=== PATIENT | male | born 1950 | race Caucasian/White ===

== ENCOUNTER 2025-02-16 16:17 | Inpatient (IN) | payer MEDICARE, OTHER, SELFPAY ==
--- NOTE | ~2025-02-16 | XR_ITS ---
Portable chest x-ray Comparison: None Clinical History: Elevated BNP Findings: Lungs are clear, without focal consolidation or pleural effusion. Cardiomediastinal silho uette is unremarkable. Bones and soft tissues are unremarkable. Impression: Clear lungs. Reviewed, dictated and finalized at location M. Impression: Clear lungs.
--- NOTE | ~2025-02-16 | XR_ITS ---
EXAMINATION: XR chest 1V portable DATE: 02/24/2025 08:35 INDICATION: Worsening leukocytosis TECHNIQUE: frontal view of the chest was obtained. COMPARISON: Chest radiograph dated 02/17/2025 FINDINGS: Unchanged mild linear discoid atelectasis at the lateral lower lung zones. No new airspace opacities, pulmonary edema, pleural effusion or pneumothorax. Cardiomegaly. Old healed posterior right rib frac ture. IMPRESSION: 1. Unchanged mild discoid atelectasis at the bilateral lower lung zones. No other acute cardiopulmona ry disease. Reviewed, dictated and finalized at location A. IMPRESSION: 1. Unchanged mild discoid atelectasis at the bilateral lower lung zones. No oth er acute cardiopulmonary disease.
--- NOTE | ~2025-02-16 | XR_ITS ---
AP and lateral views of the left tibia/fibula Clinical History: Ulcers Findings: No acute fracture or dislocation is seen. Osseous alignment is anatomic. There is advanced degenerative changes in the. There is mild diffuse soft tissue edema. Impression: Mild diffuse soft tissue edema. 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 No evidence for osteitis. Reviewed, dictated and finalized at [facility]. Impression: Mild diffuse soft tissue edema. 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 No evidence for osteitis.
--- NOTE | ~2025-02-16 | CT_ITS ---
EXAMINATION: CT diagnostic chest wo con DATE: 02/27/2025 09:48 INDICATION: worsening leukocytosis TECHNIQUE: Computed tomography (CT) of the chest was performed without intravenous contrast. Addition al 3D reconstructions utilizing coronal maximum intensity projection (MIP) were performed. Automated exposure control and iterative reconstruction technique were employed. The dose-length product was 82 3.50 mGy-cm. COMPARISON: None FINDINGS: Small bilateral pleural effusions with dependent atelectasis in the bilateral lower lobes. Mild disco id atelectasis in the lingula and along the right minor fissure. There are a few scattered small bila teral calcified pulmonary nodules along with calcified right hilar and mediastinal lymph nodes consis tent with old granulomatous disease. Small amount of smooth septal line thickening in the dependent l ungs consistent with minimal pulmonary edema. No pneumonia or pneumothorax. Heart size is normal. Ath erosclerotic coronary artery calcifications. Aortic valve calcification. Thoracic aorta is normal in caliber. No pathologically enlarged thoracic lymphadenopathy. Small calcified gallstones at the depen dent aspect of the otherwise normal gallbladder. 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 Severe thoracic spondylosis with bridging osteophytes at multiple levels consiste nt with diffuse idiopathic skeletal hyperostosis (DISH). IMPRESSION: 1. Minimal pulmonary edema with small bilateral pleural effusions. 2. Cholelithiasis. Reviewed, dictated and finalized at location A.
--- NOTE | ~2025-02-16 | CT_ITS ---
EXAMINATION: CT abdomen pelvis wo con DATE: 02/25/2025 23:56 INDICATION: Acute abdomen pain. TECHNIQUE: Computed tomography (CT) of the abdomen and pelvis was performed without intravenous contr ast. The dose-length product was 1389.82 mGy-cm. Automated exposure control and iterative reconstruct ion technique were employed. COMPARISON: None. FINDINGS: Lung bases unremarkable. Heart size normal. No significant pleural or pericardial effusion. Irregular liver surface, suspicious for cirrhosis. Gallstones. The spleen, pancreas, adrenal glands are unremarkable. Kidneys are atrophic. No renal stones or hydronephrosis. There is atherosclerosis o f the aorta. Enlarged prostate gland. Mild prominence of the bladder wall which is likely attributabl e to underdistention. Nonobstructive bowel gas pattern. Colonic diverticulosis without evidence for d iverticulitis. No abnormal pelvic masses or fluid collections. No free air or free fluid. Small hiata l hernia. Small accessory splenule. Small soft tissue nodules in the left gluteal region, likely inje ction granulomas. IMPRESSION: 1. No acute abdominal abnormality. 2: Cholelithiasis. Reviewed, dictated and finalized at location A.
--- NOTE | ~2025-02-16 | XR_ITS ---
AP and lateral views of the right tibia/fibula Clinical History: Ulcer Findings: No acute fracture or dislocation is seen. Osseous alignment is anatomic. Is moderate degene rative change at the knee. Diffuse soft tissue edema. Impression: Diffuse soft tissue edema. Moderate degenerative change at the knee. No evidence for osteomyelitis. Reviewed, dictated and finalized at [facility]. Impression: Diffuse soft tissue edema. Moderate degenerative change at the knee. No evidence for osteomyelitis.
--- NOTE | ~2025-02-16 | US_ITS ---
BILATERAL LOWER EXTREMITY VENOUS ULTRASOUND Ordering provider: Elsie Marley PA-C History: . ble swelling, infection . Comparison: None. FINDINGS: RIGHT LOWER EXTREMITY VEINS: --COMMON FEMORAL: Patent and free of thrombus. Normal compressibility, phasic flow and augmentation. --PROXIMAL SUPERFICIAL FEMORAL: Patent and free of thrombus. Normal compressibility, phasic flow and augmentation. --DISTAL SUPERFICIAL FEMORAL: Patent and free of thrombus. Normal compressibility, phasic flow and au gmentation. --POPLITEAL: Patent and free of thrombus. Normal compressibility, phasic flow and augmentation. --POSTERIOR TIBIAL: Patent and free of thrombus. Normal compressibility, phasic flow and augmentation . LEFT LOWER EXTREMITY VEINS: --COMMON FEMORAL: Patent and free of thrombus. Normal compressibility, phasic flow and augmentation. --PROXIMAL SUPERFICIAL FEMORAL: Patent and free of thrombus. Normal compressibility, phasic flow and augmentation. --DISTAL SUPERFICIAL FEMORAL: Patent and free of thrombus. Normal compressibility, phasic flow and au gmentation. --POPLITEAL: Patent and free of thrombus. Normal compressibility, phasic flow and augmentation. --POSTERIOR TIBIAL: Patent and free of thrombus. Normal compressibility, phasic flow and augmentation . IMPRESSION: Negative bilateral lower extremity venous US. No deep vein thrombosis. Reviewed, dictated and finalized at location A.
--- NOTE | ~2025-02-16 | US_ITS ---
EXAM: RENAL ULTRASOUND HISTORY: JOSSELIN COMPARISON: None. Reference is made to a CT examination of the abdomen and pelvis dated 02/25/2025 FINDINGS: RIGHT KIDNEY: 10 x 5.3 x 4.7 cm. The parenchyma of the right kidney is increased in echogenicity. No hydronephrosis or renal calculi. Trace perinephric free fluid. LEFT KIDNEY: 11 x 6.2 x 4.9 cm No hydronephrosis or renal calculi. The parenchyma of the left kidney is increased in echogenicity. BLADDER: Decompressed, limiting its evaluation. IMPRESSION: No hydronephrosis or renal calculi. Findings suggesting medical renal disease. Reviewed, dictated and finalized at location A.
--- NOTE | ~2025-02-16 | XR_ITS ---
XR chest 1V portable Ordering provider: Michelle Painting APRN History: 74 years Male with . spesis . Comparison: February 24, 2025 FINDINGS: MEDIASTINUM: The cardiac silhouette is slightly enlarged. LUNGS: No effusions or pneumothorax. Prominent markings with minimal opacification seen in the left p erihilar and left lower lobe area. Atelectasis versus pneumonia versus fibrotic changes are not exclu ded. OTHER: No free air under the diaphragm. IMPRESSION: Possible left basilar atelectasis versus pneumonia versus fibrotic changes. Clinical correlation and follow-up advised. Reviewed, dictated and finalized at location A. IMPRESSION: Possible left basilar atelectasis versus pneumonia versus fibrotic changes. Cli nical correlation and follow-up advised.
[2025-02-16 16:49] VITALS: BP 134/70; PULSE 60; RESP 16; TEMP 36.8; O2SAT 98
--- NOTE | 2025-02-16 16:55 | ED_ITS ---
HPI - Extremity Injury (Lower) General Chief Complaint: Skin/Abscess/Foreign Body <Elsie Marley PA-C - Last Filed: 02/16/25 17:05> Stated Complaint: Right leg infection <Elsie Marley PA-C - Last Filed: 02/16/25 17:05> Time Seen by Provider: 02/16/25 16:55 <Elsie Marley PA-C - Last Filed: 02/16/25 17:05> Focused HPI: Patient is a 74-year-old male who presents the ED via EMS with report of infection to bilateral lower extremities. Patient reports he has been dealing with infection intermittently in BLE over the past 1 year. Has had increased swelling, redness of his lower legs extending into his feet. States the feet have been increasingly red and swollen over the past couple of days. States the legs have been weeping for the past couple of weeks. Denies known fevers. Denies history of CHF. He is not on any diuretics. Denies shortness of breath. Was prescribed Augmentin by the [facility] this past week and has taken this as prescribed without improvement. GENERAL: Chronically ill appearing, elderly, obese with BMI of 30.9, and in no acute distress. HEAD: Normocephalic, atraumatic. CHEST: Clear to auscultation. ?No respiratory distress. HEART: Regular rate and rhythm.? MSK: Diffuse severe pitting edema to BLE with erythema, warmth, extending into feet bilaterally. Diffuse weeping. NEURO: ?Alert and oriented x3. Patient screened in triage and initial orders placed.? ?Additional care and disposition to be based upon?diagnostic testing and treatment. <Elsie Marley PA-C - Last Filed: 02/16/25 17:05> Source: patient <MARCOS Herrera Last Filed: 02/16/25 17:05> Mode of arrival: EMS <MARCOS Herrera Last Filed: 02/16/25 17:05> Limitations: no limitations <MARCOS Herrera Last Filed: 02/16/25 17:05> History of Present Illness HPI Narrative: Agree with the above triage note. Denies fevers, is endorsing nausea but is attributing this to his Augmentin. No vomiting. Denies chest pain or shortness of breath, abdominal pain. Patient is taking Eliquis for AFib and also history of hypertension. Denies history of diabetes. He notes he was hospitalized in [place] 1 year ago for a similar leg presentation. <Beckie Santana PA-C - Last Filed: 02/17/25 03:04> Related Data Allergies/Adverse Reactions: Allergies Allergy/AdvReac Type Severity Reaction Status Date / Time No Known Allergies Allergy Verified 02/16/25 16:19 <MARCOS Herrera Last Filed: 02/16/25 17:05> Review of Systems 2 Review of Systems: All systems reviewed & are unremarkable except as noted in HPI and below <MARCOS Rivas Last Filed: 02/17/25 03:04> Exam 2 Narrative: GENERAL: Well-appearing, well-nourished, and in no acute distress. HEAD: Normocephalic, atraumatic. EYES: EOMI. ENT: Nares clear, no rhinorrhea or epistaxis. Mucous membranes moist. NECK: Supple. CHEST: Clear to auscultation. No respiratory distress. HEART: Regular rate and rhythm. No murmur heard. Normal peripheral pulses. ABDOMEN: Soft, nontender, nondistended, normal active bowel sounds. EXTREMITIES: Extensive pitting edema to bilateral lower extremities with warmth and erythema extending from the dorsum of the feet bilaterally to the proximal tibia. To the left anterior tibia there is a 4 cm x 1 cm unstageable ulceration with tenderness. To the right calf there is a 15 cm x 5 cm unstageable ulceration with tenderness in overlying biofilm. No crepitus or vesicles. Cap refill less than 2. Sensation intact throughout. Patient able to wiggle toes without difficulty. DP pulses auscultated with Doppler. Weeping throughout lower extremities SKIN: Warm, dry, no rash. NEURO: No focal deficits. Alert and oriented x4 <MRACOS Rivas Last Filed: 02/17/25 03:04> Course Vital Signs Vital signs: Vital Signs Temperature 98.2 F 02/16/25 16:49 Pulse Rate 60 02/16/25 16:49 Respiratory Rate 16 02/16/25 16:49 Blood Pressure 134/70 02/16/25 16:49 Pulse Oximetry 98 02/16/25 16:49 Oxygen Delivery Room Air 02/16/25 16:49 Temperature 98.2 F 02/16/25 16:49 Pulse Rate 54 L 02/16/25 22:34 Respiratory Rate 14 02/16/25 22:34 Blood Pressure 126/58 L 02/16/25 22:34 Pulse Oximetry 100 02/16/25 22:34 Oxygen Delivery Room Air 02/16/25 16:49 <Elsie Marley PA-C - Last Filed: 02/16/25 17:05> Vital Signs Temperature 98.2 F 02/16/25 16:49 Pulse Rate 60 02/16/25 16:49 Respiratory Rate 16 02/16/25 16:49 Blood Pressure 134/70 02/16/25 16:49 Pulse Oximetry 98 02/16/25 16:49 Oxygen Delivery Room Air 02/16/25 16:49 Temperature 98.2 F 02/16/25 16:49 Pulse Rate 54 L 02/16/25 22:34 Respiratory Rate 14 02/16/25 22:34 Blood Pressure 126/58 L 02/16/25 22:34 Pulse Oximetry 100 02/16/25 22:34 Oxygen Delivery Room Air 02/16/25 16:49 <Beckie Santana PA-C - Last Filed: 02/17/25 03:04> MDM - Extremity Injury (Lower) MDM Narrative Medical decision making narrative: MSE by MEHNAZ in triage. <MARCOS Herrera Last Filed: 02/16/25 17:05> MSE by MEHNAZ in triage. 74-year-old male with history of AFib on Eliquis and hypertension presents to the emergency department for bilateral lower extremity infection for the past several months, worsening over the past few days. Patient initially was hospitalized with a similar situation 1 year ago in [place] where he was living at the time. Reportedly his wounds healed for several months until they reopen it became infected in September of 2024. Symptoms have progressively worsened since. Triage vitals are stable. Patient is afebrile and nontoxic appearing. Exam significant for extensive pitting edema to bilateral lower extremities with overlying warmth and erythema extending to the proximal tibia an unstable ulcerations as noted above. DP pulses are auscultated with Doppler without difficulty, sensation is intact. Lab work with leukocytosis of 21.2. CRP elevated to 16.4, ESR elevated to 45. Lactic is normal. Blood cultures are pending. Chemistries with a elevated bilirubin of 2.4, normal AST and ALT, normal alk- phos, no abdominal pain. BNP elevated at 914, no prior for comparison. Patient denies history of CHF. Denies chest pain or shortness of breath. Lung sounds are clear, O2 stable. Lasix provided in ED. UA with trace ketones, no UTI. Bilateral venous duplex ultrasounds are negative for DVT. Bilateral tib/fib xrays show no subcutaneous emphysema, no cortical degradation concerning for osteomyelitis. Patient was updated on results. Plan to admit for IV antibiotics for cellulitis and concern for new onset CHF. Patient was started on vancomycin, cefepime and Flagyl in the ED. discussed case with Dr. Crow, who agrees to admission. Consult for wound care placed. <Beckie Santana PA-C - Last Filed: 02/17/25 03:04> Lab Data Result diagrams: 02/16/25 17:14 02/17/25 00:52 <Elsie Marley PA-C - Last Filed: 02/16/25 17:05> Labs: Lab Results 02/16/25 02/16/25 02/16/25 Range/Units 17:13 17:14 17:14 WBC 21.2 H (4.5-10.0) K/mm3 RBC 5.20 (4.6-6.20) M/mm3 Hgb 16.7 (14.0-18.0) g/dL Hct 51.1 (42.0-52.0) % MCV 98.3 (80-100) fl MCH 32.1 (26-34) pg MCHC 32.7 (32-36) g/dl RDW 13.7 (11.5-14.5) % Plt Count 202 (150-375) k/mm3 MPV 10.7 H (7.4-10.4) fl Immature Gran % (Auto) 0.5 (0-0.5) % Neut % (Auto) 83.3 H (45.5-73.1) % Lymph % (Auto) 6.3 L (18.3-44.2) % [place] % (Auto) 7.1 (2.6-8.5) % Eos % (Auto) 2.4 (0-4.4) % Baso % (Auto) 0.4 (0.2-1.2) % Lymph # (Auto) 1.33 (0.9-3.2) K/mm3 [place] # (Auto) 1.5 H (0.1-0.6) K/mm3 Eos # (Auto) 0.5 H (0-0.3) K/mm3 Baso # (Auto) 0.1 (0.0-0.1) K/mm3 Abs Immat Gran (auto) 0.11 H (0.00-0.031) K/mm3 Absolute Neuts (auto) 17.7 H (1.3-6.7) K/mm3 Absolute Nucleated RBC 0.000 (0.0-0.012) K/mm3 Nucleated RBC % 0.0 (0.0-0.2) % ESR 45 H (0-20) mm/hr PT 19.6 H (11.1-14.7) Seconds INR 1.6 APTT Cancelled 30.1 Sodium 135 L (137-145) mmol/L Potassium 4.0 (3.4-5.0) mmol/L Chloride 99 (98-107) mmol/L Carbon Dioxide 27 (22-30) mmol/L Anion Gap 9 (4-12) mmol/L BUN 36 H (9-20) mg/dL Creatinine 1.17 (0.7-1.3) mg/dL Estim Creat Clear Calc 58 ml/min Estimated GFR > 60 (59 - ) Glucose 106 (65-110) mg/dL Lactic Acid 1.4 (0.7-2.0) mmol/L Calcium 9.4 (8.4-10.2) mg/dL Total Bilirubin 2.4 H (0.2-1.3) mg/dL AST 22 (17-59) U/L ALT 20 (6-50) U/L Alkaline Phosphatase 107 (38-126) U/L C-Reactive Protein Cancelled NT-Pro-B Natriuret Pep (19.9-100) pg/mL Total Protein (6.3-8.2) g/dL Albumin (3.5-5.1) g/dL Urine Color (Yellow) Urine Appearance (Clear) Urine pH (5.0-9.0) Ur Specific [place] (1.001-1.035) Urine Protein (Negative) mg/dL Urine Glucose (UA) (Negative) mg/dL Urine Ketones (Negative) mg/dL Ur Blood (Man) (Negative) Urine Nitrate (Negative) Urine Bilirubin (Negative) Urine Urobilinogen (<2.0) mg/dL Leukocyte Esterase Rfl (Negative) NOELLE/UL Urine RBC (0-2) /hpf Urine WBC (0-3) /hpf Ur Squamous Epith Cells (Few) /hpf Urine Bacteria /hpf Urine Casts 02/16/25 02/16/25 02/17/25 Range/Units 17:14 22:31 00:52 WBC (4.5-10.0) K/mm3 RBC (4.6-6.20) M/mm3 Hgb (14.0-18.0) g/dL Hct (42.0-52.0) % MCV (80-100) fl MCH (26-34) pg MCHC (32-36) g/dl RDW (11.5-14.5) % Plt Count (150-375) k/mm3 MPV (7.4-10.4) fl Immature Gran % (Auto) (0-0.5) % Neut % (Auto) (45.5-73.1) % Lymph % (Auto) (18.3-44.2) % [place] % (Auto) (2.6-8.5) % Eos % (Auto) (0-4.4) % Baso % (Auto) (0.2-1.2) % Lymph # (Auto) (0.9-3.2) K/mm3 [place] # (Auto) (0.1-0.6) K/mm3 Eos # (Auto) (0-0.3) K/mm3 Baso # (Auto) (0.0-0.1) K/mm3 Abs Immat Gran (auto) (0.00-0.031) K/mm3 Absolute Neuts (auto) (1.3-6.7) K/mm3 Absolute Nucleated RBC (0.0-0.012) K/mm3 Nucleated RBC % (0.0-0.2) % ESR (0-20) mm/hr PT (11.1-14.7) Seconds INR APTT Sodium (137-145) mmol/L Potassium (3.4-5.0) mmol/L Chloride (98-107) mmol/L Carbon Dioxide (22-30) mmol/L Anion Gap (4-12) mmol/L BUN (9-20) mg/dL Creatinine 1.03 (0.7-1.3) mg/dL Estim Creat Clear Calc 65 ml/min Estimated GFR > 60 (59 - ) Glucose (65-110) mg/dL Lactic Acid (0.7-2.0) mmol/L Calcium (8.4-10.2) mg/dL Total Bilirubin (0.2-1.3) mg/dL AST (17-59) U/L ALT (6-50) U/L Alkaline Phosphatase (38-126) U/L C-Reactive Protein 16.4 H NT-Pro-B Natriuret Pep 914 H (19.9-100) pg/mL Total Protein 8.0 (6.3-8.2) g/dL Albumin 4.0 (3.5-5.1) g/dL Urine Color Dark yellow (Yellow) Urine Appearance Clear (Clear) Urine pH 5.5 (5.0-9.0) Ur Specific [place] 1.029 (1.001-1.035) Urine Protein Trace (Negative) mg/dL Urine Glucose (UA) Negative (Negative) mg/dL Urine Ketones Trace H (Negative) mg/dL Ur Blood (Man) Negative (Negative) Urine Nitrate Negative (Negative) Urine Bilirubin Negative (Negative) Urine Urobilinogen 1.0 (<2.0) mg/dL Leukocyte Esterase Rfl Negative (Negative) NOELLE/UL Urine RBC 0-2 (0-2) /hpf Urine WBC 0-5 (0-3) /hpf Ur Squamous Epith Cells None seen (Few) /hpf Urine Bacteria None seen /hpf Urine Casts 0-2 02/17/25 Range/Units 00:53 WBC (4.5-10.0) K/mm3 RBC (4.6-6.20) M/mm3 Hgb (14.0-18.0) g/dL Hct (42.0-52.0) % MCV (80-100) fl MCH (26-34) pg MCHC (32-36) g/dl RDW (11.5-14.5) % Plt Count (150-375) k/mm3 MPV (7.4-10.4) fl Immature Gran % (Auto) (0-0.5) % Neut % (Auto) (45.5-73.1) % Lymph % (Auto) (18.3-44.2) % [place] % (Auto) (2.6-8.5) % Eos % (Auto) (0-4.4) % Baso % (Auto) (0.2-1.2) % Lymph # (Auto) (0.9-3.2) K/mm3 [place] # (Auto) (0.1-0.6) K/mm3 Eos # (Auto) (0-0.3) K/mm3 Baso # (Auto) (0.0-0.1) K/mm3 Abs Immat Gran (auto) (0.00-0.031) K/mm3 Absolute Neuts (auto) (1.3-6.7) K/mm3 Absolute Nucleated RBC (0.0-0.012) K/mm3 Nucleated RBC % (0.0-0.2) % ESR (0-20) mm/hr PT (11.1-14.7) Seconds INR APTT Sodium (137-145) mmol/L Potassium (3.4-5.0) mmol/L Chloride (98-107) mmol/L Carbon Dioxide (22-30) mmol/L Anion Gap (4-12) mmol/L BUN (9-20) mg/dL Creatinine (0.7-1.3) mg/dL Estim Creat Clear Calc ml/min Estimated GFR (59 - ) Glucose (65-110) mg/dL Lactic Acid 1.3 (0.7-2.0) mmol/L Calcium (8.4-10.2) mg/dL Total Bilirubin (0.2-1.3) mg/dL AST (17-59) U/L ALT (6-50) U/L Alkaline Phosphatase (38-126) U/L C-Reactive Protein 16.4 H NT-Pro-B Natriuret Pep (19.9-100) pg/mL Total Protein (6.3-8.2) g/dL Albumin (3.5-5.1) g/dL Urine Color (Yellow) Urine Appearance (Clear) Urine pH (5.0-9.0) Ur Specific [place] (1.001-1.035) Urine Protein (Negative) mg/dL Urine Glucose (UA) (Negative) mg/dL Urine Ketones (Negative) mg/dL Ur Blood (Man) (Negative) Urine Nitrate (Negative) Urine Bilirubin (Negative) Urine Urobilinogen (<2.0) mg/dL Leukocyte Esterase Rfl (Negative) NOELLE/UL Urine RBC (0-2) /hpf Urine WBC (0-3) /hpf Ur Squamous Epith Cells (Few) /hpf Urine Bacteria /hpf Urine Casts <Elsie Marley PA-C - Last Filed: 02/16/25 17:05> Lab Results 02/16/25 02/16/25 02/16/25 Range/Units 17:13 17:14 17:14 WBC 21.2 H (4.5-10.0) K/mm3 RBC 5.20 (4.6-6.20) M/mm3 Hgb 16.7 (14.0-18.0) g/dL Hct 51.1 (42.0-52.0) % MCV 98.3 (80-100) fl MCH 32.1 (26-34) pg MCHC 32.7 (32-36) g/dl RDW 13.7 (11.5-14.5) % Plt Count 202 (150-375) k/mm3 MPV 10.7 H (7.4-10.4) fl Immature Gran % (Auto) 0.5 (0-0.5) % Neut % (Auto) 83.3 H (45.5-73.1) % Lymph % (Auto) 6.3 L (18.3-44.2) % [place] % (Auto) 7.1 (2.6-8.5) % Eos % (Auto) 2.4 (0-4.4) % Baso % (Auto) 0.4 (0.2-1.2) % Lymph # (Auto) 1.33 (0.9-3.2) K/mm3 [place] # (Auto) 1.5 H (0.1-0.6) K/mm3 Eos # (Auto) 0.5 H (0-0.3) K/mm3 Baso # (Auto) 0.1 (0.0-0.1) K/mm3 Abs Immat Gran (auto) 0.11 H (0.00-0.031) K/mm3 Absolute Neuts (auto) 17.7 H (1.3-6.7) K/mm3 Absolute Nucleated RBC 0.000 (0.0-0.012) K/mm3 Nucleated RBC % 0.0 (0.0-0.2) % ESR 45 H (0-20) mm/hr PT 19.6 H (11.1-14.7) Seconds INR 1.6 APTT Cancelled 30.1 Sodium 135 L (137-145) mmol/L Potassium 4.0 (3.4-5.0) mmol/L Chloride 99 (98-107) mmol/L Carbon Dioxide 27 (22-30) mmol/L Anion Gap 9 (4-12) mmol/L BUN 36 H (9-20) mg/dL Creatinine 1.17 (0.7-1.3) mg/dL Estim Creat Clear Calc 58 ml/min Estimated GFR > 60 (59 - ) Glucose 106 (65-110) mg/dL Lactic Acid 1.4 (0.7-2.0) mmol/L Calcium 9.4 (8.4-10.2) mg/dL Total Bilirubin 2.4 H (0.2-1.3) mg/dL AST 22 (17-59) U/L ALT 20 (6-50) U/L Alkaline Phosphatase 107 (38-126) U/L C-Reactive Protein Cancelled NT-Pro-B Natriuret Pep (19.9-100) pg/mL Total Protein (6.3-8.2) g/dL Albumin (3.5-5.1) g/dL Urine Color (Yellow) Urine Appearance (Clear) Urine pH (5.0-9.0) Ur Specific [place] (1.001-1.035) Urine Protein (Negative) mg/dL Urine Glucose (UA) (Negative) mg/dL Urine Ketones (Negative) mg/dL Ur Blood (Man) (Negative) Urine Nitrate (Negative) Urine Bilirubin (Negative) Urine Urobilinogen (<2.0) mg/dL Leukocyte Esterase Rfl (Negative) NOELLE/UL Urine RBC (0-2) /hpf Urine WBC (0-3) /hpf Ur Squamous Epith Cells (Few) /hpf Urine Bacteria /hpf Urine Casts 02/16/25 02/16/25 02/17/25 Range/Units 17:14 22:31 00:52 WBC (4.5-10.0) K/mm3 RBC (4.6-6.20) M/mm3 Hgb (14.0-18.0) g/dL Hct (42.0-52.0) % MCV (80-100) fl MCH (26-34) pg MCHC (32-36) g/dl RDW (11.5-14.5) % Plt Count (150-375) k/mm3 MPV (7.4-10.4) fl Immature Gran % (Auto) (0-0.5) % Neut % (Auto) (45.5-73.1) % Lymph % (Auto) (18.3-44.2) % [place] % (Auto) (2.6-8.5) % Eos % (Auto) (0-4.4) % Baso % (Auto) (0.2-1.2) % Lymph # (Auto) (0.9-3.2) K/mm3 [place] # (Auto) (0.1-0.6) K/mm3 Eos # (Auto) (0-0.3) K/mm3 Baso # (Auto) (0.0-0.1) K/mm3 Abs Immat Gran (auto) (0.00-0.031) K/mm3 Absolute Neuts (auto) (1.3-6.7) K/mm3 Absolute Nucleated RBC (0.0-0.012) K/mm3 Nucleated RBC % (0.0-0.2) % ESR (0-20) mm/hr PT (11.1-14.7) Seconds INR APTT Sodium (137-145) mmol/L Potassium (3.4-5.0) mmol/L Chloride (98-107) mmol/L Carbon Dioxide (22-30) mmol/L Anion Gap (4-12) mmol/L BUN (9-20) mg/dL Creatinine 1.03 (0.7-1.3) mg/dL Estim Creat Clear Calc 65 ml/min Estimated GFR > 60 (59 - ) Glucose (65-110) mg/dL Lactic Acid (0.7-2.0) mmol/L Calcium (8.4-10.2) mg/dL Total Bilirubin (0.2-1.3) mg/dL AST (17-59) U/L ALT (6-50) U/L Alkaline Phosphatase (38-126) U/L C-Reactive Protein 16.4 H NT-Pro-B Natriuret Pep 914 H (19.9-100) pg/mL Total Protein 8.0 (6.3-8.2) g/dL Albumin 4.0 (3.5-5.1) g/dL Urine Color Dark yellow (Yellow) Urine Appearance Clear (Clear) Urine pH 5.5 (5.0-9.0) Ur Specific [place] 1.029 (1.001-1.035) Urine Protein Trace (Negative) mg/dL Urine Glucose (UA) Negative (Negative) mg/dL Urine Ketones Trace H (Negative) mg/dL Ur Blood (Man) Negative (Negative) Urine Nitrate Negative (Negative) Urine Bilirubin Negative (Negative) Urine Urobilinogen 1.0 (<2.0) mg/dL Leukocyte Esterase Rfl Negative (Negative) NOELLE/UL Urine RBC 0-2 (0-2) /hpf Urine WBC 0-5 (0-3) /hpf Ur Squamous Epith Cells None seen (Few) /hpf Urine Bacteria None seen /hpf Urine Casts 0-2 02/17/25 Range/Units 00:53 WBC (4.5-10.0) K/mm3 RBC (4.6-6.20) M/mm3 Hgb (14.0-18.0) g/dL Hct (42.0-52.0) % MCV (80-100) fl MCH (26-34) pg MCHC (32-36) g/dl RDW (11.5-14.5) % Plt Count (150-375) k/mm3 MPV (7.4-10.4) fl Immature Gran % (Auto) (0-0.5) % Neut % (Auto) (45.5-73.1) % Lymph % (Auto) (18.3-44.2) % [place] % (Auto) (2.6-8.5) % Eos % (Auto) (0-4.4) % Baso % (Auto) (0.2-1.2) % Lymph # (Auto) (0.9-3.2) K/mm3 [place] # (Auto) (0.1-0.6) K/mm3 Eos # (Auto) (0-0.3) K/mm3 Baso # (Auto) (0.0-0.1) K/mm3 Abs Immat Gran (auto) (0.00-0.031) K/mm3 Absolute Neuts (auto) (1.3-6.7) K/mm3 Absolute Nucleated RBC (0.0-0.012) K/mm3 Nucleated RBC % (0.0-0.2) % ESR (0-20) mm/hr PT (11.1-14.7) Seconds INR APTT Sodium (137-145) mmol/L Potassium (3.4-5.0) mmol/L Chloride (98-107) mmol/L Carbon Dioxide (22-30) mmol/L Anion Gap (4-12) mmol/L BUN (9-20) mg/dL Creatinine (0.7-1.3) mg/dL Estim Creat Clear Calc ml/min Estimated GFR (59 - ) Glucose (65-110) mg/dL Lactic Acid 1.3 (0.7-2.0) mmol/L Calcium (8.4-10.2) mg/dL Total Bilirubin (0.2-1.3) mg/dL AST (17-59) U/L ALT (6-50) U/L Alkaline Phosphatase (38-126) U/L C-Reactive Protein 16.4 H NT-Pro-B Natriuret Pep (19.9-100) pg/mL Total Protein (6.3-8.2) g/dL Albumin (3.5-5.1) g/dL Urine Color (Yellow) Urine Appearance (Clear) Urine pH (5.0-9.0) Ur Specific [place] (1.001-1.035) Urine Protein (Negative) mg/dL Urine Glucose (UA) (Negative) mg/dL Urine Ketones (Negative) mg/dL Ur Blood (Man) (Negative) Urine Nitrate (Negative) Urine Bilirubin (Negative) Urine Urobilinogen (<2.0) mg/dL Leukocyte Esterase Rfl (Negative) NOELLE/UL Urine RBC (0-2) /hpf Urine WBC (0-3) /hpf Ur Squamous Epith Cells (Few) /hpf Urine Bacteria /hpf Urine Casts <Beckie Santana PA-C - Last Filed: 02/17/25 03:04> Discharge Plan Discharge Clinical Impression: Cellulitis, Bilateral edema of lower extremity <MARCOS Herrera Last Filed: 02/16/25 17:05> Patient Disposition: Still a Patient <MARCOS Herrera Last Filed: 02/16/25 17:05> Condition: Stable <MARCOS Herrera Last Filed: 02/16/25 17:05> Patient Language: Greenlandic <MARCOS Herrera Last Filed: 02/16/25 17:05> Follow-up/Referrals: PHYSICIAN NOT ON STAFF,NONSTAFF [Primary Care Provider] - <MARCOS Herrera Last Filed: 02/16/25 17:05>
[2025-02-16 17:22] LABS: Basophils Absolute Auto 0.1 K/mm3 (0.0-0.1); Basophils Percent Auto 0.4 % (0.2-1.2); Eosinophils Absolute Auto 0.5 K/mm3 (0-0.3); Eosinophils Percent Auto 2.4 % (0-4.4); Hematocrit 51.1 % (42.0-52.0); Hemoglobin 16.7 g/dL (14.0-18.0); Immature Granulocyte Absolute 0.11 K/mm3 (0.00-0.031); Immature Granulocyte Percent A 0.5 % (0-0.5); Lymphocytes Absolute Auto 1.33 K/mm3 (0.9-3.2); Lymphocytes Percent Auto 6.3 % (18.3-44.2); Mean Corpuscular HGB Conc 32.7 g/dl (32-36); Mean Corpuscular Hemoglobin 32.1 pg (26-34); Mean Corpuscular Volume 98.3 fl (80-100); Mean Platelet Volume 10.7 fl (7.4-10.4); Monocytes Absolute Auto 1.5 K/mm3 (0.1-0.6); Monocytes Percent Auto 7.1 % (2.6-8.5); Neutrophils Absolute Auto 17.7 K/mm3 (1.3-6.7); Neutrophils Percent Auto 83.3 % (45.5-73.1); Platelet Count Result 202 k/mm3 (150-375); Red Cell Distribution Width 13.7 % (11.5-14.5); White Blood Count 21.2 K/mm3 (4.5-10.0)
[2025-02-16 17:34] LABS: INR 1.6; Lactic Acid Reflex 1.4 mmol/L (0.7-2.0); Partial Thromboplastin Time 30.1 Seconds (22.3-36.8); Prothrombin Time 19.6 Seconds (11.1-14.7)
[2025-02-16 17:45] LABS: NT Pro B Type Natriuretic Pept 914 pg/mL (19.9-100)
[2025-02-16 17:50] LABS: Alanine Aminotransferase 20 U/L (6-50); Alkaline Phosphatase 107 U/L (38-126); Anion Gap 9 mmol/L (4-12); Aspartate Amino Transferase 22 U/L (17-59); Bilirubin,Total 2.4 mg/dL (0.2-1.3); Blood Urea Nitrogen 36 mg/dL (9-20); Calcium 9.4 mg/dL (8.4-10.2); Carbon Dioxide 27 mmol/L (22-30); Chloride 99 mmol/L (98-107); Estimated CRCL calculation 58 ml/min; Estimated Glomerular Filt Rate > 60; Glucose 106 mg/dL (65-110); Sodium 135 mmol/L (137-145)
[2025-02-16 17:59] LABS: CRP 16.4 mg/dL (<1.0)
[2025-02-16 22:34] VITALS: BP 126/58; PULSE 54; RESP 14; O2SAT 100
[2025-02-16 22:47] LABS: Add Urine Microscopic? YES; Appearance Urine Clear (Clear); Bacteria Urine None Seen /hpf; Bilirubin Urine Negative (Negative); Blood Urine Negative (Negative); Color Urine Dark Yellow (Yellow); Glucose Urine UA Negative (Negative); Ketones Urine Trace mg/dL (Negative); Leukocyte Esterase Ur Negative LEU/UL (Negative); Nitrate Urine Negative (Negative); Non Pathogenic Casts 0-2; Protein Urine Trace mg/dL (Negative); RBC Urine 0-2 /hpf (0-2); Specific Grav Ur 1.029 (1.001-1.035); Squamous Epithelial Cell Urine None Seen /hpf (Few); WBC Urine 0-5 /hpf (0-3); pH Urine 5.5 (5.0-9.0)
--- OUTSIDE RECORDS SUMMARY | 2025-02-16 23:27 | XMS_ITS | Clinical Summary ---
Author Organization [facility] Address [address] [place] [id number] Care Team Providers Care Fisher Crab Name Role Phone Unavailable Primary Care Provider Unavailabl e Social History Tobacco Use Types Packs/Day Years Used Date Smoking Tobacco: Never Assessed Sex and Gender Information Value Date Recorded Sex Assigned at Not on file Legal Sex Male 8:21 PM CDT Gender Identity Not on file Sexual Orientation Not on file Plan of Treatment Health Maintenance Due Date Last Done Comments Colorectal Cancer Screening Colonoscopy (10 Years) 1950 Hepatitis C 1968 DTaP, Tdap and Td Vaccines ( 1 - Tdap) 1969 Zoster Vaccines (1 of 2) 2000 Pneumococcal Vaccine: 65+ Ye ars (1 of 1 - PCV) 2015 COVID-19 Vaccine ( - 2023-2 5 season) 2024 RSV Immunization or 60+ Years (1 - 1-dose 75+ series) 2025 Meningococcal B Vaccine Aged Out No l onger eligible based on patient's age to complete this topic Meningococcal Vaccine Aged Out No christel aimee eligible based on patient's age to complete this topic RSV Immunizations Under 20 Months Aged Out No longer eligible based on patient's age to complete this topic
[2025-02-16] MEDS: MORPHINE SULFATE (*CRX) 2 MG/ML INJ IV PUSH (23:30)
[2025-02-16] MEDS: ONDANSETRON INJ 4 MG/2 ML VIAL IV PUSH (23:30)
[2025-02-17 00:44] LABS: Erythrocyte Sedimentation Rate 45 mm/hr (0-20)
[2025-02-17 01:07] LABS: Estimated CRCL calculation 65 ml/min; Estimated Glomerular Filt Rate > 60
[2025-02-17 01:24] LABS: CRP 16.4 mg/dL (<1.0)
[2025-02-17 01:30] LABS: Lactic Acid Reflex 1.3 mmol/L (0.7-2.0)
--- NOTE | 2025-02-17 01:41 | ECG_ITS ---
Test Date: 2025-02-17 01:41:06 Measurements Intervals [place] Rate: 54 P: 0 MN: 0 QRS: -10 QRSD: 132 T: 12 QT: 428 QTc: 406 Interpretive Statements JUNCTIONAL ESCAPE RHYTHM RIGHT BUNDLE BRANCH BLOCK CONSIDER INFERIOR INFARCT, AGE INDETERMINATE BASELINE ARTIFACT- I, II, III, AVR, AVL, AVF, V1 ABNORMAL ECG No previous ECG available for comparison Electronically Signed On 02-17-2025 08:24:22 CDT by Guanaco Valencia D.O.
[2025-02-17] MEDS: MORPHINE SULFATE (*CRX) 2 MG/ML INJ IV PUSH ×3 (01:52→13:15)
[2025-02-17] MEDS: VANCOMYCIN 1,250 MG/NS 250 ML 1,250 MG/250 ML BAG 166.67 MG IVPB ×2 (02:00→04:55)
[2025-02-17] MEDS: FUROSEMIDE INJ 40 MG/4 ML VIAL 20 MG IV PUSH (03:27)
[2025-02-17] MEDS: CEFEPIME 2 GM/NS 50 ML 2 GM/50 ML BAG IVPB ×2 (03:27→13:19)
[2025-02-17] MEDS: ONDANSETRON INJ 4 MG/2 ML VIAL IV PUSH (04:26)
--- NOTE | 2025-02-17 04:49 | ADMGEN ---
This patient, Curtis Holbrook, was admitted to Medical Room 255-. Patient/family oriented to hospital policies and general routines including ID bracelet, bed and alarms, visiting hours, pain management, procedures, bathroom and other care routines, personal items, smoking policy, room service/diet, and visiting hours. Information on how to activate the Rapid Response Team has been discussed. Patient/Family are encouraged to report perceived risks to care and to ask questions if they do not understand what they are told or what they should do.
--- NOTE | 2025-02-17 04:59 | PC.NURSE ---
Pt refused to have legs elevated. Pt legs swollen and weeping. Pt is alert and oriented. Pt received medication prescriptions in [place] and has not had many most of his medications filled since last year. Pt received his medication from the [place] mail order.
[2025-02-17 05:04] VITALS: BP 136/61; PULSE 55; RESP 20; TEMP 36.7; O2SAT 100
[2025-02-17] MEDS: metroNIDAZOLE 500 MG/ISO 100ML 500 MG/100 ML BAG 100 MG IVPB ×2 (06:41→13:50)
--- NOTE | 2025-02-17 10:53 | PM.IMHP ---
H&P: HPI History of Present Illness Date/Time: 02/17/25 10:53 <Suraj AppiahArley Carl, Student - Last Filed: 02/17/25 15:43> Chief Complaint: Bilateral Lower Extremity Infection <Suraj Henry, Student - Last Filed: 02/17/25 15:43> Narrative: Patient is a 74-year-old male with history of atrial fibrillation treated with Eliquis and hypertension presenting with bilateral lower extremity swelling and concern for infection related to open wound. Worsening began a few days ago with increased pain, redness, swelling, serous drainage, and decreased appetite. Original wound December 2023 to posterior portion of right calf and attempted self treatment with Neosporin and peroxide. Condition slowly worsened and he was treated at an emergency room with topical iodine and packing. Wound reportedly healed but reopened and became infected late last year. He thinks the wound to the left anterior leg occurred due to scratching it with his toenail. States drainage has always been clear yellow. Bilateral leg swelling began early this year, and patient reported he hasn't received primary medical care recently due to lack of access with clinic availability and transportation concerns. Augmentin was reportedly prescribed by the [facility] last week and was taken with no improvement. Legs have been weeping for the past couple of weeks. Ambulation and activity has been difficult due to bilateral knee degenerative joint disease. Denies chest pain, fevers, chills, difficulty breathing, headache, dizziness, fatigue, paresthesias, changes in bowel or bladder habits, and other recent infection. Notable findings on presentation labs: Lab work with leukocytosis of 21.2. CRP elevated to 16.4, ESR elevated to 45. Lactic is normal. Blood cultures are pending Chemistries with a elevated bilirubin of 2.4, normal AST and ALT, normal alk-phos, no abdominal pain BNP elevated at 914, no prior for comparison. Patient denies history of CHF. Denies chest pain or shortness of breath. Lung sounds are clear, O2 stable. Lasix provided in ED UA with trace ketones, no UTI Bilateral venous duplex ultrasounds are negative for DVT Bilateral tib/fib Xrays show no subcutaneous emphysema, no cortical degradation concerning for osteomyelitis. Severe osteoarthritis EKG: RBBB, junctional escape rhythm, potential previous inferior infarct <Suraj AppiahArley Carl, Student - Last Filed: 02/17/25 15:43> Patient is a 74-year-old male with history of atrial fibrillation treated with Eliquis and hypertension presenting with bilateral lower extremity swelling and concern for infection related to open wound. Worsening began a few days ago with increased pain, redness, swelling, serous drainage, and decreased appetite. Original wound December 2023 to posterior portion of right calf and attempted self treatment with Neosporin and peroxide. Condition slowly worsened and he was treated at an emergency room with topical iodine and packing. Wound reportedly healed but reopened and became infected late last year. He thinks the wound to the left anterior leg occurred due to scratching it with his toenail. States drainage has always been clear yellow. Bilateral leg swelling began early this year, and patient reported he hasn't received primary medical care recently due to lack of access with clinic availability and transportation concerns. Augmentin was reportedly prescribed by the [facility] last week and was taken with no improvement. Legs have been weeping for the past couple of weeks. Ambulation and activity has been difficult due to bilateral knee degenerative joint disease. Denies chest pain, fevers, chills, difficulty breathing, headache, dizziness, fatigue, paresthesias, changes in bowel or bladder habits, and other recent infection. Notable findings on presentation labs: Lab work with leukocytosis of 21.2. CRP elevated to 16.4, ESR elevated to 45. Lactic is normal. Blood cultures are pending Chemistries with a elevated bilirubin of 2.4, normal AST and ALT, normal alk-phos, no abdominal pain BNP elevated at 914, no prior for comparison. Patient denies history of CHF. Denies chest pain or shortness of breath. Lung sounds are clear, O2 stable. Lasix provided in ED UA with trace ketones, no UTI Bilateral venous duplex ultrasounds are negative for DVT Bilateral tib/fib Xrays show no subcutaneous emphysema, no cortical degradation concerning for osteomyelitis. Severe osteoarthritis EKG: RBBB, junctional escape rhythm, potential previous inferior infarct Pt is seen and examined. PT is argumentative with staff. Threatens to leave AMA with any kind of instruction or directions that incontinence him. Nursing was frida to apply Acewrap to debbi legs. Pt is full code. <Harleen Perez, WATCH CASE POLISHER - Last Filed: 02/17/25 15:47> Review of Systems Review of Systems: All systems reviewed & are unremarkable except as noted in HPI and below <Harleen Perez WATCH CASE POLISHER - Last Filed: 02/17/25 15:47> [facility] Past Medical History Medical History: Medical History (Updated 02/17/25 @ 13:36 by TRINA Diaz) Degenerative joint disease of knee Hypertension <Suraj Henry Student - Last Filed: 02/17/25 15:43> Surgical History Surgical History: Surgical History History of hernia repair <Suraj Henry Student - Last Filed: 02/17/25 15:43> Family History Family History: Family History Father Diabetes mellitus Hypertension Sibling Diabetes mellitus Mother Hypertension <Suraj Henry Student - Last Filed: 02/17/25 15:43> Social History Social History: Social History Smoking status: Never smoker Alcohol intake: never Substance use: never Substance use type: does not use Do You Feel Safe in your Home?: Yes Lack of Transportation: No Lack of Food: Never True Current Housing: I Have Housing Concerned About Future Housing: No Difficulty Paying Gas/Electric Bills: No Difficulty Paying for Meds: No Currently Unemployed: No Education: High School Diploma/GED Difficulty w/ Childcare or Family Care: No Living arrangements: alone Occupation/Education: retired Spiritual care concerns: No <Suraj Henry Student - Last Filed: 02/17/25 15:43> Comments Expresses concern about transportation with current mobility <Suraj W. Henry, Student - Last Filed: 02/17/25 15:43> Meds Home Medications and Allergies Home medications: Home Medications ?Medication ?Instructions ?Recorded ?Confirmed ?Type apixaban 5 mg tablet (Eliquis) 5 mg PO BID 02/17/25 02/17/25 History <Suraj Henry, Student - Last Filed: 02/17/25 15:43> Allergies/Adverse reactions: Allergies Allergy/AdvReac Type Severity Reaction Status Date / Time No Known Allergies Allergy Verified 02/16/25 16:19 <Suraj Henry, Student - Last Filed: 02/17/25 15:43> Vital Signs Vital Signs - 24 hr 02/16/25 16:49 02/16/25 22:34 02/17/25 05:00 Temperature 98.2 F Pulse Rate 60 54 L Respiratory Rate 16 14 Blood Pressure 134/70 126/58 L Pulse Oximetry 98 100 Oxygen Delivery Room Air Room Air 02/17/25 05:04 02/17/25 08:00 Temperature 98.1 F Pulse Rate 55 L Respiratory Rate 20 Blood Pressure 136/61 Pulse Oximetry 100 Oxygen Delivery Room Air <Suraj Henry, Student - Last Filed: 02/17/25 15:43> Exam Narrative: GENERAL: Well-appearing, well-nourished, and in no acute distress. HEAD: Normocephalic, atraumatic. EYES: EOMI. Normal appearing sclera. ENT: Mucous membranes moist. NECK: Supple. CHEST: Clear to auscultation. No respiratory distress. HEART: Regular rate and rhythm. No murmur heard. Normal peripheral pulses. ABDOMEN: Soft, nontender, nondistended, normal active bowel sounds. EXTREMITIES: Extensive pitting edema to bilateral lower extremities with warmth and erythema extending from the dorsum of the feet bilaterally to the proximal tibia. To the left anterior tibia there is a 3.5 cm x .7 cm unstageable ulceration with tenderness. To the right calf there is a 10 cm x 11 cm unstageable ulceration with 10/10 tenderness extending 1-2 cm outward of lesion. No crepitus or vesicles. Cap refill less than 2. Sensation intact throughout. Patient able to wiggle toes without difficulty. Weeping throughout lower extremities SKIN: Warm, dry, no rash. NEURO: No focal deficits. Alert and oriented x4 <Suraj Henry Student - Last Filed: 02/17/25 15:43> Const: General: comfortable <Harleen Perez APRN - Last Filed: 02/17/25 15:47> H&P: Results Labs Labs: Short CBC 02/16/25 Range/Units 17:14 WBC 21.2 H (4.5-10.0) K/mm3 Hgb 16.7 (14.0-18.0) g/dL Hct 51.1 (42.0-52.0) % Plt Count 202 (150-375) k/mm3 BMP 02/16/25 02/17/25 17:14 00:52 Sodium 135 L Potassium 4.0 Chloride 99 Carbon Dioxide 27 BUN 36 H Creatinine 1.17 1.03 Glucose 106 Calcium 9.4 Liver Function 02/16/25 Range/Units 17:14 Total Bilirubin 2.4 H (0.2-1.3) mg/dL AST 22 (17-59) U/L ALT 20 (6-50) U/L Alkaline Phosphatase 107 (38-126) U/L Albumin 4.0 (3.5-5.1) g/dL Urine 02/16/25 Range/Units 22:31 Urine Color Dark yellow (Yellow) Urine Appearance Clear (Clear) Urine pH 5.5 (5.0-9.0) Ur Specific Holbrook 1.029 (1.001-1.035) Urine Protein Trace (Negative) mg/dL Urine Glucose (UA) Negative (Negative) mg/dL <Suraj Henry Student - Last Filed: 02/17/25 15:43> Assessment and Plan Assessment and plan (1) Cellulitis: Qualifiers: Laterality: unspecified laterality Site of cellulitis: extremity Site of cellulitis of extremity: lower extremity Qualified Code(s): L03.119 - Cellulitis of unspecified part of limb <Suraj Henry Student - Last Filed: 02/17/25 15:43> Code(s): L03.90 - Cellulitis, unspecified <Suraj Henry Student - Last Filed: 02/17/25 15:43> Status: Acute <Suraj Henry Student - Last Filed: 02/17/25 15:43> (2) Degenerative joint disease of knee: Qualifiers: Osteoarthritis type: primary Laterality: bilateral Qualified Code(s): M17.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 <Suraj Henry Murray - Last Filed: 02/17/25 15:43> Code(s): M17.9 - Osteoarthritis of knee, unspecified <Suraj Henry Murray - Last Filed: 02/17/25 15:43> Status: Acute <Suraj Henry - Last Filed: 02/17/25 15:43> (3) Bilateral edema of lower extremity: Code(s): R60.0 - Localized edema <Suraj AppiahArley Carl Murray - Last Filed: 02/17/25 15:43> Status: Acute <Suraj Henry Murray - Last Filed: 02/17/25 15:43> Assessment and Plan: Cellulitis/Venous Insufficiency: - Patient started on IV cefepime, metronidazole, vancomycin empirically for broad coverage initially by ED - Due to lack of fever and purulent drainage, vancomycin was discontinued as concern for MRSA decreased - Wound care consulted - Will be utilizing santyl ointment for debridement of the wound, dressing for the weeping, and utilizing elastic wraps for decompression - Elevation advised and attempted over stay as tolerated by patients pain - Lack of history of heart failure, BNP measured at 914, echo ordered for further evaluation as it may be contributing to symptoms Billateral Osteoarthritis - Difficulty ambulating and elevating legs due to pain in knees - Ortho consulted and advised ice, elevation, PT/OT, and WBAT - Patient denied PT/OT as of 02/17/25, will continue to advise on it 02/18/25 <Suraj Rodriguez HenryMurray johnson - Last Filed: 02/17/25 15:43> Quality VTE Prophylaxis VTE prophylaxis: pharmacologic ordered <Harleen Perez APRN - Last Filed: 02/17/25 15:47> Hospitalist [facility] Advance Care Plan I have confirmed that the patient's Advanced Care Plan is present, code status is documented, or surrogate decision maker is listed in patient medical record.: Yes <Harleen Perez APRN - Last Filed: 02/17/25 15:47> Medication Reconciliation I have utilized all available resources to obtain, update and review the patients current medications (includes all prescriptions, OTC, herbals, cannabis, and nutritional supplements).: Yes <Harleen Perez, BECKY - Last Filed: 02/17/25 15:47>
[2025-02-17] MEDS: COLLAGENASE OINT 30 GM TUBE 1 APPLIC TOPICAL ×2 (11:40→20:59)
[2025-02-17] MEDS: APIXABAN 5 MG TABLET PO ×2 (11:44→20:59)
[2025-02-17] MEDS: LIDOCAINE 5% PATCH 1 PATCH TRANSDERM (11:44)
[2025-02-17] MEDS: HYDROcodone/acetaminophen (*CRX) 5-325 MG TABLET 1 TAB PO (11:44)
[2025-02-17 12:03] VITALS: O2SAT 97
[2025-02-17 13:02] LABS: MRSA (PCR) NOT DETECTED (NOT DETECTE)
--- NOTE | 2025-02-17 13:13 | P.CONOP_ITS ---
Assessment and Plan Assessment and plan (1) Bilateral edema of lower extremity: Code(s): R60.0 - Localized edema Status: Acute (2) Cellulitis: Qualifiers: Laterality: unspecified laterality Site of cellulitis: extremity Site of cellulitis of extremity: lower extremity Qualified Code(s): L03.119 - Cellulitis of unspecified part of limb Code(s): L03.90 - Cellulitis, unspecified Status: Acute Assessment and Plan: Patient is currently being treated for bilateral lower extremity edema and cellulitis. Defer treatment to hospitalist service. (3) Degenerative joint disease of knee: Qualifiers: Osteoarthritis type: primary Laterality: bilateral Qualified Code(s): M17.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 Code(s): M17.9 - Osteoarthritis of knee, unspecified Status: Acute Assessment and Plan: Orthopedic consult requested for bilateral lower extremity knee DJD seen on tib- fib radiographs. Patient seen and evaluated. Patient reports long history of bilateral knee DJD for which he seeks treatment at the [facility]. He has been unhappy with previous treatment due to recurrent cortisone injections and his feelings that that cause progression of his degenerative changes. He is not currently undergoing treatment for his knee DJD. He is not a candidate for knee injections due to his current/active cellulitis. He also does not have any interest in injections. He could consider a TKA in the future when medical problems are resolved. This would be done as an outpatient after surgical work up for an elective procedure. He is welcome to follow up in our office for b/l knee DJD as an outpatient vs. continuing care with his previously established orthopedic practice at the [facility]. In the interim, he can continue the lidocaine patches currently in use. Ice/elevation. PT/OT. WBAT. Thank you for allowing us to assist in the care of this patient. History of Present Illness HPI Consult date: 02/17/25 Requesting physician: Harleen Perez APRN Chief complaint: Cellulitis Narrative: Orthopedic consult for this 75-year-old male with a history of bilateral lower extremity cellulitis. Orthopedic consult requested for bilateral lower extremity arthritis inhibiting ability to perform ADLs. Radiographs of the tib- fib bilaterally revealed incidental views of the knees and moderate to severe OA. The patient reports a prolonged history of bilateral extremity DJD. He is established with the [facility] for knee DJD and has undergone several cortisone injections in the past which he believes has progressed and worsened his knee arthritis. He is currently admitted for bilateral lower extremity cellulitis and pain. He is being treated with IV antibiotics and wrapping. Review of Systems 2 Review of Systems: All systems reviewed & are unremarkable except as noted in HPI and below PMFSH Past Medical History Medical History (Updated 02/17/25 @ 13:36 by TRINA Diaz) Degenerative joint disease of knee Hypertension Surgical History Surgical History History of hernia repair Family History Family History Father Diabetes mellitus Hypertension Sibling Diabetes mellitus Mother Hypertension Social History Social History Smoking status: Never smoker Alcohol intake: never Substance use: never Substance use type: does not use Do You Feel Safe in your Home?: Yes Lack of Transportation: No Lack of Food: Never True Current Housing: I Have Housing Concerned About Future Housing: No Difficulty Paying Gas/Electric Bills: No Difficulty Paying for Meds: No Currently Unemployed: No Education: High School Diploma/GED Difficulty w/ Childcare or Family Care: No Living arrangements: alone Occupation/Education: retired Spiritual care concerns: No Meds Home Medications and Allergies Home Medications ?Medication ?Instructions ?Recorded ?Confirmed ?Type apixaban 5 mg tablet (Eliquis) 5 mg PO BID 02/17/25 02/17/25 History Allergies Allergy/AdvReac Type Severity Reaction Status Date / Time No Known Allergies Allergy Verified 02/16/25 16:19 Vital Signs Vital Signs - 24 hr 02/16/25 16:49 02/16/25 22:34 02/17/25 05:00 Temperature 36.8 C Pulse Rate 60 54 L Respiratory Rate 16 14 Blood Pressure 134/70 126/58 L Pulse Oximetry 98 100 Oxygen Delivery Room Air Room Air 02/17/25 05:04 02/17/25 08:00 02/17/25 12:03 Temperature 36.7 C Pulse Rate 55 L Respiratory Rate 20 Blood Pressure 136/61 Pulse Oximetry 100 97 Oxygen Delivery Room Air Room Air Exam 2 Const: General: cooperative and average body habitus Nutritional Appearance: average body habitus Orientation/consciousness: patient oriented x3 Limitations: no limitations HENMT: Head: normal to inspection Ears: hearing grossly normal bilaterally Face/Nose/Sinus: Normal external nose present and normal facial exam Face and sinus: normal facial exam Mouth: Yes moist mucous membranes Teeth and gingiva: dentition normal Eyes: General: appearance normal, both eyes and all related structures P upils: Equal, round and reactive pupils present EOM: EOMs intact bilaterally Neck: Neck: normal visual inspection Chest: Chest palpation & inspection: normal inspection of the chest Resp: Effort & Inspection: normal respiratory effort and able to speak in complete sentences Neuro: General: patient oriented x3 Cranial nerves: Yes Equal, round and reactive pupils present Extrem: General: normal to inspection, capillary refill normal, no calf tenderness and normal gait (antalgic ) Right upper extremity: normal to inspection, full ROM and normal capillary refill Left upper extremity: normal to inspection, full ROM and normal capillary refill Right lower extremity: n ormal to inspection, normal capillary refill and knee Details: normal to inspection, tenderness Location: of the medial joint line, swelling (diffuse- mild ), abnormal ROM Details: pain with active ROM during Details: in extension and in flexion and with range as follows (0-130), knee ligament exam normal Details: valgus stress test normal (pain ) and varus stress test normal (pain ); anterior drawer test abnormal and posterior drawer test abnormal, Jason's Test Details: positive medially and crepitus Location: at the kneww and at the patella; no ecchymosis and no unusual warmth Left lower extremity: normal to inspection, normal capillary refill and knee Details: normal to inspection, tenderness Location: of the medial joint line, swelling (diffuse mild ), abnormal ROM (AROM/PROM with pain. 0-125), knee ligament exam normal, Jason's Test Details: positive medially and crepitus (with flexion/extension of the knee (patella)) Location: at the knee and at the patella; no ecchymosis and no unusual warmth Results Labs 02/16/25 17:14 02/17/25 00:52 Labs: Abnormal lab results 02/16/25 02/16/25 02/16/25 Range/Units 17:13 17:14 22:31 WBC 21.2 H (4.5-10.0) K/mm3 MPV 10.7 H (7.4-10.4) fl Neut % (Auto) 83.3 H (45.5-73.1) % Lymph % (Auto) 6.3 L (18.3-44.2) % [place] # (Auto) 1.5 H (0.1-0.6) K/mm3 Eos # (Auto) 0.5 H (0-0.3) K/mm3 Abs Immat Gran (auto) 0.11 H (0.00-0.031) K/mm3 Absolute Neuts (auto) 17.7 H (1.3-6.7) K/mm3 ESR 45 H (0-20) mm/hr PT 19.6 H (11.1-14.7) Seconds Sodium 135 L (137-145) mmol/L BUN 36 H (9-20) mg/dL Total Bilirubin 2.4 H (0.2-1.3) mg/dL C-Reactive Protein 16.4 H (<1.0) mg/dL NT-Pro-B Natriuret Pep 914 H (19.9-100) pg/mL Urine Ketones Trace H (Negative) mg/dL 02/17/25 Range/Units 00:53 WBC (4.5-10.0) K/mm3 MPV (7.4-10.4) fl Neut % (Auto) (45.5-73.1) % Lymph % (Auto) (18.3-44.2) % [place] # (Auto) (0.1-0.6) K/mm3 Eos # (Auto) (0-0.3) K/mm3 Abs Immat Gran (auto) (0.00-0.031) K/mm3 Absolute Neuts (auto) (1.3-6.7) K/mm3 ESR (0-20) mm/hr PT (11.1-14.7) Seconds Sodium (137-145) mmol/L BUN (9-20) mg/dL Total Bilirubin (0.2-1.3) mg/dL C-Reactive Protein 16.4 H (<1.0) mg/dL NT-Pro-B Natriuret Pep (19.9-100) pg/mL Urine Ketones (Negative) mg/dL H & H 04/10/25 Range/Units 17:14 Hgb 16.7 (14.0-18.0) g/dL Hct 51.1 (42.0-52.0) % Coagulation 02/16/25 Range/Units 17:14 INR 1.6 All other labs normal.
[2025-02-17 20:00] VITALS: BP 125/64; PULSE 52; RESP 18; TEMP 36.7; O2SAT 100
[2025-02-17] MEDS: cefTRIAXone 2 GM/NS 100 ML 2 GM/100 ML BAG IVPB (20:59)
[2025-02-17 21:00] VITALS: PULSE 52; RESP 18; O2SAT 100
[2025-02-17 21:17] VITALS: O2SAT 99
--- NOTE | 2025-02-18 | ECHO_ITS ---
Patient Info Name: Curtis Holbrook Age: 74 years : 1950 Gender: Male Ht: 70 in Wt: 215 lbs BSA: 2.22 m2 HR: 55 bpm BP: 136 / 61 mmHg Heart Rhythm: Atrial Fibrillation Technical Quality: Fair Exam Date: 02/18/2025 12:01 PM Exam Location: Echo Lab Patient Status: Inpatient Admit Date: 02/17/2025 Staff Ordering Physician: Harleen Perez APRN Senior Administrative Assistant: Rocio Servin RDCS Attending Provider: Maximino Crow MD Referring Physician: Chris SEAMAN; Exam Type: CA echo doppler color flow Study Info Indications - Elevated BNP, Legs swelling Complete two-dimensional, color flow and Doppler transthoracic echocardiogram is performed. Summary 1. Complete two-dimensional, color flow and Doppler transthoracic echocardiogram is performed. 2. Left ventricular chamber dimension is normal. 3. Ventricular septum is sigmoid shaped. No resting LVOT obstruction. 4. Left ventricular systolic function is normal, estimated at 60-65%. 5. There is mild concentric increased left ventricular wall thickness. 6. The left ventricular diastolic function is abnormal. 7. E/e' 13 is mildly elevated. 8. Atrial fibrillation. 9. Left atrial chamber dimension is severely enlarged. 10. Right atrial chamber dimension is mildly enlarged. 11. There is mild aortic valve sclerosis. 12. There is trace tricuspid valve regurgitation. 13. Mild pulmonary hypertension, estimated pulmonary arterial systolic pressure is 42 mmHg. Left Ventricle E/e' 13 is mildly elevated. Atrial fibrillation. Ventricular septum is sigmoid shaped. No resting LVOT obstruction. Left ventricular chamber dimension is normal. Left ventricular systolic function is normal, estimated at 60-65%. There is mild concentric increased left ventricular wall thickness. The left ventricular diastolic function is abnormal. Right Ventricle Right ventricular systolic function is normal and with normal TAPSE 2.3 cm. Right ventricular chamber dimension is normal. Left Atria Left atrial chamber dimension is severely enlarged. Right Atria Right atrial chamber dimension is mildly enlarged. Aortic Valve The aortic valve is not well visualized. Cannot determine number of aortic valve leaflets. There is mild aortic valve sclerosis. There is no aortic valve stenosis. There is no aortic valve regurgitation. Pulmonic Valve There is no pulmonic regurgitation. Mitral Valve There is no mitral valve stenosis. There is no mitral valve regurgitation. Tricuspid Valve There is trace tricuspid valve regurgitation. Mild pulmonary hypertension, estimated pulmonary arterial systolic pressure is 42 mmHg. Pericardium/Pleural There is no pericardial effusion. Inferior Vena Cava Normal inferior vena cava with >50% collapse upon inspiration consistent with normal right atrial pressure, 5 mmHg. Aorta The aortic root size at the sinus of Valsalva is normal. Left Ventricular Outflow Tract Name Value Normal LVOT 2D LVOT Diameter 2.1 cm LVOT Doppler LVOT Peak Gradient 5 mmHg LVOT Mean Gradient 2 mmHg LVOT VTI 24 cm LVOT VTI/AV VTI Ratio 0.8 LVOT Stroke Volume 83 ml LVOT CO 14.5 l/min LVOT CI 6.5 l/min/m2 Pulmonic Valve Name Value Normal RVOT Doppler RVOT Peak Gradient 4 mmHg PV Doppler PV Peak Gradient 6 mmHg Mitral Valve Name Value Normal MV Doppler MV Decel [place] 347 cm/s2 MV PHT 87 ms MV Area (PHT) 2.5 cm2 4.0-5.0 MV Diastolic Function MV E Peak Velocity 104 cm/s MV A Peak Velocity 1 cm/s MV E/A 98.1 MV Decel Time 300 ms MV Annular TDI MV E/e' (Septal) 13.8 <=8.0 MV E/e' (Lateral) 12.6 <=8.0 MV E/e' (Average) 13.2 Tricuspid Valve Name Value Normal TV Regurgitation Doppler TR Peak Velocity 302 cm/s TR Peak Gradient 37 mmHg Estimated PAP/RSVP RA Pressure 5 mmHg <=5 PA Systolic Pressure 42 mmHg <36 RV Systolic Pressure 42 mmHg <36 Aortic Valve Name Value Normal AV Doppler AV Peak Velocity 157 cm/s AV Peak Gradient 10 mmHg AV Mean Gradient 5 mmHg AV VTI 32 cm AV Area (Cont Eq VTI) 2.6 cm2 >=3.0 AV Area (Cont Eq Rodolfo) 2.4 cm2 AV Regurgitation 2D LVOT Area 3.4 cm2 Ventricles Name Value Normal LV Dimensions 2D/MM IVS Diastolic Thickness (2D) 1.3 cm 0.6-1.0 LVID Diastole (2D) 4.8 cm 4.2-5.8 LVIW Diastolic Thickness (2D) 1.4 cm 0.6-1.0 LVID Systole (2D) 3.2 cm 2.5-4.0 LVOT Diameter 2.1 cm LV Mass (2D Cubed) 260.62 g 88.00-224.00 LV Mass Index (2D Cubed) 117 g/m2 49-115 Relative Wall Thickness (2D) 0.58 LV Fractional Shortening/Ejection Fraction 2D/MM LV Fractional Shortening (2D) 33 % 25-43 LV EF (2D Teicholz) 62 % 52-72 Atria Name Value Normal LA Dimensions LA Volume (4C A-L) 118 ml LA Volume (BP A-L) 121 ml RA Dimensions RA Area (4C) 21.6 cm2 <=18.0 Report Signatures
[2025-02-18 04:05] VITALS: BP 119/83; PULSE 50; RESP 18; TEMP 36.6; O2SAT 100
[2025-02-18] MEDS: ONDANSETRON INJ 4 MG/2 ML VIAL IV PUSH (04:30)
[2025-02-18] MEDS: MORPHINE SULFATE (*CRX) 2 MG/ML INJ IV PUSH (04:30)
[2025-02-18] MEDS: APIXABAN 5 MG TABLET PO ×2 (08:26→20:32)
[2025-02-18] MEDS: HYDROcodone/acetaminophen (*CRX) 5-325 MG TABLET 1 TAB PO ×3 (08:26→20:32)
[2025-02-18 09:10] LABS: Hematocrit 51.6 % (42.0-52.0); Hemoglobin 16.9 g/dL (14.0-18.0); Mean Corpuscular HGB Conc 32.8 g/dl (32-36); Mean Corpuscular Hemoglobin 32.1 pg (26-34); Mean Corpuscular Volume 97.9 fl (80-100); Mean Platelet Volume 11.3 fl (7.4-10.4); Platelet Count Result 236 k/mm3 (150-375); Red Blood Count 5.27 M/mm3 (4.6-6.20); Red Cell Distribution Width 13.7 % (11.5-14.5); White Blood Count 19.3 K/mm3 (4.5-10.0)
[2025-02-18 09:16] LABS: Alanine Aminotransferase 17 U/L (6-50); Albumin Level 3.8 g/dL (3.5-5.1); Alkaline Phosphatase 114 U/L (38-126); Anion Gap 10 mmol/L (4-12); Aspartate Amino Transferase 19 U/L (17-59); Bilirubin,Total 1.8 mg/dL (0.2-1.3); Blood Urea Nitrogen 40 mg/dL (9-20); Carbon Dioxide 26 mmol/L (22-30); Chloride 99 mmol/L (98-107); Estimated CRCL calculation 62 ml/min; Estimated Glomerular Filt Rate > 60; Glucose 85 mg/dL (65-110); Potassium 4.5 mmol/L (3.4-5.0); Sodium 135 mmol/L (137-145)
--- NOTE | 2025-02-18 09:28 | P.PNIM_ITS ---
Progress Note: A&P Assessment and Plan (1) Cellulitis: Qualifiers: Laterality: unspecified laterality Site of cellulitis: extremity Site of cellulitis of extremity: lower extremity Qualified Code(s): L03.119 - Cellulitis of unspecified part of limb <Suraj Henry Last Filed: 02/18/25 15:07> Code(s): L03.90 - Cellulitis, unspecified <Suraj Henry Last Filed: 02/18/25 15:07> Status: Acute <uSraj Henry Last Filed: 02/18/25 15:07> (2) Degenerative joint disease of knee: Qualifiers: Laterality: bilateral Osteoarthritis type: primary Qualified Code(s): M17.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 <Suraj Henry Last Filed: 02/18/25 15:07> Code(s): M17.9 - Osteoarthritis of knee, unspecified <Suraj Henry Last Filed: 02/18/25 15:07> Status: Acute <Suraj Henry Last Filed: 02/18/25 15:07> (3) Bilateral edema of lower extremity: Code(s): R60.0 - Localized edema <Suraj Henry Last Filed: 02/18/25 15:07> Status: Acute <Suraj Henry Last Filed: 02/18/25 15:07> (4) Afib: Qualifiers: Atrial fibrillation type: unspecified Qualified Code(s): I48.91 - Unspecified atrial fibrillation <Suraj Henry Last Filed: 02/18/25 15:07> Code(s): I48.91 - Unspecified atrial fibrillation <Suraj Henry Last Filed: 02/18/25 15:07> Status: Acute <Suraj Henry Last Filed: 02/18/25 15:07> (5) Left shoulder pain: Qualifiers: Chronicity: chronic Qualified Code(s): M25.512 - Pain in left shoulder; G89.29 - Other chronic pain <Suraj Henry Last Filed: 02/18/25 15:07> Code(s): M25.512 - Pain in left shoulder <Murray Jolly - Last Filed: 02/18/25 15:07> Status: Acute <Murray Jolly - Last Filed: 02/18/25 15:07> Assessment and Plan: Cellulitis/Venous Insufficiency: 02/17: - Patient started on IV cefepime, metronidazole, vancomycin initially started by ED for broad coverage - Due to lack of fever and purulent drainage, vancomycin was discontinued as concern for MRSA decreased - Cefepime was additionally downgraded to ceftriaxone - Wound care consulted for posterior right calf wound and anterior left leg wound - Will be utilizing santyl ointment for debridement of the wound, dressing for the weeping, and utilizing elastic wraps for decompression - Elevation advised and attempted over stay as tolerated by patients pain - Lack of history of heart failure, BNP measured at 914, echo ordered for further evaluation as it may be contributing to symptoms 02/18: - Continue ceftriaxone as redness and pain are decreasing with current management - Echocardiogram has yet to be completed 02/18 - Downtrending WBC and lack of fever/cough/difficulty breathing Bilateral Osteoarthritis 02/17: - Difficulty ambulating and elevating legs due to pain in knees - Ortho consulted and advised ice, elevation, PT/OT, and WBAT - Patient denied PT/OT as of 02/17/25, will continue to advise on it 02/18/2502/18: - Lidocaine patches were applied with some success - Difficulty with movement continues - Patient denies PT/OT until pain is more controlled Afib: 02/18: - [facility] to treat his atrial fibrillation - Eliquis continued afib prophylaxis with added benefit of VTE prophylaxis Chronic Left Shoulder Pain: 02/18: - New onset agitation of left shoulder pain, lifting and abducting arm - Lidocaine patch and Voltaren topical gel for control <Murray Jolly - Last Filed: 02/18/25 15:07> Cellulitis/Venous Insufficiency: 02/17: - Patient started on IV cefepime, metronidazole, vancomycin initially started by ED for broad coverage - Due to lack of fever and purulent drainage, vancomycin was discontinued as concern for MRSA decreased - Cefepime was additionally downgraded to ceftriaxone - Wound care consulted for posterior right calf wound and anterior left leg wound - Will be utilizing santyl ointment for debridement of the wound, dressing for the weeping, and utilizing elastic wraps for decompression - Elevation advised and attempted over stay as tolerated by patients pain - Lack of history of heart failure, BNP measured at 914, echo ordered for further evaluation as it may be contributing to symptoms -lasix 40 mg iv x 1 02/18: - Continue ceftriaxone as redness and pain are decreasing with current management - Echocardiogram has yet to be completed 02/18 - Downtrending WBC and lack of fever/cough/difficulty breathing Bilateral Osteoarthritis 02/17: - Difficulty ambulating and elevating legs due to pain in knees - Ortho consulted and advised ice, elevation, PT/OT, and WBAT - Patient denied PT/OT as of 02/17/25, will continue to advise on it 02/18/2502/18: - Lidocaine patches were applied with some success - Difficulty with movement continues - Patient denies PT/OT until pain is more controlled -added Flexeril prn Afib: 02/18: - Patient has longstanding prescription from [place] for eliquis to treat his atrial fibrillation - Eliquis continued afib prophylaxis with added benefit of VTE prophylaxis Chronic Left Shoulder Pain: 02/18: - New onset agitation of left shoulder pain, lifting and abducting arm - Lidocaine patch and Voltaren topical gel for control <Harleen Perez APRN - Last Filed: 02/18/25 15:26> Time Spent With Patient Time with patient: Greater than 35 minutes <Harleen Perez APRN - Last Filed: 02/18/25 15:26> Subjective Date/time seen: 02/18/25 09:28 <Suraj Henry, Student - Last Filed: 02/18/25 15:07> Interval history: 02/17: Chief Complaint: Bilateral Lower Extremity Infection Narrative: Patient is a 74-year-old male with history of atrial fibrillation treated with Eliquis and hypertension presenting with bilateral lower extremity swelling and concern for infection related to open wound. Worsening began a few days ago with increased pain, redness, swelling, serous drainage, and decreased appetite. Original wound December 2023 to posterior portion of right calf and attempted self treatment with Neosporin and peroxide. Condition slowly worsened and he was treated at an emergency room with topical iodine and packing. Wound reportedly healed but reopened and became infected late last year. He thinks the wound to the left anterior leg occurred due to scratching it with his toenail. States drainage has always been clear yellow. Bilateral leg swelling began early this year, and patient reported he hasn't received primary medical care recently due to lack of access with clinic availability and transportation concerns. Augmentin was reportedly prescribed by the [facility] last week and was taken with no improvement. Legs have been weeping for the past couple of weeks. Ambulation and activity has been difficult due to bilateral knee degenerative joint disease. Denies chest pain, fevers, chills, difficulty breathing, headache, dizziness, fatigue, paresthesias, changes in bowel or bladder habits, and other recent infection. Notable findings on presentation 02/16 : Lab work with leukocytosis of 21.2. CRP elevated to 16.4, ESR elevated to 45. Lactic is normal. Blood cultures are pending Chemistries with a elevated bilirubin of 2.4, normal AST and ALT, normal alk- phos, no abdominal pain BNP elevated at 914, no prior for comparison. Patient denies history of CHF. Denies chest pain or shortness of breath. Lung sounds are clear, O2 stable. Lasix provided in ED UA with trace ketones, no UTI Bilateral venous duplex ultrasounds are negative for DVT Bilateral tib/fib Xrays show no subcutaneous emphysema, no cortical degradation concerning for osteomyelitis. Severe osteoarthritis 02/18: Patient was seen and examined, now complaining of left shoulder pain from preexisting degeneration d/t occupation. Patient states pain has decreased in to palpation and he believes treatment is working as measured by pain. Wrapping and elevation continue to be challenging due to pain. Nausea has become an issue, and patients appetite has stayed decreased. Notable labs: WBC decrease from 21.2 on 02/16 to 19.3 on 02/18 BUN increase from 36 on 02/16 to 40 on 02/18 Vital signs continue to be stable, slight bradycardia of 50 noted but consistent with previous measurements <Suraj Henry, Student - Last Filed: 02/18/25 15:07> 02/17: Chief Complaint: Bilateral Lower Extremity Infection Narrative: Patient is a 74-year-old male with history of atrial fibrillation treated with Eliquis and hypertension presenting with bilateral lower extremity swelling and concern for infection related to open wound. Worsening began a few days ago with increased pain, redness, swelling, serous drainage, and decreased appetite. Original wound December 2023 to posterior portion of right calf and attempted self treatment with Neosporin and peroxide. Condition slowly worsened and he was treated at an emergency room with topical iodine and packing. Wound reportedly healed but reopened and became infected late last year. He thinks the wound to the left anterior leg occurred due to scratching it with his toenail. States drainage has always been clear yellow. Bilateral leg swelling began early this year, and patient reported he hasn't received primary medical care recently due to lack of access with clinic availability and transportation concerns. Augmentin was reportedly prescribed by the [facility] last week and was taken with no improvement. Legs have been weeping for the past couple of weeks. Ambulation and activity has been difficult due to bilateral knee degenerative joint disease. Denies chest pain, fevers, chills, difficulty breathing, headache, dizziness, fatigue, paresthesias, changes in bowel or bladder habits, and other recent infection. Notable findings on presentation 02/16 : Lab work with leukocytosis of 21.2. CRP elevated to 16.4, ESR elevated to 45. L actic is normal. Blood cultures are pending Chemistries with a elevated bilirubin of 2.4, normal AST and ALT, normal alk- phos, no abdominal pain BNP elevated at 914, no prior for comparison. Patient denies history of CHF. Denies chest pain or shortness of breath. Lung sounds are clear, O2 stable. Lasix provided in ED UA with trace ketones, no UTI Bilateral venous duplex ultrasounds are negative for DVT Bilateral tib/fib Xrays show no subcutaneous emphysema, no cortical degradation concerning for osteomyelitis. Severe osteoarthritis 02/18: Patient was seen and examined, now complaining of left shoulder pain from preexisting degeneration d/t occupation. Patient states pain has decreased in to palpation and he believes treatment is working as measured by pain. Wrapping and elevation continue to be challenging due to pain. Nausea has become an issue, and patients appetite has stayed decreased. Notable labs: WBC decrease from 21.2 on 02/16 to 19.3 on 02/18 BUN increase from 36 on 02/16 to 40 on 02/18 Vital signs continue to be stable, slight bradycardia of 50 noted but consistent with previous measurements. Pain is still an issue. NOt complaint with elevation but wearing devan wrap <Harleen Perez APRN - Last Filed: 02/18/25 15:26> Review of Systems Review of Systems: All systems reviewed & are unremarkable except as noted in HPI and below <Suraj Henry Student - Last Filed: 02/18/25 15:07> Exam Narrative: GENERAL: Well-appearing, well-nourished, and in no acute distress. HEAD: Normocephalic, atraumatic. EYES: EOMI. Normal appearing sclera. ENT: Mucous membranes moist. NECK: Supple. CHEST: Clear to auscultation. No respiratory distress. HEART: Regular rate and rhythm. No murmur heard. ABDOMEN: Soft, nontender, nondistended, normal active bowel sounds. EXTREMITIES: Extensive pitting edema to bilateral lower extremities with warmth and erythema extending from the dorsum of the feet bilaterally to the proximal tibia. Extensive wrapping was present on lower extremities, but patient decreased tenderness was with palpation around the wounds, from a 10/10 to a 6/10. Swelling and dark purple/red present in toes and forefoot, along with edema. Sensation still present and patient tolerates active mobility of toes. Left knee more swollen than yesterday. Left shoulder pain with abduction. SKIN: Warm, dry, no rash NEURO: No focal deficits. Alert and oriented x4 <Suraj Henry Student - Last Filed: 02/18/25 15:07> Objective Data Vital Signs Vital Signs: Vital Signs - 24 hr 02/17/25 12:03 02/17/25 20:00 02/17/25 21:00 Temperature 98.0 F Pulse Rate 52 L 52 L Respiratory Rate 18 18 Blood Pressure 125/64 Pulse Oximetry 97 100 100 Oxygen Delivery Room Air Room Air 02/17/25 21:17 02/18/25 04:05 Temperature 97.8 F Pulse Rate 50 L Respiratory Rate 18 Blood Pressure 119/83 Pulse Oximetry 99 100 Oxygen Delivery Room Air <Suraj Henry, Student - Last Filed: 02/18/25 15:07> Intake/Output Intake/Output: Intake & Output 02/15/25 02/16/25 02/17/25 02/18/25 23:59 23:59 23:59 23:59 Intake Total 1330 150 Output Total 650 200 Balance 680 -50 <Suraj Henry, Student - Last Filed: 02/18/25 15:07> Meds/Results Medications: Active Medications Generic Name Dose Route Start Last Admin Trade Name Freq PRN Reason Stop Dose Admin Hydrocodone Bitart/Acetaminophen 1 tab 02/17/25 10:40 02/18/25 08:26 Hydrocodone/Acetaminophen (*Crx) 5-325 Mg Tablet PO 1 tab Q4H PRN Administration Pain Rated 4-6 Apixaban 5 mg 02/17/25 10:55 02/18/25 08:26 Apixaban 5 Mg Tablet PO 5 mg Q12HR SHRUTHI Administration Collagenase 1 applic 02/17/25 09:00 02/17/25 20:59 Collagenase Oint 30 Gm Tube TOPICAL 1 applic Q12HR SHRUTHI Administration Diclofenac Sodium 1 applic 02/18/25 13:00 Diclofenac Sodium 1% 100 Gm Gel (*Bkc) TOPICAL QID PENDING SALE TO [facility] Furosemide 20 mg 02/18/25 09:20 Furosemide Inj 40 Mg/4 Ml Vial IV PUSH 02/18/25 09:21 ONCE ONE Ceftriaxone Sodium 2 gm in 100 mls @ 200 mls/hr 02/17/25 21:00 02/17/25 21:29 Rocephin 2 Gm/Ns 100 Ml IVPB Infused Q24H SHRUTHI Infusion Lidocaine 1 patch 02/17/25 10:55 02/17/25 11:44 Lidocaine 5% Patch TRANSDERM 1 patch DAILY SHRUTHI Administration Lidocaine 1 patch 02/19/25 09:00 Lidocaine 5% Patch TRANSDERM DAILY SHRUTHI Morphine Sulfate 2 mg 02/17/25 02:55 02/18/25 04:30 Morphine Sulfate (*Crx) 2 Mg/Ml Inj IV PUSH 2 mg Q2H PRN Administration Pain Rated 7-10 Ondansetron HCl 4 mg 02/17/25 02:55 02/18/25 04:30 Ondansetron Inj 4 Mg/2 Ml Vial IV PUSH 4 mg Q4H PRN Administration Nausea Perflutren Lipid Microsphere 0 ml 02/17/25 10:46 Perflutren Lipid Microspheres 1.5 Ml Vial Diluted To 10 Ml Total Volume IV PUSH 02/20/25 10:46 ONCE PRN adequate visualization Protocol <Suraj Henry Student - Last Filed: 02/18/25 15:07> Radiology Results: ITS Impressions Venous Doppler Study 02/16/25 18:08 IMPRESSION: Negative bilateral lower extremity venous US. No deep vein thrombosis. Tibia/Fibula X-Ray 02/17/25 06:31 Impression: Diffuse soft tissue edema. Moderate degenerative change at the knee. No evidence for osteomyelitis. Chest X-Ray 02/17/25 06:32 Impression: Clear lungs. <Suraj Henry Student - Last Filed: 02/18/25 15:07> Labs Labs: Laboratory Results - last 24 hr 02/17/25 02/18/25 11:40 08:33 WBC 19.3 H RBC 5.27 Hgb 16.9 Hct 51.6 MCV 97.9 MCH 32.1 MCHC 32.8 RDW 13.7 Plt Count 236 MPV 11.3 H Sodium 135 L Potassium 4.5 Chloride 99 Carbon Dioxide 26 Anion Gap 10 BUN 40 H Creatinine 1.08 Estim Creat Clear Calc 62 Estimated GFR > 60 Glucose 85 Calcium 9.0 Total Bilirubin 1.8 H AST 19 ALT 17 Alkaline Phosphatase 114 Total Protein 8.0 Albumin 3.8 Nasal MRSA (PCR) Not detected <Suraj Henry Student - Last Filed: 02/18/25 15:07> Quality VTE Prophylaxis VTE prophylaxis: pharmacologic ordered <Suraj Henry Student - Last Filed: 02/18/25 15:07>
[2025-02-18] MEDS: LIDOCAINE 5% PATCH 1 PATCH TRANSDERM (10:04)
[2025-02-18] MEDS: FUROSEMIDE INJ 40 MG/4 ML VIAL 20 MG IV PUSH (10:04)
[2025-02-18] MEDS: DICLOFENAC SODIUM 1% 100 GM GEL (*BKC) 1 APPLIC TOPICAL ×3 (13:12→20:33)
[2025-02-18 14:00] VITALS: BP 123/78; PULSE 52; RESP 16; TEMP 36.7; O2SAT 99
[2025-02-18] MEDS: COLLAGENASE OINT 30 GM TUBE 1 APPLIC TOPICAL ×2 (18:14→20:33)
[2025-02-18] MEDS: CYCLOBENZAPRINE HCL 10 MG TABLET PO (20:32)
[2025-02-18] MEDS: cefTRIAXone 2 GM/NS 100 ML 2 GM/100 ML BAG IVPB (20:33)
[2025-02-18 20:58] VITALS: BP 122/57; PULSE 61; RESP 18; TEMP 37; O2SAT 95
[2025-02-19 05:31] VITALS: BP 101/64; PULSE 59; RESP 16; TEMP 36.6; O2SAT 100
[2025-02-19 06:13] LABS: Hemoglobin 14.3 g/dL (14.0-18.0); Mean Corpuscular HGB Conc 31.1 g/dl (32-36); Mean Corpuscular Hemoglobin 31.2 pg (26-34); Mean Corpuscular Volume 100.2 fl (80-100); Mean Platelet Volume 11.2 fl (7.4-10.4); Platelet Count Result 224 k/mm3 (150-375); Red Blood Count 4.59 M/mm3 (4.6-6.20); Red Cell Distribution Width 13.6 % (11.5-14.5); White Blood Count 19.8 K/mm3 (4.5-10.0)
[2025-02-19 06:25] LABS: Alanine Aminotransferase 13 U/L (6-50); Albumin Level 2.9 g/dL (3.5-5.1); Alkaline Phosphatase 75 U/L (38-126); Anion Gap 9 mmol/L (4-12); Aspartate Amino Transferase 18 U/L (17-59); Blood Urea Nitrogen 69 mg/dL (9-20); Calcium 8.6 mg/dL (8.4-10.2); Carbon Dioxide 21 mmol/L (22-30); Chloride 103 mmol/L (98-107); Estimated CRCL calculation 56 ml/min; Estimated Glomerular Filt Rate 59; Glucose 91 mg/dL (65-110); Potassium 5.5 mmol/L (3.4-5.0); Sodium 133 mmol/L (137-145)
[2025-02-19 08:04] LABS: NT Pro B Type Natriuretic Pept 472 pg/mL (19.9-100)
[2025-02-19] MEDS: HYDROcodone/acetaminophen (*CRX) 5-325 MG TABLET 1 TAB PO ×3 (09:07→21:39)
[2025-02-19] MEDS: LIDOCAINE 5% PATCH 1 PATCH TRANSDERM ×2 (09:08→09:12)
--- NOTE | 2025-02-19 09:09 | PM.IMPN ---
Progress Note: A&P Assessment and Plan (1) Cellulitis: Qualifiers: Laterality: unspecified laterality Site of cellulitis: extremity Site of cellulitis of extremity: lower extremity Qualified Code(s): L03.119 - Cellulitis of unspecified part of limb <Suraj Henry Last Filed: 02/19/25 14:34> Code(s): L03.90 - Cellulitis, unspecified <Suraj Henry - Last Filed: 02/19/25 14:34> Status: Acute <Suraj Henry Last Filed: 02/19/25 14:34> (2) Degenerative joint disease of knee: Qualifiers: Laterality: bilateral Osteoarthritis type: primary Qualified Code(s): M17.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 <Suraj Henry Last Filed: 02/19/25 14:34> Code(s): M17.9 - Osteoarthritis of knee, unspecified <Suraj Henry Last Filed: 02/19/25 14:34> Status: Acute <Suraj Henry Last Filed: 02/19/25 14:34> (3) Bilateral edema of lower extremity: Code(s): R60.0 - Localized edema <Suraj Henry Last Filed: 02/19/25 14:34> Status: Acute <Suraj Henry Last Filed: 02/19/25 14:34> (4) Afib: Qualifiers: Atrial fibrillation type: unspecified Qualified Code(s): I48.91 - Unspecified atrial fibrillation <Suraj Henry Last Filed: 02/19/25 14:34> Code(s): I48.91 - Unspecified atrial fibrillation <Suraj Henry Last Filed: 02/19/25 14:34> Status: Acute <Suraj Henry Last Filed: 02/19/25 14:34> (5) Left shoulder pain: Qualifiers: Chronicity: chronic Qualified Code(s): M25.512 - Pain in left shoulder; G89.29 - Other chronic pain <Suraj Henry Last Filed: 02/19/25 14:34> Code(s): M25.512 - Pain in left shoulder <Murray Jolly - Last Filed: 02/19/25 14:34> Status: Acute <Murray Jolly - Last Filed: 02/19/25 14:34> Assessment and Plan: Cellulitis/Venous Insufficiency: 02/17: - Patient started on IV cefepime, metronidazole, vancomycin initially started by ED for broad coverage - Due to lack of fever and purulent drainage, vancomycin was discontinued as concern for MRSA decreased - Cefepime was additionally downgraded to ceftriaxone - Wound care consulted for posterior right calf wound and anterior left leg wound - Will be utilizing santyl ointment for debridement of the wound, dressing for the weeping, and utilizing elastic wraps for decompression - Elevation advised and attempted over stay as tolerated by patients pain - Lack of history of heart failure, BNP measured at 914, echo ordered for further evaluation as it may be contributing to symptoms - As of 02/18: continuing ceftriaxone due to success in decreasing pain and erythema - Echo ordered - Downtrending WBC and lack of fever/cough/difficulty breathing are promising As of 02/19: will be continuing ceftriaxone due to continued success with pain and erythema decreasing - Bilateral lower extremity swelling decreasing progressively, wrapping is proving to be effective and will continue emphasizing elevation - Stable WBC and lack of systemic symptoms promising treatment is adequate - Echocardiogram performed, left ventricular diastolic function is abnormal, afib is present, left atrial chamber is severely enlarged. Mild pulmonary hypertension was also noted - Cardiology consulted on 02/19, per Dr. Fernandez swelling unlikely to be cardiac cause - Discussed protein shake supplementation to help with hydration and healing (serum protein/albumin 6/2.9), sent nurse communication order Bilateral Osteoarthritis 02/17: - Difficulty ambulating and elevating legs due to pain in knees - Ortho consulted and advised ice, elevation, PT/OT, and WBAT - Patient denied PT/OT as of 02/17/25, but 02/19/25 has participated in OT successfully - Pain continues to hinder elevation and movement Afib: - [facility] - Evident on echocardiogram, no changes in treatment Chronic Left Shoulder Pain: - New onset agitation of left shoulder pain, lifting and abducting arm 02/18 - Lidocaine patch and Voltaren topical gel for control - Treatment continues to be effective 02/19 <Suraj W. Henry, Student - Last Filed: 02/19/25 14:34> # Cellulitis # Venous Insufficiency: 02/17: - Patient started on IV cefepime, metronidazole, vancomycin initially started by ED for broad coverage - Due to lack of fever and purulent drainage, vancomycin was discontinued as concern for MRSA decreased - Cefepime was additionally downgraded to ceftriaxone - Wound care consulted for posterior right calf wound and anterior left leg wound - Will be utilizing santyl ointment for debridement of the wound, dressing for the weeping, and utilizing elastic wraps for decompression - Elevation advised and attempted over stay as tolerated by patients pain - Lack of history of heart failure, BNP measured at 914, echo ordered for further evaluation as it may be contributing to symptoms - As of 02/18: continuing ceftriaxone due to success in decreasing pain and erythema - Echo ordered - Downtrending WBC and lack of fever/cough/difficulty breathing are promising As of 02/19: will be continuing ceftriaxone due to continued success with pain and erythema decreasing - Bilateral lower extremity swelling decreasing progressively, wrapping is proving to be effective and will continue emphasizing elevation - Stable WBC and lack of systemic symptoms promising treatment is adequate - Echocardiogram performed, left ventricular diastolic function is abnormal, afib is present, left atrial chamber is severely enlarged. Mild pulmonary hypertension was also noted - Cardiology consulted on 02/19, per Dr. Fernandez swelling unlikely to be cardiac cause - Discussed protein shake supplementation to help with hydration and healing (serum protein/albumin 6/2.9), sent nurse communication order # Bilateral Osteoarthritis - Difficulty ambulating and elevating legs due to pain in knees - Ortho consulted and advised ice, elevation, PT/OT, and WBAT - Patient denied PT/OT as of 02/17/25, but 02/19/25 has participated in OT successfully - Pain continues to hinder elevation and movement - will an oupt f/u once discharged # Afib: - [facility] - Evident on echocardiogram, no changes in treatment - fall/bleeding precautions # Chronic Left Shoulder Pain: - New onset agitation of left shoulder pain, lifting and abducting arm 02/18 - Lidocaine patch and Voltaren topical gel for control - Treatment continues to be effective 02/19 <Harleen Perez APRN - Last Filed: 02/19/25 15:40> Time Spent With Patient Time with patient: 25 - 35 minutes <Harleen Perez, [employer] - Last Filed: 02/19/25 15:40> Subjective Date/time seen: 02/19/25 09:09 <Suraj Henry, Student - Last Filed: 02/19/25 14:34> Interval history: 02/17: Chief Complaint: Bilateral Lower Extremity Infection Narrative: Patient is a 74-year-old male with history of atrial fibrillation treated with Eliquis and hypertension presenting with bilateral lower extremity swelling and concern for infection related to open wound. Worsening began a few days ago with increased pain, redness, swelling, serous drainage, and decreased appetite. Original wound December 2023 to posterior portion of right calf and attempted self treatment with Neosporin and peroxide. Condition slowly worsened and he was treated at an emergency room with topical iodine and packing. Wound reportedly healed but reopened and became infected late last year. He thinks the wound to the left anterior leg occurred due to scratching it with his toenail. States drainage has always been clear yellow. Bilateral leg swelling began early this year, and patient reported he hasn't received primary medical care recently due to lack of access with clinic availability and transportation concerns. Augmentin was reportedly prescribed by the [facility] last week and was taken with no improvement. Legs have been weeping for the past couple of weeks. Ambulation and activity has been difficult due to bilateral knee degenerative joint disease. Denies chest pain, fevers, chills, difficulty breathing, headache, dizziness, fatigue, paresthesias, changes in bowel or bladder habits, and other recent infection. Notable findings on presentation 02/16 : Lab work with leukocytosis of 21.2. CRP elevated to 16.4, ESR elevated to 45. Lactic is normal. Blood cultures are pending Chemistries with a elevated bilirubin of 2.4, normal AST and ALT, normal alk-phos, no abdominal pain BNP elevated at 914, no prior for comparison. Patient denies history of CHF. Denies chest pain or shortness of breath. Lung sounds are clear, O2 stable. Lasix provided in ED UA with trace ketones, no UTI Bilateral venous duplex ultrasounds are negative for DVT Bilateral tib/fib Xrays show no subcutaneous emphysema, no cortical degradation concerning for osteomyelitis. Severe osteoarthritis 02/18: Patient was seen and examined, now complaining of left shoulder pain from preexisting degeneration d/t occupation. Patient states pain has decreased in to palpation and he believes treatment is working as measured by pain. Wrapping and elevation continue to be challenging due to pain. Nausea has become an issue, and patients appetite has stayed decreased. Notable labs: WBC decrease from 21.2 on 02/16 to 19.3 on 02/18 BUN increase from 36 on 02/16 to 40 on 02/18 Vital signs continue to be stable, slight bradycardia of 50 noted but consistent with previous measurements. Pain is still an issue. Not complaint with elevation but wearing devan wrap 02/19: Patient was seen and examined. No systemic complaints. Pain control is improving and patient mentions its from less tight wrapping. No complaints of new onset pain today, no complaints of nausea, and patient states they are drinking tons of water. I&O balance -220, thought to be due to lasix which did improve swelling of legs. Elevation continues to be a concern by the patient d/t knee pain. Notable labs: WBC increase from 19.3 to 19.8 BUN increase from 40 to 69 Total protein/Albumin 8/3.8 to 6/2.9 Potassium increase 4.5 to 5.5 BNP decrease 914 (02/16) to 472 (02/19) - Echocardiogram performed with multiple findings, left ventricular chamber dimension is normal but diastolic function is abnormal, afib present, left atrial chamber is severely enlarged, right atrial chamber is mildly enlarged, and mild pulmonary hypertension is present with a pulmonary arterial systolic pressure of 42 mmHg Vital signs continue to be stable, borderline bradycardia on examination today. <Suraj Henry, Student - Last Filed: 02/19/25 14:34> Chief Complaint: Bilateral Lower Extremity Infection Narrative: Patient is a 74-year-old male with history of atrial fibrillation treated with Eliquis and hypertension presenting with bilateral lower extremity swelling and concern for infection related to open wound. Worsening began a few days ago with increased pain, redness, swelling, serous drainage, and decreased appetite. Original wound December 2023 to posterior portion of right calf and attempted self treatment with Neosporin and peroxide. Condition slowly worsened and he was treated at an emergency room with topical iodine and packing. Wound reportedly healed but reopened and became infected late last year. He thinks the wound to the left anterior leg occurred due to scratching it with his toenail. States drainage has always been clear yellow. Bilateral leg swelling began early this year, and patient reported he hasn't received primary medical care recently due to lack of access with clinic availability and transportation concerns. Augmentin was reportedly prescribed by the [facility] last week and was taken with no improvement. Legs have been weeping for the past couple of weeks. Ambulation and activity has been difficult due to bilateral knee degenerative joint disease. Denies chest pain, fevers, chills, difficulty breathing, headache, dizziness, fatigue, paresthesias, changes in bowel or bladder habits, and other recent infection. Notable findings on presentation 02/16 : Lab work with leukocytosis of 21.2. CRP elevated to 16.4, ESR elevated to 45. Lactic is normal. Blood cultures are pending Chemistries with a elevated bilirubin of 2.4, normal AST and ALT, normal alk-phos, no abdominal pain BNP elevated at 914, no prior for comparison. Patient denies history of CHF. Denies chest pain or shortness of breath. Lung sounds are clear, O2 stable. Lasix provided in ED UA with trace ketones, no UTI Bilateral venous duplex ultrasounds are negative for DVT Bilateral tib/fib Xrays show no subcutaneous emphysema, no cortical degradation concerning for osteomyelitis. Severe osteoarthritis 02/18: Patient was seen and examined, now complaining of left shoulder pain from preexisting degeneration d/t occupation. Patient states pain has decreased in to palpation and he believes treatment is working as measured by pain. Wrapping and elevation continue to be challenging due to pain. Nausea has become an issue, and patients appetite has stayed decreased. Notable labs: WBC decrease from 21.2 on 02/16 to 19.3 on 02/18 BUN increase from 36 on 02/16 to 40 on 02/18 Vital signs continue to be stable, slight bradycardia of 50 noted but consistent with previous measurements. Pain is still an issue. Not complaint with elevation but wearing devan wrap 02/19: Patient was seen and examined. No systemic complaints. Pain control is improving and patient mentions its from less tight wrapping. No complaints of new onset pain today, no complaints of nausea, and patient states they are drinking tons of water. Elevation continues to be a concern by the patient d/t knee pain. Dressing change is completed-pt tolerated fair. Pt is to see cardiology today to optimize tx. Notable labs: WBC increase from 19.3 to 19.8 BUN increase from 40 to 69 Total protein/Albumin 8/3.8 to 6/2.9 Potassium increase 4.5 to 5.5 BNP decrease 914 (02/16) to 472 (02/19) - Echocardiogram performed with multiple findings, left ventricular chamber dimension is normal but diastolic function is abnormal, afib present, left atrial chamber is severely enlarged, right atrial chamber is mildly enlarged, and mild pulmonary hypertension is present with a pulmonary arterial systolic pressure of 42 mmHg Vital signs continue to be stable, borderline bradycardia on examination today. <Harleen Perez APRN - Last Filed: 02/19/25 15:40> Review of Systems Review of Systems: All systems reviewed & are unremarkable except as noted in HPI and below <Suraj Henry, Student - Last Filed: 02/19/25 14:34> Exam Narrative: GENERAL: Well-appearing, well-nourished, and in no acute distress. HEAD: Normocephalic, atraumatic. EYES: Normal appearing sclera. ENT: Mucous membranes moist. NECK: Supple. CHEST: Clear to auscultation. No respiratory distress. HEART: Regular rate and rhythm. No murmur heard. ABDOMEN: Soft, nontender, nondistended, normal active bowel sounds. EXTREMITIES: Extensive pitting edema to bilateral lower extremities with warmth and erythema extending from the dorsum of the feet bilaterally to the proximal tibia. Examination under wrappings performed, edema and erythema have decreased bilaterally. Swelling and dark purple/red present in toes and forefoot. Left shoulder pain with abduction. Weeping serous fluid in legs bilaterally. Sensation in tact bilaterally. RLE: Pain around right calf wound with palpation persists but has decreased more from previously rated 6/10. 4 open weeping wounds on anterior leg. LLE: Pain around wounds isn't producible by palpation. Left knee swelling persists. SKIN: Warm, dry, no rash NEURO: No focal deficits. Alert and oriented x4 <Suraj Henry, Student - Last Filed: 02/19/25 14:34> Objective Data Vital Signs Vital Signs: Vital Signs - 24 hr 02/18/25 14:00 02/18/25 20:20 02/18/25 20:58 Temperature 98.1 F 98.6 F Pulse Rate 52 L 61 Respiratory Rate 16 18 Blood Pressure 123/78 122/57 L Pulse Oximetry 99 95 Oxygen Delivery Room Air 02/19/25 05:31 Temperature 97.8 F Pulse Rate 59 L Respiratory Rate 16 Blood Pressure 101/64 Pulse Oximetry 100 Oxygen Delivery <Suraj Henry, Student - Last Filed: 02/19/25 14:34> Intake/Output Intake/Output: Intake & Output 02/16/25 02/17/25 02/18/25 02/19/25 23:59 23:59 23:59 23:59 Intake Total 1680 970 250 Output Total 650 1250 Balance 1030 -280 250 <Suraj Henry, Student - Last Filed: 02/19/25 14:34> Meds/Results Medications: Active Medications Generic Name Dose Route Start Last Admin Trade Name Freq PRN Reason Stop Dose Admin Hydrocodone Bitart/Acetaminophen 1 tab 02/17/25 10:40 02/18/25 20:32 Hydrocodone/Acetaminophen (*Crx) 5-325 Mg Tablet PO 1 tab Q4H PRN Administration Pain Rated 4-6 Apixaban 5 mg 02/17/25 10:55 02/18/25 20:32 Apixaban 5 Mg Tablet PO 5 mg Q12HR SHRUTHI Administration Collagenase 1 applic 02/17/25 09:00 02/18/25 20:33 Collagenase Oint 30 Gm Tube TOPICAL 1 applic Q12HR SHRUTHI Administration Cyclobenzaprine HCl 10 mg 02/18/25 13:08 02/18/25 20:32 Cyclobenzaprine Hcl 10 Mg Tablet PO 10 mg Q8H PRN Administration Muscle Spasm Diclofenac Sodium 1 applic 02/18/25 13:00 02/18/25 20:33 Diclofenac Sodium 1% 100 Gm Gel (*Bkc) TOPICAL 1 applic QID SHRUTHI Administration Ceftriaxone Sodium 2 gm in 100 mls @ 200 mls/hr 02/17/25 21:00 02/18/25 21:03 Rocephin 2 Gm/Ns 100 Ml IVPB Infused Q24H SHRUTHI Infusion Sodium Chloride 1,000 mls @ 100 mls/hr 02/19/25 07:35 Normal Saline Iv IV CONT 02/19/25 17:34 .Q10H SHRUTHI Lidocaine 1 patch 02/17/25 10:55 02/18/25 10:04 Lidocaine 5% Patch TRANSDERM 1 patch DAILY SHRUTHI Administration Lidocaine 1 patch 02/19/25 09:00 Lidocaine 5% Patch TRANSDERM DAILY SHRUTHI Morphine Sulfate 2 mg 02/17/25 02:55 02/18/25 04:30 Morphine Sulfate (*Crx) 2 Mg/Ml Inj IV PUSH 2 mg Q2H PRN Administration Pain Rated 7-10 Ondansetron HCl 4 mg 02/17/25 02:55 02/18/25 04:30 Ondansetron Inj 4 Mg/2 Ml Vial IV PUSH 4 mg Q4H PRN Administration Nausea Perflutren Lipid Microsphere 0 ml 02/17/25 10:46 Perflutren Lipid Microspheres 1.5 Ml Vial Diluted To 10 Ml Total Volume IV PUSH 02/20/25 10:46 ONCE PRN adequate visualization Protocol <Suraj Henry, Student - Last Filed: 02/19/25 14:34> Radiology Results: ITS Impressions Venous Doppler Study 02/16/25 18:08 IMPRESSION: Negative bilateral lower extremity venous US. No deep vein thrombosis. Tibia/Fibula X-Ray 02/17/25 06:31 Impression: Diffuse soft tissue edema. Moderate degenerative change at the knee. No evidence for osteomyelitis. Chest X-Ray 02/17/25 06:32 Impression: Clear lungs. <Suraj Henry, Student - Last Filed: 02/19/25 14:34> Labs Labs: Laboratory Results - last 24 hr 02/18/25 02/19/25 02/19/25 08:33 05:56 07:33 WBC 19.3 H 19.8 H RBC 5.27 4.59 L Hgb 16.9 14.3 Hct 51.6 46.0 MCV 97.9 100.2 H MCH 32.1 31.2 MCHC 32.8 31.1 L RDW 13.7 13.6 Plt Count 236 224 MPV 11.3 H 11.2 H Sodium 135 L 133 L Potassium 4.5 5.5 H Chloride 99 103 Carbon Dioxide 26 21 L Anion Gap 10 9 BUN 40 H 69 H D Creatinine 1.08 1.21 Estim Creat Clear Calc 62 56 Estimated GFR > 60 59 Glucose 85 91 Calcium 9.0 8.6 Total Bilirubin 1.8 H 1.0 AST 19 18 ALT 17 13 Alkaline Phosphatase 114 75 NT-Pro-B Natriuret Pep 472 H Total Protein 8.0 6.0 L Albumin 3.8 2.9 L <Suraj Henry, Student - Last Filed: 02/19/25 14:34> Quality VTE Prophylaxis VTE prophylaxis: pharmacologic ordered <Suraj Henry, Student - Last Filed: 02/19/25 14:34>
[2025-02-19] MEDS: CYCLOBENZAPRINE HCL 10 MG TABLET PO (09:11)
[2025-02-19] MEDS: APIXABAN 5 MG TABLET PO ×2 (09:11→20:41)
[2025-02-19] MEDS: DICLOFENAC SODIUM 1% 100 GM GEL (*BKC) 1 APPLIC TOPICAL ×4 (09:11→20:42)
[2025-02-19] MEDS: COLLAGENASE OINT 30 GM TUBE 1 APPLIC TOPICAL ×2 (09:12→20:42)
[2025-02-19] MEDS: SODIUM CHLORIDE 0.9% IV 1,000 ML 100 ML IV CONT (09:12)
--- NOTE | 2025-02-19 13:56 | PM.CNCAR ---
Assessment and Plan Assessment and plan (1) Afib: Qualifiers: Atrial fibrillation type: unspecified Qualified Code(s): I48.91 - Unspecified atrial fibrillation Code(s): I48.91 - Unspecified atrial fibrillation Status: Acute (2) Bilateral edema of lower extremity: Code(s): R60.0 - Localized edema Status: Acute Plan 74-year-old man with longstanding persistent atrial fibrillation (on Eliquis) presented with leg infection Lower extremity swelling -no evidence of clinical decompensated heart failure -unlikely to significantly improve with diuretics Persistent atrial fibrillation -continue Eliquis Leg infection -if wounds are not healing despite best medical therapy, can consider outpatient ultrasound [facility]ENIA We do not anticipate any further cardiac workup during this hospitalization. Please call with additional questions. History of Present Illness History of Present Illness Consult date/time: 02/19/25 13:56 Requesting physician: Harleen Perez APRN Consult reason: Other Reason For Visit: Cellulitis Narrative: 74-year-old man with longstanding persistent atrial fibrillation (on Eliquis) presented with leg infection. It would appear that he has chronic lower extremity swelling. Denies any significant shortness of breath or orthopnea. No chest discomfort. Review of Systems Cardiovascular: Cardiovascular: Reports as per HPI Respiratory: Respiratory: Reports as per HPI [facility] Past Medical History Medical History (Updated 02/18/25 @ 10:18 by Suraj Henry, Student) Left shoulder pain Afib Degenerative joint disease of knee Hypertension Surgical History Surgical History History of hernia repair Family History Family History Father Diabetes mellitus Hypertension Sibling Diabetes mellitus Mother Hypertension Social History Social History Smoking status: Never smoker Alcohol intake: never Substance use: never Substance use type: does not use Do You Feel Safe in your Home?: Yes Lack of Transportation: No Lack of Food: Never True Current Housing: I Have Housing Concerned About Future Housing: No Difficulty Paying Gas/Electric Bills: No Difficulty Paying for Meds: No Currently Unemployed: No Education: High School Diploma/GED Difficulty w/ Childcare or Family Care: No Living arrangements: alone Occupation/Education: retired Spiritual care concerns: No Meds Home Medications and Allergies Home Medications ?Medication ?Instructions ?Recorded ?Confirmed ?Type apixaban 5 mg tablet (Eliquis) 5 mg PO BID 02/17/25 02/17/25 History Allergies Allergy/AdvReac Type Severity Reaction Status Date / Time No Known Allergies Allergy Verified 02/16/25 16:19 Vital Signs Vital Signs - 24 hr 02/18/25 14:00 02/18/25 20:20 02/18/25 20:58 Temperature 36.7 C 37.0 C Pulse Rate 52 L 61 Respiratory Rate 16 18 Blood Pressure 123/78 122/57 L Pulse Oximetry 99 95 Oxygen Delivery Room Air 02/19/25 05:31 02/19/25 10:45 Temperature 36.6 C Pulse Rate 59 L Respiratory Rate 16 Blood Pressure 101/64 Pulse Oximetry 100 Oxygen Delivery Room Air Exam Const: General: comfortable Eyes: EOM: EOMs intact bilaterally Neck: Neck: no JVD Resp: Effort & Inspection: normal respiratory effort Auscultation: clear to auscultation bilaterally Cardio: Rate: regular rate Rhythm: abnormal rhythm Results Labs and Meds 02/19/25 05:56 02/19/25 05:56 Lab results: Cardiac Enzymes 02/19/25 Range/Units 05:56 AST 18 (17-59) U/L CBC 02/19/25 Range/Units 05:56 WBC 19.8 H (4.5-10.0) K/mm3 RBC 4.59 L (4.6-6.20) M/mm3 Hgb 14.3 (14.0-18.0) g/dL Hct 46.0 (42.0-52.0) % Plt Count 224 (150-375) k/mm3 Comprehensive Metabolic Panel 02/19/25 Range/Units 05:56 Sodium 133 L (137-145) mmol/L Potassium 5.5 H (3.4-5.0) mmol/L Chloride 103 (98-107) mmol/L Carbon Dioxide 21 L (22-30) mmol/L BUN 69 H D (9-20) mg/dL Creatinine 1.21 (0.7-1.3) mg/dL Glucose 91 (65-110) mg/dL Calcium 8.6 (8.4-10.2) mg/dL AST 18 (17-59) U/L ALT 13 (6-50) U/L Alkaline Phosphatase 75 (38-126) U/L Total Protein 6.0 L (6.3-8.2) g/dL Albumin 2.9 L (3.5-5.1) g/dL Intake and Output 02/18/25 02/19/25 02/19/25 23:59 07:59 15:59 Intake Total 320 278 0587 Output Total 1050 Balance -533 716 2130 Intake: IV 100 cefTRIAXone 2 GM/NS 100 ML 2 gm 100 In 100 ml @ 200 mls/hr IVPB Q24H [facility] Rx#:[id number] Oral [phone] Output: Urine 1050
[2025-02-19 14:00] VITALS: BP 116/75; PULSE 69; RESP 20; TEMP 36.7; O2SAT 99
[2025-02-19] MEDS: cefTRIAXone 2 GM/NS 100 ML 2 GM/100 ML BAG IVPB (20:39)
[2025-02-19 22:00] VITALS: BP 130/48; PULSE 51; RESP 18; O2SAT 100
[2025-02-20] MEDS: HYDROcodone/acetaminophen (*CRX) 5-325 MG TABLET 1 TAB PO ×2 (01:58→20:22)
[2025-02-20 05:11] LABS: Hematocrit 41.5 % (42.0-52.0); Hemoglobin 13.3 g/dL (14.0-18.0); Mean Corpuscular Volume 99.8 fl (80-100); Mean Platelet Volume 10.9 fl (7.4-10.4); Platelet Count Result 232 k/mm3 (150-375); Red Blood Count 4.16 M/mm3 (4.6-6.20); Red Cell Distribution Width 13.7 % (11.5-14.5); White Blood Count 22.1 K/mm3 (4.5-10.0)
[2025-02-20 05:22] LABS: Alanine Aminotransferase 15 U/L (6-50); Albumin Level 3.3 g/dL (3.5-5.1); Alkaline Phosphatase 94 U/L (38-126); Anion Gap 13 mmol/L (4-12); Aspartate Amino Transferase 18 U/L (17-59); Bilirubin,Total 0.5 mg/dL (0.2-1.3); Blood Urea Nitrogen 70 mg/dL (9-20); Calcium 8.9 mg/dL (8.4-10.2); Carbon Dioxide 20 mmol/L (22-30); Chloride 103 mmol/L (98-107); Estimated CRCL calculation 63 ml/min; Estimated Glomerular Filt Rate > 60; Glucose 106 mg/dL (65-110); Potassium 4.8 mmol/L (3.4-5.0); Sodium 136 mmol/L (137-145)
[2025-02-20 06:00] VITALS: BP 128/51; PULSE 55; RESP 18; O2SAT 98
[2025-02-20] MEDS: DICLOFENAC SODIUM 1% 100 GM GEL (*BKC) 1 APPLIC TOPICAL ×4 (06:37→20:24)
--- NOTE | 2025-02-20 07:18 | PM.IMPN ---
Progress Note: A&P Assessment and Plan (1) Cellulitis: Qualifiers: Laterality: unspecified laterality Site of cellulitis: extremity Site of cellulitis of extremity: lower extremity Qualified Code(s): L03.119 - Cellulitis of unspecified part of limb Code(s): L03.90 - Cellulitis, unspecified Status: Acute (2) Degenerative joint disease of knee: Qualifiers: Laterality: bilateral Osteoarthritis type: primary Qualified Code(s): M17.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 Code(s): M17.9 - Osteoarthritis of knee, unspecified Status: Acute (3) Bilateral edema of lower extremity: Code(s): R60.0 - Localized edema Status: Acute (4) Afib: Qualifiers: Atrial fibrillation type: unspecified Qualified Code(s): I48.91 - Unspecified atrial fibrillation Code(s): I48.91 - Unspecified atrial fibrillation Status: Acute (5) Left shoulder pain: Qualifiers: Chronicity: chronic Qualified Code(s): M25.512 - Pain in left shoulder; G89.29 - Other chronic pain Code(s): M25.512 - Pain in left shoulder Status: Acute (6) Anemia: Qualifiers: Anemia type: unspecified type Qualified Code(s): D64.9 - Anemia, unspecified Code(s): D64.9 - Anemia, unspecified Status: Acute Plan # Cellulitis/Venous Insufficiency: 02/17: - Patient started on IV cefepime, metronidazole, vancomycin initially started by ED for broad coverage - Due to lack of fever and purulent drainage, vancomycin was discontinued as concern for MRSA decreased - Cefepime was additionally downgraded to ceftriaxone - Wound care consulted for posterior right calf wound and anterior left leg wound - Will be utilizing santyl ointment for debridement of the wound, dressing for the weeping, and utilizing elastic wraps for decompression - Elevation advised and attempted over stay as tolerated by patients pain - Lack of history of heart failure, BNP measured at 914, echo ordered for further evaluation as it may be contributing to symptoms - As of 02/18: continuing ceftriaxone due to success in decreasing pain and erythema - Echo ordered - Downtrending WBC and lack of fever/cough/difficulty breathing are promising As of 02/19: will be continuing ceftriaxone due to continued success with pain and erythema decreasing - Bilateral lower extremity swelling decreasing progressively, wrapping is proving to be effective and will continue emphasizing elevation - Stable WBC and lack of systemic symptoms promising treatment is adequate - Echocardiogram performed, left ventricular diastolic function is abnormal, afib is present, left atrial chamber is severely enlarged. Mild pulmonary hypertension was also noted - Cardiology consulted on 02/19, per Dr. Fernandez swelling unlikely to be cardiac cause - Discussed protein shake supplementation to help with hydration and healing (serum protein/albumin 6/2.9), sent nurse communication order - 02/20 White count raised slightly over night from 19.8 to 22.1, vitals still WNL, negative for fever. - Due to continued elevation of white count, abx upgraded from ceftriaxone to cefepime and flagyl - Lactic acid ordered to evaluate for sepsis risk, was WNL - Potassium transiently elevated at 5.5 on 02/19, down to 4.8 on 02/20 - Elevation has become easier for patient, elevating legs all night of 02/19 # Bilateral Osteoarthritis - Difficulty ambulating and elevating legs due to pain in knees - Ortho consulted and advised ice, elevation, PT/OT, and WBAT - Patient denied PT/OT as of 02/17/25, but 02/19/25 has participated in OT/PT successfully - Pain continues to hinder elevation and movement # Afib: - [facility] - Evident on echocardiogram, no changes in treatment # Chronic Left Shoulder Pain: - New onset agitation of left shoulder pain, lifting and abducting arm 02/18 - Lidocaine patch and Voltaren topical gel for control - Treatment continues to be effective 02/20 # Anemia: - Downtrending H/H of 16.7/51 (02/16) - 13.3/41.5 (02/20) over the course of hospital stay - No s/s of bleeding currently - Anemia profile labs ordered to evaluate cause of anemia, patient is on eliquis so stool occult was ordered to evaluate for GI bleed - TIBC and Transferrin low, awaiting occult result for correlation - Patient complaining of reflux, will order tums for symptom alleviation, states he utilizes tums at home Subjective Date/time seen: 02/20/25 07:18 Interval history: Chief Complaint: Bilateral Lower Extremity Infection Narrative: Patient is a 74-year-old male with history of atrial fibrillation treated with Eliquis and hypertension presenting with bilateral lower extremity swelling and concern for infection related to open wound. Worsening began a few days ago with increased pain, redness, swelling, serous drainage, and decreased appetite. Original wound December 2023 to posterior portion of right calf and attempted self treatment with Neosporin and peroxide. Condition slowly worsened and he was treated at an emergency room with topical iodine and packing. Wound reportedly healed but reopened and became infected late last year. He thinks the wound to the left anterior leg occurred due to scratching it with his toenail. States drainage has always been clear yellow. Bilateral leg swelling began early this year, and patient reported he hasn't received primary medical care recently due to lack of access with clinic availability and transportation concerns. Augmentin was reportedly prescribed by the [facility] last week and was taken with no improvement. Legs have been weeping for the past couple of weeks. Ambulation and activity has been difficult due to bilateral knee degenerative joint disease. Denies chest pain, fevers, chills, difficulty breathing, headache, dizziness, fatigue, paresthesias, changes in bowel or bladder habits, and other recent infection. Notable findings on presentation 02/16 : Lab work with leukocytosis of 21.2. CRP elevated to 16.4, ESR elevated to 45. Lactic is normal. Blood cultures are pending Chemistries with a elevated bilirubin of 2.4, normal AST and ALT, normal alk-phos, no abdominal pain BNP elevated at 914, no prior for comparison. Patient denies history of CHF. Denies chest pain or shortness of breath. Lung sounds are clear, O2 stable. Lasix provided in ED UA with trace ketones, no UTI Bilateral venous duplex ultrasounds are negative for DVT Bilateral tib/fib Xrays show no subcutaneous emphysema, no cortical degradation concerning for osteomyelitis. Severe osteoarthritis 02/18: Patient was seen and examined, now complaining of left shoulder pain from preexisting degeneration d/t occupation. Patient states pain has decreased in to palpation and he believes treatment is working as measured by pain. Wrapping and elevation continue to be challenging due to pain. Nausea has become an issue, and patients appetite has stayed decreased. Notable labs: WBC decrease from 21.2 on 02/16 to 19.3 on 02/18 BUN increase from 36 on 02/16 to 40 on 02/18 Vital signs continue to be stable, slight bradycardia of 50 noted but consistent with previous measurements. Pain is still an issue. Not complaint with elevation but wearing devan wrap 02/19: Patient was seen and examined. No systemic complaints. Pain control is improving and patient mentions its from less tight wrapping. No complaints of new onset pain today, no complaints of nausea, and patient states they are drinking tons of water. Elevation continues to be a concern by the patient d/t knee pain. Dressing change is completed-pt tolerated fair. Pt is to see cardiology today to optimize tx. Notable labs: WBC increase from 19.3 to 19.8 BUN increase from 40 to 69 Total protein/Albumin 8/3.8 to 6/2.9 Potassium increase 4.5 to 5.5 BNP decrease 914 (02/16) to 472 (02/19) - Echocardiogram performed with multiple findings, left ventricular chamber dimension is normal but diastolic function is abnormal, afib present, left atrial chamber is severely enlarged, right atrial chamber is mildly enlarged, and mild pulmonary hypertension is present with a pulmonary arterial systolic pressure of 42 mmHg Vital signs continue to be stable, borderline bradycardia on examination today. 02/20: - Patient was seen and examined. Pain control is improving, with reduced pain regarding palpation and [id number] at baseline except for the posterior portion of his right leg. He expresses his desire for his leg swelling to go down. Nausea has continued to subside but patients appetite still decreased, though he did drink his protein shake yesterday. Asked for tums specifically and is having reflux due to carbonated beverages. He also states going to the bathroom has been challenging due to the stools being too high off the ground. Negative for chest pain, difficulty breathing, abdominal pain, and chills. Review of Systems Review of Systems: All systems reviewed & are unremarkable except as noted in HPI and below Exam Narrative: GENERAL: Well-appearing, well-nourished, and in no acute distress. HEAD: Normocephalic, atraumatic. EYES: Normal appearing sclera. ENT: Mucous membranes moist. NECK: Supple. CHEST: Clear to auscultation. No respiratory distress. HEART: Regular rate and rhythm. No murmur heard. ABDOMEN: Soft, nontender, nondistended, normal active bowel sounds. EXTREMITIES: Extensive pitting edema to bilateral lower extremities with warmth and erythema extending from the dorsum of the feet bilaterally to the proximal tibia. Examination under wrappings performed, edema and erythema have decreased bilaterally. Swelling and dark purple/red present in toes and forefoot. Left shoulder pain with abduction. Weeping serous fluid in legs bilaterally. Sensation in tact bilaterally. RLE: Pain around right calf wound with palpation persists but has decreased more from previously rated 6/10. 4 open weeping wounds on anterior leg. LLE: Pain around wounds isn't producible by palpation. Left knee swelling persists. SKIN: Warm, dry, no rash NEURO: No focal deficits. Alert and oriented x4 Objective Data Vital Signs Vital Signs: Vital Signs - 24 hr 02/19/25 08:00 02/19/25 10:45 02/19/25 14:00 Temperature 98.1 F Pulse Rate 69 Respiratory Rate 20 Blood Pressure 116/75 Pulse Oximetry 99 Oxygen Delivery Room Air Room Air 02/19/25 20:00 02/19/25 22:00 02/20/25 06:00 Temperature Pulse Rate 51 L 55 L Respiratory Rate 18 18 Blood Pressure 130/48 L 128/51 L Pulse Oximetry 100 98 Oxygen Delivery Room Air Intake/Output Intake/Output: Intake & Output 02/17/25 02/18/25 02/19/25 02/20/25 23:59 23:59 23:59 23:59 Intake Total 3195 413 7275 550 Output Total 650 1250 1100 600 Balance 1030 -280 2750 -50 Meds/Results Medications: Active Medications Generic Name Dose Route Start Last Admin Trade Name Freq PRN Reason Stop Dose Admin Hydrocodone Bitart/Acetaminophen 1 tab 02/17/25 10:40 02/20/25 01:58 Hydrocodone/Acetaminophen (*Crx) 5-325 Mg Tablet PO 1 tab Q4H PRN Administration Pain Rated 4-6 Apixaban 5 mg 02/17/25 10:55 02/19/25 20:41 Apixaban 5 Mg Tablet PO 5 mg Q12HR SHRUTHI Administration Collagenase 1 applic 02/17/25 09:00 02/19/25 20:42 Collagenase Oint 30 Gm Tube TOPICAL 1 applic Q12HR SHRUTHI Administration Cyclobenzaprine HCl 10 mg 02/18/25 13:08 02/19/25 09:11 Cyclobenzaprine Hcl 10 Mg Tablet PO 10 mg Q8H PRN Administration Muscle Spasm Diclofenac Sodium 1 applic 02/18/25 13:00 02/20/25 06:37 Diclofenac Sodium 1% 100 Gm Gel (*Bkc) TOPICAL 1 applic QID SHRUTHI Administration Ceftriaxone Sodium 2 gm in 100 mls @ 200 mls/hr 02/17/25 21:00 02/19/25 21:09 Rocephin 2 Gm/Ns 100 Ml IVPB Infused Q24H SHRUTHI Infusion Lidocaine 1 patch 02/17/25 10:55 02/19/25 09:08 Lidocaine 5% Patch TRANSDERM 1 patch DAILY SHRUTHI Administration Lidocaine 1 patch 02/19/25 09:00 02/19/25 09:12 Lidocaine 5% Patch TRANSDERM 1 patch DAILY SHRUTHI Administration Morphine Sulfate 2 mg 02/17/25 02:55 02/18/25 04:30 Morphine Sulfate (*Crx) 2 Mg/Ml Inj IV PUSH 2 mg Q2H PRN Administration Pain Rated 7-10 Ondansetron HCl 4 mg 02/17/25 02:55 02/18/25 04:30 Ondansetron Inj 4 Mg/2 Ml Vial IV PUSH 4 mg Q4H PRN Administration Nausea Perflutren Lipid Microsphere 0 ml 02/17/25 10:46 Perflutren Lipid Microspheres 1.5 Ml Vial Diluted To 10 Ml Total Volume IV PUSH 02/20/25 10:46 ONCE PRN adequate visualization Protocol Radiology Results: ITS Impressions Venous Doppler Study 02/16/25 18:08 IMPRESSION: Negative bilateral lower extremity venous US. No deep vein thrombosis. Tibia/Fibula X-Ray 02/17/25 06:31 Impression: Diffuse soft tissue edema. Moderate degenerative change at the knee. No evidence for osteomyelitis. Chest X-Ray 02/17/25 06:32 Impression: Clear lungs. Labs Labs: Laboratory Results - last 24 hr 02/19/25 02/20/25 07:33 04:54 WBC 22.1 H RBC 4.16 L Hgb 13.3 L Hct 41.5 L MCV 99.8 MCH 32.0 MCHC 32.0 RDW 13.7 Plt Count 232 MPV 10.9 H Sodium 136 L Potassium 4.8 Chloride 103 Carbon Dioxide 20 L Anion Gap 13 H BUN 70 H Creatinine 1.07 Estim Creat Clear Calc 63 Estimated GFR > 60 Glucose 106 Calcium 8.9 Total Bilirubin 0.5 AST 18 ALT 15 Alkaline Phosphatase 94 NT-Pro-B Natriuret Pep 472 H Total Protein 7.0 Albumin 3.3 L Quality VTE Prophylaxis VTE prophylaxis: pharmacologic ordered
[2025-02-20] MEDS: CEFEPIME 2 GM/NS 50 ML 2 GM/50 ML BAG IVPB ×2 (07:50→20:18)
[2025-02-20 08:22] LABS: Immature Reticulocyte Fraction 33.4 % (3.0-15.9); Reticulocyte Hemoglobin Conten 32.3 pg (28.2-36.6); Reticulocyte Percent 2.32 % (0.7-4.3)
[2025-02-20 08:33] LABS: Lactate Dehydrogenase 172 U/L (120-246)
[2025-02-20 08:34] LABS: Iron 71 ug/dL (49-181); Lactic Acid Reflex 1.7 mmol/L (0.7-2.0)
[2025-02-20 08:41] LABS: Transferrin 123 mg/dL (206-381)
[2025-02-20 08:46] LABS: Percent Iron Saturation 36 % (20-50)
[2025-02-20 09:44] LABS: Folic Acid 6.4 ng/mL (2.76->20)
[2025-02-20] MEDS: APIXABAN 5 MG TABLET PO ×2 (09:59→20:18)
[2025-02-20] MEDS: LIDOCAINE 5% PATCH 1 PATCH TRANSDERM ×2 (09:59→10:00)
[2025-02-20 10:00] VITALS: RESP 18; O2SAT 98
[2025-02-20] MEDS: metroNIDAZOLE 500 MG/ISO 100ML 500 MG/100 ML BAG 100 MG IVPB ×2 (10:02→16:19)
[2025-02-20] MEDS: COLLAGENASE OINT 30 GM TUBE 1 APPLIC TOPICAL ×2 (10:18→20:24)
--- NOTE | 2025-02-20 11:44 | PCPTNOTE ---
Attempted to see patient for PT, however patient working with OT.
--- NOTE | 2025-02-20 12:49 | PCPTNOTE ---
Attempted to see patient for PT, however patient refused due to 6/10 pain in bilateral legs. RN aware.
[2025-02-20 14:00] VITALS: BP 136/60; PULSE 60; RESP 20; TEMP 36.4; O2SAT 100
[2025-02-20 20:00] VITALS: PULSE 60; RESP 16; O2SAT 100
[2025-02-20 20:02] VITALS: BP 133/60; PULSE 60; RESP 16; TEMP 36.9; O2SAT 100
[2025-02-21] MEDS: metroNIDAZOLE 500 MG/ISO 100ML 500 MG/100 ML BAG 100 MG IVPB ×3 (01:07→16:45)
[2025-02-21 04:25] VITALS: BP 137/58; PULSE 60; RESP 16; TEMP 37.3; O2SAT 100
[2025-02-21] MEDS: HYDROcodone/acetaminophen (*CRX) 5-325 MG TABLET 1 TAB PO ×2 (05:21→12:32)
[2025-02-21 05:41] LABS: Hematocrit 38.2 % (42.0-52.0); Hemoglobin 12.1 g/dL (14.0-18.0); Mean Corpuscular HGB Conc 31.7 g/dl (32-36); Mean Corpuscular Hemoglobin 31.7 pg (26-34); Mean Platelet Volume 11.6 fl (7.4-10.4); Platelet Count Result 246 k/mm3 (150-375); Red Blood Count 3.82 M/mm3 (4.6-6.20); Red Cell Distribution Width 13.7 % (11.5-14.5); White Blood Count 20.6 K/mm3 (4.5-10.0)
[2025-02-21 05:56] LABS: Alanine Aminotransferase 15 U/L (6-50); Albumin Level 3.3 g/dL (3.5-5.1); Alkaline Phosphatase 93 U/L (38-126); Anion Gap 10 mmol/L (4-12); Aspartate Amino Transferase 24 U/L (17-59); Bilirubin,Total 0.4 mg/dL (0.2-1.3); Blood Urea Nitrogen 65 mg/dL (9-20); Calcium 8.9 mg/dL (8.4-10.2); Carbon Dioxide 22 mmol/L (22-30); Chloride 102 mmol/L (98-107); Estimated CRCL calculation 70 ml/min; Estimated Glomerular Filt Rate > 60; Glucose 115 mg/dL (65-110); Potassium 4.8 mmol/L (3.4-5.0); Sodium 134 mmol/L (137-145)
[2025-02-21] MEDS: DOCUSATE SODIUM 100 MG CAPSULE PO (06:59)
--- NOTE | 2025-02-21 07:56 | P.PNIM_ITS ---
Progress Note: A&P Assessment and Plan (1) Cellulitis: Qualifiers: Laterality: unspecified laterality Site of cellulitis: extremity Site of cellulitis of extremity: lower extremity Qualified Code(s): L03.119 - Cellulitis of unspecified part of limb <Suraj Henry - Last Filed: 02/21/25 12:22> Code(s): L03.90 - Cellulitis, unspecified <Suraj Henry - Last Filed: 02/21/25 12:22> Status: Acute <Suraj Henry Last Filed: 02/21/25 12:22> (2) Degenerative joint disease of knee: Qualifiers: Laterality: bilateral Osteoarthritis type: primary Qualified Code(s): M17.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 <Suraj Henry Last Filed: 02/21/25 12:22> Code(s): M17.9 - Osteoarthritis of knee, unspecified <Suraj Henry - Last Filed: 02/21/25 12:22> Status: Acute <Suraj Henry Last Filed: 02/21/25 12:22> (3) Bilateral edema of lower extremity: Code(s): R60.0 - Localized edema <Suraj Henry Last Filed: 02/21/25 12:22> Status: Acute <Suraj Henry Last Filed: 02/21/25 12:22> (4) Afib: Qualifiers: Atrial fibrillation type: unspecified Qualified Code(s): I48.91 - Unspecified atrial fibrillation <Suraj Henry Last Filed: 02/21/25 12:22> Code(s): I48.91 - Unspecified atrial fibrillation <Suraj Henry - Last Filed: 02/21/25 12:22> Status: Acute <Suraj Henry Last Filed: 02/21/25 12:22> (5) Left shoulder pain: Qualifiers: Chronicity: chronic Qualified Code(s): M25.512 - Pain in left shoulder; G89.29 - Other chronic pain <Suraj Henry - Last Filed: 02/21/25 12:22> Code(s): M25.512 - Pain in left shoulder <Suraj Henry Student - Last Filed: 02/21/25 12:22> Status: Acute <Suraj Henry Student - Last Filed: 02/21/25 12:22> (6) Anemia: Qualifiers: Anemia type: unspecified type Qualified Code(s): D64.9 - Anemia, unspecified <Suraj Henry Student - Last Filed: 02/21/25 12:22> Code(s): D64.9 - Anemia, unspecified <Suraj Henry Student - Last Filed: 02/21/25 12:22> Status: Acute <Suraj Henry Student - Last Filed: 02/21/25 12:22> Assessment and Plan: # Cellulitis/Venous Insufficiency: 02/17: - Patient started on IV cefepime, metronidazole, vancomycin initially started by ED for broad coverage - Due to lack of fever and purulent drainage, vancomycin was discontinued as concern for MRSA decreased - Cefepime was additionally downgraded to ceftriaxone - Wound care consulted for posterior right calf wound and anterior left leg wound - Will be utilizing santyl ointment for debridement of the wound, dressing for the weeping, and utilizing elastic wraps for decompression - Elevation advised and attempted over stay as tolerated by patients pain - Lack of history of heart failure, BNP measured at 914, echo ordered for further evaluation as it may be contributing to symptoms - As of 02/18: continuing ceftriaxone due to success in decreasing pain and erythema - Echo ordered - Downtrending WBC and lack of fever/cough/difficulty breathing are promising As of 02/19: will be continuing ceftriaxone due to continued success with pain and erythema decreasing - Bilateral lower extremity swelling decreasing progressively, wrapping is proving to be effective and will continue emphasizing elevation - Stable WBC and lack of systemic symptoms promising treatment is adequate - Echocardiogram performed, left ventricular diastolic function is abnormal, afib is present, left atrial chamber is severely enlarged. Mild pulmonary hypertension was also noted - Cardiology consulted on 02/19, per Dr. Fernandez swelling unlikely to be cardiac cause - Discussed protein shake supplementation to help with hydration and healing (serum protein/albumin 6/2.9), sent nurse communication order - 02/20 White count raised slightly over night from 19.8 to 22.1, vitals still WNL, negative for fever. - Due to continued elevation of white count, abx upgraded from ceftriaxone to cefepime and flagyl - Lactic acid ordered to evaluate for sepsis risk, was WNL - Potassium transiently elevated at 5.5 on 02/19, down to 4.8 on 02/20 - Elevation has become easier for patient, elevating legs all night of 02/19 - 02/21 White count decreased overnight following upgrading of abx, vitals remain wnl, negative for fever - Potassium stable at 4.8 - No new complaints of pain, general decrease in pain to palpation and erythema - Swelling in right leg has decreased considerably, left has persisted but near baseline according to pt. Distal swelling persists. Continued difficulty with patient denying tight wrapping d/t pain. - continuing treatment of cefepime and flagyl # Bilateral Osteoarthritis - Difficulty ambulating and elevating legs due to pain in knees - Ortho consulted and advised ice, elevation, PT/OT, and WBAT - Patient denied PT/OT as of 02/17/25, seen 02/19-02/20, denied PT due to pain, difficulty with OT due to pain - Pain continues to hinder elevation and movement # Afib: - [facility] - Evident on echocardiogram, no changes in treatment # Chronic Left Shoulder Pain: - New onset agitation of left shoulder pain, lifting and abducting arm 02/18 - Lidocaine patch and Voltaren topical gel for control - Treatment continues to be effective 02/21 # Anemia: - Downtrending H/H of 16.7/51 (02/16) - 12.1/38.2 (02/21) over the course of hosp ital stay - No s/s of bleeding currently - Anemia profile labs ordered to evaluate cause of anemia, patient is on Eliquis so stool occult was ordered to evaluate for GI bleed - TIBC and Transferrin low, awaiting occult result for correlation - 02/21 protonix GI prophylaxis was begun as H/H continue to downtrend, awaiting occult stool result - No bowel movements as of yet, will continue to monitor and escalate therapy as needed - Added benefit of helping with reflux - Of note, patient has had trouble with food intake, states they will drink cl ear fruit ensure - will order to help with nutrition <Suraj Henry, Student - Last Filed: 02/21/25 12:22> # Cellulitis/Venous Insufficiency: 02/17: - Patient started on IV cefepime, metronidazole, vancomycin initially started by ED for broad coverage - Due to lack of fever and purulent drainage, vancomycin was discontinued as concern for MRSA decreased - Cefepime was additionally downgraded to ceftriaxone - Wound care consulted for posterior right calf wound and anterior left leg wound - Will be utilizing santyl ointment for debridement of the wound, dressing for the weeping, and utilizing elastic wraps for decompression - Elevation advised and attempted over stay as tolerated by patients pain - Lack of history of heart failure, BNP measured at 914, echo ordered for further evaluation as it may be contributing to symptoms - As of 02/18: continuing ceftriaxone due to success in decreasing pain and erythema - Echo ordered - Downtrending WBC and lack of fever/cough/difficulty breathing are promising As of 02/19: will be continuing ceftriaxone due to continued success with pain and erythema decreasing - Bilateral lower extremity swelling decreasing progressively, wrapping is proving to be effective and will continue emphasizing elevation - Stable WBC and lack of systemic symptoms promising treatment is adequate - Echocardiogram performed, left ventricular diastolic function is abnormal, afib is present, left atrial chamber is severely enlarged. Mild pulmonary hypertension was also noted - Cardiology consulted on 02/19, per Dr. Fernandez swelling unlikely to be cardiac cause - Discussed protein shake supplementation to help with hydration and healing (serum protein/albumin 6/2.9), sent nurse communication order - 02/20 White count raised slightly over night from 19.8 to 22.1, vitals still WNL, negative for fever. - Due to continued elevation of white count, abx upgraded from ceftriaxone to cefepime and flagyl - Lactic acid ordered to evaluate for sepsis risk, was WNL - Potassium transiently elevated at 5.5 on 02/19, down to 4.8 on 02/20 - Elevation has become easier for patient, elevating legs all night of 02/19 - 02/21 White count decreased overnight following upgrading of abx, vitals remain wnl, negative for fever - Potassium stable at 4.8 - No new complaints of pain, general decrease in pain to palpation and erythema - Swelling in right leg has decreased considerably, left has persisted but near baseline according to pt. Distal swelling persists. Continued difficulty with patient denying tight wrapping d/t pain. - continuing treatment of cefepime and flagyl # Bilateral Osteoarthritis - Difficulty ambulating and elevating legs due to pain in knees - Ortho consulted and advised ice, elevation, PT/OT, and WBAT - Patient denied PT/OT as of 02/17/25, seen 02/19-02/20, denied PT due to pain, difficulty with OT due to pain - Pain continues to hinder elevation and movement # Afib: - [facility] - Evident on echocardiogram, no changes in treatment # Chronic Left Shoulder Pain: - New onset agitation of left shoulder pain, lifting and abducting arm 02/18 - Lidocaine patch and Voltaren topical gel for control - Treatment continues to be effective 02/21 - cha2ds vasc-3 # Anemia: - Downtrending H/H of 16.7/51 (02/16) - 12.1/38.2 (02/21) over the course of hospital stay - No s/s of bleeding currently - Anemia profile labs ordered to evaluate cause of anemia, patient is on Eliquis so stool occult was ordered to evaluate for GI bleed - TIBC and Transferrin low, awaiting occult result for correlation - 02/21 protonix GI prophylaxis was begun as H/H continue to downtrend, awaiting occult stool result - No bowel movements as of yet, will continue to monitor and escalate therapy as needed - Added benefit of helping with reflux - Of note, patient has had trouble with food intake, states they will drink clear fruit ensure - will order to help with nutrition <Harleen Perez APRN - Last Filed: 02/21/25 15:38> Time Spent With Patient Time with patient: Greater than 35 minutes <Harleen Perez APRN - Last Filed: 02/21/25 15:38> Subjective Date/time seen: 02/21/25 07:56 <Suraj Henry, Student - Last Filed: 02/21/25 12:22> Interval history: Chief Complaint: Bilateral Lower Extremity Infection Narrative: Patient is a 74-year-old male with history of atrial fibrillation treated with Eliquis and hypertension presenting with bilateral lower extremity swelling and concern for infection related to open wound. Worsening began a few days ago with increased pain, redness, swelling, serous drainage, and decreased appetite. Original wound December 2023 to posterior portion of right calf and attempted self treatment with Neosporin and peroxide. Condition slowly worsened and he was treated at an emergency room with topical iodine and packing. Wound reportedly healed but reopened and became infected late last year. He thinks the wound to the left anterior leg occurred due to scratching it with his toenail. States drainage has always been clear yellow. Bilateral leg swelling began early this year, and patient reported he hasn't received primary medical care recently due to lack of access with clinic availability and transportation concerns. Augmentin was reportedly prescribed by the [facility] last week and was taken with no improvement. Legs have been weeping for the past couple of weeks. Ambulation and activity has been difficult due to bilateral knee degenerative joint disease. Denies chest pain, fevers, chills, difficulty breathing, headache, dizziness, fatigue, paresthesias, changes in bowel or bladder habits, and other recent infection. Notable findings on presentation 02/16 : Lab work with leukocytosis of 21.2. CRP elevated to 16.4, ESR elevated to 45. Lactic is normal. Blood cultures are pending Chemistries with a elevated bilirubin of 2.4, normal AST and ALT, normal alk- phos, no abdominal pain BNP elevated at 914, no prior for comparison. Patient denies history of CHF. Denies chest pain or shortness of breath. Lung sounds are clear, O2 stable. Lasix provided in ED UA with trace ketones, no UTI Bilateral venous duplex ultrasounds are negative for DVT Bilateral tib/fib Xrays show no subcutaneous emphysema, no cortical degradation concerning for osteomyelitis. Severe osteoarthritis 02/18: Patient was seen and examined, now complaining of left shoulder pain from pree xisting degeneration d/t occupation. Patient states pain has decreased in to palpation and he believes treatment is working as measured by pain. Wrapping and elevation continue to be challenging due to pain. Nausea has become an issue, and patients appetite has stayed decreased. Notable labs: WBC decrease from 21.2 on 02/16 to 19.3 on 02/18 BUN increase from 36 on 4/10 to 40 on 02/18 Vital signs continue to be stable, slight bradycardia of 50 noted but consistent with previous measurements. Pain is still an issue. Not complaint with elevation but wearing devan wrap 02/19: Patient was seen and examined. No systemic complaints. Pain control is improving and patient mentions its from less tight wrapping. No complaints of new onset pain today, no complaints of nausea, and patient states they are drinking tons of water. Elevation continues to be a concern by the patient d/t knee pain. Dressing change is completed-pt tolerated fair. Pt is to see cardiology today to optimize tx. Notable labs: WBC increase from 19.3 to 19.8 BUN increase from 40 to 69 Total protein/Albumin 8/3.8 to 6/2.9 Potassium increase 4.5 to 5.5 BNP decrease 914 (02/16) to 472 (02/19) - Echocardiogram performed with multiple findings, left ventricular chamber dimension is normal but diastolic function is abnormal, afib present, left atrial chamber is severely enlarged, right atrial chamber is mildly enlarged, and mild pulmonary hypertension is present with a pulmonary arterial systolic pressure of 42 mmHg Vital signs continue to be stable, borderline bradycardia on examination today. 02/20: - Patient was seen and examined. Pain control is improving, with reduced pain regarding palpation and [id number] at baseline except for the posterior portion of his right leg. He expresses his desire for his leg swelling to go down. Nausea has continued to subside but patients appetite still decreased, though he did drink his protein shake yesterday. Asked for tums specifically and is having reflux due to carbonated beverages. He also states going to the bathroom has been challenging due to the stools being too high off the ground. Negative for chest pain, difficulty breathing, abdominal pain, and chills. 02/21: - Patient was seen and examined. Pain continues to improve with reduced pain to palpation. Pain on posterior portion of the leg continues but is less concerning. Leg swelling and fluid drainage continues to be main concern. Left leg is more swollen than right, but close to baseline according to patient d/t knee osteoarthritis. Nausea and reflux has continued, hindering ability to eat food. Some reports of dizziness, but manageable. Also complaints of itchiness on legs. No bowel movements yet. Negative for chest pain, difficulty breathing, cough, abdominal pain, and chills. No other acute complaints or pains. <Suraj Henry, Student - Last Filed: 02/21/25 12:22> Chief Complaint: Bilateral Lower Extremity Infection Narrative: Patient is a 74-year-old male with history of atrial fibrillation treated with Eliquis and hypertension presenting with bilateral lower extremity swelling and concern for infection related to open wound. Worsening began a few days ago with increased pain, redness, swelling, serous drainage, and decreased appetite. Original wound December 2023 to posterior portion of right calf and attempted self treatment with Neosporin and peroxide. Condition slowly worsened and he was treated at an emergency room with topical iodine and packing. Wound reportedly healed but reopened and became infected late last year. He thinks the wound to the left anterior leg occurred due to scratching it with his toenail. States drainage has always been clear yellow. Bilateral leg swelling began early this year, and patient reported he hasn't received primary medical care recently due to lack of access with clinic availability and transportation concerns. Augmentin was reportedly prescribed by the [facility] last week and was taken with no improvement. Legs have been weeping for the past couple of weeks. Ambulation and activity has been difficult due to bilateral knee degenerative parveen int disease. Denies chest pain, fevers, chills, difficulty breathing, headache, dizziness, fatigue, paresthesias, changes in bowel or bladder habits, and other recent infection. Notable findings on presentation 02/16 : Lab work with leukocytosis of 21.2. CRP elevated to 16.4, ESR elevated to 45. Lactic is normal. Blood cultures are pending Chemistries with a elevated bilirubin of 2.4, normal AST and ALT, normal alk- phos, no abdominal pain BNP elevated at 914, no prior for comparison. Patient denies history of CHF. Denies chest pain or shortness of breath. Lung sounds are clear, O2 stable. Lasix provided in ED UA with trace ketones, no UTI Bilateral venous duplex ultrasounds are negative for DVT Bilateral tib/fib Xrays show no subcutaneous emphysema, no cortical degradation concerning for osteomyelitis. Severe osteoarthritis 02/18: Patient was seen and examined, now complaining of left shoulder pain from preexisting degeneration d/t occupation. Patient states pain has decreased in to palpation and he believes treatment is working as measured by pain. Wrapping and elevation continue to be challenging due to pain. Nausea has become an issue, and patients appetite has stayed decreased. Notable labs: WBC decrease from 21.2 on 02/16 to 19.3 on 02/18 BUN increase from 36 on 02/16 to 40 on 02/18 Vital signs continue to be stable, slight bradycardia of 50 noted but consistent with previous measurements. Pain is still an issue. Not complaint with elevation but wearing devan wrap 02/19: Patient was seen and examined. No systemic complaints. Pain control is improving and patient mentions its from less tight wrapping. No complaints of new onset pain today, no complaints of nausea, and patient states they are drinking tons of water. Elevation continues to be a concern by the patient d/t knee pain. Dressing change is completed-pt tolerated fair. Pt is to see cardiology today to optimize tx. Notable labs: WBC increase from 19.3 to 19.8 BUN increase from 40 to 69 Total protein/Albumin 8/3.8 to 6/2.9 Potassium increase 4.5 to 5.5 BNP decrease 914 (02/16) to 472 (02/19) - Echocardiogram performed with multiple findings, left ventricular chamber dimension is normal but diastolic function is abnormal, afib present, left atrial chamber is severely enlarged, right atrial chamber is mildly enlarged, and mild pulmonary hypertension is present with a pulmonary arterial systolic pressure of 42 mmHg Vital signs continue to be stable, borderline bradycardia on examination today. 02/20: - Patient was seen and examined. Pain control is improving, with reduced pain regarding palpation and [id number] at baseline except for the posterior portion of his right leg. He expresses his desire for his leg swelling to go down. Nausea has continued to subside but patients appetite still decreased, though he did drink his protein shake yesterday. Asked for tums specifically and is having reflux due to carbonated beverages. He also states going to the bathroom has been challenging due to the stools being too high off the ground. Negative for chest pain, difficulty breathing, abdominal pain, and chills. 02/21: - Patient was seen and examined. Pain continues to improve with reduced pain to palpation. Pain on posterior portion of the leg continues but is less conc erning. Leg swelling and fluid drainage continues to be main concern. Left leg is more swollen than right, but close to baseline according to patient d/t knee osteoarthritis. Nausea and reflux has continued, hindering ability to eat food. Some reports of dizziness, but manageable. Also complaints of itchiness on legs. No bowel movements yet. Negative for chest pain, difficulty breathing, cough, ab dominal pain, and chills. No other acute complaints or pains. pt reports feeling better though overall, got cleaned up and worked with OT, declined PT. <Harleen Perez, [employer] - Last Filed: 02/21/25 15:38> Review of Systems Review of Systems: All systems reviewed & are unremarkable except as noted in HPI and below <Suraj Henry, Student - Last Filed: 02/21/25 12:22> Exam Narrative: GENERAL: Well-appearing, well-nourished, and in no acute distress. HEAD: Normocephalic, atraumatic. EYES: Normal appearing sclera. ENT: Mucous membranes moist. NECK: Supple. CHEST: Clear to auscultation. No respiratory distress. HEART: Regular rate and rhythm. No murmur heard. ABDOMEN: Soft, nontender, nondistended, normal active bowel sounds. EXTREMITIES: Extensive pitting edema on the dorsum of the feet bilaterally extending to the proximal tibia. Edema and erythema have progressively decreased in bilateral lower extremities. Erythema present surrounding wounds. Swelling and dark purple/red present in toes and forefoot increasing with gravity. Left shoulder pain with abduction. Weeping serous fluid in legs bilaterally. Sensation in tact bilaterally. Pain notably persists following deep palpation. RLE: Pain around right calf wound with palpation continues but decreases day to day. 4 open weeping wounds on anterior leg. LLE: Pain around wounds isn't producible without deep palpation. Left knee swelling persists. Left leg more swollen than right. SKIN: Warm, dry, no rash NEURO: No focal deficits. Alert and oriented x4 <Suraj Henry, Student - Last Filed: 02/21/25 12:22> Objective Data Vital Signs Vital Signs: Vital Signs - 24 hr 02/20/25 10:00 02/20/25 14:00 02/20/25 20:00 Temperature 97.5 F L Pulse Rate 60 60 Respiratory Rate 18 20 16 Blood Pressure 136/60 Pulse Oximetry 98 100 100 Oxygen Delivery Room Air Room Air 02/20/25 20:02 02/21/25 04:25 Temperature 98.5 F 99.1 F Pulse Rate 60 60 Respiratory Rate 16 16 Blood Pressure 133/60 137/58 L Pulse Oximetry 100 100 Oxygen Delivery <Suraj Henry, Student - Last Filed: 02/21/25 12:22> Intake/Output Intake/Output: Intake & Output 02/18/25 02/19/25 02/20/25 02/21/25 23:59 23:59 23:59 23:59 Intake Total 970 3850 1340 700 Output Total 1250 1100 2000 650 Balance -280 2750 -660 50 <Suraj Henry, Student - Last Filed: 02/21/25 12:22> Meds/Results Medications: Active Medications Generic Name Dose Route Start Last Admin Trade Name Freq PRN Reason Stop Dose Admin Hydrocodone Bitart/Acetaminophen 1 tab 02/17/25 10:40 02/21/25 05:21 Hydrocodone/Acetaminophen (*Crx) 5-325 Mg Tablet PO 1 tab Q4H PRN Administration Pain Rated 4-6 Apixaban 5 mg 02/17/25 10:55 02/20/25 20:18 Apixaban 5 Mg Tablet PO 5 mg Q12HR SHRUTHI Administration Calcium Carbonate 200 mg 02/20/25 15:31 Calcium Carbonate (Tums) 500 Mg (200 Mg Elemental) PO Q6H PRN Indigestion Collagenase 1 applic 02/17/25 09:00 02/20/25 20:24 Collagenase Oint 30 Gm Tube TOPICAL 1 applic Q12HR SHRUTHI Administration Cyclobenzaprine HCl 10 mg 02/18/25 13:08 02/19/25 09:11 Cyclobenzaprine Hcl 10 Mg Tablet PO 10 mg Q8H PRN Administration Muscle Spasm Diclofenac Sodium 1 applic 02/18/25 13:00 02/20/25 20:24 Diclofenac Sodium 1% 100 Gm Gel (*Bkc) TOPICAL 1 applic QID SHRUTHI Administration Docusate Sodium 100 mg 02/20/25 10:18 02/21/25 06:59 Docusate Sodium 100 Mg Capsule PO 100 mg Q12H PRN Administration Constipation Cefepime HCl 2 gm in 50 mls @ 100 mls/hr 02/20/25 08:00 02/20/25 21:00 Maxipime 2 Gm/Ns 50 Ml IVPB Infused Q12H SHRUTHI Infusion Metronidazole 500 mg in 100 mls @ 100 mls/hr 02/20/25 09:00 02/21/25 02:10 Flagyl 500 Mg/Iso Soln 100 Ml IVPB Infused Q8H SHRUTHI Infusion Lidocaine 1 patch 02/17/25 10:55 02/20/25 10:00 Lidocaine 5% Patch TRANSDERM 1 patch DAILY SHRUTHI Administration Lidocaine 1 patch 02/19/25 09:00 02/20/25 09:59 Lidocaine 5% Patch TRANSDERM 1 patch DAILY SHRUTHI Administration Morphine Sulfate 2 mg 02/17/25 02:55 02/18/25 04:30 Morphine Sulfate (*Crx) 2 Mg/Ml Inj IV PUSH 2 mg Q2H PRN Administration Pain Rated 7-10 Ondansetron HCl 4 mg 02/17/25 02:55 02/18/25 04:30 Ondansetron Inj 4 Mg/2 Ml Vial IV PUSH 4 mg Q4H PRN Administration Nausea Pantoprazole Sodium 40 mg 02/21/25 09:00 Pantoprazole Sodium Iv 40 Mg Vial IV PUSH QAM SHRUTHI Polyethylene Glycol 17 gm 02/20/25 10:20 Polyethylene Glycol 3350 17 Gm Powd.Pack PO QAM PRN Constipation <Suraj Henry, Student - Last Filed: 02/21/25 12:22> Radiology Results: ITS Impressions Venous Doppler Study 02/16/25 18:08 IMPRESSION: Negative bilateral lower extremity venous US. No deep vein thrombosis. Tibia/Fibula X-Ray 02/17/25 06:31 Impression: Diffuse soft tissue edema. Moderate degenerative change at the knee. No evidence for osteomyelitis. Chest X-Ray 02/17/25 06:32 Impression: Clear lungs. <Suraj Henry, Student - Last Filed: 02/21/25 12:22> Labs Labs: Laboratory Results - last 24 hr 02/20/25 02/21/25 08:05 05:04 WBC 20.6 H RBC 3.82 L Hgb 12.1 L Hct 38.2 L MCV 100.0 MCH 31.7 MCHC 31.7 L RDW 13.7 Plt Count 246 MPV 11.6 H Absolute Retic 0.10 Percent Retic 2.32 Immature Retic Fraction 33.4 H Retic Hgb Content 32.3 Sodium 134 L Potassium 4.8 Chloride 102 Carbon Dioxide 22 Anion Gap 10 BUN 65 H Creatinine 0.95 Estim Creat Clear Calc 70 Estimated GFR > 60 Glucose 115 H Lactic Acid 1.7 Calcium 8.9 Iron 71 TIBC 198 L % Saturation 36 Transferrin 123 L Ferritin 224.00 Total Bilirubin 0.4 Direct Bilirubin 0.0 AST 24 ALT 15 Alkaline Phosphatase 93 Lactate Dehydrogenase 172 Total Protein 6.0 L Albumin 3.3 L Vitamin B12 357.0 Folate 6.4 MAAME, IgG Interpret Negative MAAME, Poly Interpret TNP MAAME, Complement Interp Negative <Suraj Henry, Student - Last Filed: 02/21/25 12:22> Quality VTE Prophylaxis VTE prophylaxis: pharmacologic ordered <Suraj Henry, Student - Last Filed: 02/21/25 12:22>
[2025-02-21 08:24] LABS: Haptoglobin 241 mg/dL (43-212)
[2025-02-21] MEDS: CEFEPIME 2 GM/NS 50 ML 2 GM/50 ML BAG IVPB ×2 (08:32→20:51)
[2025-02-21] MEDS: PANTOPRAZOLE SODIUM IV 40 MG VIAL IV PUSH (08:38)
[2025-02-21] MEDS: LIDOCAINE 5% PATCH 1 PATCH TRANSDERM ×2 (08:39)
[2025-02-21 08:40] VITALS: RESP 16; O2SAT 100
[2025-02-21] MEDS: APIXABAN 5 MG TABLET PO ×2 (08:40→20:50)
[2025-02-21] MEDS: COLLAGENASE OINT 30 GM TUBE 1 APPLIC TOPICAL ×2 (08:40→20:50)
[2025-02-21] MEDS: DICLOFENAC SODIUM 1% 100 GM GEL (*BKC) 1 APPLIC TOPICAL ×4 (08:41→20:50)
[2025-02-21] MEDS: CALCIUM CARBONATE (TUMS) 500 MG (200 MG ELEMENTAL) PO (11:39)
--- NOTE | 2025-02-21 11:59 | PCPTNOTE ---
Patient refused treatment this session. Patient reported he does not need therapy, that he has been getting up and down to bathroom with walker. Patient reported he has been getting up just find and feels therapy will not help him.
[2025-02-21] MEDS: CYCLOBENZAPRINE HCL 10 MG TABLET PO (12:32)
[2025-02-21] MEDS: hydrOXYzine HCL 25 MG TABLET PO (12:33)
[2025-02-21 14:00] VITALS: BP 134/62; PULSE 62; RESP 18; TEMP 36.8; O2SAT 98
[2025-02-21 19:59] VITALS: BP 151/60; PULSE 57; RESP 18; TEMP 36.8; O2SAT 100
[2025-02-22] MEDS: metroNIDAZOLE 500 MG/ISO 100ML 500 MG/100 ML BAG 100 MG IVPB ×2 (00:17→10:30)
[2025-02-22 04:36] VITALS: BP 125/68; PULSE 59; RESP 18; TEMP 36.3; O2SAT 100
[2025-02-22] MEDS: DOCUSATE SODIUM 100 MG CAPSULE PO (05:00)
[2025-02-22] MEDS: HYDROcodone/acetaminophen (*CRX) 5-325 MG TABLET 1 TAB PO ×2 (05:00→12:15)
[2025-02-22 06:57] LABS: Alanine Aminotransferase 17 U/L (6-50); Albumin Level 3.3 g/dL (3.5-5.1); Alkaline Phosphatase 86 U/L (38-126); Anion Gap 10 mmol/L (4-12); Aspartate Amino Transferase 25 U/L (17-59); Bilirubin,Total 0.8 mg/dL (0.2-1.3); Blood Urea Nitrogen 53 mg/dL (9-20); Carbon Dioxide 22 mmol/L (22-30); Chloride 101 mmol/L (98-107); Estimated CRCL calculation 67 ml/min; Estimated Glomerular Filt Rate > 60; Glucose 102 mg/dL (65-110); Potassium 5.4 mmol/L (3.4-5.0); Sodium 133 mmol/L (137-145)
[2025-02-22 07:11] LABS: Hematocrit 38.1 % (42.0-52.0); Hemoglobin 11.9 g/dL (14.0-18.0); Mean Corpuscular HGB Conc 31.2 g/dl (32-36); Mean Corpuscular Hemoglobin 31.6 pg (26-34); Mean Corpuscular Volume 101.1 fl (80-100); Mean Platelet Volume 12.3 fl (7.4-10.4); Platelet Count Result 273 k/mm3 (150-375); Red Blood Count 3.77 M/mm3 (4.6-6.20); White Blood Count 26.5 K/mm3 (4.5-10.0)
[2025-02-22] MEDS: LIDOCAINE 5% PATCH 1 PATCH TRANSDERM ×2 (09:10→09:11)
[2025-02-22] MEDS: CEFEPIME 2 GM/NS 50 ML 2 GM/50 ML BAG IVPB ×2 (09:11→21:13)
[2025-02-22] MEDS: APIXABAN 5 MG TABLET PO ×2 (09:11→21:52)
[2025-02-22] MEDS: PANTOPRAZOLE SODIUM IV 40 MG VIAL IV PUSH (09:12)
--- NOTE | 2025-02-22 09:20 | PM.IMPN ---
Progress Note: A&P Assessment and Plan (1) Cellulitis: Qualifiers: Laterality: unspecified laterality Site of cellulitis: extremity Site of cellulitis of extremity: lower extremity Qualified Code(s): L03.119 - Cellulitis of unspecified part of limb Code(s): L03.90 - Cellulitis, unspecified Status: Acute Assessment and Plan: Worsening began a few days ago with increased pain, redness, swelling, serous drainage, and decreased appetite. Original wound December 2023 to posterior portion of right calf and attempted self treatment with Neosporin and peroxide. Augmentin was reportedly prescribed by the [facility] last week and was taken with no improvement. Legs have been weeping for the past couple of weeks. Patient has a history of venous insufficiency and lymphedema. - Remains afebrile with stable vitals - Antibiotics: cefe, flagyl, vanc started on 02/17, transitioned to rocephin and vanc dc. Resumed cefe on 02/20 due to continued WBC elevation. Lactic WNL at that time. Started on linezolid for ongoing leukocytosis. - ESR and CRP elevated on admission, repeat blood draw to establish trend as some leukocytosis may be secondary to ongoing inflammation - Blood cultures NGTD - Monitor vital signs, I&Os, neuro status and patient is a fall risk - Monitor serum electrolytes, CBC, cultures, WBC and temp curve - Wound care consulted Will be utilizing santyl ointment for debridement of the wound, dressing for the weeping, and utilizing elastic wraps for decompression Elevation advised and attempted over stay as tolerated by patients pain (2) Degenerative joint disease of knee: Qualifiers: Laterality: bilateral Osteoarthritis type: primary Qualified Code(s): M17.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 Code(s): M17.9 - Osteoarthritis of knee, unspecified Status: Acute Assessment and Plan: Patient reports long history of bilateral knee DJD for which he is treated for at the [facility]. He has been unhappy with previous treatment due to recurrent cortisone injections and his feelings that that cause progression of his degenerative changes. Tib/fib XR: Diffuse soft tissue edema. Moderate degenerative change at the knee. No evidence for osteomyelitis. Orthopedic consulted He is not currently undergoing treatment for his knee DJD. Not a candidate for knee injections due to his current/active cellulitis. He also does not have any interest in injections. He could consider a TKA in the future when medical problems resolved. This would be done outpatient after surgical work up for an elective procedure. Follow up in office for b/l knee DJD as an outpt vs. continuing care with his previously established ortho practice at the [facility]. Continue the lidocaine patches currently in use. Ice/elevation. PT/OT. WBAT. (3) Bilateral edema of lower extremity: Code(s): R60.0 - Localized edema Status: Acute Assessment and Plan: No evidence of clincal decompensated heart failure, unlikely to significantly improve with diuretics per cardiology Venous doppler: Negative Likely secondary to ongoing cellulitis with cocurrent lymphedema and venous insufficiency Continue devan wraps (4) Afib: Qualifiers: Atrial fibrillation type: unspecified Qualified Code(s): I48.91 - Unspecified atrial fibrillation Code(s): I48.91 - Unspecified atrial fibrillation Status: Acute Assessment and Plan: - Noted on echocardiogram, no changes in treatment - Eliquis prescribed by [facility] for longstanding afib - HR remains stable without beta sofia - Continue to monitor (5) Left shoulder pain: Qualifiers: Chronicity: chronic Qualified Code(s): M25.512 - Pain in left shoulder; G89.29 - Other chronic pain Code(s): M25.512 - Pain in left shoulder Status: Acute Assessment and Plan: - New onset agitation of left shoulder pain, lifting and abducting arm 02/18 - Lidocaine patch and Voltaren topical gel for control (6) Anemia: Qualifiers: Anemia type: unspecified type Qualified Code(s): D64.9 - Anemia, unspecified Code(s): D64.9 - Anemia, unspecified Status: Acute Assessment and Plan: - Downtrending H/H of 16.7/51 (02/16) - 11.9/38.1 on am labs - No s/s of bleeding currently - Anemia profile labs ordered to evaluate cause of anemia, patient is on Eliquis so stool occult was ordered to evaluate for GI bleed - TIBC and Transferrin low, awaiting occult result for correlation - Protonix GI prophylaxis was begun as H/H continue to downtrend, awaiting occult stool result - No bowel movements as of yet, will continue to monitor and escalate therapy as needed Time Spent With Patient Time with patient: 25 - 35 minutes Subjective Date/time seen: 02/22/25 09:20 Interval history: 74-year-old male with history of atrial fibrillation treated with Eliquis and hypertension presenting with bilateral lower extremity swelling and concern for infection related to open wound. Worsening began a few days ago with increased pain, redness, swelling, serous drainage, and decreased appetite. Patient is sitting up in his chair without his legs elevated on assessment. Continue to encourage patient to elevate his legs though he continues to endorse increased difficulty with leg elevation secondary to knee pain. He continues to endorse bilateral lower extremity pain with increased swelling and weeping of the limbs. He notes that he has been struggling with this for a long time and is typically noncompliant with wrapping his legs and elevation. Discussed patient with [facility] and will start patient on linezolid for worsening leukocytosis on am labs. Will obtain an ESR and CRP in the am to assess inflammatory response as well. He has no other complaints denying chest pain, shortness a breath, palpitations, nausea/vomiting, abdominal pain. Review of Systems Review of Systems: All systems reviewed & are unremarkable except as noted in HPI and below Exam Narrative: AF HR 61 RR 19 Spo2 98 BP 132/70 General: male in no acute respiratory distress who is nontoxic appearing, sitting up in chair, not elevating legs. HEENT: Normocephalic. Atraumatic. Extraocular movement intact. Sclera clear and anicteric. No facial asymmetry. Chest: Lungs are clear to auscultation bilaterally. CV: Heart was regular rate and rhythm. Abd: Abdomen was soft. Nontender. Nondistended. Positive bowel sounds. Ext: No clubbing. DP pulses bilaterally. Severe bilateral pitting edema with weeping. Large wound to the right mid calf with yellow slough. Several small wounds with yellow slough on bilateral lower extremities. See wound care note. Neuro: Patient is alert and oriented x4. Speech is clear. Objective Data Vital Signs Vital Signs: Vital Signs - 24 hr 02/21/25 14:00 02/21/25 19:59 02/22/25 04:36 Temperature 98.3 F 98.3 F 97.4 F L Pulse Rate 62 57 L 59 L Respiratory Rate 18 18 18 Blood Pressure 134/62 151/60 H 125/68 Pulse Oximetry 98 100 100 Intake/Output Intake/Output: Intake & Output 04/13/25 02/20/25 02/21/25 02/22/25 23:59 23:59 23:59 23:59 Intake Total 3850 1340 1420 650 Output Total 1100 0582 2275 200 Balance 3939 -371 -851 450 Meds/Results Medications: Active Medications Generic Name Dose Route Start Last Admin Trade Name Freq PRN Reason Stop Dose Admin Hydrocodone Bitart/Acetaminophen 1 tab 02/17/25 10:40 02/22/25 05:00 Hydrocodone/Acetaminophen (*Crx) 5-325 Mg Tablet PO 1 tab Q4H PRN Administration Pain Rated 4-6 Apixaban 5 mg 02/17/25 10:55 02/22/25 09:11 Apixaban 5 Mg Tablet PO 5 mg Q12HR SHRUTHI Administration Calcium Carbonate 200 mg 02/20/25 15:31 02/21/25 11:39 Calcium Carbonate (Tums) 500 Mg (200 Mg Elemental) PO 200 mg Q6H PRN Administration Indigestion Collagenase 1 applic 02/17/25 09:00 02/21/25 20:50 Collagenase Oint 30 Gm Tube TOPICAL 1 applic Q12HR SHRUTHI Administration Cyclobenzaprine HCl 10 mg 02/18/25 13:08 02/21/25 12:32 Cyclobenzaprine Hcl 10 Mg Tablet PO 10 mg Q8H PRN Administration Muscle Spasm Diclofenac Sodium 1 applic 02/18/25 13:00 02/21/25 20:50 Diclofenac Sodium 1% 100 Gm Gel (*Bkc) TOPICAL 1 applic QID SHRUTHI Administration Docusate Sodium 100 mg 02/20/25 10:18 02/22/25 05:00 Docusate Sodium 100 Mg Capsule PO 100 mg Q12H PRN Administration Constipation Hydroxyzine HCl 25 mg 02/21/25 12:15 02/21/25 12:33 Hydroxyzine Hcl 25 Mg Tablet PO 25 mg Q6H PRN Administration Itching Cefepime HCl 2 gm in 50 mls @ 100 mls/hr 02/20/25 08:00 02/22/25 09:11 Maxipime 2 Gm/Ns 50 Ml IVPB 100 mls/hr Q12H SHRUTHI Administration Metronidazole 500 mg in 100 mls @ 100 mls/hr 02/20/25 09:00 02/22/25 01:17 Flagyl 500 Mg/Iso Soln 100 Ml IVPB Infused Q8H SHRUTHI Infusion Lidocaine 1 patch 02/17/25 10:55 02/22/25 09:10 Lidocaine 5% Patch TRANSDERM 1 patch DAILY SHRUTHI Administration Lidocaine 1 patch 02/19/25 09:00 02/22/25 09:11 Lidocaine 5% Patch TRANSDERM 1 patch DAILY SHRUTHI Administration Morphine Sulfate 2 mg 02/17/25 02:55 02/18/25 04:30 Morphine Sulfate (*Crx) 2 Mg/Ml Inj IV PUSH 2 mg Q2H PRN Administration Pain Rated 7-10 Ondansetron HCl 4 mg 02/17/25 02:55 02/18/25 04:30 Ondansetron Inj 4 Mg/2 Ml Vial IV PUSH 4 mg Q4H PRN Administration Nausea Pantoprazole Sodium 40 mg 02/21/25 09:00 02/22/25 09:12 Pantoprazole Sodium Iv 40 Mg Vial IV PUSH 40 mg QAM SHRUTHI Administration Polyethylene Glycol 17 gm 02/20/25 10:20 Polyethylene Glycol 3350 17 Gm Powd.Pack PO QAM PRN Constipation Radiology Results: ITS Impressions Venous Doppler Study 02/16/25 18:08 IMPRESSION: Negative bilateral lower extremity venous US. No deep vein thrombosis. Tibia/Fibula X-Ray 02/17/25 06:31 Impression: Diffuse soft tissue edema. Moderate degenerative change at the knee. No evidence for osteomyelitis. Chest X-Ray 02/17/25 06:32 Impression: Clear lungs. Labs Labs: Laboratory Results - last 24 hr 02/22/25 05:13 WBC 26.5 H RBC 3.77 L Hgb 11.9 L Hct 38.1 L MCV 101.1 H MCH 31.6 MCHC 31.2 L RDW 14.0 Plt Count 273 MPV 12.3 H Sodium 133 L Potassium 5.4 H Chloride 101 Carbon Dioxide 22 Anion Gap 10 BUN 53 H D Creatinine 1.00 Estim Creat Clear Calc 67 Estimated GFR > 60 Glucose 102 Calcium 9.0 Total Bilirubin 0.8 AST 25 ALT 17 Alkaline Phosphatase 86 Total Protein 6.0 L Albumin 3.3 L Quality VTE Prophylaxis VTE prophylaxis: pharmacologic ordered
[2025-02-22] MEDS: COLLAGENASE OINT 30 GM TUBE 1 APPLIC TOPICAL ×2 (10:30→21:52)
[2025-02-22] MEDS: DICLOFENAC SODIUM 1% 100 GM GEL (*BKC) 1 APPLIC TOPICAL ×3 (12:35→21:52)
[2025-02-22 13:52] VITALS: BP 132/70; PULSE 61; RESP 19; TEMP 36.4; O2SAT 98
[2025-02-22] MEDS: LINEZOLID 600 MG TABLET PO (15:40)
[2025-02-22 20:00] VITALS: BP 107/47; PULSE 53; RESP 18; TEMP 36.6; O2SAT 100
[2025-02-22 21:16] VITALS: O2SAT 99
[2025-02-23] VITALS: BP 130/55; PULSE 52; RESP 18; TEMP 36.4; O2SAT 100
[2025-02-23] MEDS: DOCUSATE SODIUM 100 MG CAPSULE PO (03:40)
[2025-02-23] MEDS: polyethylene glycoL 3350 17 GM POWD.PACK PO (03:41)
[2025-02-23 04:00] VITALS: BP 126/54; PULSE 55; RESP 18; TEMP 36.4; O2SAT 99
[2025-02-23 05:19] LABS: Hematocrit 37.1 % (42.0-52.0); Hemoglobin 11.8 g/dL (14.0-18.0); Mean Corpuscular HGB Conc 31.8 g/dl (32-36); Mean Corpuscular Hemoglobin 31.7 pg (26-34); Mean Corpuscular Volume 99.7 fl (80-100); Mean Platelet Volume 11.1 fl (7.4-10.4); Platelet Count Result 293 k/mm3 (150-375); Red Blood Count 3.72 M/mm3 (4.6-6.20); Red Cell Distribution Width 14.3 % (11.5-14.5); White Blood Count 25.6 K/mm3 (4.5-10.0)
[2025-02-23 05:47] LABS: Alanine Aminotransferase 16 U/L (6-50); Albumin Level 3.3 g/dL (3.5-5.1); Alkaline Phosphatase 84 U/L (38-126); Anion Gap 7 mmol/L (4-12); Aspartate Amino Transferase 23 U/L (17-59); Bilirubin,Total 0.8 mg/dL (0.2-1.3); Blood Urea Nitrogen 42 mg/dL (9-20); CRP 1.3 mg/dL (<1.0); Calcium 8.9 mg/dL (8.4-10.2); Carbon Dioxide 25 mmol/L (22-30); Chloride 102 mmol/L (98-107); Erythrocyte Sedimentation Rate 23 mm/hr (0-20); Estimated CRCL calculation 66 ml/min; Estimated Glomerular Filt Rate > 60; Glucose 97 mg/dL (65-110); Potassium 5.1 mmol/L (3.4-5.0); Sodium 134 mmol/L (137-145)
[2025-02-23] MEDS: LINEZOLID 600 MG TABLET PO ×2 (06:14→17:07)
[2025-02-23] MEDS: CEFEPIME 2 GM/NS 50 ML 2 GM/50 ML BAG IVPB ×2 (07:54→20:13)
[2025-02-23 08:15] LABS: IFOB Positive Control Positive; Immunochemical Fecal Occult Bl Positive (N)
--- NOTE | 2025-02-23 08:55 | P.PNIM_ITS ---
Progress Note: A&P Assessment and Plan (1) Cellulitis: Qualifiers: Laterality: unspecified laterality Site of cellulitis: extremity Site of cellulitis of extremity: lower extremity Qualified Code(s): L03.119 - Cellulitis of unspecified part of limb Code(s): L03.90 - Cellulitis, unspecified Status: Acute Assessment and Plan: Worsening began a few days ago with increased pain, redness, swelling, serous drainage, and decreased appetite. Original wound December 2023 to posterior portion of right calf and attempted self treatment with Neosporin and peroxide. Augmentin was reportedly prescribed by the [facility] last week and was taken with no improvement. Legs have been weeping for the past couple of weeks. Patient has a history of venous insufficiency and lymphedema. - Remains afebrile with stable vitals - Antibiotics: cefe, flagyl, vanc started on 02/17, transitioned to rocephin and vanc dc. Resumed cefe on 02/20 due to continued WBC elevation. Lactic WNL at that time. Started on linezolid for ongoing leukocytosis. - ESR and CRP elevated on admission, repeat blood draw to establish trend as some leukocytosis may be secondary to ongoing inflammation. Repeats remain slightly elevated with ESR 23 and CRP 1.3. - Blood cultures NGTD - Monitor vital signs, I&Os, neuro status and patient is a fall risk - Monitor serum electrolytes, CBC, cultures, WBC and temp curve - Wound care consulted Will be utilizing santyl ointment for debridement of the wound, dressing for the weeping, and utilizing elastic wraps for decompression Elevation advised and attempted over stay as tolerated by patients pain (2) Degenerative joint disease of knee: Qualifiers: Laterality: bilateral Osteoarthritis type: primary Qualified Code(s): M17.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 Code(s): M17.9 - Osteoarthritis of knee, unspecified Status: Acute Assessment and Plan: Patient reports long history of bilateral knee DJD for which he is [facility]. He has been unhappy with previous treatment due to recurrent cortisone injections and his feelings that that cause progression of his degenerative changes. Tib/fib XR: Diffuse soft tissue edema. Moderate degenerative change at the knee. No evidence for osteomyelitis. Orthopedic consulted He is not currently undergoing treatment for his knee DJD. Not a candidate for knee injections due to his current/active cellulitis. He also does not have any interest in injections. He could consider a TKA in the future when medical problems resolved. This would be done outpatient after surgical work up for an elective procedure. Follow up in office for b/l knee DJD as an outpt vs. continuing care with his previously established ortho practice at [facility]. Continue the lidocaine patches currently in use. Ice/elevation. PT/OT. WBAT. (3) Bilateral edema of lower extremity: Code(s): R60.0 - Localized edema Status: Acute Assessment and Plan: No evidence of clincal decompensated heart failure, unlikely to significantly improve with diuretics per cardiology Venous doppler: Negative Likely secondary to ongoing cellulitis with cocurrent lymphedema and venous insufficiency Continue devan wraps KENIA ordered however patient refused (4) Afib: Qualifiers: Atrial fibrillation type: unspecified Qualified Code(s): I48.91 - Unspecified atrial fibrillation Code(s): I48.91 - Unspecified atrial fibrillation Status: Acute Assessment and Plan: - Noted on echocardiogram, no changes in treatment - Eliquis prescribed by [facility] for longstanding afib - HR remains stable without beta sofia - Continue to monitor (5) Left shoulder pain: Qualifiers: Chronicity: chronic Qualified Code(s): M25.512 - Pain in left shoulder; G89.29 - Other chronic pain Code(s): M25.512 - Pain in left shoulder Status: Acute Assessment and Plan: - New onset agitation of left shoulder pain, lifting and abducting arm 02/18 - Lidocaine patch and Voltaren topical gel for control (6) Anemia: Qualifiers: Anemia type: unspecified type Qualified Code(s): D64.9 - Anemia, unspecified Code(s): D64.9 - Anemia, unspecified Status: Acute Assessment and Plan: - Downtrending H/H of 16.7/51 (02/16) - 11.8/37.1 on am labs - No s/s of bleeding currently - Anemia profile labs ordered to evaluate cause of anemia, patient is on Eliquis so stool occult was ordered to evaluate for GI bleed - TIBC and Transferrin low, awaiting occult result for correlation - Protonix GI prophylaxis was begun as H/H continue to downtrend - Occult positive, GI consulted Time Spent With Patient Time with patient: 25 - 35 minutes Subjective Date/time seen: 02/23/25 08:55 Interval history: 74-year-old male with history of atrial fibrillation treated with Eliquis and hypertension presenting with bilateral lower extremity swelling and concern for infection related to open wound. Worsening began a few days ago with increased pain, redness, swelling, serous drainage, and decreased appetite. Patient is sitting up in his chair during assessment and again his legs are not elevated. Again encouraged patient to elevate his legs as this will help with the swelling and weeping. Patient again notes that it is too painful to elevate his legs and he does not wish to take pain medication. Concern of venous insufficiency in regards to the with weeping lower extremity edema an KENIA was ordered however patient again refused. Attempted to educate patient on the KENIA and he continues to say that they would be too painful and he will not do them. Will continue to wrap patient's leg as the this is venous insufficiency and encouraged elevation. Patient was noted to have a positive fecal occult. GI has been consulted. Patient is unsure if he has been having darker stools. He has no other complaints denying chest pain, shortness a breath, nausea/vomiting, and abdominal pain. Review of Systems Review of Systems: All systems reviewed & are unremarkable except as noted in HPI and below Exam Narrative: AF HR 58 RR 18 SPO2 98 BP 132/58 General: male in no acute respiratory distress who is nontoxic appearing, sitting up in chair, not elevating legs. HEENT: Normocephalic. Atraumatic. Extraocular movement intact. Sclera clear and anicteric. No facial asymmetry. Chest: Lungs are clear to auscultation bilaterally. CV: Heart was regular rate and rhythm. Abd: Abdomen was soft. Nontender. Nondistended. Positive bowel sounds. Ext: No clubbing. DP pulses bilaterally. Severe bilateral pitting edema with weeping. Large wound to the right mid calf with yellow slough. Several small wounds with yellow slough on bilateral lower extremities. See wound care note. Neuro: Patient is alert and oriented x4. Speech is clear. Objective Data Vital Signs Vital Signs: Vital Signs - 24 hr 02/22/25 09:15 02/22/25 13:52 02/22/25 20:00 Temperature 97.6 F 98 F Pulse Rate 61 53 L Respiratory Rate 19 18 Blood Pressure 132/70 107/47 L Pulse Oximetry 98 100 Oxygen Delivery Room Air 02/22/25 21:16 02/23/25 00:00 02/23/25 04:00 Temperature 97.5 F L 97.6 F Pulse Rate 52 L 55 L Respiratory Rate 18 18 Blood Pressure 130/55 L 126/54 L Pulse Oximetry 99 100 99 Oxygen Delivery Room Air Intake/Output Intake/Output: Intake & Output 02/20/25 02/21/25 02/22/25 02/23/25 23:59 23:59 23:59 23:59 Intake Total 1340 1420 1110 450 Output Total 1999 8405 375 800 Balance -660 -855 735 -350 Meds/Results Medications: Active Medications Generic Name Dose Route Start Last Admin Trade Name Freq PRN Reason Stop Dose Admin Hydrocodone Bitart/Acetaminophen 1 tab 02/17/25 10:40 02/22/25 12:15 Hydrocodone/Acetaminophen (*Crx) 5-325 Mg Tablet PO 1 tab Q4H PRN Administration Pain Rated 4-6 Hydrocodone Bitart/Acetaminophen 1 tab 02/22/25 13:30 Hydrocodone/Acetaminophen (*Crx) 10-325 Mg Tablet PO Q6H PRN Pain Rated 7-10 Apixaban 5 mg 02/17/25 10:55 02/22/25 21:52 Apixaban 5 Mg Tablet PO 5 mg Q12HR SHRUTHI Administration Calcium Carbonate 200 mg 02/20/25 15:31 02/21/25 11:39 Calcium Carbonate (Tums) 500 Mg (200 Mg Elemental) PO 200 mg Q6H PRN Administration Indigestion Collagenase 1 applic 02/17/25 09:00 02/22/25 21:52 Collagenase Oint 30 Gm Tube TOPICAL 1 applic Q12HR SHRUTHI Administration Diclofenac Sodium 1 applic 02/18/25 13:00 02/22/25 21:52 Diclofenac Sodium 1% 100 Gm Gel (*Bkc) TOPICAL 1 applic QID SHRUTHI Administration Docusate Sodium 100 mg 02/20/25 10:18 02/23/25 03:40 Docusate Sodium 100 Mg Capsule PO 100 mg Q12H PRN Administration Constipation Hydroxyzine HCl 25 mg 02/21/25 12:15 02/21/25 12:33 Hydroxyzine Hcl 25 Mg Tablet PO 25 mg Q6H PRN Administration Itching Cefepime HCl 2 gm in 50 mls @ 100 mls/hr 02/20/25 08:00 02/23/25 07:54 Maxipime 2 Gm/Ns 50 Ml IVPB 100 mls/hr Q12H SHRUTHI Administration Lidocaine 1 patch 02/17/25 10:55 02/22/25 09:10 Lidocaine 5% Patch TRANSDERM 1 patch DAILY SHRUTHI Administration Lidocaine 1 patch 02/19/25 09:00 02/22/25 09:11 Lidocaine 5% Patch TRANSDERM 1 patch DAILY SHRUTHI Administration Linezolid 600 mg 02/23/25 06:00 02/23/25 06:14 Linezolid 600 Mg Tablet PO 600 mg Q12H SHRUTHI Administration Ondansetron HCl 4 mg 02/17/25 02:55 02/18/25 04:30 Ondansetron Inj 4 Mg/2 Ml Vial IV PUSH 4 mg Q4H PRN Administration Nausea Pantoprazole Sodium 40 mg 02/21/25 09:00 02/22/25 09:12 Pantoprazole Sodium Iv 40 Mg Vial IV PUSH 40 mg QAM SHRUTHI Administration Polyethylene Glycol 17 gm 02/20/25 10:20 02/23/25 03:41 Polyethylene Glycol 3350 17 Gm Powd.Pack PO 17 gm QAM PRN Administration Constipation Radiology Results: ITS Impressions Venous Doppler Study 02/16/25 18:08 IMPRESSION: Negative bilateral lower extremity venous US. No deep vein thrombosis. Tibia/Fibula X-Ray 02/17/25 06:31 Impression: Diffuse soft tissue edema. Moderate degenerative change at the knee. No evidence for osteomyelitis. Chest X-Ray 02/17/25 06:32 Impression: Clear lungs. Labs Labs: Laboratory Results - last 24 hr 02/23/25 02/23/25 05:10 07:31 WBC 25.6 H RBC 3.72 L Hgb 11.8 L Hct 37.1 L MCV 99.7 MCH 31.7 MCHC 31.8 L RDW 14.3 Plt Count 293 MPV 11.1 H ESR 23 H Sodium 134 L Potassium 5.1 H Chloride 102 Carbon Dioxide 25 Anion Gap 7 BUN 42 H D Creatinine 1.02 Estim Creat Clear Calc 66 Estimated GFR > 60 Glucose 97 Calcium 8.9 Total Bilirubin 0.8 AST 23 ALT 16 Alkaline Phosphatase 84 C-Reactive Protein 1.3 H Total Protein 6.0 L Albumin 3.3 L Stl Occult Blood (IFOB) Positive H Quality VTE Prophylaxis VTE prophylaxis: pharmacologic ordered
[2025-02-23] MEDS: PANTOPRAZOLE SODIUM IV 40 MG VIAL IV PUSH (09:01)
[2025-02-23 09:02] VITALS: RESP 18; O2SAT 99
[2025-02-23] MEDS: COLLAGENASE OINT 30 GM TUBE 1 APPLIC TOPICAL ×2 (09:02→20:18)
[2025-02-23] MEDS: APIXABAN 5 MG TABLET PO ×2 (09:02→20:17)
[2025-02-23] MEDS: DICLOFENAC SODIUM 1% 100 GM GEL (*BKC) 1 APPLIC TOPICAL ×4 (09:02→20:17)
--- NOTE | 2025-02-23 10:27 | PCPTNOTE ---
Attempted to see patient for PT, however patient refused. Patient reported he just got back from walking to/from rest room and that he wants a rest break.
[2025-02-23] MEDS: HYDROcodone/acetaminophen (*CRX) 10-325 MG TABLET 1 TAB PO ×2 (12:26→18:10)
--- NOTE | 2025-02-23 13:07 | PCNWS ---
Weekly nutritional screen. Patient is tolerating current Heart healthy diet with adequate intake, 75-100 last 48 hours, improved. No weight loss reported. No nutritional needs at this time.
[2025-02-23 13:52] VITALS: BP 132/58; PULSE 58; RESP 18; TEMP 36.4; O2SAT 98
--- NOTE | 2025-02-23 17:10 | P.CONGI_ITS ---
Assessment and Plan Assessment and plan (1) Anemia: Qualifiers: Anemia type: unspecified type Qualified Code(s): D64.9 - Anemia, unspecified Code(s): D64.9 - Anemia, unspecified Status: Acute Assessment and Plan: The apparent drop in hematocrit is misleading and not indicative of gastrointestinal bleeding. The initial hematocrit was likely falsely high due to hemoconcentration resulting from poor oral intake and severe infection. The increasing white blood cell count is more suggestive of developing sepsis. Reassuringly, the hematocrit has been stable over the last 72 hours, and there has been no overt GI bleeding. Moreover, the normal iron saturation argues against chronic blood loss. Therefore, in the absence of active or chronic GI bleeding, immediate endoscopic evaluation (colonoscopy or EGD) is not warranted. The priority of care should be directed toward managing his severe soft tissue infection. We will sign out and will be available for reassessment if his status changes or if rafael GI bleeding occurs. GI Consult Note Consult date/time: 02/23/25 17:10 Reason for consult: Drop in [id number] stools. HPI: Curtis Holbrook is a 74 year old male Who was admitted on February 16. The reason for admission was the cellulitis in both lower extremities, secondary to venous insufficiency, associated with lymphedema. The infection is becoming more severe and is currently covered with broad-spectrum antibiotics including linezolid and cefepime. The reason for the consultation is an apparent drop in hemoglobin from 16.7 on admission to 11.8 today. However, his iron saturation is 36% as of February 20. He was found to be heme-positive in the absence of melena or rafael rectal bleeding. Review of Systems 2 Review of Systems: All systems reviewed & are unremarkable except as noted in HPI and below [facility] Past Medical History Medical History (Updated 02/20/25 @ 07:52 by Suraj Henry, Student) Left shoulder pain Afib Degenerative joint disease of knee Hypertension Surgical History Surgical History History of hernia repair Family History Family History Father Diabetes mellitus Hypertension Sibling Diabetes mellitus Mother Hypertension Social History Social History (Reviewed 02/17/25 @ 13:20 by LEIDA Diaz Smoking status: Never smoker Alcohol intake: never Substance use: never Substance use type: does not use Do You Feel Safe in your Home?: Yes Lack of Transportation: No Lack of Food: Never True Current Housing: I Have Housing Concerned About Future Housing: No Difficulty Paying Gas/Electric Bills: No Difficulty Paying for Meds: No Currently Unemployed: No Education: High School Diploma/GED Difficulty w/ Childcare or Family Care: No Living arrangements: alone Occupation/Education: retired Spiritual care concerns: No Meds Home Medications and Allergies Home Medications ?Medication ?Instructions ?Recorded ?Confirmed ?Type apixaban 5 mg tablet (Eliquis) 5 mg PO BID 02/17/25 02/17/25 History Allergies Allergy/AdvReac Type Severity Reaction Status Date / Time No Known Allergies Allergy Verified 02/16/25 16:19 Vital Signs Vital Signs - 24 hr 02/22/25 20:00 02/22/25 21:16 02/23/25 00:00 Temperature 98 F 97.5 F L Pulse Rate 53 L 52 L Respiratory Rate 18 18 Blood Pressure 107/47 L 130/55 L Pulse Oximetry 100 99 100 Oxygen Delivery Room Air 02/23/25 04:00 02/23/25 09:02 02/23/25 13:52 Temperature 97.6 F 97.5 F L Pulse Rate 55 L 58 L Respiratory Rate 18 18 18 Blood Pressure 126/54 L 132/58 L Pulse Oximetry 99 99 98 Oxygen Delivery Room Air Exam 2 Narrative: AF HR 58 RR 18 SPO2 98 BP 132/58 General: male in no acute respiratory distress who is nontoxic appearing, sitting up in chair, not elevating legs. HEENT: Normocephalic. Atraumatic. Extraocular movement intact. Sclera clear and anicteric. No facial asymmetry. Chest: Lungs are clear to auscultation bilaterally. CV: Heart was regular rate and rhythm. Abd: Abdomen was soft. Nontender. Nondistended. Positive bowel sounds. Ext: No clubbing. DP pulses bilaterally. Severe bilateral pitting edema with weeping. Large wound to the right mid calf with yellow slough. Several small wounds with yellow slough on bilateral lower extremities. See wound care note. Neuro: Patient is alert and oriented x4. Speech is clear. Results Labs 02/23/25 05:10 02/23/25 05:10 Labs: Short CBC 02/23/25 Range/Units 05:10 WBC 25.6 H (4.5-10.0) K/mm3 Hgb 11.8 L (14.0-18.0) g/dL Hct 37.1 L (42.0-52.0) % Plt Count 293 (150-375) k/mm3 BMP 02/23/25 05:10 Sodium 134 L Potassium 5.1 H Chloride 102 Carbon Dioxide 25 BUN 42 H D Creatinine 1.02 Glucose 97 Calcium 8.9 Liver Function 02/23/25 Range/Units 05:10 Total Bilirubin 0.8 (0.2-1.3) mg/dL AST 23 (17-59) U/L ALT 16 (6-50) U/L Alkaline Phosphatase 84 (38-126) U/L Albumin 3.3 L (3.5-5.1) g/dL
[2025-02-23 19:41] VITALS: BP 123/76; PULSE 52; RESP 16; TEMP 36.6; O2SAT 99
[2025-02-24] VITALS: BP 111/58; PULSE 91; RESP 16; TEMP 36.8; O2SAT 100
[2025-02-24] MEDS: HYDROcodone/acetaminophen (*CRX) 5-325 MG TABLET 1 TAB PO ×3 (02:29→17:21)
[2025-02-24 04:00] VITALS: BP 125/63; PULSE 49; RESP 20; TEMP 36.5; O2SAT 100
[2025-02-24] MEDS: LINEZOLID 600 MG TABLET PO ×2 (05:59→17:21)
[2025-02-24 06:04] LABS: Hemoglobin 11.8 g/dL (14.0-18.0); Mean Corpuscular HGB Conc 32.8 g/dl (32-36); Mean Corpuscular Hemoglobin 32.4 pg (26-34); Mean Corpuscular Volume 98.9 fl (80-100); Platelet Count Result 308 k/mm3 (150-375); Red Blood Count 3.64 M/mm3 (4.6-6.20); White Blood Count 25.4 K/mm3 (4.5-10.0)
[2025-02-24 06:15] LABS: Alanine Aminotransferase 16 U/L (6-50); Albumin Level 3.2 g/dL (3.5-5.1); Alkaline Phosphatase 84 U/L (38-126); Anion Gap 8 mmol/L (4-12); Aspartate Amino Transferase 22 U/L (17-59); Bilirubin,Total 0.8 mg/dL (0.2-1.3); Blood Urea Nitrogen 40 mg/dL (9-20); Calcium 8.8 mg/dL (8.4-10.2); Carbon Dioxide 23 mmol/L (22-30); Chloride 101 mmol/L (98-107); Estimated CRCL calculation 65 ml/min; Estimated Glomerular Filt Rate > 60; Glucose 98 mg/dL (65-110); Sodium 132 mmol/L (137-145)
[2025-02-24 08:00] VITALS: BP 132/63; PULSE 55; RESP 18; TEMP 36.3; O2SAT 100
[2025-02-24] MEDS: CEFEPIME 2 GM/NS 50 ML 2 GM/50 ML BAG IVPB ×2 (09:23→20:02)
[2025-02-24] MEDS: APIXABAN 5 MG TABLET PO ×2 (09:24→20:02)
[2025-02-24] MEDS: LIDOCAINE 5% PATCH 1 PATCH TRANSDERM (09:24)
[2025-02-24] MEDS: COLLAGENASE OINT 30 GM TUBE 1 APPLIC TOPICAL ×2 (11:08→20:11)
[2025-02-24 11:55] VITALS: BP 153/58; PULSE 58; RESP 20; TEMP 36.5; O2SAT 99
--- NOTE | 2025-02-24 12:18 | P.PNIM_ITS ---
Progress Note: A&P Assessment and Plan (1) Cellulitis: Qualifiers: Laterality: unspecified laterality Site of cellulitis: extremity Site of cellulitis of extremity: lower extremity Qualified Code(s): L03.119 - Cellulitis of unspecified part of limb Code(s): L03.90 - Cellulitis, unspecified Status: Acute Assessment and Plan: r/o CHF and milk allergy Patient noted he has noticed over the years his leg and knees swell up with milk consumption noted he was recently managed at [place] for this same problem and he stopped taking milk for that period and noted his leg was resolving However his leg swelling and weeping resume after resumed consumption of milk, could be the volume of milk he is consuming rather than allergy ESR 23 and CRP 1.3. meaning no inflammation,Venous doppler: Negative WIll obtain CBC with differential to evaluate for eosinophilia, ECHO ordered cultures negative till date continue Abx, started lasix continue wound care (2) Degenerative joint disease of knee: Qualifiers: Osteoarthritis type: primary Laterality: bilateral Qualified Code(s): M17.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 Code(s): M17.9 - Osteoarthritis of knee, unspecified Status: Acute Assessment and Plan: PRN pain control continue PT/OT and outpatient followup (3) Bilateral edema of lower extremity: Code(s): R60.0 - Localized edema Status: Acute Assessment and Plan: contiue above care (4) Afib: Qualifiers: Atrial fibrillation type: unspecified Qualified Code(s): I48.91 - Unspecified atrial fibrillation Code(s): I48.91 - Unspecified atrial fibrillation Status: Acute Assessment and Plan: - ECHO showed ef 60-65% with diastolic dysfunction - [facility] Continue metoprolol and Apixaban (5) Left shoulder pain: Qualifiers: Chronicity: chronic Qualified Code(s): M25.512 - Pain in left shoulder; G89.29 - Other chronic pain Code(s): M25.512 - Pain in left shoulder Status: Acute Assessment and Plan: - New onset agitation of left shoulder pain, lifting and abducting arm /12 - Lidocaine patch and Voltaren topical gel for control (6) Anemia: Qualifiers: Anemia type: unspecified type Qualified Code(s): D64.9 - Anemia, unspecified Code(s): D64.9 - Anemia, unspecified Status: Acute Assessment and Plan: - Downtrending H/H of 16.7/51 (/10) - 11.8/37.1 on am labs - No s/s of bleeding currently - Anemia profile labs ordered to evaluate cause of anemia, patient is on Eliquis so stool occult was ordered to evaluate for GI bleed - TIBC and Transferrin low, awaiting occult result for correlation - Protonix GI prophylaxis was begun as H/H continue to downtrend - Occult positive, GI consulted Plan CHF exacerbation ECHO showed diastolic dysfunction leg edema Started on lasix monitor DVT prophylaxis on Eliquis Subjective Date/time seen: 02/24/25 12:18 Interval history: Comfortable at bedside Patient noted his leg swelling is related to his milk allergy and noted that he has always noticed leg and knee swelling with it also stated that despite knowing this he cannot stay away from milk Review of Systems Review of Systems: All systems reviewed & are unremarkable except as noted in HPI and below Exam Narrative: AF HR 58 RR 18 SPO2 98 BP 132/58 General: male in no acute respiratory distress who is nontoxic appearing, sitting up in chair, not elevating legs. HEENT: Normocephalic. Atraumatic. Extraocular movement intact. Sclera clear and anicteric. No facial asymmetry. Chest: Lungs are clear to auscultation bilaterally. CV: Heart was regular rate and rhythm. Abd: Abdomen was soft. Nontender. Nondistended. Positive bowel sounds. Ext: No clubbing. DP pulses bilaterally. Severe bilateral pitting edema with weeping. Large wound to the right mid calf with yellow slough. Several small wounds with yellow slough on bilateral lower extremities. See wound care note. Neuro: Patient is alert and oriented x4. Speech is clear. Const: General: comfortable Objective Data Vital Signs Vital Signs: Vital Signs - 24 hr 02/23/25 13:52 02/23/25 19:41 02/23/25 20:00 Temperature 97.5 F L 97.8 F Pulse Rate 58 L 52 L Respiratory Rate 18 16 Blood Pressure 132/58 L 123/76 Pulse Oximetry 98 99 Oxygen Delivery Room Air 02/24/25 00:00 02/24/25 04:00 02/24/25 08:00 Temperature 98.3 F 97.7 F 97.3 F L Pulse Rate 91 49 L 55 L Respiratory Rate 16 20 18 Blood Pressure 111/58 L 125/63 132/63 Pulse Oximetry 100 100 100 Oxygen Delivery 02/24/25 11:55 Temperature 97.7 F Pulse Rate 58 L Respiratory Rate 20 Blood Pressure 153/58 H Pulse Oximetry 99 Oxygen Delivery Intake/Output Intake/Output: Intake & Output 02/21/25 02/22/25 02/23/25 02/24/25 23:59 23:59 23:59 23:59 Intake Total 1420 1110 2110 640 Output Total 2275 375 1250 300 Balance -855 735 860 340 Meds/Results Medications: Active Medications Generic Name Dose Route Start Last Admin Trade Name Freq PRN Reason Stop Dose Admin Hydrocodone Bitart/Acetaminophen 1 tab 02/17/25 10:40 02/24/25 11:27 Hydrocodone/Acetaminophen (*Crx) 5-325 Mg Tablet PO 1 tab Q4H PRN Administration Pain Rated 4-6 Hydrocodone Bitart/Acetaminophen 1 tab 02/22/25 13:30 02/23/25 18:10 Hydrocodone/Acetaminophen (*Crx) 10-325 Mg Tablet PO 1 tab Q6H PRN Administration Pain Rated 7-10 Apixaban 5 mg 02/17/25 10:55 02/24/25 09:24 Apixaban 5 Mg Tablet PO 5 mg Q12HR SHRUTHI Administration Calcium Carbonate 200 mg 02/20/25 15:31 02/21/25 11:39 Calcium Carbonate (Tums) 500 Mg (200 Mg Elemental) PO 200 mg Q6H PRN Administration Indigestion Collagenase 1 applic 02/17/25 09:00 02/24/25 11:08 Collagenase Oint 30 Gm Tube TOPICAL 1 applic Q12HR SHRUTHI Administration Diclofenac Sodium 1 applic 02/18/25 13:00 02/24/25 09:28 Diclofenac Sodium 1% 100 Gm Gel (*Bkc) TOPICAL Not Given QID SHRUTHI Docusate Sodium 100 mg 02/20/25 10:18 02/23/25 03:40 Docusate Sodium 100 Mg Capsule PO 100 mg Q12H PRN Administration Constipation Hydroxyzine HCl 25 mg 02/21/25 12:15 02/21/25 12:33 Hydroxyzine Hcl 25 Mg Tablet PO 25 mg Q6H PRN Administration Itching Cefepime HCl 2 gm in 50 mls @ 100 mls/hr 02/20/25 08:00 02/24/25 09:23 Maxipime 2 Gm/Ns 50 Ml IVPB 100 mls/hr Q12H SHRUTHI Administration Lidocaine 1 patch 02/17/25 10:55 02/24/25 09:28 Lidocaine 5% Patch TRANSDERM Not Given DAILY SHRUTHI Lidocaine 1 patch 02/19/25 09:00 02/24/25 09:24 Lidocaine 5% Patch TRANSDERM 1 patch DAILY SHRUTHI Administration Linezolid 600 mg 02/23/25 06:00 02/24/25 05:59 Linezolid 600 Mg Tablet PO 600 mg Q12H SHRUTHI Administration Ondansetron HCl 4 mg 02/17/25 02:55 02/18/25 04:30 Ondansetron Inj 4 Mg/2 Ml Vial IV PUSH 4 mg Q4H PRN Administration Nausea Polyethylene Glycol 17 gm 02/20/25 10:20 02/23/25 03:41 Polyethylene Glycol 3350 17 Gm Powd.Pack PO 17 gm QAM PRN Administration Constipation Radiology Results: ITS Impressions Venous Doppler Study 02/16/25 18:08 IMPRESSION: Negative bilateral lower extremity venous US. No deep vein thrombosis. Tibia/Fibula X-Ray 02/17/25 06:31 Impression: Diffuse soft tissue edema. Moderate degenerative change at the knee. No evidence for osteomyelitis. Chest X-Ray 02/24/25 08:51 IMPRESSION: 1. Unchanged mild discoid atelectasis at the bilateral lower lung zones. No other acute cardiopulmonary disease. Labs Labs: Laboratory Results - last 24 hr 02/24/25 05:57 WBC 25.4 H RBC 3.64 L Hgb 11.8 L Hct 36.0 L MCV 98.9 MCH 32.4 MCHC 32.8 RDW 15.0 H Plt Count 308 MPV 11.0 H Sodium 132 L Potassium 5.0 Chloride 101 Carbon Dioxide 23 Anion Gap 8 BUN 40 H Creatinine 1.04 Estim Creat Clear Calc 65 Estimated GFR > 60 Glucose 98 Calcium 8.8 Total Bilirubin 0.8 AST 22 ALT 16 Alkaline Phosphatase 84 Total Protein 7.0 Albumin 3.2 L Quality VTE Prophylaxis VTE prophylaxis: pharmacologic ordered
[2025-02-24] MEDS: FUROSEMIDE INJ 40 MG/4 ML VIAL IV PUSH ×2 (13:01→17:20)
[2025-02-24] MEDS: DICLOFENAC SODIUM 1% 100 GM GEL (*BKC) 1 APPLIC TOPICAL ×3 (13:03→20:11)
--- NOTE | 2025-02-24 14:02 | PCOTNOTE ---
Attempted to see Patient for OT treatment session. Patient refused to participate and only wants to discuss his wounds with dressing changes and medications with therapist.
[2025-02-24 16:00] VITALS: BP 135/62; PULSE 61; RESP 18; TEMP 36.6; O2SAT 98
[2025-02-24] MEDS: ONDANSETRON INJ 4 MG/2 ML VIAL IV PUSH (17:19)
[2025-02-24 20:00] VITALS: BP 131/57; PULSE 60; RESP 18; TEMP 36.8; O2SAT 100
[2025-02-24] MEDS: HYDROcodone/acetaminophen (*CRX) 10-325 MG TABLET 1 TAB PO (21:37)
[2025-02-25] VITALS (13 sets, daily range): BP systolic 81–146; BP diastolic 43–85; PULSE 51–76; RESP 16–28; TEMP 36.4–36.8; O2SAT 97–100
[2025-02-25 04:56] LABS: Basophils Absolute Auto 0.2 K/mm3 (0.0-0.1); Basophils Percent Auto 0.8 % (0.2-1.2); Eosinophils Absolute Auto 0.4 K/mm3 (0-0.3); Eosinophils Percent Auto 1.4 % (0-4.4); Hemoglobin 11.7 g/dL (14.0-18.0); Lymphocytes Absolute Auto 2.22 K/mm3 (0.9-3.2); Mean Corpuscular HGB Conc 31.6 g/dl (32-36); Mean Corpuscular Hemoglobin 31.8 pg (26-34); Mean Corpuscular Volume 100.5 fl (80-100); Monocytes Absolute Auto 1.2 K/mm3 (0.1-0.6); Neutrophils Absolute Auto 20.1 K/mm3 (1.3-6.7); Neutrophils Percent Auto 81.8 % (45.5-73.1); Platelet Count Result 322 k/mm3 (150-375); Red Blood Count 3.68 M/mm3 (4.6-6.20); Red Cell Distribution Width 15.2 % (11.5-14.5); White Blood Count 24.6 K/mm3 (4.5-10.0)
[2025-02-25 05:08] LABS: Alanine Aminotransferase 15 U/L (6-50); Albumin Level 3.2 g/dL (3.5-5.1); Alkaline Phosphatase 73 U/L (38-126); Anion Gap 9 mmol/L (4-12); Aspartate Amino Transferase 22 U/L (17-59); Bilirubin,Total 1.2 mg/dL (0.2-1.3); Blood Urea Nitrogen 45 mg/dL (9-20); Calcium 8.7 mg/dL (8.4-10.2); Carbon Dioxide 21 mmol/L (22-30); Chloride 101 mmol/L (98-107); Estimated CRCL calculation 52 ml/min; Estimated Glomerular Filt Rate 53; Glucose 106 mg/dL (65-110); Lactic Acid Reflex 1.4 mmol/L (0.7-2.0); Magnesium 2.4 mg/dL (1.6-2.3); Potassium 4.9 mmol/L (3.4-5.0); Sodium 131 mmol/L (137-145)
[2025-02-25] MEDS: LINEZOLID 600 MG TABLET PO ×2 (06:07→18:58)
--- NOTE | 2025-02-25 08:58 | PCOTNOTE ---
Attempted to see patient this am, however patient declined each task for a different reason. Pt reported he's been keeping clean bathing with nursing. Encouraged patient to brush teeth at sink, however patient stated he's been brushing teeth seated in the chair. Pt reports being able to do so standing at home, but when encouraged to participate now, patient replied, I just ate breakfast, and I'm kind of nauseated. Can you come back another time?
--- NOTE | 2025-02-25 09:38 | PM.IMPN ---
Progress Note: A&P Assessment and Plan (1) Cellulitis: Qualifiers: Laterality: unspecified laterality Site of cellulitis: extremity Site of cellulitis of extremity: lower extremity Qualified Code(s): L03.119 - Cellulitis of unspecified part of limb Code(s): L03.90 - Cellulitis, unspecified Status: Acute Assessment and Plan: r/o CHF and milk allergy Patient noted he has noticed over the years his leg and knees swell up with milk consumption noted he was recently managed at [place] for this same problem and he stopped taking milk for that period and noted his leg was resolving However his leg swelling and weeping resume after resumed consumption of milk, could be the volume of milk he is consuming rather than allergy ESR 23 and CRP 1.3. meaning no inflammation,Venous doppler: Negative No eosinophilia and ECHO showed EF 60-65% and with diastolic dyfunction cultures negative till date continue Abx, decreased lasix to 20 mg bid continue wound care (2) Degenerative joint disease of knee: Qualifiers: Osteoarthritis type: primary Laterality: bilateral Qualified Code(s): M17.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 Code(s): M17.9 - Osteoarthritis of knee, unspecified Status: Acute Assessment and Plan: PRN pain control continue PT/OT and outpatient followup (3) Bilateral edema of lower extremity: Code(s): R60.0 - Localized edema Status: Acute Assessment and Plan: likely from Diastolic dysfunction On Lasix, decreased to 20mg IV bid due to elevated creatinine (4) Afib: Qualifiers: Atrial fibrillation type: unspecified Qualified Code(s): I48.91 - Unspecified atrial fibrillation Code(s): I48.91 - Unspecified atrial fibrillation Status: Acute Assessment and Plan: - ECHO showed ef 60-65% with diastolic dysfunction - [facility] Continue metoprolol and Apixaban (5) Left shoulder pain: Qualifiers: Chronicity: chronic Qualified Code(s): M25.512 - Pain in left shoulder; G89.29 - Other chronic pain Code(s): M25.512 - Pain in left shoulder Status: Acute Assessment and Plan: - New onset agitation of left shoulder pain, lifting and abducting arm / - Lidocaine patch and Voltaren topical gel for control (6) Anemia: Qualifiers: Anemia type: unspecified type Qualified Code(s): D64.9 - Anemia, unspecified Code(s): D64.9 - Anemia, unspecified Status: Acute Assessment and Plan: - Downtrending H/H of 16.7/51 (02/16) - 11.8/37.1 on am labs - No s/s of bleeding currently - Anemia profile labs ordered to evaluate cause of anemia, patient is on Eliquis so stool occult was ordered to evaluate for GI bleed - TIBC and Transferrin low, awaiting occult result for correlation - Protonix GI prophylaxis was begun as H/H continue to downtrend - Occult positive, GI evaluated and no intervention needed GI signed off Plan CHF exacerbation ECHO showed diastolic dysfunction leg edema Decreased Lasix to 20mg IV bid and monitor renal function monitor JOSSELIN Cr 1.32 from 1.04 Decreased lasix to 20 from 40. Monitor DVT prophylaxis on Eliquis Subjective Date/time seen: 02/25/25 09:38 Interval history: Comfortable at bedside and noted that swelling has improved markedly Review of Systems Review of Systems: All systems reviewed & are unremarkable except as noted in HPI and below Exam Narrative: AF HR 58 RR 18 SPO2 98 BP 132/58 General: male in no acute respiratory distress who is nontoxic appearing, sitting up in chair, not elevating legs. HEENT: Normocephalic. Atraumatic. Extraocular movement intact. Sclera clear and anicteric. No facial asymmetry. Chest: Lungs are clear to auscultation bilaterally. CV: Heart was regular rate and rhythm. Abd: Abdomen was soft. Nontender. Nondistended. Positive bowel sounds. Ext: No clubbing. DP pulses bilaterally. Severe bilateral pitting edema with weeping. Large wound to the right mid calf with yellow slough. Several small wounds with yellow slough on bilateral lower extremities. See wound care note. Neuro: Patient is alert and oriented x4. Speech is clear. Const: General: comfortable Objective Data Vital Signs Vital Signs: Vital Signs - 24 hr 02/24/25 11:55 02/24/25 16:00 02/24/25 20:00 Temperature 97.7 F 97.8 F 98.2 F Pulse Rate 58 L 61 60 Respiratory Rate 20 18 18 Blood Pressure 153/58 H 135/62 131/57 L Pulse Oximetry 99 98 100 Oxygen Delivery 02/24/25 20:00 02/25/25 00:00 02/25/25 04:00 Temperature 97.7 F 97.7 F Pulse Rate 62 60 Respiratory Rate 18 18 Blood Pressure 102/51 L 125/85 Pulse Oximetry 100 97 Oxygen Delivery Room Air 02/25/25 06:02 02/25/25 08:00 02/25/25 08:00 Temperature 97.6 F 97.6 F Pulse Rate 60 51 L Respiratory Rate 18 16 Blood Pressure 122/51 L 146/56 H Pulse Oximetry 100 100 Oxygen Delivery Room Air Intake/Output Intake/Output: Intake & Output 02/22/25 02/23/25 02/24/25 02/25/25 23:59 23:59 23:59 23:59 Intake Total 1110 2110 980 240 Output Total 375 1250 950 290 Balance 735 860 30 -50 Meds/Results Medications: Active Medications Generic Name Dose Route Start Last Admin Trade Name Freq PRN Reason Stop Dose Admin Hydrocodone Bitart/Acetaminophen 1 tab 02/17/25 10:40 02/24/25 17:21 Hydrocodone/Acetaminophen (*Crx) 5-325 Mg Tablet PO 1 tab Q4H PRN Administration Pain Rated 4-6 Hydrocodone Bitart/Acetaminophen 1 tab 02/22/25 13:30 02/24/25 21:37 Hydrocodone/Acetaminophen (*Crx) 10-325 Mg Tablet PO 1 tab Q6H PRN Administration Pain Rated 7-10 Apixaban 5 mg 02/17/25 10:55 02/24/25 20:02 Apixaban 5 Mg Tablet PO 5 mg Q12HR SHRUTHI Administration Calcium Carbonate 200 mg 02/20/25 15:31 02/21/25 11:39 Calcium Carbonate (Tums) 500 Mg (200 Mg Elemental) PO 200 mg Q6H PRN Administration Indigestion Collagenase 1 applic 02/17/25 09:00 02/24/25 20:11 Collagenase Oint 30 Gm Tube TOPICAL 1 applic Q12HR SHRUTHI Administration Diclofenac Sodium 1 applic 02/18/25 13:00 02/24/25 20:11 Diclofenac Sodium 1% 100 Gm Gel (*Bkc) TOPICAL 1 applic QID SHRUTHI Administration Docusate Sodium 100 mg 02/20/25 10:18 02/23/25 03:40 Docusate Sodium 100 Mg Capsule PO 100 mg Q12H PRN Administration Constipation Furosemide 40 mg 02/24/25 12:35 02/24/25 17:20 Furosemide Inj 40 Mg/4 Ml Vial IV PUSH 40 mg BID SHRUTHI Administration Hydroxyzine HCl 25 mg 02/21/25 12:15 02/21/25 12:33 Hydroxyzine Hcl 25 Mg Tablet PO 25 mg Q6H PRN Administration Itching Cefepime HCl 2 gm in 50 mls @ 100 mls/hr 02/20/25 08:00 02/24/25 20:32 Maxipime 2 Gm/Ns 50 Ml IVPB Infused Q12H SHRUTHI Infusion Lidocaine 1 patch 02/17/25 10:55 02/24/25 09:28 Lidocaine 5% Patch TRANSDERM Not Given DAILY SHRUTHI Lidocaine 1 patch 02/19/25 09:00 02/24/25 09:24 Lidocaine 5% Patch TRANSDERM 1 patch DAILY SHRUTHI Administration Linezolid 600 mg 02/23/25 06:00 02/25/25 06:07 Linezolid 600 Mg Tablet PO 600 mg Q12H SHRUTHI Administration Ondansetron HCl 4 mg 02/17/25 02:55 02/24/25 17:19 Ondansetron Inj 4 Mg/2 Ml Vial IV PUSH 4 mg Q4H PRN Administration Nausea Perflutren Lipid Microsphere 0 ml 02/24/25 12:33 Perflutren Lipid Microspheres 1.5 Ml Vial Diluted To 10 Ml Total Volume IV PUSH 02/27/25 12:33 ONCE PRN adequate visualization Protocol Polyethylene Glycol 17 gm 02/20/25 10:20 02/23/25 03:41 Polyethylene Glycol 3350 17 Gm Powd.Pack PO 17 gm QAM PRN Administration Constipation Radiology Results: ITS Impressions Venous Doppler Study 02/16/25 18:08 IMPRESSION: Negative bilateral lower extremity venous US. No deep vein thrombosis. Tibia/Fibula X-Ray 02/17/25 06:31 Impression: Diffuse soft tissue edema. Moderate degenerative change at the knee. No evidence for osteomyelitis. Chest X-Ray 02/24/25 08:51 IMPRESSION: 1. Unchanged mild discoid atelectasis at the bilateral lower lung zones. No other acute cardiopulmonary disease. Labs Labs: Laboratory Results - last 24 hr 02/25/25 04:42 WBC 24.6 H RBC 3.68 L Hgb 11.7 L Hct 37.0 L MCV 100.5 H MCH 31.8 MCHC 31.6 L RDW 15.2 H Plt Count 322 MPV 11.0 H Immature Gran % (Auto) 2.0 H Neut % (Auto) 81.8 H Lymph % (Auto) 9.0 L [place] % (Auto) 5.0 Eos % (Auto) 1.4 Baso % (Auto) 0.8 Lymph # (Auto) 2.22 [place] # (Auto) 1.2 H Eos # (Auto) 0.4 H Baso # (Auto) 0.2 H Abs Immat Gran (auto) 0.50 H Absolute Neuts (auto) 20.1 H Absolute Nucleated RBC 0.000 Nucleated RBC % 0.0 Sodium 131 L Potassium 4.9 Chloride 101 Carbon Dioxide 21 L Anion Gap 9 BUN 45 H Creatinine 1.32 H Estim Creat Clear Calc 52 Estimated GFR 53 L Glucose 106 Lactic Acid 1.4 Calcium 8.7 Magnesium 2.4 H Total Bilirubin 1.2 AST 22 ALT 15 Alkaline Phosphatase 73 Total Protein 6.0 L Albumin 3.2 L Quality VTE Prophylaxis VTE prophylaxis: pharmacologic ordered
[2025-02-25] MEDS: CEFEPIME 2 GM/NS 50 ML 2 GM/50 ML BAG IVPB ×2 (09:49→20:36)
[2025-02-25] MEDS: DICLOFENAC SODIUM 1% 100 GM GEL (*BKC) 1 APPLIC TOPICAL ×4 (09:49→20:35)
[2025-02-25] MEDS: APIXABAN 5 MG TABLET PO (09:50)
[2025-02-25] MEDS: HYDROcodone/acetaminophen (*CRX) 10-325 MG TABLET 1 TAB PO (09:50)
[2025-02-25] MEDS: CALCIUM CARBONATE (TUMS) 500 MG (200 MG ELEMENTAL) PO (09:50)
[2025-02-25] MEDS: COLLAGENASE OINT 30 GM TUBE 1 APPLIC TOPICAL ×2 (09:51→20:35)
[2025-02-25] MEDS: ONDANSETRON INJ 4 MG/2 ML VIAL IV PUSH ×3 (16:26→23:11)
[2025-02-25] MEDS: FUROSEMIDE INJ 40 MG/4 ML VIAL 20 MG IV PUSH (16:26)
[2025-02-25] MEDS: MIDODRINE HCL 2.5 MG TABLET 5 MG PO (18:21)
[2025-02-25 20:17] LABS: Lactic Acid Reflex 3.1 mmol/L (0.7-2.0)
--- NOTE | 2025-02-25 20:25 | P.PNCROSS_ITS ---
Event Note Event Note Event Note: EXPORT DOCUMENTS CLERK already on floor made aware the patient Sepsis flag and dark maroon vomit Patient alert sitting up in chair with dark tardy maroon vomit on chest, his complaint is that he was given Lasix this morning and bad food last night. Lactic Acid CBC CMP, Coags, type and screen IV Protonix for GI bleed Albumin for hypotension Left ventricular systolic function is normal, estimated at 60-65%. Rapid response called about 30 minutes after seeing patient see critical care note for details
[2025-02-25 20:40] LABS: Hematocrit 30.9 % (42.0-52.0); Hemoglobin 9.6 g/dL (14.0-18.0); Mean Corpuscular HGB Conc 31.1 g/dl (32-36); Mean Platelet Volume 11.4 fl (7.4-10.4); Platelet Count Result 366 k/mm3 (150-375); Red Cell Distribution Width 15.2 % (11.5-14.5); White Blood Count 33.6 K/mm3 (4.5-10.0)
[2025-02-25 21:00] LABS: Alanine Aminotransferase 15 U/L (6-50); Albumin Level 2.8 g/dL (3.5-5.1); Alkaline Phosphatase 69 U/L (38-126); Anion Gap 10 mmol/L (4-12); Aspartate Amino Transferase 17 U/L (17-59); Bilirubin,Total 0.9 mg/dL (0.2-1.3); Blood Urea Nitrogen 73 mg/dL (9-20); Calcium 8.5 mg/dL (8.4-10.2); Carbon Dioxide 20 mmol/L (22-30); Chloride 100 mmol/L (98-107); Estimated CRCL calculation 40 ml/min; Estimated Glomerular Filt Rate 40; Glucose 123 mg/dL (65-110); Magnesium 2.4 mg/dL (1.6-2.3); Phosphorus 3.8 mg/dL (2.5-4.5); Potassium 6.1 mmol/L (3.4-5.0); Sodium 130 mmol/L (137-145)
--- NOTE | 2025-02-25 21:06 | ECG_ITS ---
Test Date: 2025-02-25 21:07:34 Measurements Intervals [place]ester Rate: 72 P: 0 VA: 0 QRS: -45 QRSD: 134 T: 54 QT: 406 QTc: 445 Interpretive Statements ATRIAL FLUTTER/TACHYCARDIA WITH NORMAL VENTRICULAR RATE LEFT AXIS DEVIATION RIGHT BUNDLE BRANCH BLOCK ABNORMAL ECG Compared to ECG 02/17/2025 01:41:06 Junctional rhythm no longer present Electronically Signed On 02-26-2025 07:31:18 CDT by Guanaco Valencia D.O.
[2025-02-25] MEDS: SODIUM CHLORIDE 0.9% IV 1,000 ML 999 ML (21:15)
[2025-02-25] MEDS: INSULIN HUMAN REGULAR (*BKC) 100 UNITS/ML 10 UNITS IV PUSH (21:16)
[2025-02-25] MEDS: DEXTROSE 50% 25 GM/50 ML SYRINGE IV PUSH (21:18)
[2025-02-25] MEDS: ALBUMIN HUMAN 25% 25 GM/100 ML 100 ML IVPB (21:23)
[2025-02-25] MEDS: CALCIUM GLUC 1,000 MG/NS 50 ML 1,000 MG/50 ML BAG 100 MG IVPB (21:23)
[2025-02-25 21:40] LABS: INR 2.2; Partial Thromboplastin Time 29.6 Seconds (22.3-36.8); Prothrombin Time 24.6 Seconds (11.1-14.7)
--- NOTE | 2025-02-25 21:49 | PC.NURSE ---
Sons Franklin and Brennen called to make aware of patient condition and move to IMU room 207. Neither son answering phone calls so messages were left with new room number and messages to call [phone] for questions and more information.
[2025-02-25 21:51] LABS: Procalcitonin 0.5 ng/mL
[2025-02-25 22:05] LABS: Reflex Lactic Acid Yes or No Add Lactic
[2025-02-25] MEDS: ALBUTEROL SULFATE NEB 2.5 MG/3 ML INH 10 MG INHALATION (22:10)
--- NOTE | 2025-02-25 22:12 | P.RRN_ITS ---
Critical Care Event Note Summary Code activated: Yes Narrative: Rapid response called at 2057 Patient was awake alert sitting in chair and staff tried to help him to the bathroom when the patient became unstable on his feet they laid him down in bed called a rapid response. On arrival to the room the patient was pale but talking. Patient was hypotensive with fluid bolus started. Lab work from [facility] resulted with a WBC of 33.6, hemoglobin of 9.6 which was a drop from 11.7 this morning, and potassium of 6.1. Amp D 5 in 10 of IV insulin was ordered calcium gluconate and DuoNeb. Two IVs were placed. Due to the patient having dark tardy emesis and severe hypotension 2 units of RBCs were ordered for symptomatic anemia. Patient was transferred to IMU. Labs were redrawn with hemoglobin resulting 8.8, waiting for blood to arrive to the unit. Will transfer 2 units due to severe hypotension. Followed by H&H. 80 IV Protonix push given in IMU, will follow with b.i.d. IV vanc per pharmacy dosing was ordered for sepsis protocol and rising lactic. Due to abdominal pain and rising lactic CT abdomen pelvis without contrast was ordered. Night attending has been updated on patient, and was at bedside during original rapid response. Patient is awake alert x4 very talkative Breath sounds clear Tenderness to palpation Patient believes that all of this is cause due to him eating bad [place] food the night before receiving Lasix this morning. Critical Care Time Critical Care Time: Yes Total Critical Care Time: 125 Due to a high probability of clinically significant, life threatening deterioration, the patient required my highest level of preparedness to intervene emergently and I personally spent this critical care time directly and personally managing the patient. This critical care time included obtaining a history; examining the patient; pulse oximetry; ordering and review of studies; arranging urgent treatment with development of a management plan; evaluation of patient's response to treatment; frequent reassessment; and discussions with other providers. It was exclusive of separately billable procedures and treating other patients and teaching time. Please see Assessment and Plan section and the rest of the note for further information on patient assessment and treatment. Critical care time: 105 - 134 mins
[2025-02-25 22:18] LABS: Glucose Point of Care 123 mg/dl (65-105)
[2025-02-25 22:22] LABS: Hematocrit 28.6 % (42.0-52.0); Hemoglobin 8.8 g/dL (14.0-18.0)
[2025-02-25] MEDS: PANTOPRAZOLE SODIUM IV 40 MG VIAL 80 MG IV PUSH (22:22)
[2025-02-25] MEDS: SODIUM CHLORIDE 0.9% IV 250 ML 30 ML IV CONT (22:23)
[2025-02-25] MEDS: TUBING, BLOOD PLUM PUMP TUBING 1 EACH XX (22:28)
[2025-02-25 22:33] LABS: Anion Gap 13 mmol/L (4-12); Blood Urea Nitrogen 76 mg/dL (9-20); Calcium 8.6 mg/dL (8.4-10.2); Carbon Dioxide 16 mmol/L (22-30); Chloride 102 mmol/L (98-107); Estimated CRCL calculation 39 ml/min; Estimated Glomerular Filt Rate 38; Glucose 158 mg/dL (65-110); Potassium 5.4 mmol/L (3.4-5.0); Sodium 131 mmol/L (137-145)
[2025-02-25 22:37] LABS: Lactic Acid 4.4 mmol/L (0.7-2.0)
[2025-02-26] VITALS (18 sets, daily range): BP systolic 97–146; BP diastolic 39–74; PULSE 58–79; RESP 16–26; TEMP 36.4–37.3; O2SAT 96–100
[2025-02-26] MEDS: VANCOMYCIN 1,250 MG/NS 250 ML 1,250 MG/250 ML BAG 166.67 MG IVPB ×2 (01:56→03:01)
[2025-02-26 04:27] LABS: Basophils Absolute Auto 0.1 K/mm3 (0.0-0.1); Basophils Percent Auto 0.3 % (0.2-1.2); Hematocrit 33.3 % (42.0-52.0); Hemoglobin 10.6 g/dL (14.0-18.0); Immature Granulocyte Absolute 0.53 K/mm3 (0.00-0.031); Immature Granulocyte Percent A 1.8 % (0-0.5); Lymphocytes Absolute Auto 1.72 K/mm3 (0.9-3.2); Mean Corpuscular HGB Conc 31.8 g/dl (32-36); Mean Corpuscular Hemoglobin 31.6 pg (26-34); Mean Corpuscular Volume 99.4 fl (80-100); Mean Platelet Volume 10.9 fl (7.4-10.4); Monocytes Absolute Auto 1.1 K/mm3 (0.1-0.6); Monocytes Percent Auto 3.9 % (2.6-8.5); Neutrophils Absolute Auto 25.4 K/mm3 (1.3-6.7); Nucleated Red Blood Cells Perc 0.1 % (0.0-0.2); Platelet Count Result 259 k/mm3 (150-375); Red Blood Count 3.35 M/mm3 (4.6-6.20); Red Cell Distribution Width 15.9 % (11.5-14.5); White Blood Count 28.8 K/mm3 (4.5-10.0)
[2025-02-26 04:39] LABS: Lactic Acid Reflex 3.6 mmol/L (0.7-2.0)
[2025-02-26 04:42] LABS: Alanine Aminotransferase 16 U/L (6-50); Albumin Level 2.7 g/dL (3.5-5.1); Alkaline Phosphatase 50 U/L (38-126); Anion Gap 13 mmol/L (4-12); Aspartate Amino Transferase 25 U/L (17-59); Blood Urea Nitrogen 77 mg/dL (9-20); Calcium 8.3 mg/dL (8.4-10.2); Carbon Dioxide 17 mmol/L (22-30); Chloride 103 mmol/L (98-107); Estimated CRCL calculation 44 ml/min; Estimated Glomerular Filt Rate 44; Glucose 106 mg/dL (65-110); Magnesium 2.2 mg/dL (1.6-2.3); Potassium 5.3 mmol/L (3.4-5.0); Sodium 133 mmol/L (137-145)
[2025-02-26 06:21] LABS: Add Urine Microscopic? YES; Appearance Urine Clear (Clear); Bacteria Urine None Seen /hpf; Bilirubin Urine Negative (Negative); Blood Urine Negative (Negative); Color Urine Yellow (Yellow); Glucose Urine UA Negative (Negative); Ketones Urine Negative (Negative); Leukocyte Esterase Ur Trace LEU/UL (Negative); Need Manual Microscopic Reviewed; Nitrate Urine Negative (Negative); Protein Urine Negative (Negative); RBC Urine 0-2 /hpf (0-2); Specific Grav Ur 1.021 (1.001-1.035); Squamous Epithelial Cell Urine None Seen /hpf (Few); Urobilinogen Urine 0.2 mg/dL (<2.0); WBC Urine 0-5 /hpf (0-3)
[2025-02-26 09:00] LABS: Hematocrit 28.3 % (42.0-52.0); Hemoglobin 9.2 g/dL (14.0-18.0)
[2025-02-26 09:16] LABS: Anion Gap 9 mmol/L (4-12); Blood Urea Nitrogen 81 mg/dL (9-20); Calcium 8.3 mg/dL (8.4-10.2); Carbon Dioxide 18 mmol/L (22-30); Chloride 105 mmol/L (98-107); Estimated CRCL calculation 42 ml/min; Estimated Glomerular Filt Rate 41; Glucose 104 mg/dL (65-110); Potassium 5.9 mmol/L (3.4-5.0); Sodium 132 mmol/L (137-145)
[2025-02-26 09:21] LABS: Creatine Kinase 153 U/L (55-170)
[2025-02-26] MEDS: CEFEPIME 2 GM/NS 50 ML 2 GM/50 ML BAG IVPB ×2 (09:53→21:16)
[2025-02-26] MEDS: SODIUM CHLORIDE 0.9% IV 1,000 ML 75 ML IV CONT (09:53)
[2025-02-26] MEDS: PANTOPRAZOLE SODIUM IV 40 MG VIAL IV PUSH ×2 (09:54→21:23)
[2025-02-26 10:58] LABS: Reflex Lactic Acid Yes or No Add Lactic
--- NOTE | 2025-02-26 11:04 | P.CONNP_ITS ---
Assessment and Plan Assessment and plan (1) Hyperkalemia: Code(s): E87.5 - Hyperkalemia Status: Acute Assessment and Plan: * as noted by labs since the evening of 02/25 * continue to fluctuate since then... * s/p medical therapy (lokelma, D50, insulin, calcium gluconate, and nebulizer treatment) * suspect mulitifactorial etiology: * JOSSELIN/ARF * GI bleed (and associated RBC hemolysis in stomach) * acidosis * underlying kidney disease(?) - CT A/P noted atrophic kidneys * infection (LE cellulitis) * follow trend of repeat K+ levels (2) JOSSELIN (acute kidney injury): Code(s): N17.9 - Acute kidney failure, unspecified Status: Acute Assessment and Plan: * noted on 02/25 by AM labs * due to several issues: * prerenal factors * diuresis/overdiuresis * relative hypotension * anemia/GI bleed * other(?) * evaluation to date noted: * CT A/P without obstruction but atrophic kidneys noted * urine electrolytes pre-renal * urine eosinophils negative * no significant proteinuria * CPK normal * diuretics on hold * trial of IVFs * follow trend of repeat labs and UOP (3) Coffee ground emesis: Code(s): K92.0 - Hematemesis Status: Acute Assessment and Plan: * as noted by events on the evening of 02/25 * drop in H/H noted as well * complicated by anticoagulation/elevated INR * PRBC transfusion per protocol * blood thinners on hold * on PPI * GI to see again for possible intervention * follow trend of H/H (4) Hypotension: Code(s): I95.9 - Hypotension, unspecified Status: Acute Assessment and Plan: * due to GI bleed versus early sepsis versus combo of both * holding BP medications * trial of IVFs * started on midodrine * follow trend of hemodynamics (5) Cellulitis: Qualifiers: Laterality: unspecified laterality Site of cellulitis: extremity Site of cellulitis of extremity: lower extremity Qualified Code(s): L03.119 - Cellulitis of unspecified part of limb Code(s): L03.90 - Cellulitis, unspecified Status: Acute Assessment and Plan: * clinical improvement * follow culture data * on antibiotics (6) Anemia: Qualifiers: Anemia type: unspecified type Qualified Code(s): D64.9 - Anemia, unspecified Code(s): D64.9 - Anemia, unspecified Status: Acute Assessment and Plan: * see #3 * follow H/H (7) Bilateral edema of lower extremity: Code(s): R60.0 - Localized edema Status: Acute Assessment and Plan: * appears to be a chronic issue at baseline * likely exacerbated by #5 * improvement noted with IV diuretics * however, diuresis on hold due to #2 and #4 * continue conservative therapy (propping legs up, RON-wraps...etc) (8) Afib: Qualifiers: Atrial fibrillation type: unspecified Qualified Code(s): I48.91 - Unspecified atrial fibrillation Code(s): I48.91 - Unspecified atrial fibrillation Status: Acute Assessment and Plan: * rate control strategy * however, metoprolol on hold due to #4 * anticoagulation on hold due to #3 I will continue to follow the patient with you while he remains hospitalized and make further recommendations as deemed necessary. Thank you for allowing me to participate in the care of this patient. L History of Present Illness Reason for Consult Consult date: 02/26/25 Reason for consult: acute renal failure and hyperkalemia Chief Complaint Chief complaint: Cellulitis History of Present Illness Narrative: Most of the information I have obtained is from review of the electronic medical record as well as discussion with the physicians and nurses involved in the patient's care with as is difficult to get a full and complete history from the patient as he is a poor historian. The patient is a 74-year-old male with a past medical history as outlined below for who presented to [facility] Emergency Room with bilateral lower extremity swelling and associated wounds. The patient states that his bilateral lower extremity swelling began to worsen a few days ago if not longer and was associated with increased pain, redness, and drainage from multiple wounds. He states that he has had issues and problems with lower extremity swelling and wounds since December of 2023 and has had multiple rounds of antibiotics and wound care since that time. He reports he visit an outside hospital ER for this same issue and was treated with top buckle iodine and packing and apparently his wounds had improved but then reopened and became infected once again. He reports the wound drainage has been a clear yellow color with no associated odor. He apparently was started on Aug[facility] a week prior to presentation but this did not demonstrate any improvement in his swelling or wounds. With the increasing weeping and drainage for last several days if not longer, ambulation and activity has been severely limited. He gave no other symptoms with regard to fevers, chills, diaphoresis, chest pain, shortness of breath, dizziness, lightheadedness, nausea, vomiting, or diarrhea although he does report that his appetite has been somewhat poor. Given these constellation of symptoms and problems, he presented to the emergency room for further assessment. Workup and evaluation emergency room demonstrated the patient be hemodynamically stable and in no acute distress. Routine blood work was significant for an elevated white cell count 21.2, elevated CRP and elevated ESR, normal lactic acid, normal renal function with a mildly elevated bilirubin with normal LFTs. His BNP was mildly elevated 914 and his UA was only significant for trace ketones. X-rays of his lower extremities showed no subcutaneous emphysema cortical degradation or osteomyelitis but did demonstrate severe degenerative joint disease/osteoarthritis. His EKG did not demonstrate any findings concerning for ischemia either. Bilateral lower extremity Dopplers were done which were negative for DVTs. Given his severe and significant lower extremity swelling in conjunction with what appeared to be early cellulitis, he was given IV diuretics and after appropriate cultures, was started on IV antibiotics. He was subsequently admitted to the hospital for further evaluation therapy. Since his admission, his lower extremity swelling and edema have improved with a combination of diuretic therapy as well as antibiotics. He did have a rapid response yesterday due to hematemesis and workup is in progress with regard to this issue. Renal consultation was requested due to his acute kidney injury/acute renal failure in association with hyperkalemia as noted by labs done yesterday. As mentioned earlier, on admission, his renal function and electrolytes were well within normal limits. However, by labs done yesterday around the same time he had issues with coffee-ground emesis, his renal function as well as his potassium were significantly elevated. In spite of these findings, he did not appear to have any specific symptoms related to these issues. Furthermore, he continues to make reasonable urine output as demonstrated by his inputs and outputs. In spite of my discussion with him about his renal dysfunction, he seem more concerned about his lower extremity swelling/edema and associated infection than anything else. Currently, at the time my evaluation, he appears to be in no acute distress. Review of Systems 2 Review of Systems: As per HPI. 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 CHF exacerbation JOSSELIN (acute kidney injury) Sepsis Coffee ground emesis Left shoulder pain Afib Degenerative joint disease of knee Hypertension Surgical History Surgical History History of hernia repair Family History Family History Father Diabetes mellitus Hypertension Sibling Diabetes mellitus Mother Hypertension Social History Social History Smoking status: Never smoker Second hand tobacco smoke exposure: No Alcohol intake: never Substance use: never Substance use type: does not use Do You Feel Safe in your Home?: Yes Lack of Transportation: YES Lack of Food: Never True Current Housing: I Have Housing Concerned About Future Housing: No Difficulty Paying Gas/Electric Bills: No Difficulty Paying for Meds: No Currently Unemployed: No Education: High School Diploma/GED Difficulty w/ Childcare or Family Care: No Living arrangements: alone Occupation/Education: retired Spiritual care concerns: No Meds Home Medications and Allergies Home Medications ?Medication ?Instructions ?Recorded ?Confirmed ?Type calcium carbonate 200 mg (0.4 x 500 mg calcium 03/02/25 03/06/25 Rx (1,250 mg)) PO Q6H PRN Indigestion #30 tabs collagenase clostridium histo. 250 1 applic topical Q12HR #30 grams 03/02/25 03/06/25 Rx unit/gram topical ointment (Santyl) docusate sodium 100 mg capsule 100 mg PO Q12H PRN Constipation 03/02/25 03/06/25 Rx #30 caps levofloxacin 750 mg tablet 750 mg PO DAILY #7 tabs 03/02/25 03/06/25 Rx linezolid 600 mg tablet 600 mg PO Q12HR #14 tabs 03/02/25 03/06/25 Rx midodrine 2.5 mg tablet 10 mg (4 x 2.5 mg) PO TID #30 tabs 03/02/25 03/06/25 Rx pantoprazole 40 mg tablet,delayed 40 mg PO BID 16 weeks #224 tabs 03/02/25 03/06/25 Rx release (Protonix) sodium bicarbonate 650 mg tablet 1,300 mg (2 x 650 mg) PO BID #2 03/02/25 03/06/25 Rx tabs sucralfate 100 mg/mL oral 1,000 mg (10 mL) PO ACHS #30 mL 03/02/25 03/06/25 Rx suspension Allergies Allergy/AdvReac Type Severity Reaction Status Date / Time Milk Containing Products Allergy Unknown Rash Verified 02/27/25 12:22 (Dairy) eggs Allergy Unknown Rash Uncoded 02/27/25 12:22 Vital Signs Vital Signs Temp Pulse Resp BP Pulse Ox O2 Del Method 02/26/25 11:03 97.7 F 65 24 H 97/39 L 100 02/26/25 08:00 98.2 F 68 24 H 120/47 L 100 02/26/25 06:00 60 02/26/25 04:00 58 L 02/26/25 04:00 98.1 F 61 16 107/51 L 100 02/26/25 03:03 98.2 F 69 22 H 104/51 L 100 02/26/25 02:40 97.9 F 61 22 H 110/49 L 100 02/26/25 01:40 97.6 F 62 24 H 106/45 L 96 02/26/25 01:25 97.8 F 62 24 H 110/46 L 100 02/26/25 00:20 99.2 F 66 26 H 98/49 L 100 02/25/25 23:20 98.1 F 74 24 H 92/43 L 100 02/25/25 23:04 71 20 02/25/25 23:04 98.3 F 75 20 88/48 L 100 02/25/25 22:10 70 20 02/25/25 22:08 98.2 F 69 16 90/43 L 100 02/25/25 21:20 24 H 103/47 L 98 Room Air 02/25/25 21:06 72 28 H 81/53 L 98 Room Air 02/25/25 20:50 98.3 F 68 16 101/52 L 97 02/25/25 16:00 97.8 F 76 22 H 92/50 L 100 Exam 2 Narrative: GENERAL APPEARANCE: elderly but well developed well nourished male in no acute distress HEENT: normocephalic, atraumatic, normal conjunctiva and sclera, nares patient NECK: no lymphadenopathy, thyromegaly, or JVD MOUTH: normal lips, teeth, and gums CARDIOVASCULAR: RRR, normal S1 and S2, no rub RESPIRATORY: clear to auscultation bilaterally ABDOMEN: soft, nontender, nondistended, positive bowel sounds present EXTREMITIES: no evidence of cyanosis, clubbing; trace - 1+edema; LE wounds noted NEUROLOGICAL: alert and oriented x 3; CN II - XII intact bilaterally; no focal deficits noted Results Lab Results 03/02/25 05:01 03/02/25 05:01 Lab results: Most recent lab results Calcium 8.3 mg/dL (8.4-10.2) L 02/26/25 08:55 Phosphorus 3.8 mg/dL (2.5-4.5) 02/25/25 19:48 Magnesium 2.2 mg/dL (1.6-2.3) 02/26/25 04:11 Urine Creatinine Cancelled 02/26/25 11:24
[2025-02-26 11:21] LABS: Lactic Acid 4.6 mmol/L (0.7-2.0)
[2025-02-26 11:42] LABS: Creatinine Urine 86.7 mg/dL; Total Protein Urine Random 6 mg/dL; Ur Ttl Prot Creatinine Ratio 0.07 mg/mg (0-0.20)
[2025-02-26 11:49] LABS: Urea Random Urine 1212 MG/DL
[2025-02-26] MEDS: LIDOCAINE 5% PATCH 1 PATCH TRANSDERM ×2 (11:56→12:09)
[2025-02-26 11:58] LABS: Sodium Urine Random < 5 meq/L
[2025-02-26] MEDS: SODIUM CHLORIDE 0.9% IV 500 ML 999 ML IV CONT (12:02)
[2025-02-26 12:03] LABS: Eosinophil Urine None Seen % (None Seen); Urine Eos QC 2nd Tech Confirmed
--- NOTE | 2025-02-26 13:38 | PM.IMPN ---
Progress Note: A&P Assessment and Plan (1) Cellulitis: Qualifiers: Laterality: unspecified laterality Site of cellulitis: extremity Site of cellulitis of extremity: lower extremity Qualified Code(s): L03.119 - Cellulitis of unspecified part of limb Code(s): L03.90 - Cellulitis, unspecified Status: Acute Assessment and Plan: improving patient went into hypotension and lactic acidosis last night likely from hypotension ensuing from GI bleed Continue Cefepime and Vanc, Flagyl added today monitor cultures (2) Degenerative joint disease of knee: Qualifiers: Osteoarthritis type: primary Laterality: bilateral Qualified Code(s): M17.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 Code(s): M17.9 - Osteoarthritis of knee, unspecified Status: Acute Assessment and Plan: PRN pain control continue PT/OT and outpatient followup (3) Bilateral edema of lower extremity: Code(s): R60.0 - Localized edema Status: Acute Assessment and Plan: likely from Diastolic dysfunction Lasix on hold due to Hypotension monitor (4) Afib: Qualifiers: Atrial fibrillation type: unspecified Qualified Code(s): I48.91 - Unspecified atrial fibrillation Code(s): I48.91 - Unspecified atrial fibrillation Status: Acute Assessment and Plan: - ECHO showed ef 60-65% with diastolic dysfunction - Eliquis on hold due to GI bleed Hold Metoprolol (5) Left shoulder pain: Qualifiers: Chronicity: chronic Qualified Code(s): M25.512 - Pain in left shoulder; G89.29 - Other chronic pain Code(s): M25.512 - Pain in left shoulder Status: Acute Assessment and Plan: - New onset agitation of left shoulder pain, lifting and abducting arm 02/18 - Lidocaine patch and Voltaren topical gel for control (6) Anemia: Qualifiers: Anemia type: unspecified type Qualified Code(s): D64.9 - Anemia, unspecified Code(s): D64.9 - Anemia, unspecified Status: Acute Assessment and Plan: Patient has Coffee ground emesis last night and now with melena stool Hb 9.2 On PPI and ELiquis on hold On IVF and GI consulted monito r Plan CHF exacerbation ECHO showed diastolic dysfunction leg edema Hold Lasix JOSSELIN Cr 1.64 from 1.76, baseline 1.04 Lasix on hold Monitor Hypotension and lactic acidosis from GI bleed and hypovolemia lactic acid 4.6 continue IVF and Midodrine monitor GI bleed Coffee ground emesis and Melena stool Stool culture and C diff pending CT AP no acute changes DVT prophylaxis on SCDs, Eliquis on hold Subjective Date/time seen: 02/26/25 13:38 Interval history: Patient transferred to IMU overnight for hypotension and GI bleed Review of Systems Review of Systems: All systems reviewed & are unremarkable except as noted in HPI and below Exam Narrative: AF HR 58 RR 18 SPO2 98 BP 132/58 General: male in no acute respiratory distress who is nontoxic appearing, sitting up in chair, not elevating legs. HEENT: Normocephalic. Atraumatic. Extraocular movement intact. Sclera clear and anicteric. No facial asymmetry. Chest: Lungs are clear to auscultation bilaterally. CV: Heart was regular rate and rhythm. Abd: Abdomen was soft. Nontender. Nondistended. Positive bowel sounds. Ext: No clubbing. DP pulses bilaterally. Severe bilateral pitting edema with weeping. Large wound to the right mid calf with yellow slough. Several small wounds with yellow slough on bilateral lower extremities. See wound care note. Neuro: Patient is alert and oriented x4. Speech is clear. Const: General: comfortable Objective Data Vital Signs Vital Signs: Vital Signs - 24 hr 02/25/25 16:00 02/25/25 20:50 02/25/25 21:06 Temperature 97.8 F 98.3 F Pulse Rate 76 68 72 Respiratory Rate 22 H 16 28 H Blood Pressure 92/50 L 101/52 L 81/53 L Pulse Oximetry 100 97 98 Oxygen Delivery Room Air 02/25/25 21:20 02/25/25 22:08 02/25/25 22:10 Temperature 98.2 F Pulse Rate 69 70 Respiratory Rate 24 H 16 20 Blood Pressure 103/47 L 90/43 L Pulse Oximetry 98 100 Oxygen Delivery Room Air 02/25/25 23:04 02/25/25 23:04 02/25/25 23:20 Temperature 98.3 F 98.1 F Pulse Rate 75 71 74 Respiratory Rate 20 20 24 H Blood Pressure 88/48 L 92/43 L Pulse Oximetry 100 100 Oxygen Delivery 02/26/25 00:20 02/26/25 01:25 02/26/25 01:40 Temperature 99.2 F 97.8 F 97.6 F Pulse Rate 66 62 62 Respiratory Rate 26 H 24 H 24 H Blood Pressure 98/49 L 110/46 L 106/45 L Pulse Oximetry 100 100 96 Oxygen Delivery 02/26/25 02:40 02/26/25 03:03 02/26/25 04:00 Temperature 97.9 F 98.2 F 98.1 F Pulse Rate 61 69 61 Respiratory Rate 22 H 22 H 16 Blood Pressure 110/49 L 104/51 L 107/51 L Pulse Oximetry 100 100 100 Oxygen Delivery 02/26/25 04:00 02/26/25 06:00 02/26/25 08:00 Temperature 98.2 F Pulse Rate 58 L 60 68 Respiratory Rate 24 H Blood Pressure 120/47 L Pulse Oximetry 100 Oxygen Delivery 02/26/25 11:53 Temperature 97.7 F Pulse Rate 65 Respiratory Rate 24 H Blood Pressure 97/39 L Pulse Oximetry 100 Oxygen Delivery Intake/Output Intake/Output: Intake & Output 02/23/25 02/24/25 02/25/25 02/26/25 23:59 23:59 23:59 23:59 Intake Total 2110 980 580 750 Output Total 2740 465 1759 500 Balance 860 30 -610 250 Meds/Results Medications: Active Medications Generic Name Dose Route Start Last Admin Trade Name Freq PRN Reason Stop Dose Admin Hydrocodone Bitart/Acetaminophen 1 tab 02/17/25 10:40 02/24/25 17:21 Hydrocodone/Acetaminophen (*Crx) 5-325 Mg Tablet PO 1 tab Q4H PRN Administration Pain Rated 4-6 Hydrocodone Bitart/Acetaminophen 1 tab 02/22/25 13:30 02/25/25 09:50 Hydrocodone/Acetaminophen (*Crx) 10-325 Mg Tablet PO 1 tab Q6H PRN Administration Pain Rated 7-10 Calcium Carbonate 200 mg 02/20/25 15:31 02/25/25 09:50 Calcium Carbonate (Tums) 500 Mg (200 Mg Elemental) PO 200 mg Q6H PRN Administration Indigestion Collagenase 1 applic 02/17/25 09:00 02/25/25 20:35 Collagenase Oint 30 Gm Tube TOPICAL 1 applic Q12HR SHRUTHI Administration Diclofenac Sodium 1 applic 02/18/25 13:00 02/25/25 20:35 Diclofenac Sodium 1% 100 Gm Gel (*Bkc) TOPICAL 1 applic QID SHRUTHI Administration Docusate Sodium 100 mg 02/20/25 10:18 02/23/25 03:40 Docusate Sodium 100 Mg Capsule PO 100 mg Q12H PRN Administration Constipation Hydroxyzine HCl 25 mg 02/21/25 12:15 02/21/25 12:33 Hydroxyzine Hcl 25 Mg Tablet PO 25 mg Q6H PRN Administration Itching Cefepime HCl 2 gm in 50 mls @ 100 mls/hr 02/20/25 08:00 02/26/25 09:53 Maxipime 2 Gm/Ns 50 Ml IVPB 100 mls/hr Q12H SHRUTHI Administration Vancomycin HCl 1,500 mg in 500 mls @ 250 mls/hr 02/27/25 04:00 Vancomycin 1,500 Mg/Ns 500 Ml IVPB Q24H SHRUTHI Sodium Chloride 1,000 mls @ 75 mls/hr 02/26/25 09:45 02/26/25 09:53 Normal Saline Iv IV CONT 75 mls/hr .[id number] SHRUTHI Administration Lidocaine 1 patch 02/17/25 10:55 02/26/25 11:56 Lidocaine 5% Patch TRANSDERM 1 patch DAILY SHRUTHI Administration Lidocaine 1 patch 02/19/25 09:00 02/26/25 12:09 Lidocaine 5% Patch TRANSDERM 1 patch DAILY SHRUTHI Administration Linezolid 600 mg 02/23/25 06:00 02/26/25 05:06 Linezolid 600 Mg Tablet PO Not Given Q12H SHRUTHI Midodrine 5 mg 02/25/25 18:00 02/26/25 13:37 Midodrine Hcl 2.5 Mg Tablet PO Not Given TID SHRUTHI Miscellaneous Information 1 each 02/26/25 00:01 [place] Needs To Be Renewed Or It Will Automatically Discontinue. XX 03/28/25 00:00 CLARIFY SHRUTHI Ondansetron HCl 4 mg 02/17/25 02:55 02/25/25 23:11 Ondansetron Inj 4 Mg/2 Ml Vial IV PUSH 4 mg Q4H PRN Administration Nausea Pantoprazole Sodium 40 mg 02/26/25 09:00 02/26/25 09:54 Pantoprazole Sodium Iv 40 Mg Vial IV PUSH 40 mg Q12HR SHRUTHI Administration Perflutren Lipid Microsphere 0 ml 02/24/25 12:33 Perflutren Lipid Microspheres 1.5 Ml Vial Diluted To 10 Ml Total Volume IV PUSH 02/27/25 12:33 ONCE PRN adequate visualization Protocol Polyethylene Glycol 17 gm 02/20/25 10:20 02/23/25 03:41 Polyethylene Glycol 3350 17 Gm Powd.Pack PO 17 gm QAM PRN Administration Constipation Radiology Results: ITS Impressions Venous Doppler Study 02/16/25 18:08 IMPRESSION: Negative bilateral lower extremity venous US. No deep vein thrombosis. Tibia/Fibula X-Ray 02/17/25 06:31 Impression: Diffuse soft tissue edema. Moderate degenerative change at the knee. No evidence for osteomyelitis. Chest X-Ray 02/25/25 21:47 IMPRESSION: Possible left basilar atelectasis versus pneumonia versus fibrotic changes. Clinical correlation and follow-up advised. Abdomen/Pelvis CT 02/26/25 06:06 IMPRESSION: 1. No acute abdominal abnormality. 2: Cholelithiasis. Labs Labs: Laboratory Results - last 24 hr 02/25/25 02/25/25 02/25/25 06:01 19:48 20:00 WBC 33.6 H RBC 3.00 L Hgb 9.6 L Hct 30.9 L MCV 103.0 H MCH 32.0 MCHC 31.1 L RDW 15.2 H Plt Count 366 MPV 11.4 H Immature Gran % (Auto) Neut % (Auto) Lymph % (Auto) [place] % (Auto) Eos % (Auto) Baso % (Auto) Lymph # (Auto) [place] # (Auto) Eos # (Auto) Baso # (Auto) Abs Immat Gran (auto) Absolute Neuts (auto) Absolute Nucleated RBC Nucleated RBC % PT INR APTT Sodium 130 L Potassium 6.1 H* Chloride 100 Carbon Dioxide 20 L Anion Gap 10 BUN 73 H D Creatinine 1.70 H Estim Creat Clear Calc 40 Estimated GFR 40 L Glucose 123 H POC Capillary Glucose Lactic Acid 3.1 H Calcium 8.5 Phosphorus 3.8 Magnesium 2.4 H Total Bilirubin 0.9 AST 17 ALT 15 Alkaline Phosphatase 69 Total Creatine Kinase Total Protein 5.0 L Albumin 2.8 L Procalcitonin 0.5 Urine Color Yellow Urine Appearance Clear Urine pH 5.0 Ur Specific [place] 1.021 Urine Protein Negative Urine Glucose (UA) Negative Urine Ketones Negative Ur Blood (Man) Negative Urine Nitrate Negative Urine Bilirubin Negative Urine Urobilinogen 0.2 Add Ur Microanalysis Reviewed Leukocyte Esterase Rfl Trace H Urine RBC 0-2 Urine WBC 0-5 Ur Squamous Epith Cells None seen Urine Bacteria None seen Urine Casts 6-10 Urine Eosinophils U Random Total Protein Ur Random Sodium Ur Random Urea Urine Total Volume Urine Creatinine Protein/Creat Ratio 2 Blood Type Antibody Screen Crossmatch 02/25/25 02/25/25 02/25/25 21:13 21:15 22:18 WBC RBC Hgb 8.8 L Hct 28.6 L MCV MCH MCHC RDW Plt Count MPV Immature Gran % (Auto) Neut % (Auto) Lymph % (Auto) [place] % (Auto) Eos % (Auto) Baso % (Auto) Lymph # (Auto) [place] # (Auto) Eos # (Auto) Baso # (Auto) Abs Immat Gran (auto) Absolute Neuts (auto) Absolute Nucleated RBC Nucleated RBC % PT 24.6 H INR 2.2 APTT 29.6 Sodium 131 L Potassium 5.4 H Chloride 102 Carbon Dioxide 16 L Anion Gap 13 H BUN 76 H Creatinine 1.76 H Estim Creat Clear Calc 39 Estimated GFR 38 L Glucose 158 H POC Capillary Glucose 123 H Lactic Acid 4.4 H* Calcium 8.6 Phosphorus Magnesium Total Bilirubin AST ALT Alkaline Phosphatase Total Creatine Kinase Total Protein Albumin Procalcitonin Urine Color Urine Appearance Urine pH Ur Specific [place] Urine Protein Urine Glucose (UA) Urine Ketones Ur Blood (Man) Urine Nitrate Urine Bilirubin Urine Urobilinogen Add Ur Microanalysis Leukocyte Esterase Rfl Urine RBC Urine WBC Ur Squamous Epith Cells Urine Bacteria Urine Casts Urine Eosinophils U Random Total Protein Ur Random Sodium Ur Random Urea Urine Total Volume Urine Creatinine Protein/Creat Ratio 2 Blood Type O Positive Antibody Screen Negative Crossmatch See Detail 02/26/25 02/26/25 02/26/25 04:11 08:55 08:58 WBC 28.8 H RBC 3.35 L Hgb 10.6 L 9.2 L Hct 33.3 L 28.3 L MCV 99.4 MCH 31.6 MCHC 31.8 L RDW 15.9 H Plt Count 259 MPV 10.9 H Immature Gran % (Auto) 1.8 H Neut % (Auto) 88.0 H Lymph % (Auto) 6.0 L [place] % (Auto) 3.9 Eos % (Auto) 0.0 Baso % (Auto) 0.3 Lymph # (Auto) 1.72 [place] # (Auto) 1.1 H Eos # (Auto) 0.0 Baso # (Auto) 0.1 Abs Immat Gran (auto) 0.53 H Absolute Neuts (auto) 25.4 H Absolute Nucleated RBC 0.020 H Nucleated RBC % 0.1 PT INR APTT Sodium 133 L 132 L Potassium 5.3 H 5.9 H Chloride 103 105 Carbon Dioxide 17 L 18 L Anion Gap 13 H 9 BUN 77 H 81 H Creatinine 1.56 H 1.64 H Estim Creat Clear Calc 44 42 Estimated GFR 44 L 41 L Glucose 106 104 POC Capillary Glucose Lactic Acid 3.6 H 4.0 H Calcium 8.3 L 8.3 L Phosphorus Magnesium 2.2 Total Bilirubin 2.0 H AST 25 ALT 16 Alkaline Phosphatase 50 Total Creatine Kinase 153 Total Protein 5.0 L Albumin 2.7 L Procalcitonin Urine Color Urine Appearance Urine pH Ur Specific [place] Urine Protein Urine Glucose (UA) Urine Ketones Ur Blood (Man) Urine Nitrate Urine Bilirubin Urine Urobilinogen Add Ur Microanalysis Leukocyte Esterase Rfl Urine RBC Urine WBC Ur Squamous Epith Cells Urine Bacteria Urine Casts Urine Eosinophils U Random Total Protein Ur Random Sodium Ur Random Urea Urine Total Volume Urine Creatinine Protein/Creat Ratio 2 Blood Type Antibody Screen Crossmatch 02/26/25 02/26/25 02/26/25 11:03 11:23 11:23 WBC RBC Hgb Hct MCV MCH MCHC RDW Plt Count MPV Immature Gran % (Auto) Neut % (Auto) Lymph % (Auto) [place] % (Auto) Eos % (Auto) Baso % (Auto) Lymph # (Auto) [place] # (Auto) Eos # (Auto) Baso # (Auto) Abs Immat Gran (auto) Absolute Neuts (auto) Absolute Nucleated RBC Nucleated RBC % PT INR APTT Sodium Potassium Chloride Carbon Dioxide Anion Gap BUN Creatinine Estim Creat Clear Calc Estimated GFR Glucose POC Capillary Glucose Lactic Acid 4.6 H* Calcium Phosphorus Magnesium Total Bilirubin AST ALT Alkaline Phosphatase Total Creatine Kinase Total Protein Albumin Procalcitonin Urine Color Urine Appearance Urine pH Ur Specific [place] Urine Protein Urine Glucose (UA) Urine Ketones Ur Blood (Man) Urine Nitrate Urine Bilirubin Urine Urobilinogen Add Ur Microanalysis Leukocyte Esterase Rfl Urine RBC Urine WBC Ur Squamous Epith Cells Urine Bacteria Urine Casts Urine Eosinophils U Random Total Protein 6 Cancelled Ur Random Sodium < 5 Ur Random Urea 1212 Urine Total Volume Cancelled Urine Creatinine 86.7 Protein/Creat Ratio 2 0.07 Blood Type Antibody Screen Crossmatch 02/26/25 11:24 WBC RBC Hgb Hct MCV MCH MCHC RDW Plt Count MPV Immature Gran % (Auto) Neut % (Auto) Lymph % (Auto) [place] % (Auto) Eos % (Auto) Baso % (Auto) Lymph # (Auto) [place] # (Auto) Eos # (Auto) Baso # (Auto) Abs Immat Gran (auto) Absolute Neuts (auto) Absolute Nucleated RBC Nucleated RBC % PT INR APTT Sodium Potassium Chloride Carbon Dioxide Anion Gap BUN Creatinine Estim Creat Clear Calc Estimated GFR Glucose POC Capillary Glucose Lactic Acid Calcium Phosphorus Magnesium Total Bilirubin AST ALT Alkaline Phosphatase Total Creatine Kinase Total Protein Albumin Procalcitonin Urine Color Urine Appearance Urine pH Ur Specific [place] Urine Protein Urine Glucose (UA) Urine Ketones Ur Blood (Man) Urine Nitrate Urine Bilirubin Urine Urobilinogen Add Ur Microanalysis Leukocyte Esterase Rfl Urine RBC Urine WBC Ur Squamous Epith Cells Urine Bacteria Urine Casts Urine Eosinophils None seen U Random Total Protein Ur Random Sodium Ur Random Urea Urine Total Volume Urine Creatinine Cancelled Protein/Creat Ratio 2 Blood Type Antibody Screen Crossmatch Quality VTE Prophylaxis VTE prophylaxis: pharmacologic ordered
[2025-02-26 13:54] LABS: Lactic Acid Reflex 3.8 mmol/L (0.7-2.0)
--- NOTE | 2025-02-26 14:28 | WPDGIPROGNO ---
Progress Note: A&P Assessment and Plan (1) Coffee ground emesis: Code(s): K92.0 - Hematemesis Status: Acute Assessment and Plan: per staff noted will assess with egd tomorrow to check if ulcer, esophagitis, etc holding blood thinner protonix now CT scan was ordered and reviewed, no signs of active bleeding (2) Cellulitis: Qualifiers: Laterality: unspecified laterality Site of cellulitis: extremity Site of cellulitis of extremity: lower extremity Qualified Code(s): L03.119 - Cellulitis of unspecified part of limb Code(s): L03.90 - Cellulitis, unspecified Status: Acute Assessment and Plan: sepsis with high wbc, on abx (3) Sepsis: Code(s): A41.9 - Sepsis, unspecified organism Status: Acute (4) JOSSELIN (acute kidney injury): Code(s): N17.9 - Acute kidney failure, unspecified Status: Acute Assessment and Plan: monitor (5) CHF exacerbation: Code(s): I50.9 - Heart failure, unspecified Status: Acute (6) 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: Code(s): Z79.01 - custodial (current) use of anticoagulants Status: Acute Assessment and Plan: on hold (7) Acute on chronic anemia: Code(s): D64.9 - Anemia, unspecified Status: Acute Subjective Date/time seen: 02/26/25 14:28 Interval history: I was called again to evaluate patient after had episode of coffee ground emesis, he was hypotensive but responded to fluids, noted hgb dropped, he is awake and alert but poor historian daughter at bedside Review of Systems Review of Systems: All systems reviewed & are unremarkable except as noted in HPI and below Exam Const: Other: chronically ill apperaring HENMT: Face/Nose/Sinus: Normal nares present Eyes: General: appearance normal, both eyes and all related structures Neck: Neck: supple Resp: Effort & Inspection: normal respiratory effort Cardio: Rate: regular rate GI: GI Palp: Yes Soft to palpation and No Tenderness to palpation present (GI) Skin: Other: wound in legs Neuro: Speech: normal speech Other: awake and alert but gets confused Extrem: General: pedal edema Psych: Affect: normal affect Objective Data Vital Signs Vital Signs: Vital Signs - 24 hr 02/25/25 16:00 02/25/25 20:50 02/25/25 21:06 Temperature 97.8 F 98.3 F Pulse Rate 76 68 72 Respiratory Rate 22 H 16 28 H Blood Pressure 92/50 L 101/52 L 81/53 L Pulse Oximetry 100 97 98 Oxygen Delivery Room Air 02/25/25 21:20 02/25/25 22:08 02/25/25 22:10 Temperature 98.2 F Pulse Rate 69 70 Respiratory Rate 24 H 16 20 Blood Pressure 103/47 L 90/43 L Pulse Oximetry 98 100 Oxygen Delivery Room Air 02/25/25 23:04 02/25/25 23:04 02/25/25 23:20 Temperature 98.3 F 98.1 F Pulse Rate 75 71 74 Respiratory Rate 20 20 24 H Blood Pressure 88/48 L 92/43 L Pulse Oximetry 100 100 Oxygen Delivery 02/26/25 00:20 02/26/25 01:25 02/26/25 01:40 Temperature 99.2 F 97.8 F 97.6 F Pulse Rate 66 62 62 Respiratory Rate 26 H 24 H 24 H Blood Pressure 98/49 L 110/46 L 106/45 L Pulse Oximetry 100 100 96 Oxygen Delivery 02/26/25 02:40 02/26/25 03:03 02/26/25 04:00 Temperature 97.9 F 98.2 F 98.1 F Pulse Rate 61 69 61 Respiratory Rate 22 H 22 H 16 Blood Pressure 110/49 L 104/51 L 107/51 L Pulse Oximetry 100 100 100 Oxygen Delivery 02/26/25 04:00 02/26/25 06:00 02/26/25 08:00 Temperature 98.2 F Pulse Rate 58 L 60 68 Respiratory Rate 24 H Blood Pressure 120/47 L Pulse Oximetry 100 Oxygen Delivery 02/26/25 11:53 Temperature 97.7 F Pulse Rate 65 Respiratory Rate 24 H Blood Pressure 97/39 L Pulse Oximetry 100 Oxygen Delivery Intake/Output Intake/Output: Intake & Output 02/23/25 02/24/25 02/25/25 02/26/25 23:59 23:59 23:59 23:59 Intake Total 2110 980 580 750 Output Total 6708 716 9497 500 Balance 860 30 -610 250 Meds/Results Medications: Active Medications Generic Name Dose Route Start Last Admin Trade Name Freq PRN Reason Stop Dose Admin Hydrocodone Bitart/Acetaminophen 1 tab 02/17/25 10:40 02/24/25 17:21 Hydrocodone/Acetaminophen (*Crx) 5-325 Mg Tablet PO 1 tab Q4H PRN Administration Pain Rated 4-6 Hydrocodone Bitart/Acetaminophen 1 tab 02/22/25 13:30 02/25/25 09:50 Hydrocodone/Acetaminophen (*Crx) 10-325 Mg Tablet PO 1 tab Q6H PRN Administration Pain Rated 7-10 Calcium Carbonate 200 mg 02/20/25 15:31 02/25/25 09:50 Calcium Carbonate (Tums) 500 Mg (200 Mg Elemental) PO 200 mg Q6H PRN Administration Indigestion Collagenase 1 applic 02/17/25 09:00 02/25/25 20:35 Collagenase Oint 30 Gm Tube TOPICAL 1 applic Q12HR SHRUTHI Administration Diclofenac Sodium 1 applic 02/18/25 13:00 02/25/25 20:35 Diclofenac Sodium 1% 100 Gm Gel (*Bkc) TOPICAL 1 applic QID SHRUTHI Administration Docusate Sodium 100 mg 02/20/25 10:18 02/23/25 03:40 Docusate Sodium 100 Mg Capsule PO 100 mg Q12H PRN Administration Constipation Hydroxyzine HCl 25 mg 02/21/25 12:15 02/21/25 12:33 Hydroxyzine Hcl 25 Mg Tablet PO 25 mg Q6H PRN Administration Itching Cefepime HCl 2 gm in 50 mls @ 100 mls/hr 02/20/25 08:00 02/26/25 09:53 Maxipime 2 Gm/Ns 50 Ml IVPB 100 mls/hr Q12H SHRUTHI Administration Vancomycin HCl 1,500 mg in 500 mls @ 250 mls/hr 02/27/25 04:00 Vancomycin 1,500 Mg/Ns 500 Ml IVPB Q24H SHRUTHI Sodium Chloride 1,000 mls @ 75 mls/hr 02/26/25 09:45 02/26/25 09:53 Normal Saline Iv IV CONT 75 mls/hr .[id number] SHRUTHI Administration Metronidazole 500 mg in 100 mls @ 100 mls/hr 02/26/25 14:00 Flagyl 500 Mg/Iso Soln 100 Ml IVPB Q8HR SHRUTHI Lidocaine 1 patch 02/17/25 10:55 02/26/25 11:56 Lidocaine 5% Patch TRANSDERM 1 patch DAILY SHRUTHI Administration Lidocaine 1 patch 02/19/25 09:00 02/26/25 12:09 Lidocaine 5% Patch TRANSDERM 1 patch DAILY SHRUTHI Administration Linezolid 600 mg 02/23/25 06:00 02/26/25 05:06 Linezolid 600 Mg Tablet PO Not Given Q12H SHRUTHI Midodrine 10 mg 02/26/25 17:00 Midodrine Hcl 2.5 Mg Tablet PO TID SHRUTHI Miscellaneous Information 1 each 02/26/25 00:01 [place] Needs To Be Renewed Or It Will Automatically Discontinue. XX 03/28/25 00:00 CLARIFY SHRUTHI Ondansetron HCl 4 mg 02/17/25 02:55 02/25/25 23:11 Ondansetron Inj 4 Mg/2 Ml Vial IV PUSH 4 mg Q4H PRN Administration Nausea Pantoprazole Sodium 40 mg 02/26/25 09:00 02/26/25 09:54 Pantoprazole Sodium Iv 40 Mg Vial IV PUSH 40 mg Q12HR SHRUTHI Administration Perflutren Lipid Microsphere 0 ml 02/24/25 12:33 Perflutren Lipid Microspheres 1.5 Ml Vial Diluted To 10 Ml Total Volume IV PUSH 02/27/25 12:33 ONCE PRN adequate visualization Protocol Polyethylene Glycol 17 gm 02/20/25 10:20 02/23/25 03:41 Polyethylene Glycol 3350 17 Gm Powd.Pack PO 17 gm QAM PRN Administration Constipation Radiology Results: ITS Impressions Venous Doppler Study 02/16/25 18:08 IMPRESSION: Negative bilateral lower extremity venous US. No deep vein thrombosis. Tibia/Fibula X-Ray 02/17/25 06:31 Impression: Diffuse soft tissue edema. Moderate degenerative change at the knee. No evidence for osteomyelitis. Chest X-Ray 02/25/25 21:47 IMPRESSION: Possible left basilar atelectasis versus pneumonia versus fibrotic changes. Clinical correlation and follow-up advised. Abdomen/Pelvis CT 02/26/25 06:06 IMPRESSION: 1. No acute abdominal abnormality. 2: Cholelithiasis. Labs Labs: Laboratory Results - last 24 hr 02/25/25 02/25/25 02/25/25 06:01 19:48 20:00 WBC 33.6 H RBC 3.00 L Hgb 9.6 L Hct 30.9 L MCV 103.0 H MCH 32.0 MCHC 31.1 L RDW 15.2 H Plt Count 366 MPV 11.4 H Immature Gran % (Auto) Neut % (Auto) Lymph % (Auto) [place] % (Auto) Eos % (Auto) Baso % (Auto) Lymph # (Auto) [place] # (Auto) Eos # (Auto) Baso # (Auto) Abs Immat Gran (auto) Absolute Neuts (auto) Absolute Nucleated RBC Nucleated RBC % PT INR APTT Sodium 130 L Potassium 6.1 H* Chloride 100 Carbon Dioxide 20 L Anion Gap 10 BUN 73 H D Creatinine 1.70 H Estim Creat Clear Calc 40 Estimated GFR 40 L Glucose 123 H POC Capillary Glucose Lactic Acid 3.1 H Calcium 8.5 Phosphorus 3.8 Magnesium 2.4 H Total Bilirubin 0.9 AST 17 ALT 15 Alkaline Phosphatase 69 Total Creatine Kinase Total Protein 5.0 L Albumin 2.8 L Procalcitonin 0.5 Urine Color Yellow Urine Appearance Clear Urine pH 5.0 Ur Specific [place] 1.021 Urine Protein Negative Urine Glucose (UA) Negative Urine Ketones Negative Ur Blood (Man) Negative Urine Nitrate Negative Urine Bilirubin Negative Urine Urobilinogen 0.2 Add Ur Microanalysis Reviewed Leukocyte Esterase Rfl Trace H Urine RBC 0-2 Urine WBC 0-5 Ur Squamous Epith Cells None seen Urine Bacteria None seen Urine Casts 6-10 Urine Eosinophils U Random Total Protein Ur Random Sodium Ur Random Urea Urine Total Volume Urine Creatinine Protein/Creat Ratio 2 Blood Type Antibody Screen Crossmatch 02/25/25 02/25/25 02/25/25 21:13 21:15 22:18 WBC RBC Hgb 8.8 L Hct 28.6 L MCV MCH MCHC RDW Plt Count MPV Immature Gran % (Auto) Neut % (Auto) Lymph % (Auto) [place] % (Auto) Eos % (Auto) Baso % (Auto) Lymph # (Auto) [place] # (Auto) Eos # (Auto) Baso # (Auto) Abs Immat Gran (auto) Absolute Neuts (auto) Absolute Nucleated RBC Nucleated RBC % PT 24.6 H INR 2.2 APTT 29.6 Sodium 131 L Potassium 5.4 H Chloride 102 Carbon Dioxide 16 L Anion Gap 13 H BUN 76 H Creatinine 1.76 H Estim Creat Clear Calc 39 Estimated GFR 38 L Glucose 158 H POC Capillary Glucose 123 H Lactic Acid 4.4 H* Calcium 8.6 Phosphorus Magnesium Total Bilirubin AST ALT Alkaline Phosphatase Total Creatine Kinase Total Protein Albumin Procalcitonin Urine Color Urine Appearance Urine pH Ur Specific [place] Urine Protein Urine Glucose (UA) Urine Ketones Ur Blood (Man) Urine Nitrate Urine Bilirubin Urine Urobilinogen Add Ur Microanalysis Leukocyte Esterase Rfl Urine RBC Urine WBC Ur Squamous Epith Cells Urine Bacteria Urine Casts Urine Eosinophils U Random Total Protein Ur Random Sodium Ur Random Urea Urine Total Volume Urine Creatinine Protein/Creat Ratio 2 Blood Type O Positive Antibody Screen Negative Crossmatch See Detail 02/26/25 02/26/25 02/26/25 04:11 08:55 08:58 WBC 28.8 H RBC 3.35 L Hgb 10.6 L 9.2 L Hct 33.3 L 28.3 L MCV 99.4 MCH 31.6 MCHC 31.8 L RDW 15.9 H Plt Count 259 MPV 10.9 H Immature Gran % (Auto) 1.8 H Neut % (Auto) 88.0 H Lymph % (Auto) 6.0 L [place] % (Auto) 3.9 Eos % (Auto) 0.0 Baso % (Auto) 0.3 Lymph # (Auto) 1.72 [place] # (Auto) 1.1 H Eos # (Auto) 0.0 Baso # (Auto) 0.1 Abs Immat Gran (auto) 0.53 H Absolute Neuts (auto) 25.4 H Absolute Nucleated RBC 0.020 H Nucleated RBC % 0.1 PT INR APTT Sodium 133 L 132 L Potassium 5.3 H 5.9 H Chloride 103 105 Carbon Dioxide 17 L 18 L Anion Gap 13 H 9 BUN 77 H 81 H Creatinine 1.56 H 1.64 H Estim Creat Clear Calc 44 42 Estimated GFR 44 L 41 L Glucose 106 104 POC Capillary Glucose Lactic Acid 3.6 H 4.0 H Calcium 8.3 L 8.3 L Phosphorus Magnesium 2.2 Total Bilirubin 2.0 H AST 25 ALT 16 Alkaline Phosphatase 50 Total Creatine Kinase 153 Total Protein 5.0 L Albumin 2.7 L Procalcitonin Urine Color Urine Appearance Urine pH Ur Specific [place] Urine Protein Urine Glucose (UA) Urine Ketones Ur Blood (Man) Urine Nitrate Urine Bilirubin Urine Urobilinogen Add Ur Microanalysis Leukocyte Esterase Rfl Urine RBC Urine WBC Ur Squamous Epith Cells Urine Bacteria Urine Casts Urine Eosinophils U Random Total Protein Ur Random Sodium Ur Random Urea Urine Total Volume Urine Creatinine Protein/Creat Ratio 2 Blood Type Antibody Screen Crossmatch 02/26/25 02/26/25 02/26/25 11:03 11:23 11:23 WBC RBC Hgb Hct MCV MCH MCHC RDW Plt Count MPV Immature Gran % (Auto) Neut % (Auto) Lymph % (Auto) [place] % (Auto) Eos % (Auto) Baso % (Auto) Lymph # (Auto) [place] # (Auto) Eos # (Auto) Baso # (Auto) Abs Immat Gran (auto) Absolute Neuts (auto) Absolute Nucleated RBC Nucleated RBC % PT INR APTT Sodium Potassium Chloride Carbon Dioxide Anion Gap BUN Creatinine Estim Creat Clear Calc Estimated GFR Glucose POC Capillary Glucose Lactic Acid 4.6 H* Calcium Phosphorus Magnesium Total Bilirubin AST ALT Alkaline Phosphatase Total Creatine Kinase Total Protein Albumin Procalcitonin Urine Color Urine Appearance Urine pH Ur Specific [place] Urine Protein Urine Glucose (UA) Urine Ketones Ur Blood (Man) Urine Nitrate Urine Bilirubin Urine Urobilinogen Add Ur Microanalysis Leukocyte Esterase Rfl Urine RBC Urine WBC Ur Squamous Epith Cells Urine Bacteria Urine Casts Urine Eosinophils U Random Total Protein 6 Cancelled Ur Random Sodium < 5 Ur Random Urea 1212 Urine Total Volume Cancelled Urine Creatinine 86.7 Protein/Creat Ratio 2 0.07 Blood Type Antibody Screen Crossmatch 02/26/25 02/26/25 11:24 13:38 WBC RBC Hgb Hct MCV MCH MCHC RDW Plt Count MPV Immature Gran % (Auto) Neut % (Auto) Lymph % (Auto) [place] % (Auto) Eos % (Auto) Baso % (Auto) Lymph # (Auto) [place] # (Auto) Eos # (Auto) Baso # (Auto) Abs Immat Gran (auto) Absolute Neuts (auto) Absolute Nucleated RBC Nucleated RBC % PT INR APTT Sodium Potassium Chloride Carbon Dioxide Anion Gap BUN Creatinine Estim Creat Clear Calc Estimated GFR Glucose POC Capillary Glucose Lactic Acid 3.8 H Calcium Phosphorus Magnesium Total Bilirubin AST ALT Alkaline Phosphatase Total Creatine Kinase Total Protein Albumin Procalcitonin Urine Color Urine Appearance Urine pH Ur Specific [place] Urine Protein Urine Glucose (UA) Urine Ketones Ur Blood (Man) Urine Nitrate Urine Bilirubin Urine Urobilinogen Add Ur Microanalysis Leukocyte Esterase Rfl Urine RBC Urine WBC Ur Squamous Epith Cells Urine Bacteria Urine Casts Urine Eosinophils None seen U Random Total Protein Ur Random Sodium Ur Random Urea Urine Total Volume Urine Creatinine Cancelled Protein/Creat Ratio 2 Blood Type Antibody Screen Crossmatch
[2025-02-26 14:35] LABS: Toxigenic C. Diff NEGATIVE (NEGATIVE)
[2025-02-26] MEDS: metroNIDAZOLE 500 MG/ISO 100ML 500 MG/100 ML BAG 100 MG IVPB ×2 (15:13→21:47)
[2025-02-26] MEDS: COLLAGENASE OINT 30 GM TUBE 1 APPLIC TOPICAL (15:15)
[2025-02-26] MEDS: DICLOFENAC SODIUM 1% 100 GM GEL (*BKC) 1 APPLIC TOPICAL ×2 (15:18→17:33)
[2025-02-26] MEDS: HYDROcodone/acetaminophen (*CRX) 10-325 MG TABLET 1 TAB PO (15:31)
[2025-02-26 16:31] LABS: Lactic Acid Reflex 3.7 mmol/L (0.7-2.0)
[2025-02-26] MEDS: MIDODRINE HCL 2.5 MG TABLET 10 MG PO (17:33)
[2025-02-26] MEDS: LINEZOLID 600 MG TABLET PO (17:33)
--- NOTE | 2025-02-26 17:52 | ECG_ITS ---
Test Date: 2025-02-26 18:00:40 Measurements Intervals [place] Rate: 64 P: 0 [place]: 0 QRS: 219 QRSD: 140 T: 156 QT: 440 QTc: 454 Interpretive Statements ATRIAL FLUTTER/TACHYCARDIA WITH NORMAL VENTRICULAR RATE LIMB LEAD REVERSAL RIGHT BUNDLE BRANCH BLOCK BASELINE ARTIFACT- I, AVL ABNORMAL ECG Compared to ECG 02/25/2025 21:07:34 NO SIGNIFICANT CHANGE Electronically Signed On 02-26-2025 19:40:45 CDT by Guanaco Valencia D.O.
[2025-02-26 20:37] LABS: Lactic Acid Reflex 2.4 mmol/L (0.7-2.0)
[2025-02-26 20:38] LABS: Anion Gap 7 mmol/L (4-12); Blood Urea Nitrogen 84 mg/dL (9-20); Calcium 8.1 mg/dL (8.4-10.2); Carbon Dioxide 19 mmol/L (22-30); Chloride 107 mmol/L (98-107); Estimated CRCL calculation 42 ml/min; Estimated Glomerular Filt Rate 42; Glucose 113 mg/dL (65-110); Potassium 5.8 mmol/L (3.4-5.0); Sodium 133 mmol/L (137-145)
[2025-02-26] MEDS: SODIUM ZIRCONIUM CYCLOSILICATE 10 GM POWD.PACK PO (21:15)
[2025-02-26] MEDS: HYDROcodone/acetaminophen (*CRX) 5-325 MG TABLET 1 TAB PO (21:24)
[2025-02-27] VITALS (23 sets, daily range): BP systolic 93–129; BP diastolic 32–106; PULSE 53–70; RESP 18–28; TEMP 36.3–37.1; O2SAT 92–100
[2025-02-27 01:40] LABS: Potassium 5.3 mmol/L (3.4-5.0)
[2025-02-27] MEDS: VANCOMYCIN 1,500 MG/NS 500 ML 1,500 MG/500 ML BAG 250 MG IVPB (03:18)
[2025-02-27] MEDS: SODIUM CHLORIDE 0.9% IV 1,000 ML 75 ML IV CONT (03:19)
[2025-02-27 04:30] LABS: Basophils Absolute Auto 0.1 K/mm3 (0.0-0.1); Basophils Percent Auto 0.3 % (0.2-1.2); Immature Granulocyte Absolute 0.52 K/mm3 (0.00-0.031); Immature Granulocyte Percent A 1.7 % (0-0.5); Lymphocytes Absolute Auto 1.96 K/mm3 (0.9-3.2); Lymphocytes Percent Auto 6.5 % (18.3-44.2); Mean Corpuscular HGB Conc 31.9 g/dl (32-36); Mean Corpuscular Hemoglobin 31.6 pg (26-34); Mean Platelet Volume 10.7 fl (7.4-10.4); Monocytes Absolute Auto 1.6 K/mm3 (0.1-0.6); Monocytes Percent Auto 5.2 % (2.6-8.5); Neutrophils Absolute Auto 26.1 K/mm3 (1.3-6.7); Neutrophils Percent Auto 86.3 % (45.5-73.1); Platelet Count Result 222 k/mm3 (150-375); Red Blood Count 2.09 M/mm3 (4.6-6.20); Red Cell Distribution Width 17.1 % (11.5-14.5); White Blood Count 30.2 K/mm3 (4.5-10.0)
[2025-02-27 04:54] LABS: Lactic Acid Reflex 2.5 mmol/L (0.7-2.0)
[2025-02-27 05:05] LABS: Alanine Aminotransferase 18 U/L (6-50); Albumin Level 2.2 g/dL (3.5-5.1); Alkaline Phosphatase 47 U/L (38-126); Anion Gap 8 mmol/L (4-12); Aspartate Amino Transferase 36 U/L (17-59); Bilirubin,Total 1.8 mg/dL (0.2-1.3); Blood Urea Nitrogen 73 mg/dL (9-20); Carbon Dioxide 19 mmol/L (22-30); Chloride 109 mmol/L (98-107); Estimated CRCL calculation 44 ml/min; Estimated Glomerular Filt Rate 44; Glucose 105 mg/dL (65-110); Magnesium 2.2 mg/dL (1.6-2.3); Sodium 136 mmol/L (137-145)
[2025-02-27] MEDS: HYDROcodone/acetaminophen (*CRX) 5-325 MG TABLET 1 TAB PO (05:37)
[2025-02-27] MEDS: LINEZOLID 600 MG TABLET PO (05:38)
[2025-02-27] MEDS: metroNIDAZOLE 500 MG/ISO 100ML 500 MG/100 ML BAG 100 MG IVPB (05:38)
[2025-02-27] MEDS: COLLAGENASE OINT 30 GM TUBE 1 APPLIC TOPICAL ×2 (05:52→20:13)
[2025-02-27 06:16] LABS: Hemoglobin 6.6 g/dL (14.0-18.0)
[2025-02-27 06:17] LABS: Hematocrit 20.7 % (42.0-52.0); Platelet Estimate Adequate (Adequate)
[2025-02-27 06:19] LABS: Anisocytosis 2+; Hypochromasia 1+; Microcytosis 2+ (NORMAL)
[2025-02-27 06:20] LABS: Schistocytes None Seen
[2025-02-27 06:26] LABS: Reflex Lactic Acid Yes or No Add Lactic
[2025-02-27 06:51] LABS: Lactic Acid 1.9 mmol/L (0.7-2.0)
[2025-02-27] MEDS: HYDROcodone/acetaminophen (*CRX) 10-325 MG TABLET 1 TAB PO ×2 (07:41→16:35)
[2025-02-27] MEDS: SODIUM CHLORIDE 0.9% IV 250 ML 30 ML IV CONT (08:30)
[2025-02-27] MEDS: TUBING, BLOOD PLUM PUMP TUBING 1 EACH XX (08:30)
[2025-02-27] MEDS: LIDOCAINE 5% PATCH 1 PATCH TRANSDERM ×2 (08:37→08:38)
[2025-02-27] MEDS: DICLOFENAC SODIUM 1% 100 GM GEL (*BKC) 1 APPLIC TOPICAL ×3 (08:42→20:13)
[2025-02-27] MEDS: CEFEPIME 2 GM/NS 50 ML 2 GM/50 ML BAG IVPB (08:43)
[2025-02-27] MEDS: PANTOPRAZOLE SODIUM IV 40 MG VIAL IV PUSH ×2 (08:43→20:13)
[2025-02-27] MEDS: MIDODRINE HCL 2.5 MG TABLET 10 MG PO ×2 (08:43→16:37)
[2025-02-27 09:07] LABS: CRP 2.7 mg/dL (<1.0)
[2025-02-27 09:28] LABS: Erythrocyte Sedimentation Rate 18 mm/hr (0-20)
[2025-02-27] MEDS: ALBUMIN HUMAN 25% 25 GM/100 ML 100 ML IVPB (10:02)
--- NOTE | 2025-02-27 10:30 | P.PNNP_ITS ---
Progress Note: A&P Assessment and Plan (1) Hyperkalemia: Code(s): E87.5 - Hyperkalemia Status: Acute Assessment and Plan: * improvement noted * as noted by labs since the evening of 02/25 * continue to fluctuate since then... * s/p medical therapy (lokelma, D50, insulin, calcium gluconate, and nebulizer treatment) * suspect multifactorial etiology: * JOSSELIN/ARF * GI bleed (and associated RBC hemolysis in stomach) * acidosis * underlying kidney disease(?) - CT A/P noted atrophic kidneys * infection (LE cellulitis) * follow trend of repeat K+ levels (2) JOSSELIN (acute kidney injury): Code(s): N17.9 - Acute kidney failure, unspecified Status: Acute Assessment and Plan: * slow improvement * noted on 02/25 by AM labs * due to several issues: * prerenal factors * diuresis/overdiuresis * relative hypotension * anemia/GI bleed * other(?) * evaluation to date noted: * CT A/P without obstruction but atrophic kidneys noted * urine electrolytes pre-renal * urine eosinophils negative * no significant proteinuria * CPK normal * diuretics on hold * gentle IVFs as volume status allows * follow trend of repeat labs and UOP (3) Coffee ground emesis: Code(s): K92.0 - Hematemesis Status: Acute Assessment and Plan: * as noted by events on the evening of 02/25 * drop in H/H noted as well * complicated by anticoagulation/elevated INR * PRBC transfusion per protocol * blood thinners on hold * on PPI * GI recommendations noted * follow trend of H/H (4) Hypotension: Code(s): I95.9 - Hypotension, unspecified Status: Acute Assessment and Plan: * due to GI bleed versus early sepsis versus combo of both * holding BP medications * trial of IVFs * started on midodrine * follow trend of hemodynamics (5) Cellulitis: Qualifiers: Laterality: unspecified laterality Site of cellulitis: extremity Site of cellulitis of extremity: lower extremity Qualified Code(s): L03.119 - Cellulitis of unspecified part of limb Code(s): L03.90 - Cellulitis, unspecified Status: Acute Assessment and Plan: * clinical improvement * follow culture data * on antibiotics (6) Anemia: Qualifiers: Anemia type: unspecified type Qualified Code(s): D64.9 - Anemia, unspecified Code(s): D64.9 - Anemia, unspecified Status: Acute Assessment and Plan: * see #3 * follow H/H (7) Bilateral edema of lower extremity: Code(s): R60.0 - Localized edema Status: Acute Assessment and Plan: * appears to be a chronic issue at baseline * likely exacerbated by #5 * improvement noted with IV diuretics * however, diuresis on hold due to #2 and #4 * continue conservative therapy (propping legs up, RON-wraps...etc) (8) Afib: Qualifiers: Atrial fibrillation type: unspecified Qualified Code(s): I48.91 - Unspecified atrial fibrillation Code(s): I48.91 - Unspecified atrial fibrillation Status: Acute Assessment and Plan: * rate control strategy * however, metoprolol on hold due to #4 * anticoagulation on hold due to #3 Will continue to follow. L Subjective Date/time seen: 02/27/25 10:30 Interval history: Follow-up for acute kidney injury/acute renal failure and hyperkalemia Renal function/creatinine about the same in the last 24 hours with reasonable urine output but improvement noted with regard to hyperkalemia and lactic acidosis; worsening WBC along with drop in H/H by AM labs; PRBC transfusion today; CT of chest done earlier this morning as well; noted plan for endoscopy later today as well. Exam 2 Narrative: General: elderly but WD/WN male in NAD Heart: normal S1 and S2; no rub Lungs: clear to auscultation Abdomen: soft, nontender, nondistended, positive bowel sounds Extremities: no cyanosis or clubbing; trace - 1+ edema Skin: LE wounds noted Objective Data Vital Signs Vital Signs: Vital Signs Temp Pulse Resp BP Pulse Ox O2 Del Method 02/27/25 09:59 98.0 F 62 28 H 101/46 L 99 02/27/25 08:45 98.6 F 65 22 H 104/70 98 02/27/25 08:30 97.4 F L 68 21 H 102/42 L 99 02/27/25 08:00 69 02/27/25 08:00 62 28 H 99 Room Air 02/27/25 07:31 98.0 F 66 20 110/50 L 98 02/27/25 05:59 67 02/27/25 04:00 69 02/27/25 04:00 96 Room Air 02/27/25 03:33 98.8 F 68 20 109/81 96 02/27/25 02:00 59 L 02/27/25 00:00 62 02/26/25 23:56 98.4 F 63 22 H 112/74 98 02/26/25 23:33 98 Room Air 02/26/25 22:00 63 02/26/25 20:00 66 02/26/25 20:00 Room Air 02/26/25 20:00 98.5 F 63 24 H 116/64 97 02/26/25 18:00 79 02/26/25 16:00 98.5 F 70 18 146/55 H 96 02/26/25 16:00 67 02/26/25 14:00 68 02/26/25 12:00 66 02/26/25 11:53 97.7 F 65 24 H 97/39 L 100 Intake/Output Intake/Output: Intake & Output 02/24/25 02/25/25 02/26/25 02/27/25 23:59 23:59 23:59 23:59 Intake Total 953 397 9813 1450 Output Total 950 6856 763 8878 Balance 30 -610 2100 -250 Meds/Results Medications: Active Medications Generic Name Dose Route Start Last Admin Trade Name Freq PRN Reason Stop Dose Admin Hydrocodone Bitart/Acetaminophen 1 tab 02/17/25 10:40 02/27/25 05:37 Hydrocodone/Acetaminophen (*Crx) 5-325 Mg Tablet PO 1 tab Q4H PRN Administration Pain Rated 4-6 Hydrocodone Bitart/Acetaminophen 1 tab 02/22/25 13:30 02/27/25 07:41 Hydrocodone/Acetaminophen (*Crx) 10-325 Mg Tablet PO 1 tab Q6H PRN Administration Pain Rated 7-10 Calcium Carbonate 200 mg 02/20/25 15:31 02/25/25 09:50 Calcium Carbonate (Tums) 500 Mg (200 Mg Elemental) PO 200 mg Q6H PRN Administration Indigestion Collagenase 1 applic 02/17/25 09:00 02/27/25 05:52 Collagenase Oint 30 Gm Tube TOPICAL 1 applic Q12HR SHRUTHI Administration Diclofenac Sodium 1 applic 02/18/25 13:00 02/27/25 08:42 Diclofenac Sodium 1% 100 Gm Gel (*Bkc) TOPICAL 1 applic QID SHRUTHI Administration Docusate Sodium 100 mg 02/20/25 10:18 02/23/25 03:40 Docusate Sodium 100 Mg Capsule PO 100 mg Q12H PRN Administration Constipation Hydroxyzine HCl 25 mg 02/21/25 12:15 02/21/25 12:33 Hydroxyzine Hcl 25 Mg Tablet PO 25 mg Q6H PRN Administration Itching Cefepime HCl 2 gm in 50 mls @ 100 mls/hr 02/20/25 08:00 02/27/25 08:43 Maxipime 2 Gm/Ns 50 Ml IVPB 100 mls/hr Q12H SHRUTHI Administration Vancomycin HCl 1,500 mg in 500 mls @ 250 mls/hr 02/27/25 04:00 02/27/25 05:18 Vancomycin 1,500 Mg/Ns 500 Ml IVPB Infused Q24H SHRUTHI Infusion Sodium Chloride 1,000 mls @ 75 mls/hr 02/26/25 09:45 02/27/25 03:19 Normal Saline Iv IV CONT 75 mls/hr .[id number] SHRUTHI Administration Metronidazole 500 mg in 100 mls @ 100 mls/hr 02/26/25 14:00 02/27/25 05:38 Flagyl 500 Mg/Iso Soln 100 Ml IVPB 100 mls/hr Q8HR SHRUTHI Administration Sodium Chloride 250 mls @ 30 mls/hr 02/27/25 06:25 02/27/25 08:30 Normal Saline Iv IV CONT 02/27/25 14:44 30 mls/hr .[id number] STA Administration Lidocaine 1 patch 02/17/25 10:55 02/27/25 08:37 Lidocaine 5% Patch TRANSDERM 1 patch DAILY SHRUTHI Administration Lidocaine 1 patch 02/19/25 09:00 02/27/25 08:38 Lidocaine 5% Patch TRANSDERM 1 patch DAILY SHRUTHI Administration Linezolid 600 mg 02/23/25 06:00 02/27/25 05:38 Linezolid 600 Mg Tablet PO 600 mg Q12H SHRUTHI Administration Midodrine 10 mg 02/26/25 17:00 02/27/25 08:43 Midodrine Hcl 2.5 Mg Tablet PO 10 mg TID SHRUTHI Administration Miscellaneous Information 1 each 02/26/25 00:01 02/26/25 21:48 [place] Needs To Be Renewed Or It Will Automatically Discontinue. XX 03/28/25 00:00 Not Given CLARIFY SHRUTHI Ondansetron HCl 4 mg 02/17/25 02:55 02/25/25 23:11 Ondansetron Inj 4 Mg/2 Ml Vial IV PUSH 4 mg Q4H PRN Administration Nausea Pantoprazole Sodium 40 mg 02/26/25 09:00 02/27/25 08:43 Pantoprazole Sodium Iv 40 Mg Vial IV PUSH 40 mg Q12HR SHRUTHI Administration Perflutren Lipid Microsphere 0 ml 02/24/25 12:33 Perflutren Lipid Microspheres 1.5 Ml Vial Diluted To 10 Ml Total Volume IV PUSH 02/27/25 12:33 ONCE PRN adequate visualization Protocol Polyethylene Glycol 17 gm 02/20/25 10:20 02/23/25 03:41 Polyethylene Glycol 3350 17 Gm Powd.Pack PO 17 gm QAM PRN Administration Constipation Radiology Results: ITS Impressions Venous Doppler Study 02/16/25 18:08 IMPRESSION: Negative bilateral lower extremity venous US. No deep vein thrombosis. Tibia/Fibula X-Ray 02/17/25 06:31 Impression: Diffuse soft tissue edema. Moderate degenerative change at the knee. No evidence for osteomyelitis. Chest X-Ray 02/25/25 21:47 IMPRESSION: Possible left basilar atelectasis versus pneumonia versus fibrotic changes. Clinical correlation and follow-up advised. Abdomen/Pelvis CT 02/26/25 06:06 IMPRESSION: 1. No acute abdominal abnormality. 2: Cholelithiasis. Chest CT 02/27/25 10:01 IMPRESSION: 1. Minimal pulmonary edema with small bilateral pleural effusions. 2. Cholelithiasis. Labs Labs: Laboratory Tests 02/27/25 04:17 02/27/25 04:17 Lactic Acid 2.5 H Calcium 8.0 L Magnesium 2.2 Total Bilirubin 1.8 H AST 36 ALT 18 Alkaline Phosphatase 47 Total Protein 5.0 L Albumin 2.2 L Microbiology 02/25/25 20:00 Blood Blood Culture - Preliminary 02/25/25 20:00 Blood Blood Culture - Preliminary
--- NOTE | 2025-02-27 12:07 | PC.NURSE ---
pt left floor to go to GI Lab
[2025-02-27] MEDS: LACTATED RINGERS 1,000 ML 150 ML IV CONT (12:35)
--- NOTE | 2025-02-27 13:09 | PCPTNOTE ---
The patient treatment was not able to be completed on 02/27/2025 due to patient out of room for testing. Will plan to continue treatment per plan of care.
--- NOTE | 2025-02-27 13:38 | PCOTNOTE ---
The patient treatment was not able to be completed. Patient out of the room for EDG. Will plan to continue treatment per plan of care.
--- NOTE | 2025-02-27 13:48 | P.PNAN_ITS ---
Anes - Initial Pre Proc Eval Procedure: Operation Date: 02/27/25 15:30 Proposed Procedures p Esophagogastroduodenoscopy - Demond Crum MD Date/Time: 02/27/25 13:48 Surgeon: Alexa Darden MD Pre Op Diagnosis: Cellulitis Patient Data Age: 74 Gender: M Height: 1.78 m Weight: 97.7 kg Last Vital Signs Temp 36.6 C 02/27/25 12:10 Pulse 68 02/27/25 12:10 Resp 18 02/27/25 12:10 BP 127/65 02/27/25 12:10 Pulse Ox 100 02/27/25 12:10 O2 Del Method Room Air 02/27/25 12:10 Allergies Allergy/AdvReac Type Severity Reaction Status Date / Time Milk Containing Products Allergy Unknown Rash Verified 02/27/25 12:22 (Dairy) eggs Allergy Unknown Rash Uncoded 02/27/25 12:22 Home Medications ?Medication ?Instructions ?Recorded ?Confirmed ?Type apixaban 5 mg tablet (Eliquis) 5 mg PO BID 02/17/25 02/17/25 History Laboratory Tests 02/25/25 02/26/25 02/26/25 21:15 09:11 13:38 WBC RBC Hgb Hct MCV MCH MCHC RDW Plt Count MPV Immature Gran % (Auto) Neut % (Auto) Lymph % (Auto) [place] % (Auto) Eos % (Auto) Baso % (Auto) Lymph # (Auto) [place] # (Auto) Eos # (Auto) Baso # (Auto) Abs Immat Gran (auto) Absolute Neuts (auto) Absolute Nucleated RBC Band Neutrophils % Nucleated RBC % Platelet Estimate Hypochromasia Anisocytosis Microcytosis Schistocytes ESR Sodium Potassium Chloride Carbon Dioxide Anion Gap BUN Creatinine Estim Creat Clear Calc Estimated GFR Glucose Lactic Acid 3.8 H mmol/L (0.7-2.0) Calcium Magnesium Total Bilirubin AST ALT Alkaline Phosphatase C-Reactive Protein Total Protein Albumin C. difficile (PCR) Negative (NEGATIVE) Blood Type O Positive Antibody Screen Negative Crossmatch See Detail 02/26/25 02/26/25 02/27/25 16:03 20:22 01:19 WBC RBC Hgb Hct MCV MCH MCHC RDW Plt Count MPV Immature Gran % (Auto) Neut % (Auto) Lymph % (Auto) [place] % (Auto) Eos % (Auto) Baso % (Auto) Lymph # (Auto) [place] # (Auto) Eos # (Auto) Baso # (Auto) Abs Immat Gran (auto) Absolute Neuts (auto) Absolute Nucleated RBC Band Neutrophils % Nucleated RBC % Platelet Estimate Hypochromasia Anisocytosis Microcytosis Schistocytes ESR Sodium 133 L mmol/L (137-145) Potassium 5.8 H mmol/L 5.3 H mmol/L (3.4-5.0) (3.4-5.0) Chloride 107 mmol/L (98-107) Carbon Dioxide 19 L mmol/L (22-30) Anion Gap 7 mmol/L (4-12) BUN 84 H mg/dL (9-20) Creatinine 1.62 H mg/dL (0.7-1.3) Estim Creat Clear Calc 42 ml/min Estimated GFR 42 L (59 - ) Glucose 113 H mg/dL (65-110) Lactic Acid 3.7 H mmol/L 2.4 H mmol/L (0.7-2.0) (0.7-2.0) Calcium 8.1 L mg/dL (8.4-10.2) Magnesium Total Bilirubin AST ALT Alkaline Phosphatase C-Reactive Protein Total Protein Albumin C. difficile (PCR) Blood Type Antibody Screen Crossmatch 02/27/25 02/27/25 02/27/25 04:12 04:17 04:45 WBC 30.2 H K/mm3 (4.5-10.0) RBC 2.09 L M/mm3 (4.6-6.20) Hgb 6.6 L* g/dL (14.0-18.0) Hct 20.7 L* % (42.0-52.0) MCV 99.0 fl (80-100) MCH 31.6 pg (26-34) MCHC 31.9 L g/dl (32-36) RDW 17.1 H % (11.5-14.5) Plt Count 222 k/mm3 (150-375) MPV 10.7 H fl (7.4-10.4) Immature Gran % (Auto) 1.7 H % (0-0.5) Neut % (Auto) 86.3 H % (45.5-73.1) Lymph % (Auto) 6.5 L % (18.3-44.2) [place] % (Auto) 5.2 % (2.6-8.5) Eos % (Auto) 0.0 % (0-4.4) Baso % (Auto) 0.3 % (0.2-1.2) Lymph # (Auto) 1.96 K/mm3 (0.9-3.2) [place] # (Auto) 1.6 H K/mm3 (0.1-0.6) Eos # (Auto) 0.0 K/mm3 (0-0.3) Baso # (Auto) 0.1 K/mm3 (0.0-0.1) Abs Immat Gran (auto) 0.52 H K/mm3 (0.00-0.031) Absolute Neuts (auto) 26.1 H K/mm3 (1.3-6.7) Absolute Nucleated RBC 0.000 K/mm3 (0.0-0.012) Band Neutrophils % Not Reportable Nucleated RBC % 0.0 % (0.0-0.2) Platelet Estimate Adequate (Adequate) Hypochromasia 1+ Anisocytosis 2+ Microcytosis 2+ (NORMAL) Schistocytes None seen ESR 18 mm/hr (0-20) Sodium 136 L mmol/L (137-145) Potassium 5.0 mmol/L (3.4-5.0) Chloride 109 H mmol/L (98-107) Carbon Dioxide 19 L mmol/L (22-30) Anion Gap 8 mmol/L (4-12) BUN 73 H D mg/dL (9-20) Creatinine 1.56 H mg/dL (0.7-1.3) Estim Creat Clear Calc 44 ml/min Estimated GFR 44 L (59 - ) Glucose 105 mg/dL (65-110) Lactic Acid 2.5 H mmol/L (0.7-2.0) Calcium 8.0 L mg/dL (8.4-10.2) Magnesium 2.2 mg/dL (1.6-2.3) Total Bilirubin 1.8 H mg/dL (0.2-1.3) AST 36 U/L (17-59) ALT 18 U/L (6-50) Alkaline Phosphatase 47 U/L (38-126) C-Reactive Protein 2.7 H mg/dL (<1.0) Total Protein 5.0 L g/dL (6.3-8.2) Albumin 2.2 L g/dL (3.5-5.1) C. difficile (PCR) Blood Type Antibody Screen Crossmatch 02/27/25 06:35 WBC RBC Hgb Hct MCV MCH MCHC RDW Plt Count MPV Immature Gran % (Auto) Neut % (Auto) Lymph % (Auto) [place] % (Auto) Eos % (Auto) Baso % (Auto) Lymph # (Auto) [place] # (Auto) Eos # (Auto) Baso # (Auto) Abs Immat Gran (auto) Absolute Neuts (auto) Absolute Nucleated RBC Band Neutrophils % Nucleated RBC % Platelet Estimate Hypochromasia Anisocytosis Microcytosis Schistocytes ESR Sodium Potassium Chloride Carbon Dioxide Anion Gap BUN Creatinine Estim Creat Clear Calc Estimated GFR Glucose Lactic Acid 1.9 mmol/L (0.7-2.0) Calcium Magnesium Total Bilirubin AST ALT Alkaline Phosphatase C-Reactive Protein Total Protein Albumin C. difficile (PCR) Blood Type Antibody Screen Crossmatch Patient hx anesthesia problems: none Family hx anesthesia problems: none Results Review: All pre-operative results and documents have been reviewed as part of the pre- operative evaluation. 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 CHF exacerbation JOSSELIN (acute kidney injury) Sepsis Coffee ground emesis Left shoulder pain Afib Degenerative joint disease of knee Hypertension Surgical History Surgical History History of hernia repair Family History Family History Father Diabetes mellitus Hypertension Sibling Diabetes mellitus Mother Hypertension Social History Social History Smoking status: Never smoker Alcohol intake: never Substance use: never Substance use type: does not use Do You Feel Safe in your Home?: Yes Lack of Transportation: No Lack of Food: Never True Current Housing: I Have Housing Concerned About Future Housing: No Difficulty Paying Gas/Electric Bills: No Difficulty Paying for Meds: No Currently Unemployed: No Education: High School Diploma/GED Difficulty w/ Childcare or Family Care: No Living arrangements: alone Occupation/Education: retired Spiritual care concerns: No Anes - Eval Final PreProcedure Day of Procedure 02/27/25 13:48 Patient weight: obese Heart: regular rate and rhythm Lungs: clear to auscultation Airway: Mallampati scale class II Neurological: alert and oriented Last oral intake: >/= 8 hours ASA classification: III Emergent: no Anesthetic plan: proceed Anesthesia type and monitoring: general GIVS and standard monitoring Results Review: All pre-operative results and documents have been reviewed as part of the pre- operative evaluation. Informed Consent: The patient's anesthetic plan and its attendant risks and benefits were discussed with the patient/family/POA. Questions were solicited and answers provided to the satisfaction of the patient/family/POA.
--- NOTE | 2025-02-27 15:37 | P.PNIM_ITS ---
Progress Note: A&P Assessment and Plan (1) Cellulitis: Qualifiers: Laterality: unspecified laterality Site of cellulitis: extremity Site of cellulitis of extremity: lower extremity Qualified Code(s): L03.119 - Cellulitis of unspecified part of limb Code(s): L03.90 - Cellulitis, unspecified Status: Acute Assessment and Plan: worsening leukocytosis although erythema is improving Continue Cefepime and Vanc, Flagyl monitor cultures (2) Degenerative joint disease of knee: Qualifiers: Osteoarthritis type: primary Laterality: bilateral Qualified Code(s): M17.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 Code(s): M17.9 - Osteoarthritis of knee, unspecified Status: Acute Assessment and Plan: PRN pain control continue PT/OT and outpatient followup (3) Bilateral edema of lower extremity: Code(s): R60.0 - Localized edema Status: Acute Assessment and Plan: likely from Diastolic dysfunction Lasix on hold due to Hypotension monitor (4) Afib: Qualifiers: Atrial fibrillation type: unspecified Qualified Code(s): I48.91 - Unspecified atrial fibrillation Code(s): I48.91 - Unspecified atrial fibrillation Status: Acute Assessment and Plan: - ECHO showed ef 60-65% with diastolic dysfunction - Eliquis on hold due to GI bleed Hold Metoprolol (5) Left shoulder pain: Qualifiers: Chronicity: chronic Qualified Code(s): M25.512 - Pain in left shoulder; G89.29 - Other chronic pain Code(s): M25.512 - Pain in left shoulder Status: Acute Assessment and Plan: - New onset agitation of left shoulder pain, lifting and abducting arm 02/18 - Lidocaine patch and Voltaren topical gel for control (6) Anemia: Qualifiers: Anemia type: unspecified type Qualified Code(s): D64.9 - Anemia, unspecified Code(s): D64.9 - Anemia, unspecified Status: Acute Assessment and Plan: Patient has Coffee ground emesis last night and now with melena stool Hb 6.6, s/p 1 unit pRBC On PPI and Eliquis on hold On IVF and GI consulted monitor Plan CHF exacerbation ECHO showed diastolic dysfunction leg edema Hold Lasix due to hypotension JOSSELIN Cr 1.56 from 1.76, baseline 1.04 Lasix on hold Monitor Hypotension and lactic acidosis from GI bleed and hypovolemia lactic acidosis resolved continue IVF and Midodrine monitor GI bleed Coffee ground emesis and Melena stool Stool culture pending, c diff negative CT AP no acute changes For endoscopy today GI following DVT prophylaxis on SCDs, Eliquis on hold Subjective Date/time seen: 02/27/25 15:37 Interval history: Comfortable at bedside and awaiting Endoscopy Review of Systems Review of Systems: All systems reviewed & are unremarkable except as noted in HPI and below Exam Narrative: AF HR 58 RR 18 SPO2 98 BP 132/58 General: male in no acute respiratory distress who is nontoxic appearing, sitting up in chair, not elevating legs. HEENT: Normocephalic. Atraumatic. Extraocular movement intact. Sclera clear and anicteric. No facial asymmetry. Chest: Lungs are clear to auscultation bilaterally. CV: Heart was regular rate and rhythm. Abd: Abdomen was soft. Nontender. Nondistended. Positive bowel sounds. Ext: No clubbing. DP pulses bilaterally. Severe bilateral pitting edema with weeping. Large wound to the right mid calf with yellow slough. Several small wounds with yellow slough on bilateral lower extremities. See wound care note. Neuro: Patient is alert and oriented x4. Speech is clear. Const: General: comfortable Objective Data Vital Signs Vital Signs: Vital Signs - 24 hr 02/26/25 16:00 02/26/25 16:00 02/26/25 18:00 Temperature 98.5 F Pulse Rate 67 70 79 Respiratory Rate 18 Blood Pressure 146/55 H Pulse Oximetry 96 Oxygen Delivery 02/26/25 20:00 02/26/25 20:00 02/26/25 20:00 Temperature 98.5 F Pulse Rate 63 66 Respiratory Rate 24 H Blood Pressure 116/64 Pulse Oximetry 97 Oxygen Delivery Room Air 02/26/25 22:00 02/26/25 23:33 02/26/25 23:56 Temperature 98.4 F Pulse Rate 63 63 Respiratory Rate 22 H Blood Pressure 112/74 Pulse Oximetry 98 98 Oxygen Delivery Room Air 02/27/25 00:00 02/27/25 02:00 02/27/25 03:33 Temperature 98.8 F Pulse Rate 62 59 L 68 Respiratory Rate 20 Blood Pressure 109/81 Pulse Oximetry 96 Oxygen Delivery 02/27/25 04:00 02/27/25 04:00 02/27/25 05:59 Temperature Pulse Rate 69 67 Respiratory Rate Blood Pressure Pulse Oximetry 96 Oxygen Delivery Room Air 02/27/25 07:31 02/27/25 08:00 02/27/25 08:00 Temperature 98.0 F Pulse Rate 66 62 69 Respiratory Rate 20 28 H Blood Pressure 110/50 L Pulse Oximetry 98 99 Oxygen Delivery Room Air 02/27/25 08:30 02/27/25 08:45 02/27/25 09:59 Temperature 97.4 F L 98.6 F 98.0 F Pulse Rate 68 65 62 Respiratory Rate 21 H 22 H 28 H Blood Pressure 102/42 L 104/70 101/46 L Pulse Oximetry 99 98 99 Oxygen Delivery 02/27/25 10:00 02/27/25 10:50 02/27/25 11:15 Temperature 98.1 F 98.2 F Pulse Rate 67 66 61 Respiratory Rate 28 H 22 H Blood Pressure 107/48 L 104/47 L Pulse Oximetry 94 99 Oxygen Delivery 02/27/25 12:00 02/27/25 12:00 02/27/25 12:00 Temperature 98.3 F Pulse Rate 61 68 70 Respiratory Rate 22 H 26 H Blood Pressure 95/48 L Pulse Oximetry 99 100 Oxygen Delivery Room Air 02/27/25 12:10 02/27/25 15:07 02/27/25 15:17 Temperature 97.9 F Pulse Rate 68 54 L 68 Respiratory Rate 18 27 H 26 H Blood Pressure 127/65 129/106 H 93/43 L Pulse Oximetry 100 97 95 Oxygen Delivery Room Air Room Air Room Air 02/27/25 15:27 Temperature Pulse Rate 67 Respiratory Rate 24 H Blood Pressure 109/52 L Pulse Oximetry 95 Oxygen Delivery Room Air Intake/Output Intake/Output: Intake & Output 02/24/25 02/25/25 02/26/25 02/27/25 23:59 23:59 23:59 23:59 Intake Total 525 095 3873 1450 Output Total 950 8307 645 2137 Balance 30 -610 2100 -250 Meds/Results Medications: Active Medications Generic Name Dose Route Start Last Admin Trade Name Freq PRN Reason Stop Dose Admin Hydrocodone Bitart/Acetaminophen 1 tab 02/17/25 10:40 02/27/25 05:37 Hydrocodone/Acetaminophen (*Crx) 5-325 Mg Tablet PO 1 tab Q4H PRN Administration Pain Rated 4-6 Hydrocodone Bitart/Acetaminophen 1 tab 02/22/25 13:30 02/27/25 07:41 Hydrocodone/Acetaminophen (*Crx) 10-325 Mg Tablet PO 1 tab Q6H PRN Administration Pain Rated 7-10 Calcium Carbonate 200 mg 02/20/25 15:31 02/25/25 09:50 Calcium Carbonate (Tums) 500 Mg (200 Mg Elemental) PO 200 mg Q6H PRN Administration Indigestion Collagenase 1 applic 02/17/25 09:00 02/27/25 05:52 Collagenase Oint 30 Gm Tube TOPICAL 1 applic Q12HR SHRUTHI Administration Diclofenac Sodium 1 applic 02/18/25 13:00 02/27/25 08:42 Diclofenac Sodium 1% 100 Gm Gel (*Bkc) TOPICAL 1 applic QID SHRUTHI Administration Docusate Sodium 100 mg 02/20/25 10:18 02/23/25 03:40 Docusate Sodium 100 Mg Capsule PO 100 mg Q12H PRN Administration Constipation Hydroxyzine HCl 25 mg 02/21/25 12:15 02/21/25 12:33 Hydroxyzine Hcl 25 Mg Tablet PO 25 mg Q6H PRN Administration Itching Vancomycin HCl 1,500 mg in 500 mls @ 250 mls/hr 02/27/25 04:00 02/27/25 05:18 Vancomycin 1,500 Mg/Ns 500 Ml IVPB Infused Q24H SHRUTHI Infusion Sodium Chloride 1,000 mls @ 75 mls/hr 02/26/25 09:45 02/27/25 03:19 Normal Saline Iv IV CONT 75 mls/hr .[id number] SHRUTHI Administration Meropenem 1 gm in 100 mls @ 200 mls/hr 02/27/25 12:30 IVPB Q12HR SHRUTHI Lidocaine 1 patch 02/17/25 10:55 02/27/25 08:37 Lidocaine 5% Patch TRANSDERM 1 patch DAILY SHRUTHI Administration Lidocaine 1 patch 02/19/25 09:00 02/27/25 08:38 Lidocaine 5% Patch TRANSDERM 1 patch DAILY SHRUTHI Administration Midodrine 10 mg 02/26/25 17:00 02/27/25 08:43 Midodrine Hcl 2.5 Mg Tablet PO 10 mg TID SHRUTHI Administration Miscellaneous Information 1 each 02/26/25 00:01 02/26/25 21:48 [place] Needs To Be Renewed Or It Will Automatically Discontinue. XX 03/28/25 00:00 Not Given CLARIFY SHRUTHI Ondansetron HCl 4 mg 02/17/25 02:55 02/25/25 23:11 Ondansetron Inj 4 Mg/2 Ml Vial IV PUSH 4 mg Q4H PRN Administration Nausea Pantoprazole Sodium 40 mg 02/26/25 09:00 02/27/25 08:43 Pantoprazole Sodium Iv 40 Mg Vial IV PUSH 40 mg Q12HR SHRUTHI Administration Polyethylene Glycol 17 gm 02/20/25 10:20 02/23/25 03:41 Polyethylene Glycol 3350 17 Gm Powd.Pack PO 17 gm QAM PRN Administration Constipation Sucralfate 1,000 mg 02/27/25 16:30 Sucralfate Susp 100 Mg/Ml 10 Ml Udc PO ACHS SHRUTHI Radiology Results: ITS Impressions Venous Doppler Study 02/16/25 18:08 IMPRESSION: Negative bilateral lower extremity venous US. No deep vein thrombosis. Tibia/Fibula X-Ray 02/17/25 06:31 Impression: Diffuse soft tissue edema. Moderate degenerative change at the knee. No evidence for osteomyelitis. Chest X-Ray 02/25/25 21:47 IMPRESSION: Possible left basilar atelectasis versus pneumonia versus fibrotic changes. Clinical correlation and follow-up advised. Abdomen/Pelvis CT 02/26/25 06:06 IMPRESSION: 1. No acute abdominal abnormality. 2: Cholelithiasis. Chest CT 02/27/25 10:01 IMPRESSION: 1. Minimal pulmonary edema with small bilateral pleural effusions. 2. Cholelithiasis. Labs Labs: Laboratory Results - last 24 hr 02/25/25 02/26/25 02/26/25 21:15 16:03 20:22 WBC RBC Hgb Hct MCV MCH MCHC RDW Plt Count MPV Immature Gran % (Auto) Neut % (Auto) Lymph % (Auto) [place] % (Auto) Eos % (Auto) Baso % (Auto) Lymph # (Auto) [place] # (Auto) Eos # (Auto) Baso # (Auto) Abs Immat Gran (auto) Absolute Neuts (auto) Absolute Nucleated RBC Band Neutrophils % Nucleated RBC % Platelet Estimate Hypochromasia Anisocytosis Microcytosis Schistocytes ESR Sodium 133 L Potassium 5.8 H Chloride 107 Carbon Dioxide 19 L Anion Gap 7 BUN 84 H Creatinine 1.62 H Estim Creat Clear Calc 42 Estimated GFR 42 L Glucose 113 H Lactic Acid 3.7 H 2.4 H Calcium 8.1 L Magnesium Total Bilirubin AST ALT Alkaline Phosphatase C-Reactive Protein Total Protein Albumin Blood Type O Positive Antibody Screen Negative Crossmatch See Detail 02/27/25 02/27/25 02/27/25 01:19 04:12 04:17 WBC 30.2 H RBC 2.09 L Hgb 6.6 L* Hct 20.7 L* MCV 99.0 MCH 31.6 MCHC 31.9 L RDW 17.1 H Plt Count 222 MPV 10.7 H Immature Gran % (Auto) 1.7 H Neut % (Auto) 86.3 H Lymph % (Auto) 6.5 L [place] % (Auto) 5.2 Eos % (Auto) 0.0 Baso % (Auto) 0.3 Lymph # (Auto) 1.96 [place] # (Auto) 1.6 H Eos # (Auto) 0.0 Baso # (Auto) 0.1 Abs Immat Gran (auto) 0.52 H Absolute Neuts (auto) 26.1 H Absolute Nucleated RBC 0.000 Band Neutrophils % Not Reportable Nucleated RBC % 0.0 Platelet Estimate Adequate Hypochromasia 1+ Anisocytosis 2+ Microcytosis 2+ Schistocytes None seen ESR Sodium 136 L Potassium 5.3 H 5.0 Chloride 109 H Carbon Dioxide 19 L Anion Gap 8 BUN 73 H D Creatinine 1.56 H Estim Creat Clear Calc 44 Estimated GFR 44 L Glucose 105 Lactic Acid 2.5 H Calcium 8.0 L Magnesium 2.2 Total Bilirubin 1.8 H AST 36 ALT 18 Alkaline Phosphatase 47 C-Reactive Protein 2.7 H Total Protein 5.0 L Albumin 2.2 L Blood Type Antibody Screen Crossmatch 02/27/25 02/27/25 04:45 06:35 WBC RBC Hgb Hct MCV MCH MCHC RDW Plt Count MPV Immature Gran % (Auto) Neut % (Auto) Lymph % (Auto) [place] % (Auto) Eos % (Auto) Baso % (Auto) Lymph # (Auto) [place] # (Auto) Eos # (Auto) Baso # (Auto) Abs Immat Gran (auto) Absolute Neuts (auto) Absolute Nucleated RBC Band Neutrophils % Nucleated RBC % Platelet Estimate Hypochromasia Anisocytosis Microcytosis Schistocytes ESR 18 Sodium Potassium Chloride Carbon Dioxide Anion Gap BUN Creatinine Estim Creat Clear Calc Estimated GFR Glucose Lactic Acid 1.9 Calcium Magnesium Total Bilirubin AST ALT Alkaline Phosphatase C-Reactive Protein Total Protein Albumin Blood Type Antibody Screen Crossmatch Quality VTE Prophylaxis VTE prophylaxis: pharmacologic ordered
--- NOTE | 2025-02-27 15:55 | PC.NURSE ---
pt returned to floor @1540
[2025-02-27 15:59] LABS: HPYLORIRESULT Negative (Negative)
[2025-02-27] MEDS: SUCRALFATE SUSP 100 MG/ML 10 ML UDC 1000 MG PO ×2 (16:37→20:13)
[2025-02-27] MEDS: MEROPENEM 1 GM/NS 100 ML 1 GM/100 ML BAG IVPB (16:38)
[2025-02-27 17:45] LABS: Hematocrit 22.8 % (42.0-52.0); Hemoglobin 7.3 g/dL (14.0-18.0)
--- NOTE | 2025-02-27 18:15 | PC.NURSE ---
1730 Went in to change leg dressings. Pt stated he wanted to try to do it. RN went to get supplies 181 Pt was found asleep, woke up to ask if he wanted to attempt, states he wanted to rest and to try later
[2025-02-27] MEDS: hydrOXYzine HCL 25 MG TABLET PO (20:13)
--- NOTE | 2025-02-27 22:01 | PC.NURSE ---
Pt's son Franklin would like to speak to care coordination in regards to helping his father get advance directives and healthcare POA started. Franklin will be available anytime after 12pm afternoon for a phone call. He also had questions about being able to set up his my chart account, since he lives out of town and would like to keep up on his father's care.
[2025-02-28] VITALS (14 sets, daily range): BP systolic 109–150; BP diastolic 52–79; PULSE 47–98; RESP 16–20; TEMP 36.3–37.1; O2SAT 91–100
[2025-02-28] MEDS: HYDROcodone/acetaminophen (*CRX) 10-325 MG TABLET 1 TAB PO (01:47)
[2025-02-28] MEDS: SODIUM CHLORIDE 0.9% IV 1,000 ML 75 ML IV CONT ×2 (01:49→16:46)
[2025-02-28] MEDS: MEROPENEM 1 GM/NS 100 ML 1 GM/100 ML BAG IVPB ×2 (03:59→16:47)
[2025-02-28 04:20] LABS: Basophils Absolute Auto 0.1 K/mm3 (0.0-0.1); Basophils Percent Auto 0.4 % (0.2-1.2); Eosinophils Percent Auto 0.1 % (0-4.4); Hematocrit 23.8 % (42.0-52.0); Hemoglobin 7.5 g/dL (14.0-18.0); Immature Granulocyte Absolute 0.19 K/mm3 (0.00-0.031); Immature Granulocyte Percent A 0.9 % (0-0.5); Lymphocytes Absolute Auto 1.12 K/mm3 (0.9-3.2); Lymphocytes Percent Auto 5.1 % (18.3-44.2); Mean Corpuscular HGB Conc 31.5 g/dl (32-36); Mean Corpuscular Hemoglobin 31.6 pg (26-34); Mean Corpuscular Volume 100.4 fl (80-100); Mean Platelet Volume 10.8 fl (7.4-10.4); Monocytes Absolute Auto 1.1 K/mm3 (0.1-0.6); Neutrophils Absolute Auto 19.6 K/mm3 (1.3-6.7); Neutrophils Percent Auto 88.5 % (45.5-73.1); Nucleated Red Blood Cells Perc 0.1 % (0.0-0.2); Platelet Count Result 201 k/mm3 (150-375); Red Blood Count 2.37 M/mm3 (4.6-6.20); Red Cell Distribution Width 17.2 % (11.5-14.5); White Blood Count 22.1 K/mm3 (4.5-10.0)
[2025-02-28 04:27] LABS: Alanine Aminotransferase 23 U/L (6-50); Albumin Level 2.7 g/dL (3.5-5.1); Alkaline Phosphatase 46 U/L (38-126); Anion Gap 10 mmol/L (4-12); Aspartate Amino Transferase 49 U/L (17-59); Bilirubin,Total 2.1 mg/dL (0.2-1.3); Blood Urea Nitrogen 64 mg/dL (9-20); Calcium 8.2 mg/dL (8.4-10.2); Carbon Dioxide 19 mmol/L (22-30); Chloride 110 mmol/L (98-107); Estimated CRCL calculation 49 ml/min; Estimated Glomerular Filt Rate 50; Glucose 99 mg/dL (65-110); Magnesium 2.5 mg/dL (1.6-2.3); Potassium 4.3 mmol/L (3.4-5.0); Sodium 139 mmol/L (137-145)
[2025-02-28 04:42] LABS: Vancomycin Trough 14.3 ug/mL (10.0-20.0)
[2025-02-28 05:00] LABS: Anisocytosis 2+; Hypochromasia 1+; Microcytosis 2+ (NORMAL); Platelet Estimate Adequate (Adequate)
[2025-02-28] MEDS: VANCOMYCIN 1,750 MG/NS 500 ML 1,750 MG/500 ML BAG 250 MG IVPB (05:00)
[2025-02-28 05:01] LABS: Schistocytes None Seen
--- NOTE | 2025-02-28 06:29 | PC.NURSE ---
Pt has been very argumentative this shift and is convinced he is being held against his will. Pt also believes we are blocking and listening to his cell phone calls, Pt is difficult to redirect and believes that he was brought here to be kept away from his apartment. Pt has requested multiple times to leave in the middle of the night and states we are keeping him from calling a ride. Pt has been yelling out and arguing when staff tries to explain why he is here and what we are trying to do to help him.
--- NOTE | 2025-02-28 06:39 | PC.NURSE ---
Pt refused to have his legs dressed last night. Legs have been dressed this morning, however pt refused to allow this nurse to use the white wraps , so devan wraps were used this dressing change, since that is all the pt would agree to.
[2025-02-28] MEDS: DICLOFENAC SODIUM 1% 100 GM GEL (*BKC) 1 APPLIC TOPICAL ×4 (09:41→20:26)
[2025-02-28] MEDS: PANTOPRAZOLE SODIUM IV 40 MG VIAL IV PUSH ×2 (09:49→20:25)
--- NOTE | 2025-02-28 10:37 | PCOTNOTE ---
Patient refused treatment this session. Patient stated he has been doing just fine and just washed up with bathing clothes and used the urinal. Patient stated he would be agreeable to participate maybe after lunch time frame.
--- NOTE | 2025-02-28 11:00 | P.PNNP_ITS ---
Progress Note: A&P Assessment and Plan (1) Hyperkalemia: Code(s): E87.5 - Hyperkalemia Status: Acute Assessment and Plan: * improvement noted * as noted by labs since the evening of 02/25 * continue to fluctuate since then... * s/p medical therapy (lokelma, D50, insulin, calcium gluconate, and nebulizer treatment) * suspect multifactorial etiology: * JOSSELIN/ARF * GI bleed (and associated RBC hemolysis in stomach) * acidosis * underlying kidney disease(?) - CT A/P noted atrophic kidneys * infection (LE cellulitis) * follow trend of repeat K+ levels (2) JOSSELIN (acute kidney injury): Code(s): N17.9 - Acute kidney failure, unspecified Status: Acute Assessment and Plan: * ongoing improvement noted * noted on 02/25 by AM labs * due to several issues: * prerenal factors * diuresis/overdiuresis * relative hypotension * anemia/GI bleed * other(?) * evaluation to date noted: * CT A/P without obstruction but atrophic kidneys noted * urine electrolytes pre-renal * urine eosinophils negative * no significant proteinuria * CPK normal * diuretics on hold * gentle IVFs as volume status allows * follow trend of repeat labs and UOP (3) Coffee ground emesis: Code(s): K92.0 - Hematemesis Status: Acute Assessment and Plan: * as noted by events on the evening of 02/25 * drop in H/H noted as well * complicated by anticoagulation/elevated INR * PRBC transfusion per protocol * blood thinners on hold * on PPI * GI following: * EGD (on 02/27): ulcerative gastritis/esophagitis noted * on protonix twice daily * holding blood thinners and NSAID therapy * follow trend of H/H (4) Hypotension: Code(s): I95.9 - Hypotension, unspecified Status: Acute Assessment and Plan: * resolved * presumably due to GI bleed versus early sepsis versus combo of both * slowly restart BP medications as needed * wean off IVFs * holding midodrine * follow trend of hemodynamics (5) Cellulitis: Qualifiers: Laterality: unspecified laterality Site of cellulitis: extremity Site of cellulitis of extremity: lower extremity Qualified Code(s): L03.119 - Cellulitis of unspecified part of limb Code(s): L03.90 - Cellulitis, unspecified Status: Acute Assessment and Plan: * clinical improvement * follow culture data - negatiave to date * on antibiotics (6) Anemia: Qualifiers: Anemia type: unspecified type Qualified Code(s): D64.9 - Anemia, unspecified Code(s): D64.9 - Anemia, unspecified Status: Acute Assessment and Plan: * see #3 * follow H/H (7) Bilateral edema of lower extremity: Code(s): R60.0 - Localized edema Status: Acute Assessment and Plan: * appears to be a chronic issue at baseline * likely exacerbated by #5 * improvement noted with IV diuretics * however, diuresis on hold due to #2 and #4 * continue conservative therapy (propping legs up, RON-wraps...etc) (8) Afib: Qualifiers: Atrial fibrillation type: unspecified Qualified Code(s): I48.91 - Unspecified atrial fibrillation Code(s): I48.91 - Unspecified atrial fibrillation Status: Acute Assessment and Plan: * rate control strategy * resume metoprolol as BP allows * anticoagulation on hold due to #3 Will continue to follow. L Subjective Date/time seen: 02/28/25 11:00 Interval history: Follow-up for acute kidney injury/acute renal failure. Events noted overnight per nursing -- confusion/agitation/paranoi evident overnight with difficulty re-directing the patient (sun-downing?); s/p EGD with findings noted; renal function/creatinine continues to improve as noted by trend of labs; H/H relatively stable with improvement in blood pressure as well. Exam 2 Narrative: General: elderly but WD/WN male in NAD Heart: normal S1 and S2; no rub Lungs: clear to auscultation Abdomen: soft, nontender, nondistended, positive bowel sounds Extremities: no cyanosis or clubbing; trace - 1+ edema Skin: LE dressings in place Objective Data Vital Signs Vital Signs: Vital Signs Temp Pulse Resp BP Pulse Ox O2 Del Method O2 Flow Rate 02/28/25 11:00 97.3 F L 61 150/76 H 97 02/28/25 08:45 61 02/28/25 07:51 97.8 F 62 130/64 100 02/28/25 07:49 96 Room Air 02/28/25 06:00 65 02/28/25 04:00 98.7 F 62 16 115/79 100 02/28/25 04:00 47 L 02/28/25 04:00 93 Nasal Cannula 2 02/28/25 02:00 48 L 02/28/25 00:00 47 L 02/28/25 00:00 91 Nasal Cannula 2 02/28/25 00:00 98.6 F 98 20 118/52 L 91 02/27/25 20:00 53 L 02/27/25 20:00 Room Air 02/27/25 19:00 97.8 F 63 20 97/51 L 92 02/27/25 18:00 58 L Intake/Output Intake/Output: Intake & Output 02/25/25 02/26/25 02/27/25 02/28/25 23:59 23:59 23:59 23:59 Intake Total 580 2600 2450 2680 Output Total 1071 239 3100 100 Balance -610 2100 150 2580 Meds/Results Medications: Active Medications Generic Name Dose Route Start Last Admin Trade Name Freq PRN Reason Stop Dose Admin Hydrocodone Bitart/Acetaminophen 1 tab 02/17/25 10:40 02/27/25 05:37 Hydrocodone/Acetaminophen (*Crx) 5-325 Mg Tablet PO 1 tab Q4H PRN Administration Pain Rated 4-6 Hydrocodone Bitart/Acetaminophen 1 tab 02/22/25 13:30 02/28/25 01:47 Hydrocodone/Acetaminophen (*Crx) 10-325 Mg Tablet PO 1 tab Q6H PRN Administration Pain Rated 7-10 Calcium Carbonate 200 mg 02/20/25 15:31 02/25/25 09:50 Calcium Carbonate (Tums) 500 Mg (200 Mg Elemental) PO 200 mg Q6H PRN Administration Indigestion Collagenase 1 applic 02/17/25 09:00 02/28/25 15:09 Collagenase Oint 30 Gm Tube TOPICAL Not Given Q12HR [facility]RUTHI Diclofenac Sodium 1 applic 02/18/25 13:00 02/28/25 17:20 Diclofenac Sodium 1% 100 Gm Gel (*Bkc) TOPICAL 1 applic QID SHRUTHI Administration Docusate Sodium 100 mg 02/20/25 10:18 02/23/25 03:40 Docusate Sodium 100 Mg Capsule PO 100 mg Q12H PRN Administration Constipation Hydroxyzine HCl 25 mg 02/21/25 12:15 02/27/25 20:13 Hydroxyzine Hcl 25 Mg Tablet PO 25 mg Q6H PRN Administration Itching Sodium Chloride 1,000 mls @ 75 mls/hr 02/26/25 09:45 02/28/25 16:46 Normal Saline Iv IV CONT 75 mls/hr .[id number] SHRUTHI Administration Meropenem 1 gm in 100 mls @ 200 mls/hr 02/28/25 04:00 02/28/25 17:18 IVPB Infused Q12H SHRUTHI Infusion Vancomycin HCl 1,750 mg in 500 mls @ 250 mls/hr 02/28/25 05:00 02/28/25 07:00 Vancomycin 1,750 Mg/Ns 500 Ml IVPB Infused Q24H SHRUTHI Infusion Lidocaine 1 patch 02/17/25 10:55 02/28/25 09:46 Lidocaine 5% Patch TRANSDERM Not Given DAILY SHR[facility] Lidocaine 1 patch 02/19/25 09:00 02/28/25 09:46 Lidocaine 5% Patch TRANSDERM Not Given DAILY [facility] Midodrine 10 mg 02/26/25 17:00 02/28/25 09:49 Midodrine Hcl 2.5 Mg Tablet PO Not Given TID SHRUT[facility] Miscellaneous Information 1 each 02/26/25 00:01 02/26/25 21:48 [place] Needs To Be Renewed Or It Will Automatically Discontinue. XX 03/28/25 00:00 Not Given CLARIFY SHRUTHI Ondansetron HCl 4 mg 02/17/25 02:55 02/25/25 23:11 Ondansetron Inj 4 Mg/2 Ml Vial IV PUSH 4 mg Q4H PRN Administration Nausea Pantoprazole Sodium 40 mg 02/26/25 09:00 02/28/25 09:49 Pantoprazole Sodium Iv 40 Mg Vial IV PUSH 40 mg Q12HR SHRUTHI Administration Polyethylene Glycol 17 gm 02/20/25 10:20 02/23/25 03:41 Polyethylene Glycol 3350 17 Gm Powd.Pack PO 17 gm QAM PRN Administration Constipation Sucralfate 1,000 mg 02/27/25 16:30 02/28/25 16:46 Sucralfate Susp 100 Mg/Ml 10 Ml Udc PO 1,000 mg ACHS SHRUTHI Administration Radiology Results: ITS Impressions Venous Doppler Study 02/16/25 18:08 IMPRESSION: Negative bilateral lower extremity venous US. No deep vein thrombosis. Tibia/Fibula X-Ray 02/17/25 06:31 Impression: Diffuse soft tissue edema. Moderate degenerative change at the knee. No evidence for osteomyelitis. Chest X-Ray 02/25/25 21:47 IMPRESSION: Possible left basilar atelectasis versus pneumonia versus fibrotic changes. Clinical correlation and follow-up advised. Abdomen/Pelvis CT 02/26/25 06:06 IMPRESSION: 1. No acute abdominal abnormality. 2: Cholelithiasis. Chest CT 02/27/25 10:01 IMPRESSION: 1. Minimal pulmonary edema with small bilateral pleural effusions. 2. Cholelithiasis. Labs Labs: Laboratory Tests 02/28/25 03:13 02/28/25 03:13 Calcium 8.2 L Magnesium 2.5 H Total Bilirubin 2.1 H AST 49 ALT 23 Alkaline Phosphatase 46 Total Protein 5.0 L Albumin 2.7 L Vancomycin Trough 14.3 Microbiology 02/26/25 09:11 Stool Escherichia coli Shiga Toxins - Final 02/26/25 09:11 Stool Campylobacter Antigen Assay - Final
[2025-02-28] MEDS: SUCRALFATE SUSP 100 MG/ML 10 ML UDC 1000 MG PO ×3 (11:45→20:23)
--- NOTE | 2025-02-28 15:49 | WPDGIPROGNO ---
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 Status: Acute (5) Acute on chronic anemia: Code(s): D64.9 - Anemia, unspecified Status: Acute Assessment and Plan: monitor for more signs of bleeding (6) Cellulitis: Qualifiers: Laterality: unspecified laterality Site of cellulitis: extremity Site of cellulitis of extremity: lower extremity Qualified Code(s): L03.119 - Cellulitis of unspecified part of limb Code(s): L03.90 - Cellulitis, unspecified Status: Acute Subjective Date/time seen: 02/28/25 15:49 Interval history: doing well, no more signs of bleeding egd yesterday with large gastric ulcer and ulcerative esophagitis h pylori negative Review of Systems Review of Systems: All systems reviewed & are unremarkable except as noted in HPI and below Exam Const: General: comfortable Other: chronically ill apperaring HENMT: Face/Nose/Sinus: Normal nares present Eyes: General: appearance normal, both eyes and all related structures Neck: Neck: supple Resp: Effort & Inspection: normal respiratory effort Cardio: Rate: regular rate GI: GI Palp: Yes Soft to palpation and No Tenderness to palpation present (GI) Skin: Other: wound in legs Neuro: Speech: normal speech Extrem: General: pedal edema Psych: Affect: normal affect Objective Data Vital Signs Vital Signs: Vital Signs - 24 hr 02/27/25 15:57 02/27/25 16:00 02/27/25 16:00 Temperature 97.8 F Pulse Rate 63 61 60 Respiratory Rate 20 22 H Blood Pressure 102/32 L Pulse Oximetry 98 99 Oxygen Delivery Room Air Oxygen Flow Rate 02/27/25 18:00 02/27/25 19:00 02/27/25 20:00 Temperature 97.8 F Pulse Rate 58 L 63 Respiratory Rate 20 Blood Pressure 97/51 L Pulse Oximetry 92 Oxygen Delivery Room Air Oxygen Flow Rate 02/27/25 20:00 02/28/25 00:00 02/28/25 00:00 Temperature 98.6 F Pulse Rate 53 L 98 Respiratory Rate 20 Blood Pressure 118/52 L Pulse Oximetry 91 91 Oxygen Delivery Nasal Cannula Oxygen Flow Rate 2 02/28/25 00:00 02/28/25 02:00 02/28/25 04:00 Temperature Pulse Rate 47 L 48 L Respiratory Rate Blood Pressure Pulse Oximetry 93 Oxygen Delivery Nasal Cannula Oxygen Flow Rate 2 02/28/25 04:00 02/28/25 04:00 02/28/25 06:00 Temperature 98.7 F Pulse Rate 47 L 62 65 Respiratory Rate 16 Blood Pressure 115/79 Pulse Oximetry 100 Oxygen Delivery Oxygen Flow Rate 02/28/25 07:49 02/28/25 07:51 02/28/25 11:55 Temperature 97.8 F 97.3 F L Pulse Rate 62 61 Respiratory Rate Blood Pressure 130/64 150/76 H Pulse Oximetry 96 100 97 Oxygen Delivery Room Air Oxygen Flow Rate Intake/Output Intake/Output: Intake & Output 02/25/25 02/26/25 02/27/25 02/28/25 23:59 23:59 23:59 23:59 Intake Total 580 2600 2450 480 Output Total 2792 029 0245 Balance -610 2100 150 480 Meds/Results Medications: Active Medications Generic Name Dose Route Start Last Admin Trade Name Freq PRN Reason Stop Dose Admin Hydrocodone Bitart/Acetaminophen 1 tab 02/17/25 10:40 02/27/25 05:37 Hydrocodone/Acetaminophen (*Crx) 5-325 Mg Tablet PO 1 tab Q4H PRN Administration Pain Rated 4-6 Hydrocodone Bitart/Acetaminophen 1 tab 02/22/25 13:30 02/28/25 01:47 Hydrocodone/Acetaminophen (*Crx) 10-325 Mg Tablet PO 1 tab Q6H PRN Administration Pain Rated 7-10 Calcium Carbonate 200 mg 02/20/25 15:31 02/25/25 09:50 Calcium Carbonate (Tums) 500 Mg (200 Mg Elemental) PO 200 mg Q6H PRN Administration Indigestion Collagenase 1 applic 02/17/25 09:00 02/28/25 15:09 Collagenase Oint 30 Gm Tube TOPICAL Not Given Q12HR [facility] Diclofenac Sodium 1 applic 02/18/25 13:00 02/28/25 13:31 Diclofenac Sodium 1% 100 Gm Gel (*Bkc) TOPICAL 1 applic QID SHRUTHI Administration Docusate Sodium 100 mg 02/20/25 10:18 02/23/25 03:40 Docusate Sodium 100 Mg Capsule PO 100 mg Q12H PRN Administration Constipation Hydroxyzine HCl 25 mg 02/21/25 12:15 02/27/25 20:13 Hydroxyzine Hcl 25 Mg Tablet PO 25 mg Q6H PRN Administration Itching Sodium Chloride 1,000 mls @ 75 mls/hr 02/26/25 09:45 02/28/25 03:18 Normal Saline Iv IV CONT Not Given .[id number] SHRUTHI Meropenem 1 gm in 100 mls @ 200 mls/hr 02/28/25 04:00 02/28/25 03:59 IVPB 200 mls/hr Q12H SHRUTHI Administration Vancomycin HCl 1,750 mg in 500 mls @ 250 mls/hr 02/28/25 05:00 02/28/25 05:00 Vancomycin 1,750 Mg/Ns 500 Ml IVPB 250 mls/hr Q24H SHRUTHI Administration Lidocaine 1 patch 02/17/25 10:55 02/28/25 09:46 Lidocaine 5% Patch TRANSDERM Not Given DAILY [facility] Lidocaine 1 patch 02/19/25 09:00 02/28/25 09:46 Lidocaine 5% Patch TRANSDERM Not Given DAILY [facility] Midodrine 10 mg 02/26/25 17:00 02/28/25 09:49 Midodrine Hcl 2.5 Mg Tablet PO Not Given TID [facility] Miscellaneous Information 1 each 02/26/25 00:01 02/26/25 21:48 [place] Needs To Be Renewed Or It Will Automatically Discontinue. XX 03/28/25 00:00 Not Given CLARIFY [facility] Ondansetron HCl 4 mg 02/17/25 02:55 02/25/25 23:11 Ondansetron Inj 4 Mg/2 Ml Vial IV PUSH 4 mg Q4H PRN Administration Nausea Pantoprazole Sodium 40 mg 02/26/25 09:00 02/28/25 09:49 Pantoprazole Sodium Iv 40 Mg Vial IV PUSH 40 mg Q12HR SHRUTHI Administration Polyethylene Glycol 17 gm 02/20/25 10:20 02/23/25 03:41 Polyethylene Glycol 3350 17 Gm Powd.Pack PO 17 gm QAM PRN Administration Constipation Sucralfate 1,000 mg 02/27/25 16:30 02/28/25 11:45 Sucralfate Susp 100 Mg/Ml 10 Ml Udc PO 1,000 mg ACHS SHRUTHI Administration Radiology Results: ITS Impressions Venous Doppler Study 02/16/25 18:08 IMPRESSION: Negative bilateral lower extremity venous US. No deep vein thrombosis. Tibia/Fibula X-Ray 02/17/25 06:31 Impression: Diffuse soft tissue edema. Moderate degenerative change at the knee. No evidence for osteomyelitis. Chest X-Ray 02/25/25 21:47 IMPRESSION: Possible left basilar atelectasis versus pneumonia versus fibrotic changes. Clinical correlation and follow-up advised. Abdomen/Pelvis CT 02/26/25 06:06 IMPRESSION: 1. No acute abdominal abnormality. 2: Cholelithiasis. Chest CT 02/27/25 10:01 IMPRESSION: 1. Minimal pulmonary edema with small bilateral pleural effusions. 2. Cholelithiasis. Labs Labs: Laboratory Results - last 24 hr 02/27/25 02/27/25 02/28/25 15:57 17:38 03:13 WBC 22.1 H RBC 2.37 L Hgb 7.3 L 7.5 L Hct 22.8 L 23.8 L MCV 100.4 H MCH 31.6 MCHC 31.5 L RDW 17.2 H Plt Count 201 MPV 10.8 H Immature Gran % (Auto) 0.9 H Neut % (Auto) 88.5 H Lymph % (Auto) 5.1 L [place] % (Auto) 5.0 Eos % (Auto) 0.1 Baso % (Auto) 0.4 Lymph # (Auto) 1.12 [place] # (Auto) 1.1 H Eos # (Auto) 0.0 Baso # (Auto) 0.1 Abs Immat Gran (auto) 0.19 H Absolute Neuts (auto) 19.6 H Absolute Nucleated RBC 0.020 H Band Neutrophils % Not Reportable Nucleated RBC % 0.1 Platelet Estimate Adequate Hypochromasia 1+ Anisocytosis 2+ Microcytosis 2+ Schistocytes None seen Sodium 139 Potassium 4.3 Chloride 110 H Carbon Dioxide 19 L Anion Gap 10 BUN 64 H Creatinine 1.40 H Estim Creat Clear Calc 49 Estimated GFR 50 L Glucose 99 Calcium 8.2 L Magnesium 2.5 H Total Bilirubin 2.1 H AST 49 ALT 23 Alkaline Phosphatase 46 Total Protein 5.0 L Albumin 2.7 L Vancomycin Trough 14.3 POC H. pylori Urease Negative
--- NOTE | 2025-02-28 17:27 | P.PNIM_ITS ---
Progress Note: A&P Assessment and Plan (1) Cellulitis: Qualifiers: Laterality: unspecified laterality Site of cellulitis: extremity Site of cellulitis of extremity: lower extremity Qualified Code(s): L03.119 - Cellulitis of unspecified part of limb Code(s): L03.90 - Cellulitis, unspecified Status: Acute Assessment and Plan: worsening leukocytosis although erythema is improving Continue Cefepime and Vanc, Flagyl monitor cultures (2) Degenerative joint disease of knee: Qualifiers: Osteoarthritis type: primary Laterality: bilateral Qualified Code(s): M17.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 Code(s): M17.9 - Osteoarthritis of knee, unspecified Status: Acute Assessment and Plan: PRN pain control continue PT/OT and outpatient followup (3) Bilateral edema of lower extremity: Code(s): R60.0 - Localized edema Status: Acute Assessment and Plan: likely from Diastolic dysfunction Lasix on hold due to Hypotension monitor (4) Afib: Qualifiers: Atrial fibrillation type: unspecified Qualified Code(s): I48.91 - Unspecified atrial fibrillation Code(s): I48.91 - Unspecified atrial fibrillation Status: Acute Assessment and Plan: - ECHO showed ef 60-65% with diastolic dysfunction - Eliquis on hold due to GI bleed Hold Metoprolol (5) Left shoulder pain: Qualifiers: Chronicity: chronic Qualified Code(s): M25.512 - Pain in left shoulder; G89.29 - Other chronic pain Code(s): M25.512 - Pain in left shoulder Status: Acute Assessment and Plan: - New onset agitation of left shoulder pain, lifting and abducting arm 02/18 - Lidocaine patch and Voltaren topical gel for control (6) Anemia: Qualifiers: Anemia type: unspecified type Qualified Code(s): D64.9 - Anemia, unspecified Code(s): D64.9 - Anemia, unspecified Status: Acute Assessment and Plan: Patient has Coffee ground emesis last night and now with melena stool Hb 6.6, s/p 1 unit pRBC On PPI and Eliquis on hold On IVF and GI consulted monitor Plan CHF exacerbation ECHO showed diastolic dysfunction leg edema Hold Lasix due to hypotension JOSSELIN Cr 1.56 from 1.76, baseline 1.04 Lasix on hold Monitor Hypotension and lactic acidosis from GI bleed and hypovolemia lactic acidosis resolved continue IVF and Midodrine monitor GI bleed Coffee ground emesis and Melena stool Stool culture pending, c diff negative CT AP no acute changes For endoscopy today GI following DVT prophylaxis on SCDs, Eliquis on hold Subjective Date/time seen: 02/28/25 17:27 Interval history: Currently doing well. Improving leukocytosis and creatinine. Patient underwent EGD yesterday. Holding midodrine since there is no evidence of hypotension. Review of Systems Review of Systems: All systems reviewed & are unremarkable except as noted in HPI and below Exam Narrative: AF HR 58 RR 18 SPO2 98 BP 132/58 General: male in no acute respiratory distress who is nontoxic appearing, sitting up in chair, not elevating legs. HEENT: Normocephalic. Atraumatic. Extraocular movement intact. Sclera clear and anicteric. No facial asymmetry. Chest: Lungs are clear to auscultation bilaterally. CV: Heart was regular rate and rhythm. Abd: Abdomen was soft. Nontender. Nondistended. Positive bowel sounds. Ext: No clubbing. DP pulses bilaterally. Severe bilateral pitting edema with wee ping. Large wound to the right mid calf with yellow slough. Several small wounds with yellow slough on bilateral lower extremities. See wound care note. Neuro: Patient is alert and oriented x4. Speech is clear. Const: General: comfortable Objective Data Vital Signs Vital Signs: Vital Signs - 24 hr 02/27/25 18:00 02/27/25 19:00 02/27/25 20:00 Temperature 97.8 F Pulse Rate 58 L 63 Respiratory Rate 20 Blood Pressure 97/51 L Pulse Oximetry 92 Oxygen Delivery Room Air Oxygen Flow Rate 02/27/25 20:00 02/28/25 00:00 02/28/25 00:00 Temperature 98.6 F Pulse Rate 53 L 98 Respiratory Rate 20 Blood Pressure 118/52 L Pulse Oximetry 91 91 Oxygen Delivery Nasal Cannula Oxygen Flow Rate 2 02/28/25 00:00 02/28/25 02:00 02/28/25 04:00 Temperature Pulse Rate 47 L 48 L Respiratory Rate Blood Pressure Pulse Oximetry 93 Oxygen Delivery Nasal Cannula Oxygen Flow Rate 2 02/28/25 04:00 02/28/25 04:00 02/28/25 06:00 Temperature 98.7 F Pulse Rate 47 L 62 65 Respiratory Rate 16 Blood Pressure 115/79 Pulse Oximetry 100 Oxygen Delivery Oxygen Flow Rate 02/28/25 07:49 02/28/25 07:51 02/28/25 08:45 Temperature 97.8 F Pulse Rate 62 61 Respiratory Rate Blood Pressure 130/64 Pulse Oximetry 96 100 Oxygen Delivery Room Air Oxygen Flow Rate 02/28/25 11:55 02/28/25 16:27 Temperature 97.3 F L 98.0 F Pulse Rate 61 52 L Respiratory Rate 18 Blood Pressure 150/76 H 111/70 Pulse Oximetry 97 100 Oxygen Delivery Oxygen Flow Rate Intake/Output Intake/Output: Intake & Output 02/25/25 02/26/25 02/27/25 02/28/25 23:59 23:59 23:59 23:59 Intake Total 580 2600 2450 2680 Output Total 9193 450 0466 100 Balance -610 2100 150 2580 Meds/Results Medications: Active Medications Generic Name Dose Route Start Last Admin Trade Name Freq PRN Reason Stop Dose Admin Hydrocodone Bitart/Acetaminophen 1 tab 02/17/25 10:40 02/27/25 05:37 Hydrocodone/Acetaminophen (*Crx) 5-325 Mg Tablet PO 1 tab Q4H PRN Administration Pain Rated 4-6 Hydrocodone Bitart/Acetaminophen 1 tab 02/22/25 13:30 02/28/25 01:47 Hydrocodone/Acetaminophen (*Crx) 10-325 Mg Tablet PO 1 tab Q6H PRN Administration Pain Rated 7-10 Calcium Carbonate 200 mg 02/20/25 15:31 02/25/25 09:50 Calcium Carbonate (Tums) 500 Mg (200 Mg Elemental) PO 200 mg Q6H PRN Administration Indigestion Collagenase 1 applic 02/17/25 09:00 02/28/25 15:09 Collagenase Oint 30 Gm Tube TOPICAL Not Given Q12HR SHRUTHI Diclofenac Sodium 1 applic 02/18/25 13:00 02/28/25 17:20 Diclofenac Sodium 1% 100 Gm Gel (*Bkc) TOPICAL 1 applic QID SHRUTHI Administration Docusate Sodium 100 mg 02/20/25 10:18 02/23/25 03:40 Docusate Sodium 100 Mg Capsule PO 100 mg Q12H PRN Administration Constipation Hydroxyzine HCl 25 mg 02/21/25 12:15 02/27/25 20:13 Hydroxyzine Hcl 25 Mg Tablet PO 25 mg Q6H PRN Administration Itching Sodium Chloride 1,000 mls @ 75 mls/hr 02/26/25 09:45 02/28/25 16:46 Normal Saline Iv IV CONT 75 mls/hr .[id number] SHRUTHI Administration Meropenem 1 gm in 100 mls @ 200 mls/hr 02/28/25 04:00 02/28/25 17:18 IVPB Infused Q12H SHRUTHI Infusion Vancomycin HCl 1,750 mg in 500 mls @ 250 mls/hr 02/28/25 05:00 02/28/25 07:00 Vancomycin 1,750 Mg/Ns 500 Ml IVPB Infused Q24H SHRUTHI Infusion Lidocaine 1 patch 02/17/25 10:55 02/28/25 09:46 Lidocaine 5% Patch TRANSDERM Not Given DAILY SHRUTHI Lidocaine 1 patch 02/19/25 09:00 02/28/25 09:46 Lidocaine 5% Patch TRANSDERM Not Given DAILY SHRUTHI Midodrine 10 mg 02/26/25 17:00 02/28/25 09:49 Midodrine Hcl 2.5 Mg Tablet PO Not Given TID [facility] Miscellaneous Information 1 each 02/26/25 00:01 02/26/25 21:48 [place] Needs To Be Renewed Or It Will Automatically Discontinue. XX 03/28/25 00:00 Not Given CLARIFY SHRUTHI Ondansetron HCl 4 mg 02/17/25 02:55 02/25/25 23:11 Ondansetron Inj 4 Mg/2 Ml Vial IV PUSH 4 mg Q4H PRN Administration Nausea Pantoprazole Sodium 40 mg 02/26/25 09:00 02/28/25 09:49 Pantoprazole Sodium Iv 40 Mg Vial IV PUSH 40 mg Q12HR SHRUTHI Administration Polyethylene Glycol 17 gm 02/20/25 10:20 02/23/25 03:41 Polyethylene Glycol 3350 17 Gm Powd.Pack PO 17 gm QAM PRN Administration Constipation Sucralfate 1,000 mg 02/27/25 16:30 02/28/25 16:46 Sucralfate Susp 100 Mg/Ml 10 Ml Udc PO 1,000 mg ACHS SHRUTHI Administration Radiology Results: ITS Impressions Venous Doppler Study 02/16/25 18:08 IMPRESSION: Negative bilateral lower extremity venous US. No deep vein thrombosis. Tibia/Fibula X-Ray 02/17/25 06:31 Impression: Diffuse soft tissue edema. Moderate degenerative change at the knee. No evidence for osteomyelitis. Chest X-Ray 02/25/25 21:47 IMPRESSION: Possible left basilar atelectasis versus pneumonia versus fibrotic changes. Clinical correlation and follow-up advised. Abdomen/Pelvis CT 02/26/25 06:06 IMPRESSION: 1. No acute abdominal abnormality. 2: Cholelithiasis. Chest CT 02/27/25 10:01 IMPRESSION: 1. Minimal pulmonary edema with small bilateral pleural effusions. 2. Cholelithiasis. Labs Labs: Laboratory Results - last 24 hr 02/27/25 02/28/25 17:38 03:13 WBC 22.1 H RBC 2.37 L Hgb 7.3 L 7.5 L Hct 22.8 L 23.8 L MCV 100.4 H MCH 31.6 MCHC 31.5 L RDW 17.2 H Plt Count 201 MPV 10.8 H Immature Gran % (Auto) 0.9 H Neut % (Auto) 88.5 H Lymph % (Auto) 5.1 L [place] % (Auto) 5.0 Eos % (Auto) 0.1 Baso % (Auto) 0.4 Lymph # (Auto) 1.12 [place] # (Auto) 1.1 H Eos # (Auto) 0.0 Baso # (Auto) 0.1 Abs Immat Gran (auto) 0.19 H Absolute Neuts (auto) 19.6 H Absolute Nucleated RBC 0.020 H Band Neutrophils % Not Reportable Nucleated RBC % 0.1 Platelet Estimate Adequate Hypochromasia 1+ Anisocytosis 2+ Microcytosis 2+ Schistocytes None seen Sodium 139 Potassium 4.3 Chloride 110 H Carbon Dioxide 19 L Anion Gap 10 BUN 64 H Creatinine 1.40 H Estim Creat Clear Calc 49 Estimated GFR 50 L Glucose 99 Calcium 8.2 L Magnesium 2.5 H Total Bilirubin 2.1 H AST 49 ALT 23 Alkaline Phosphatase 46 Total Protein 5.0 L Albumin 2.7 L Vancomycin Trough 14.3 Quality VTE Prophylaxis VTE prophylaxis: pharmacologic ordered Hospitalist [facility] Advance Care Plan I have confirmed that the patient's Advanced Care Plan is present, code status is documented, or surrogate decision maker is listed in patient medical record.: Yes Medication Reconciliation I have utilized all available resources to obtain, update and review the patients current medications (includes all prescriptions, OTC, herbals, cannabis, and nutritional supplements).: Yes
--- NOTE | 2025-02-28 18:58 | PC.NURSE ---
1850-pt med surg status report given to Eileen RN- pt moved to room 316-2 via bed accompanied by staff- personal belongings with pt
[2025-02-28] MEDS: COLLAGENASE OINT 30 GM TUBE 1 APPLIC TOPICAL (20:26)
[2025-02-28 22:18] LABS: Myoglobin, Urine <1 mg/L (0-1)
[2025-03-01] MEDS: MEROPENEM 1 GM/NS 100 ML 1 GM/100 ML BAG IVPB ×2 (03:30→15:24)
[2025-03-01] MEDS: VANCOMYCIN 1,750 MG/NS 500 ML 1,750 MG/500 ML BAG 250 MG IVPB (04:22)
[2025-03-01] MEDS: HYDROcodone/acetaminophen (*CRX) 5-325 MG TABLET 1 TAB PO ×2 (04:23→21:16)
[2025-03-01] MEDS: SUCRALFATE SUSP 100 MG/ML 10 ML UDC 1000 MG PO ×4 (05:42→21:11)
[2025-03-01 05:45] VITALS: BP 128/71; PULSE 57; RESP 18; TEMP 36.2; O2SAT 100
--- NOTE | 2025-03-01 06:32 | PC.NURSE ---
Pt. has been up in the chair since approx. 0400 with foot stool in front of him. Encouraged Pt. several times to elevate feet on foot stool but Pt. has been refusing to elevate his feet on the foot stool. Pt. also did not want RON wraps placed during dressing change as he stated that they bother his legs. Informed Pt. reason for needing RON wraps and they were placed over rolled gauze.
[2025-03-01 06:33] LABS: Hematocrit 23.1 % (42.0-52.0); Hemoglobin 7.1 g/dL (14.0-18.0); Mean Corpuscular HGB Conc 30.7 g/dl (32-36); Mean Corpuscular Hemoglobin 31.6 pg (26-34); Mean Corpuscular Volume 102.7 fl (80-100); Mean Platelet Volume 10.6 fl (7.4-10.4); Platelet Count Result 196 k/mm3 (150-375); Red Blood Count 2.25 M/mm3 (4.6-6.20); Red Cell Distribution Width 17.2 % (11.5-14.5); White Blood Count 14.8 K/mm3 (4.5-10.0)
[2025-03-01 06:42] LABS: Alanine Aminotransferase 24 U/L (6-50); Albumin Level 2.6 g/dL (3.5-5.1); Alkaline Phosphatase 52 U/L (38-126); Anion Gap 10 mmol/L (4-12); Aspartate Amino Transferase 32 U/L (17-59); Bilirubin,Total 1.7 mg/dL (0.2-1.3); Blood Urea Nitrogen 55 mg/dL (9-20); Carbon Dioxide 17 mmol/L (22-30); Chloride 109 mmol/L (98-107); Estimated CRCL calculation 50 ml/min; Estimated Glomerular Filt Rate 52; Glucose 102 mg/dL (65-110); Potassium 4.6 mmol/L (3.4-5.0); Sodium 136 mmol/L (137-145)
[2025-03-01] MEDS: LIDOCAINE 5% PATCH 1 PATCH TRANSDERM ×2 (09:23→09:24)
[2025-03-01] MEDS: DICLOFENAC SODIUM 1% 100 GM GEL (*BKC) 1 APPLIC TOPICAL ×4 (09:23→21:16)
[2025-03-01] MEDS: PANTOPRAZOLE SODIUM IV 40 MG VIAL IV PUSH ×2 (09:23→21:11)
[2025-03-01] MEDS: COLLAGENASE OINT 30 GM TUBE 1 APPLIC TOPICAL ×2 (09:33→21:17)
--- NOTE | 2025-03-01 11:28 | PCOTNOTE ---
Patient declined to participate this session. Patient states he is supposed to go home today.
--- NOTE | 2025-03-01 12:32 | P.PNNP_ITS ---
Progress Note: A&P Assessment and Plan (1) Hyperkalemia: Code(s): E87.5 - Hyperkalemia Status: Acute Assessment and Plan: * improvement noted (if not resolved) * as noted by labs since the evening of 02/25 * s/p medical therapy (lokelma, D50, insulin, calcium gluconate, and nebulizer treatment) * suspect multifactorial etiology: * JOSSELIN/ARF * GI bleed (and associated RBC hemolysis in stomach) * acidosis * underlying kidney disease(?) - CT A/P noted atrophic kidneys * infection (LE cellulitis) * follow trend of repeat K+ levels (2) JOSSELIN (acute kidney injury): Code(s): N17.9 - Acute kidney failure, unspecified Status: Acute Assessment and Plan: * ongoing improvement noted * noted on 02/25 by AM labs * due to several issues: * prerenal factors * diuresis/overdiuresis * relative hypotension * anemia/GI bleed * other(?) * evaluation to date noted: * CT A/P without obstruction but atrophic kidneys noted * urine electrolytes pre-renal * urine eosinophils negative * no significant proteinuria * CPK normal * diuretics on hold * gentle IVFs as volume status allows * acidosis a bit worse -- oral sodium bicarbonate x 4 doses to compensate * follow trend of repeat labs and UOP (3) Coffee ground emesis: Code(s): K92.0 - Hematemesis Status: Acute Assessment and Plan: * as noted by events on the evening of 02/25 * drop in H/H noted as well * complicated by anticoagulation/elevated INR * PRBC transfusion per protocol * blood thinners on hold * on PPI * GI following: * EGD (on 02/27): ulcerative gastritis/esophagitis noted * follow trend of H/H (4) Hypotension: Code(s): I95.9 - Hypotension, unspecified Status: Acute Assessment and Plan: * resolved * presumably due to GI bleed versus early sepsis versus combo of both * slowly restart BP medications as needed * wean off IVFs * holding midodrine * follow trend of hemodynamics (5) Cellulitis: Qualifiers: Laterality: unspecified laterality Site of cellulitis: extremity Site of cellulitis of extremity: lower extremity Qualified Code(s): L03.119 - Cellulitis of unspecified part of limb Code(s): L03.90 - Cellulitis, unspecified Status: Acute Assessment and Plan: * clinical improvement * follow culture data - negatiave to date * on antibiotics (6) Anemia: Qualifiers: Anemia type: unspecified type Qualified Code(s): D64.9 - Anemia, unspecified Code(s): D64.9 - Anemia, unspecified Status: Acute Assessment and Plan: * see #3 * follow H/H (7) Bilateral edema of lower extremity: Code(s): R60.0 - Localized edema Status: Acute Assessment and Plan: * appears to be a chronic issue at baseline * likely exacerbated by #5 * improvement noted with IV diuretics * however, diuresis on hold due to #2 and #4 * continue conservative therapy (propping legs up, RON-wraps...etc) (8) Afib: Qualifiers: Atrial fibrillation type: unspecified Qualified Code(s): I48.91 - Unspecified atrial fibrillation Code(s): I48.91 - Unspecified atrial fibrillation Status: Acute Assessment and Plan: * rate control strategy * however, metoprolol on hold due to #4 * anticoagulation on hold due to #3 Will continue to follow. L Subjective Date/time seen: 03/01/25 12:32 Interval history: Follow-up for acute kidney injury/acute renal failure. Renal function/creatinine continue to improve with ongoing therapy/interventions; H/H relatively stable at this time; no apparent distress noted when seen; no issues/problems overnight although nursing notes he can sometime be uncooperative in the evenings. Exam 2 Narrative: General: elderly but WD/WN male in NAD Heart: normal S1 and S2; no rub Lungs: clear to auscultation Abdomen: soft, nontender, nondistended, positive bowel sounds Extremities: no cyanosis or clubbing; trace - 1+ edema Skin: LE dressings noted Objective Data Vital Signs Vital Signs: Vital Signs Temp Pulse Resp BP Pulse Ox O2 Del Method 03/01/25 12:00 97.8 F 53 L 18 112/68 99 03/01/25 05:45 97.1 F L 57 L 18 128/71 100 02/28/25 22:00 97.3 F L 55 L 18 109/58 L 97 02/28/25 20:00 Room Air 02/28/25 20:00 97.8 F 66 18 112/61 96 02/28/25 16:27 98.0 F 52 L 18 111/70 100 Intake/Output Intake/Output: Intake & Output 02/26/25 02/27/25 02/28/25 03/01/25 23:59 23:59 23:59 23:59 Intake Total 2600 2450 3160 1318 Output Total 500 2300 200 Balance 2100 150 2960 1318 Meds/Results Medications: Active Medications Generic Name Dose Route Start Last Admin Trade Name Freq PRN Reason Stop Dose Admin Hydrocodone Bitart/Acetaminophen 1 tab 02/17/25 10:40 03/01/25 04:23 Hydrocodone/Acetaminophen (*Crx) 5-325 Mg Tablet PO 1 tab Q4H PRN Administration Pain Rated 7-10 Calcium Carbonate 200 mg 02/20/25 15:31 02/25/25 09:50 Calcium Carbonate (Tums) 500 Mg (200 Mg Elemental) PO 200 mg Q6H PRN Administration Indigestion Collagenase 1 applic 02/17/25 09:00 03/01/25 09:33 Collagenase Oint 30 Gm Tube TOPICAL 1 applic Q12HR SHRUTHI Administration Diclofenac Sodium 1 applic 02/18/25 13:00 03/01/25 14:06 Diclofenac Sodium 1% 100 Gm Gel (*Bkc) TOPICAL 1 applic QID SHRUTHI Administration Docusate Sodium 100 mg 02/20/25 10:18 02/23/25 03:40 Docusate Sodium 100 Mg Capsule PO 100 mg Q12H PRN Administration Constipation Hydroxyzine HCl 25 mg 02/21/25 12:15 02/27/25 20:13 Hydroxyzine Hcl 25 Mg Tablet PO 25 mg Q6H PRN Administration Itching Sodium Chloride 1,000 mls @ 75 mls/hr 02/26/25 09:45 02/28/25 16:46 Normal Saline Iv IV CONT 75 mls/hr .[id number] SHRUTHI Administration Meropenem 1 gm in 100 mls @ 200 mls/hr 02/28/25 04:00 03/01/25 04:00 IVPB Infused Q12H SHRUTHI Infusion Vancomycin HCl 1,750 mg in 500 mls @ 250 mls/hr 02/28/25 05:00 03/01/25 06:22 Vancomycin 1,750 Mg/Ns 500 Ml IVPB Infused Q24H SHRUTHI Infusion Lidocaine 1 patch 02/17/25 10:55 03/01/25 09:24 Lidocaine 5% Patch TRANSDERM 1 patch DAILY SHRUTHI Administration Lidocaine 1 patch 02/19/25 09:00 03/01/25 09:23 Lidocaine 5% Patch TRANSDERM 1 patch DAILY SHRUTHI Administration Midodrine 10 mg 02/26/25 17:00 02/28/25 09:49 Midodrine Hcl 2.5 Mg Tablet PO Not Given TID SHRUTHI Ondansetron HCl 4 mg 02/17/25 02:55 02/25/25 23:11 Ondansetron Inj 4 Mg/2 Ml Vial IV PUSH 4 mg Q4H PRN Administration Nausea Pantoprazole Sodium 40 mg 02/26/25 09:00 03/01/25 09:23 Pantoprazole Sodium Iv 40 Mg Vial IV PUSH 40 mg Q12HR SHRUTHI Administration Polyethylene Glycol 17 gm 02/20/25 10:20 02/23/25 03:41 Polyethylene Glycol 3350 17 Gm Powd.Pack PO 17 gm QAM PRN Administration Constipation Sucralfate 1,000 mg 02/27/25 16:30 03/01/25 11:16 Sucralfate Susp 100 Mg/Ml 10 Ml Udc PO 1,000 mg ACHS SHRUTHI Administration Radiology Results: ITS Impressions Venous Doppler Study 02/16/25 18:08 IMPRESSION: Negative bilateral lower extremity venous US. No deep vein thrombosis. Tibia/Fibula X-Ray 02/17/25 06:31 Impression: Diffuse soft tissue edema. Moderate degenerative change at the knee. No evidence for osteomyelitis. Chest X-Ray 02/25/25 21:47 IMPRESSION: Possible left basilar atelectasis versus pneumonia versus fibrotic changes. Clinical correlation and follow-up advised. Abdomen/Pelvis CT 02/26/25 06:06 IMPRESSION: 1. No acute abdominal abnormality. 2: Cholelithiasis. Chest CT 02/27/25 10:01 IMPRESSION: 1. Minimal pulmonary edema with small bilateral pleural effusions. 2. Cholelithiasis. Labs Labs: Laboratory Tests 03/01/25 05:43 03/01/25 05:43 Calcium 8.0 L Total Bilirubin 1.7 H AST 32 ALT 24 Alkaline Phosphatase 52 Total Protein 5.0 L Albumin 2.6 L Microbiology 02/26/25 09:11 Stool Escherichia coli Shiga Toxins - Final 02/26/25 09:11 Stool Salmonella/Shigella Culture - Final 02/26/25 09:11 Stool Campylobacter Antigen Assay - Final
[2025-03-01 14:00] VITALS: BP 112/68; PULSE 53; RESP 18; TEMP 36.6; O2SAT 99
[2025-03-01] MEDS: SODIUM CHLORIDE 0.9% IV 1,000 ML 75 ML IV CONT (16:24)
[2025-03-01] MEDS: SODIUM BICARBONATE TAB 650 MG TABLET 1300 MG PO (16:25)
--- NOTE | 2025-03-01 16:54 | PM.IMPN ---
Progress Note: A&P Assessment and Plan (1) Cellulitis: Qualifiers: Laterality: unspecified laterality Site of cellulitis: extremity Site of cellulitis of extremity: lower extremity Qualified Code(s): L03.119 - Cellulitis of unspecified part of limb Code(s): L03.90 - Cellulitis, unspecified Status: Acute Assessment and Plan: worsening leukocytosis although erythema is improving Continue Cefepime and Vanc, Flagyl monitor cultures (2) Degenerative joint disease of knee: Qualifiers: Osteoarthritis type: primary Laterality: bilateral Qualified Code(s): M17.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 Code(s): M17.9 - Osteoarthritis of knee, unspecified Status: Acute Assessment and Plan: PRN pain control continue PT/OT and outpatient followup (3) Bilateral edema of lower extremity: Code(s): R60.0 - Localized edema Status: Acute Assessment and Plan: likely from Diastolic dysfunction Lasix on hold due to Hypotension monitor (4) Afib: Qualifiers: Atrial fibrillation type: unspecified Qualified Code(s): I48.91 - Unspecified atrial fibrillation Code(s): I48.91 - Unspecified atrial fibrillation Status: Acute Assessment and Plan: - ECHO showed ef 60-65% with diastolic dysfunction - Eliquis on hold due to GI bleed Hold Metoprolol (5) Left shoulder pain: Qualifiers: Chronicity: chronic Qualified Code(s): M25.512 - Pain in left shoulder; G89.29 - Other chronic pain Code(s): M25.512 - Pain in left shoulder Status: Acute Assessment and Plan: - New onset agitation of left shoulder pain, lifting and abducting arm 02/18 - Lidocaine patch and Voltaren topical gel for control (6) Anemia: Qualifiers: Anemia type: unspecified type Qualified Code(s): D64.9 - Anemia, unspecified Code(s): D64.9 - Anemia, unspecified Status: Acute Assessment and Plan: Patient has Coffee ground emesis last night and now with melena stool Hb 6.6, s/p 1 unit pRBC On PPI and Eliquis on hold On IVF and GI consulted monitor Plan CHF exacerbation ECHO showed diastolic dysfunction leg edema Hold Lasix due to hypotension JOSSELIN Cr 1.56 from 1.76, baseline 1.04 Lasix on hold Monitor Hypotension and lactic acidosis from GI bleed and hypovolemia lactic acidosis resolved continue IVF and Midodrine monitor GI bleed Coffee ground emesis and Melena stool Stool culture pending, c diff negative CT AP no acute changes For endoscopy today GI following DVT prophylaxis on SCDs, Eliquis on hold Subjective Date/time seen: 03/01/25 16:54 Interval history: Continued to improve. WBC has been decreased from 22.1-14.8. Hemoglobin 7.1 and creatinine improved from 1.40-1.35. Review of Systems Review of Systems: All systems reviewed & are unremarkable except as noted in HPI and below Exam Narrative: AF HR 58 RR 18 SPO2 98 BP 132/58 General: male in no acute respiratory distress who is nontoxic appearing, sitting up in chair, not elevating legs. HEENT: Normocephalic. Atraumatic. Extraocular movement intact. Sclera clear and anicteric. No facial asymmetry. Chest: Lungs are clear to auscultation bilaterally. CV: Heart was regular rate and rhythm. Abd: Abdomen was soft. Nontender. Nondistended. Positive bowel sounds. Ext: No clubbing. DP pulses bilaterally. Severe bilateral pitting edema with weeping. Large wound to the right mid calf with yellow slough. Several small wounds with yellow slough on bilateral lower extremities. See wound care note. Neuro: Patient is alert and oriented x4. Speech is clear. Const: General: comfortable Objective Data Vital Signs Vital Signs: Vital Signs - 24 hr 02/28/25 20:00 02/28/25 20:00 02/28/25 22:00 Temperature 97.8 F 97.3 F L Pulse Rate 66 55 L Respiratory Rate 18 18 Blood Pressure 112/61 109/58 L Pulse Oximetry 96 97 Oxygen Delivery Room Air 03/01/25 05:45 03/01/25 14:00 Temperature 97.1 F L 97.8 F Pulse Rate 57 L 53 L Respiratory Rate 18 18 Blood Pressure 128/71 112/68 Pulse Oximetry 100 99 Oxygen Delivery Intake/Output Intake/Output: Intake & Output 02/26/25 02/27/25 02/28/25 03/01/25 23:59 23:59 23:59 23:59 Intake Total 2600 2450 3160 2318 Output Total 500 2300 200 Balance 2100 150 2960 2318 Meds/Results Medications: Active Medications Generic Name Dose Route Start Last Admin Trade Name Freq PRN Reason Stop Dose Admin Hydrocodone Bitart/Acetaminophen 1 tab 02/17/25 10:40 03/01/25 04:23 Hydrocodone/Acetaminophen (*Crx) 5-325 Mg Tablet PO 1 tab Q4H PRN Administration Pain Rated 7-10 Calcium Carbonate 200 mg 02/20/25 15:31 02/25/25 09:50 Calcium Carbonate (Tums) 500 Mg (200 Mg Elemental) PO 200 mg Q6H PRN Administration Indigestion Collagenase 1 applic 02/17/25 09:00 03/01/25 09:33 Collagenase Oint 30 Gm Tube TOPICAL 1 applic Q12HR SHRUTHI Administration Diclofenac Sodium 1 applic 02/18/25 13:00 03/01/25 16:25 Diclofenac Sodium 1% 100 Gm Gel (*Bkc) TOPICAL 1 applic QID SHRUTHI Administration Docusate Sodium 100 mg 02/20/25 10:18 02/23/25 03:40 Docusate Sodium 100 Mg Capsule PO 100 mg Q12H PRN Administration Constipation Hydroxyzine HCl 25 mg 02/21/25 12:15 02/27/25 20:13 Hydroxyzine Hcl 25 Mg Tablet PO 25 mg Q6H PRN Administration Itching Sodium Chloride 1,000 mls @ 75 mls/hr 02/26/25 09:45 03/01/25 16:24 Normal Saline Iv IV CONT 75 mls/hr .[id number] SHRUTHI Administration Meropenem 1 gm in 100 mls @ 200 mls/hr 02/28/25 04:00 03/01/25 15:24 IVPB 200 mls/hr Q12H SHRUTHI Administration Vancomycin HCl 1,750 mg in 500 mls @ 250 mls/hr 02/28/25 05:00 03/01/25 06:22 Vancomycin 1,750 Mg/Ns 500 Ml IVPB Infused Q24H SHRUTHI Infusion Lidocaine 1 patch 02/17/25 10:55 03/01/25 09:24 Lidocaine 5% Patch TRANSDERM 1 patch DAILY SHRUTHI Administration Lidocaine 1 patch 02/19/25 09:00 03/01/25 09:23 Lidocaine 5% Patch TRANSDERM 1 patch DAILY SHRUTHI Administration Midodrine 10 mg 02/26/25 17:00 02/28/25 09:49 Midodrine Hcl 2.5 Mg Tablet PO Not Given TID SHRUTHI Ondansetron HCl 4 mg 02/17/25 02:55 02/25/25 23:11 Ondansetron Inj 4 Mg/2 Ml Vial IV PUSH 4 mg Q4H PRN Administration Nausea Pantoprazole Sodium 40 mg 02/26/25 09:00 03/01/25 09:23 Pantoprazole Sodium Iv 40 Mg Vial IV PUSH 40 mg Q12HR SHRUTHI Administration Polyethylene Glycol 17 gm 02/20/25 10:20 02/23/25 03:41 Polyethylene Glycol 3350 17 Gm Powd.Pack PO 17 gm QAM PRN Administration Constipation Sodium Bicarbonate 1,300 mg 03/01/25 17:00 03/01/25 16:25 Sodium Bicarbonate Tab 650 Mg Tablet PO 03/03/25 17:01 1,300 mg BID SHRUTHI Administration Sucralfate 1,000 mg 02/27/25 16:30 03/01/25 16:25 Sucralfate Susp 100 Mg/Ml 10 Ml Udc PO 1,000 mg ACHS SHRUTHI Administration Radiology Results: ITS Impressions Venous Doppler Study 02/16/25 18:08 IMPRESSION: Negative bilateral lower extremity venous US. No deep vein thrombosis. Tibia/Fibula X-Ray 02/17/25 06:31 Impression: Diffuse soft tissue edema. Moderate degenerative change at the knee. No evidence for osteomyelitis. Chest X-Ray 02/25/25 21:47 IMPRESSION: Possible left basilar atelectasis versus pneumonia versus fibrotic changes. Clinical correlation and follow-up advised. Abdomen/Pelvis CT 02/26/25 06:06 IMPRESSION: 1. No acute abdominal abnormality. 2: Cholelithiasis. Chest CT 02/27/25 10:01 IMPRESSION: 1. Minimal pulmonary edema with small bilateral pleural effusions. 2. Cholelithiasis. Labs Labs: Laboratory Results - last 24 hr 02/26/25 03/01/25 11:24 05:43 WBC 14.8 H RBC 2.25 L Hgb 7.1 L Hct 23.1 L MCV 102.7 H MCH 31.6 MCHC 30.7 L RDW 17.2 H Plt Count 196 MPV 10.6 H Sodium 136 L Potassium 4.6 Chloride 109 H Carbon Dioxide 17 L Anion Gap 10 BUN 55 H Creatinine 1.35 H Estim Creat Clear Calc 50 Estimated GFR 52 L Glucose 102 Calcium 8.0 L Total Bilirubin 1.7 H AST 32 ALT 24 Alkaline Phosphatase 52 Total Protein 5.0 L Albumin 2.6 L Urine Myoglobin <1 Quality VTE Prophylaxis VTE prophylaxis: pharmacologic ordered Hospitalist [facility] Advance Care Plan I have confirmed that the patient's Advanced Care Plan is present, code status is documented, or surrogate decision maker is listed in patient medical record.: Yes Medication Reconciliation I have utilized all available resources to obtain, update and review the patients current medications (includes all prescriptions, OTC, herbals, cannabis, and nutritional supplements).: Yes
--- NOTE | 2025-03-01 18:13 | WPDGIPROGNO ---
Progress Note: A&P Assessment and Plan (1) Coffee ground emesis: Code(s): K92.0 - Hematemesis Status: Acute Assessment and Plan: egd finding of ulcerative gastritis/esophagitis- cause of worsening anemia continue protonix twice daily no h pylori tolerating diet and no more gib egd in 4 months to assess healing hold blood thinner no nsaid's (2) Gastric ulcer: Code(s): K25.9 - Gastric ulcer, unspecified as acute or chronic, without hemorrhage or perforation Status: Acute Assessment and Plan: protonix daily (3) Erosive esophagitis: Code(s): K22.10 - Ulcer of esophagus without bleeding Status: Acute (4) Hx of longterm use of blood thinners: 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 Status: Acute (5) Acute on chronic anemia: Code(s): D64.9 - Anemia, unspecified Status: Acute Assessment and Plan: monitor for more signs of bleeding transfuse if hgb<7 (6) Cellulitis: Qualifiers: Laterality: unspecified laterality Site of cellulitis: extremity Site of cellulitis of extremity: lower extremity Qualified Code(s): L03.119 - Cellulitis of unspecified part of limb Code(s): L03.90 - Cellulitis, unspecified Status: Acute Subjective Date/time seen: 03/01/25 18:13 Interval history: no changes no new gib, he is eating Review of Systems Review of Systems: All systems reviewed & are unremarkable except as noted in HPI and below Exam Const: General: comfortable Other: chronically ill apperaring HENMT: Face/Nose/Sinus: Normal nares present Eyes: General: appearance normal, both eyes and all related structures Neck: Neck: supple Resp: Effort & Inspection: normal respiratory effort Cardio: Rate: regular rate GI: GI Palp: Yes Soft to palpation and No Tenderness to palpation present (GI) Skin: Wounds: wounds noted Other: wound in legs Neuro: Speech: normal speech Extrem: General: pedal edema Psych: Affect: normal affect Objective Data Vital Signs Vital Signs: Vital Signs - 24 hr 02/28/25 20:00 02/28/25 20:00 02/28/25 22:00 Temperature 97.8 F 97.3 F L Pulse Rate 66 55 L Respiratory Rate 18 18 Blood Pressure 112/61 109/58 L Pulse Oximetry 96 97 Oxygen Delivery Room Air 03/01/25 05:45 03/01/25 14:00 Temperature 97.1 F L 97.8 F Pulse Rate 57 L 53 L Respiratory Rate 18 18 Blood Pressure 128/71 112/68 Pulse Oximetry 100 99 Oxygen Delivery Intake/Output Intake/Output: Intake & Output 02/26/25 02/27/25 02/28/25 03/01/25 23:59 23:59 23:59 23:59 Intake Total 2600 2450 3160 2318 Output Total 500 2300 200 Balance 2100 150 2960 2318 Meds/Results Medications: Active Medications Generic Name Dose Route Start Last Admin Trade Name Freq PRN Reason Stop Dose Admin Hydrocodone Bitart/Acetaminophen 1 tab 02/17/25 10:40 03/01/25 04:23 Hydrocodone/Acetaminophen (*Crx) 5-325 Mg Tablet PO 1 tab Q4H PRN Administration Pain Rated 7-10 Calcium Carbonate 200 mg 02/20/25 15:31 02/25/25 09:50 Calcium Carbonate (Tums) 500 Mg (200 Mg Elemental) PO 200 mg Q6H PRN Administration Indigestion Collagenase 1 applic 02/17/25 09:00 03/01/25 09:33 Collagenase Oint 30 Gm Tube TOPICAL 1 applic Q12HR SHRUTHI Administration Diclofenac Sodium 1 applic 02/18/25 13:00 03/01/25 16:25 Diclofenac Sodium 1% 100 Gm Gel (*Bkc) TOPICAL 1 applic QID SHRUTHI Administration Docusate Sodium 100 mg 02/20/25 10:18 02/23/25 03:40 Docusate Sodium 100 Mg Capsule PO 100 mg Q12H PRN Administration Constipation Hydroxyzine HCl 25 mg 02/21/25 12:15 02/27/25 20:13 Hydroxyzine Hcl 25 Mg Tablet PO 25 mg Q6H PRN Administration Itching Sodium Chloride 1,000 mls @ 75 mls/hr 02/26/25 09:45 03/01/25 16:24 Normal Saline Iv IV CONT 75 mls/hr .[id number] SHRUTHI Administration Meropenem 1 gm in 100 mls @ 200 mls/hr 02/28/25 04:00 03/01/25 15:24 IVPB 200 mls/hr Q12H SHRUTHI Administration Vancomycin HCl 1,750 mg in 500 mls @ 250 mls/hr 02/28/25 05:00 03/01/25 06:22 Vancomycin 1,750 Mg/Ns 500 Ml IVPB Infused Q24H SHRUTHI Infusion Lidocaine 1 patch 02/17/25 10:55 03/01/25 09:24 Lidocaine 5% Patch TRANSDERM 1 patch DAILY SHRUTHI Administration Lidocaine 1 patch 02/19/25 09:00 03/01/25 09:23 Lidocaine 5% Patch TRANSDERM 1 patch DAILY SHRUTHI Administration Midodrine 10 mg 02/26/25 17:00 02/28/25 09:49 Midodrine Hcl 2.5 Mg Tablet PO Not Given TID SHRUTHI Ondansetron HCl 4 mg 02/17/25 02:55 02/25/25 23:11 Ondansetron Inj 4 Mg/2 Ml Vial IV PUSH 4 mg Q4H PRN Administration Nausea Pantoprazole Sodium 40 mg 02/26/25 09:00 03/01/25 09:23 Pantoprazole Sodium Iv 40 Mg Vial IV PUSH 40 mg Q12HR SHRUTHI Administration Polyethylene Glycol 17 gm 02/20/25 10:20 02/23/25 03:41 Polyethylene Glycol 3350 17 Gm Powd.Pack PO 17 gm QAM PRN Administration Constipation Sodium Bicarbonate 1,300 mg 03/01/25 17:00 03/01/25 16:25 Sodium Bicarbonate Tab 650 Mg Tablet PO 03/03/25 17:01 1,300 mg BID SHRUTHI Administration Sucralfate 1,000 mg 02/27/25 16:30 03/01/25 16:25 Sucralfate Susp 100 Mg/Ml 10 Ml Udc PO 1,000 mg ACHS SHRUTHI Administration Radiology Results: ITS Impressions Venous Doppler Study 02/16/25 18:08 IMPRESSION: Negative bilateral lower extremity venous US. No deep vein thrombosis. Tibia/Fibula X-Ray 02/17/25 06:31 Impression: Diffuse soft tissue edema. Moderate degenerative change at the knee. No evidence for osteomyelitis. Chest X-Ray 02/25/25 21:47 IMPRESSION: Possible left basilar atelectasis versus pneumonia versus fibrotic changes. Clinical correlation and follow-up advised. Abdomen/Pelvis CT 02/26/25 06:06 IMPRESSION: 1. No acute abdominal abnormality. 2: Cholelithiasis. Chest CT 02/27/25 10:01 IMPRESSION: 1. Minimal pulmonary edema with small bilateral pleural effusions. 2. Cholelithiasis. Labs Labs: Laboratory Results - last 24 hr 02/26/25 03/01/25 11:24 05:43 WBC 14.8 H RBC 2.25 L Hgb 7.1 L Hct 23.1 L MCV 102.7 H MCH 31.6 MCHC 30.7 L RDW 17.2 H Plt Count 196 MPV 10.6 H Sodium 136 L Potassium 4.6 Chloride 109 H Carbon Dioxide 17 L Anion Gap 10 BUN 55 H Creatinine 1.35 H Estim Creat Clear Calc 50 Estimated GFR 52 L Glucose 102 Calcium 8.0 L Total Bilirubin 1.7 H AST 32 ALT 24 Alkaline Phosphatase 52 Total Protein 5.0 L Albumin 2.6 L Urine Myoglobin <1
[2025-03-01 21:14] VITALS: BP 126/72; PULSE 54; RESP 16; TEMP 36.2; O2SAT 100
[2025-03-02] MEDS: SODIUM CHLORIDE 0.9% IV 1,000 ML 75 ML IV CONT (02:04)
[2025-03-02] MEDS: MEROPENEM 1 GM/NS 100 ML 1 GM/100 ML BAG IVPB (03:35)
[2025-03-02 05:12] LABS: Hematocrit 25.9 % (42.0-52.0); Mean Corpuscular HGB Conc 30.9 g/dl (32-36); Mean Corpuscular Hemoglobin 31.5 pg (26-34); Mean Platelet Volume 10.7 fl (7.4-10.4); Platelet Count Result 203 k/mm3 (150-375); Red Blood Count 2.54 M/mm3 (4.6-6.20); Red Cell Distribution Width 16.7 % (11.5-14.5); White Blood Count 13.4 K/mm3 (4.5-10.0)
[2025-03-02 05:24] LABS: Alanine Aminotransferase 26 U/L (6-50); Albumin Level 2.9 g/dL (3.5-5.1); Alkaline Phosphatase 61 U/L (38-126); Anion Gap 9 mmol/L (4-12); Aspartate Amino Transferase 27 U/L (17-59); Bilirubin,Total 1.5 mg/dL (0.2-1.3); Blood Urea Nitrogen 46 mg/dL (9-20); Calcium 7.9 mg/dL (8.4-10.2); Carbon Dioxide 17 mmol/L (22-30); Chloride 111 mmol/L (98-107); Estimated CRCL calculation 59 ml/min; Estimated Glomerular Filt Rate > 60; Glucose 78 mg/dL (65-110); Potassium 4.1 mmol/L (3.4-5.0); Sodium 137 mmol/L (137-145)
[2025-03-02 05:33] LABS: Vancomycin Trough 19.6 ug/mL (10.0-20.0)
[2025-03-02 05:52] VITALS: BP 139/64; PULSE 50; RESP 16; TEMP 36.1; O2SAT 98
[2025-03-02] MEDS: VANCOMYCIN 1,750 MG/NS 500 ML 1,750 MG/500 ML BAG 250 MG IVPB (05:58)
[2025-03-02] MEDS: SUCRALFATE SUSP 100 MG/ML 10 ML UDC 1000 MG PO ×3 (06:08→16:55)
--- NOTE | 2025-03-02 06:26 | PC.NURSE ---
Pt. has been up sitting in the chair, refusing to elevate his legs as ordered when out of bed.
--- NOTE | 2025-03-02 09:20 | PM.IMPN ---
Progress Note: A&P Assessment and Plan (1) Cellulitis: Qualifiers: Laterality: unspecified laterality Site of cellulitis: extremity Site of cellulitis of extremity: lower extremity Qualified Code(s): L03.119 - Cellulitis of unspecified part of limb Code(s): L03.90 - Cellulitis, unspecified Status: Acute Assessment and Plan: worsening leukocytosis although erythema is improving Continue Cefepime and Vanc, Flagyl monitor cultures (2) Degenerative joint disease of knee: Qualifiers: Laterality: bilateral Osteoarthritis type: primary Qualified Code(s): M17.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 Code(s): M17.9 - Osteoarthritis of knee, unspecified Status: Acute Assessment and Plan: PRN pain control continue PT/OT and outpatient followup (3) Bilateral edema of lower extremity: Code(s): R60.0 - Localized edema Status: Acute Assessment and Plan: likely from Diastolic dysfunction Lasix on hold due to Hypotension monitor (4) Afib: Qualifiers: Atrial fibrillation type: unspecified Qualified Code(s): I48.91 - Unspecified atrial fibrillation Code(s): I48.91 - Unspecified atrial fibrillation Status: Acute Assessment and Plan: - ECHO showed ef 60-65% with diastolic dysfunction - Eliquis on hold due to GI bleed Hold Metoprolol (5) Left shoulder pain: Qualifiers: Chronicity: chronic Qualified Code(s): M25.512 - Pain in left shoulder; G89.29 - Other chronic pain Code(s): M25.512 - Pain in left shoulder Status: Acute Assessment and Plan: - New onset agitation of left shoulder pain, lifting and abducting arm 02/18 - Lidocaine patch and Voltaren topical gel for control (6) Anemia: Qualifiers: Anemia type: unspecified type Qualified Code(s): D64.9 - Anemia, unspecified Code(s): D64.9 - Anemia, unspecified Status: Acute Assessment and Plan: Patient has Coffee ground emesis last night and now with melena stool Hb 6.6, s/p 1 unit pRBC On PPI and Eliquis on hold On IVF and GI consulted monitor Plan CHF exacerbation ECHO showed diastolic dysfunction leg edema Hold Lasix due to hypotension Echocardiogram performed on 02/18/2025: Left ventricular systolic function is normal, estimated at 60-65%. JOSSELIN Cr 1.56 from 1.76, baseline 1.04 Lasix on hold Monitor Hypotension and lactic acidosis from GI bleed and hypovolemia lactic acidosis resolved continue IVF and Midodrine monitor GI bleed Coffee ground emesis and Melena stool Stool culture pending, c diff negative CT AP no acute changes Underwent EGD on 02/27/2025 which shows esophageal ulcer without bleeding, gastritis, unspecific gastric ulcer, duodenitis. As per GI no insights or Eliquis and repeat the EGD in 4 months. GI following DVT prophylaxis on SCDs, Eliquis on hold Subjective Date/time seen: 03/02/25 09:20 Interval history: Interval history:74-year-old male with history of atrial fibrillation treated with Eliquis and hypertension presenting with bilateral lower extremity swelling and concern for infection related to open wound. During the hospitalization patient had hematemesis. He underwent EGD on 02/27/2025 which shows esophageal ulcer without bleeding, gastritis, unspecific gastric ulcer, duodenitis. As per GI no insights or Eliquis and repeat the EGD in 4 months. Patient WBC is getting improved. 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 Switch to oral antibiotic on 0 03/02 fluoroquinolones and linezolid. 03/02: Switch to oral antibiotic. Hemoglobin stable. No more episodes of hematemesis. Review of Systems Review of Systems: All systems reviewed & are unremarkable except as noted in HPI and below Exam Narrative: AF HR 58 RR 18 SPO2 98 BP 132/58 General: male in no acute respiratory distress who is nontoxic appearing, sitting up in chair, not elevating legs. HEENT: Normocephalic. Atraumatic. Extraocular movement intact. Sclera clear and anicteric. No facial asymmetry. Chest: Lungs are clear to auscultation bilaterally. CV: Heart was regular rate and rhythm. Abd: Abdomen was soft. Nontender. Nondistended. Positive bowel sounds. Ext: No clubbing. DP pulses bilaterally. Severe bilateral pitting edema with weeping. Large wound to the right mid calf with yellow slough. Several small wounds with yellow slough on bilateral lower extremities. See wound care note. Neuro: Patient is alert and oriented x4. Speech is clear. Const: General: comfortable Objective Data Vital Signs Vital Signs: Vital Signs - 24 hr 03/01/25 14:00 03/01/25 20:00 03/01/25 21:14 Temperature 97.8 F 97.2 F L Pulse Rate 53 L 54 L Respiratory Rate 18 16 Blood Pressure 112/68 126/72 Pulse Oximetry 99 100 Oxygen Delivery Room Air 03/02/25 05:52 Temperature 97 F L Pulse Rate 50 L Respiratory Rate 16 Blood Pressure 139/64 Pulse Oximetry 98 Oxygen Delivery Intake/Output Intake/Output: Intake & Output 02/27/25 02/28/25 03/01/25 03/02/25 23:59 23:59 23:59 23:59 Intake Total 2450 3160 2658 725 Output Total 2300 200 125 Balance 150 2960 2658 600 Meds/Results Medications: Active Medications Generic Name Dose Route Start Last Admin Trade Name Freq PRN Reason Stop Dose Admin Hydrocodone Bitart/Acetaminophen 1 tab 02/17/25 10:40 03/01/25 21:16 Hydrocodone/Acetaminophen (*Crx) 5-325 Mg Tablet PO 1 tab Q4H PRN Administration Pain Rated 7-10 Calcium Carbonate 200 mg 02/20/25 15:31 02/25/25 09:50 Calcium Carbonate (Tums) 500 Mg (200 Mg Elemental) PO 200 mg Q6H PRN Administration Indigestion Collagenase 1 applic 02/17/25 09:00 03/01/25 21:17 Collagenase Oint 30 Gm Tube TOPICAL 1 applic Q12HR SHRUTHI Administration Diclofenac Sodium 1 applic 02/18/25 13:00 03/01/25 21:16 Diclofenac Sodium 1% 100 Gm Gel (*Bkc) TOPICAL 1 applic QID SHRUTHI Administration Docusate Sodium 100 mg 02/20/25 10:18 02/23/25 03:40 Docusate Sodium 100 Mg Capsule PO 100 mg Q12H PRN Administration Constipation Hydroxyzine HCl 25 mg 02/21/25 12:15 02/27/25 20:13 Hydroxyzine Hcl 25 Mg Tablet PO 25 mg Q6H PRN Administration Itching Meropenem 1 gm in 100 mls @ 200 mls/hr 02/28/25 04:00 03/02/25 03:35 IVPB 200 mls/hr Q12H SHRUTHI Administration Vancomycin HCl 1,750 mg in 500 mls @ 250 mls/hr 03/02/25 06:00 03/02/25 05:58 Vancomycin 1,750 Mg/Ns 500 Ml IVPB 250 mls/hr Q24H SHRUTHI Administration Lidocaine 1 patch 02/17/25 10:55 03/01/25 09:24 Lidocaine 5% Patch TRANSDERM 1 patch DAILY SHRUTHI Administration Lidocaine 1 patch 02/19/25 09:00 03/01/25 09:23 Lidocaine 5% Patch TRANSDERM 1 patch DAILY SHRUTHI Administration Midodrine 10 mg 02/26/25 17:00 02/28/25 09:49 Midodrine Hcl 2.5 Mg Tablet PO Not Given TID SHRUTHI Ondansetron HCl 4 mg 02/17/25 02:55 02/25/25 23:11 Ondansetron Inj 4 Mg/2 Ml Vial IV PUSH 4 mg Q4H PRN Administration Nausea Pantoprazole Sodium 40 mg 02/26/25 09:00 03/01/25 21:11 Pantoprazole Sodium Iv 40 Mg Vial IV PUSH 40 mg Q12HR SHRUTHI Administration Polyethylene Glycol 17 gm 02/20/25 10:20 02/23/25 03:41 Polyethylene Glycol 3350 17 Gm Powd.Pack PO 17 gm QAM PRN Administration Constipation Sodium Bicarbonate 1,300 mg 03/01/25 17:00 03/01/25 16:25 Sodium Bicarbonate Tab 650 Mg Tablet PO 03/03/25 17:01 1,300 mg BID SHRUTHI Administration Sucralfate 1,000 mg 02/27/25 16:30 03/02/25 06:08 Sucralfate Susp 100 Mg/Ml 10 Ml Udc PO 1,000 mg ACHS SHRUTHI Administration Radiology Results: ITS Impressions Venous Doppler Study 02/16/25 18:08 IMPRESSION: Negative bilateral lower extremity venous US. No deep vein thrombosis. Tibia/Fibula X-Ray 02/17/25 06:31 Impression: Diffuse soft tissue edema. Moderate degenerative change at the knee. No evidence for osteomyelitis. Chest X-Ray 02/25/25 21:47 IMPRESSION: Possible left basilar atelectasis versus pneumonia versus fibrotic changes. Clinical correlation and follow-up advised. Abdomen/Pelvis CT 02/26/25 06:06 IMPRESSION: 1. No acute abdominal abnormality. 2: Cholelithiasis. Chest CT 02/27/25 10:01 IMPRESSION: 1. Minimal pulmonary edema with small bilateral pleural effusions. 2. Cholelithiasis. Renal Ultrasound 03/01/25 21:17 IMPRESSION: No hydronephrosis or renal calculi. Findings suggesting medical renal disease. Labs Labs: Laboratory Results - last 24 hr 03/02/25 05:01 WBC 13.4 H RBC 2.54 L Hgb 8.0 L Hct 25.9 L MCV 102.0 H MCH 31.5 MCHC 30.9 L RDW 16.7 H Plt Count 203 MPV 10.7 H Sodium 137 Potassium 4.1 Chloride 111 H Carbon Dioxide 17 L Anion Gap 9 BUN 46 H Creatinine 1.14 Estim Creat Clear Calc 59 Estimated GFR > 60 Glucose 78 Calcium 7.9 L Total Bilirubin 1.5 H AST 27 ALT 26 Alkaline Phosphatase 61 Total Protein 6.0 L Albumin 2.9 L Vancomycin Trough 19.6 Quality VTE Prophylaxis VTE prophylaxis: pharmacologic ordered Hospitalist [facility] Advance Care Plan I have confirmed that the patient's Advanced Care Plan is present, code status is documented, or surrogate decision maker is listed in patient medical record.: Yes Medication Reconciliation I have utilized all available resources to obtain, update and review the patients current medications (includes all prescriptions, OTC, herbals, cannabis, and nutritional supplements).: Yes
[2025-03-02] MEDS: SODIUM BICARBONATE TAB 650 MG TABLET 1300 MG PO ×2 (09:24→16:56)
[2025-03-02] MEDS: PANTOPRAZOLE SODIUM IV 40 MG VIAL IV PUSH (09:25)
[2025-03-02] MEDS: COLLAGENASE OINT 30 GM TUBE 1 APPLIC TOPICAL (09:35)
[2025-03-02] MEDS: LIDOCAINE 5% PATCH 1 PATCH TRANSDERM ×2 (09:36→09:37)
--- NOTE | 2025-03-02 10:04 | PCNWS ---
Weekly nutritional screen. Patient is tolerating current regular diet with varied intake, 0-90% last 48 hours, Improving. No weight loss reported. No nutritional needs at this time.
--- NOTE | 2025-03-02 10:11 | PCPTNOTE ---
Patient refused treatment this session. Patient reported he just wanted to stay sitting and did not want to participate in any therapy activity right now. Encouraged patient for participation, and patient continued to refuse.
[2025-03-02] MEDS: levoFLOXacin 750 MG TABLET PO (10:40)
--- NOTE | 2025-03-02 11:41 | PCPTNOTE ---
Attempted second time to see patient for PT. Patient refused PT treatment this session.
--- NOTE | 2025-03-02 11:53 | PCOTNOTE ---
Attempted to see Patient this A.M. Patient refused to participate in any activity at this time. Patient is agitated, states he thought he was being discharged yesterday and he is still sitting here with no answer.
[2025-03-02] MEDS: DICLOFENAC SODIUM 1% 100 GM GEL (*BKC) 1 APPLIC TOPICAL (12:26)
--- NOTE | 2025-03-02 13:20 | PCPTNOTE ---
Attempted to see patient for PT, however patient refused. Patient seemed agitated and stated he just wants to leave and that he can do what he needs to once he is home. Patient did not want to work with PT. RN aware.
--- NOTE | 2025-03-02 13:33 | P.PNNP_ITS ---
Progress Note: A&P Assessment and Plan (1) Hyperkalemia: Code(s): E87.5 - Hyperkalemia Status: Acute Assessment and Plan: * improvement noted (if not resolved) * as noted by labs since the evening of 02/25 * s/p medical therapy (lokelma, D50, insulin, calcium gluconate, and nebulizer treatment) * suspect multifactorial etiology: * JOSSELIN/ARF * GI bleed (and associated RBC hemolysis in stomach) * acidosis * underlying kidney disease(?) - CT A/P noted atrophic kidneys * infection (LE cellulitis) * follow trend of repeat K+ levels (2) JOSSELIN (acute kidney injury): Code(s): N17.9 - Acute kidney failure, unspecified Status: Acute Assessment and Plan: * ongoing improvement noted if not back to baseline * noted on 02/25 by AM labs * due to several issues: * prerenal factors * diuresis/overdiuresis * relative hypotension * anemia/GI bleed * other(?) * evaluation to date noted: * CT A/P without obstruction but atrophic kidneys noted * urine electrolytes pre-renal * urine eosinophils negative * no significant proteinuria * CPK normal * diuretics on hold * gentle IVFs as volume status allows * acidosis a bit worse -- oral sodium bicarbonate x 4 doses to compensate * follow trend of repeat labs and UOP (3) Coffee ground emesis: Code(s): K92.0 - Hematemesis Status: Acute Assessment and Plan: * as noted by events on the evening of 02/25 * drop in H/H noted as well * complicated by anticoagulation/elevated INR * PRBC transfusion per protocol * blood thinners on hold * on PPI * GI following: * EGD (on 02/27): ulcerative gastritis/esophagitis noted * follow trend of H/H (4) Hypotension: Code(s): I95.9 - Hypotension, unspecified Status: Acute Assessment and Plan: * resolved * presumably due to GI bleed versus early sepsis versus combo of both * slowly restart BP medications as needed * wean off IVFs * holding midodrine * follow trend of hemodynamics (5) Cellulitis: Qualifiers: Laterality: unspecified laterality Site of cellulitis: extremity Site of cellulitis of extremity: lower extremity Qualified Code(s): L03.119 - Cellulitis of unspecified part of limb Code(s): L03.90 - Cellulitis, unspecified Status: Acute Assessment and Plan: * clinical improvement * follow culture data - negatiave to date * on antibiotics (6) Anemia: Qualifiers: Anemia type: unspecified type Qualified Code(s): D64.9 - Anemia, unspecified Code(s): D64.9 - Anemia, unspecified Status: Acute Assessment and Plan: * see #3 * follow H/H (7) Bilateral edema of lower extremity: Code(s): R60.0 - Localized edema Status: Acute Assessment and Plan: * appears to be a chronic issue at baseline * likely exacerbated by #5 * improvement noted with IV diuretics * however, diuresis on hold due to #2 and #4 * continue conservative therapy (propping legs up, RON-wraps...etc) (8) Afib: Qualifiers: Atrial fibrillation type: unspecified Qualified Code(s): I48.91 - Unspecified atrial fibrillation Code(s): I48.91 - Unspecified atrial fibrillation Status: Acute Assessment and Plan: * rate control strategy * however, metoprolol on hold due to #4 * anticoagulation on hold due to #3 Not much else to add -- will continue to follow from a distance. L Subjective Date/time seen: 03/02/25 13:33 Interval history: Follow-up for acute kidney injury/acute renal failure. Slow and steady improvement in renal function/creatinine as noted by trend of labs with adequate urine output; H/H relatively stable and nof further episodes of hematemesis noted/reported; no apparent distress voiced at the time of my visit; no other issues/events overnight or earlier this morning. Exam 2 Narrative: General: elderly but WD/WN male in NAD Heart: normal S1 and S2; no rub Lungs: clear to auscultation Abdomen: soft, nontender, nondistended, positive bowel sounds Extremities: no cyanosis or clubbing; trace - 1+ edema Skin: LE dressings noted Objective Data Vital Signs Vital Signs: Vital Signs Temp Pulse Resp BP Pulse Ox O2 Del Method 03/02/25 13:00 97.6 F 56 L 18 129/68 100 03/02/25 08:00 Room Air 03/02/25 05:52 97 F L 50 L 16 139/64 98 03/01/25 21:14 97.2 F L 54 L 16 126/72 100 03/01/25 20:00 Room Air Intake/Output Intake/Output: Intake & Output 02/27/25 02/28/25 03/01/25 03/02/25 23:59 23:59 23:59 23:59 Intake Total 2450 3160 2658 965 Output Total 2300 200 125 Balance 150 2960 2658 840 Meds/Results Medications: Active Medications Generic Name Dose Route Start Last Admin Trade Name Freq PRN Reason Stop Dose Admin Hydrocodone Bitart/Acetaminophen 1 tab 02/17/25 10:40 03/01/25 21:16 Hydrocodone/Acetaminophen (*Crx) 5-325 Mg Tablet PO 1 tab Q4H PRN Administration Pain Rated 7-10 Calcium Carbonate 200 mg 02/20/25 15:31 02/25/25 09:50 Calcium Carbonate (Tums) 500 Mg (200 Mg Elemental) PO 200 mg Q6H PRN Administration Indigestion Collagenase 1 applic 02/17/25 09:00 03/02/25 09:35 Collagenase Oint 30 Gm Tube TOPICAL 1 applic Q12HR SHRUTHI Administration Diclofenac Sodium 1 applic 02/18/25 13:00 03/02/25 12:26 Diclofenac Sodium 1% 100 Gm Gel (*Bkc) TOPICAL 1 applic QID SHRUTHI Administration Docusate Sodium 100 mg 02/20/25 10:18 02/23/25 03:40 Docusate Sodium 100 Mg Capsule PO 100 mg Q12H PRN Administration Constipation Hydroxyzine HCl 25 mg 02/21/25 12:15 02/27/25 20:13 Hydroxyzine Hcl 25 Mg Tablet PO 25 mg Q6H PRN Administration Itching Levofloxacin 750 mg 03/02/25 10:00 03/02/25 10:40 Levofloxacin 750 Mg Tablet PO 03/08/25 09:01 750 mg DAILY SHRUTHI Administration Lidocaine 1 patch 02/17/25 10:55 03/02/25 09:36 Lidocaine 5% Patch TRANSDERM 1 patch DAILY SHRUTHI Administration Lidocaine 1 patch 02/19/25 09:00 03/02/25 09:37 Lidocaine 5% Patch TRANSDERM 1 patch DAILY SHRUTHI Administration Linezolid 600 mg 03/02/25 21:00 Linezolid 600 Mg Tablet PO 03/08/25 21:01 Q12HR SHRUTHI Midodrine 10 mg 02/26/25 17:00 02/28/25 09:49 Midodrine Hcl 2.5 Mg Tablet PO Not Given TID SHRUTHI Ondansetron HCl 4 mg 02/17/25 02:55 02/25/25 23:11 Ondansetron Inj 4 Mg/2 Ml Vial IV PUSH 4 mg Q4H PRN Administration Nausea Pantoprazole Sodium 40 mg 02/26/25 09:00 03/02/25 09:25 Pantoprazole Sodium Iv 40 Mg Vial IV PUSH 40 mg Q12HR SHRUTHI Administration Polyethylene Glycol 17 gm 02/20/25 10:20 02/23/25 03:41 Polyethylene Glycol 3350 17 Gm Powd.Pack PO 17 gm QAM PRN Administration Constipation Sodium Bicarbonate 1,300 mg 03/01/25 17:00 03/02/25 09:24 Sodium Bicarbonate Tab 650 Mg Tablet PO 03/03/25 17:01 1,300 mg BID SHRUTHI Administration Sucralfate 1,000 mg 02/27/25 16:30 03/02/25 10:40 Sucralfate Susp 100 Mg/Ml 10 Ml Udc PO 1,000 mg ACHS SHRUTHI Administration Radiology Results: ITS Impressions Venous Doppler Study 02/16/25 18:08 IMPRESSION: Negative bilateral lower extremity venous US. No deep vein thrombosis. Tibia/Fibula X-Ray 02/17/25 06:31 Impression: Diffuse soft tissue edema. Moderate degenerative change at the knee. No evidence for osteomyelitis. Chest X-Ray 02/25/25 21:47 IMPRESSION: Possible left basilar atelectasis versus pneumonia versus fibrotic changes. Clinical correlation and follow-up advised. Abdomen/Pelvis CT 02/26/25 06:06 IMPRESSION: 1. No acute abdominal abnormality. 2: Cholelithiasis. Chest CT 02/27/25 10:01 IMPRESSION: 1. Minimal pulmonary edema with small bilateral pleural effusions. 2. Cholelithiasis. Renal Ultrasound 03/01/25 21:17 IMPRESSION: No hydronephrosis or renal calculi. Findings suggesting medical renal disease. Labs Labs: Laboratory Tests 03/02/25 05:01 03/02/25 05:01 Calcium 7.9 L Total Bilirubin 1.5 H AST 27 ALT 26 Alkaline Phosphatase 61 Total Protein 6.0 L Albumin 2.9 L Vancomycin Trough 19.6 Microbiology 02/26/25 09:11 Stool Escherichia coli Shiga Toxins - Final 02/26/25 09:11 Stool Salmonella/Shigella Culture - Final 02/26/25 09:11 Stool Campylobacter Antigen Assay - Final
[2025-03-02 14:00] VITALS: BP 129/68; PULSE 56; RESP 18; TEMP 36.4; O2SAT 100
--- NOTE | 2025-03-02 15:58 | PM.DS ---
DS: Admitting Diagnosis Discharge Date 03/02/2025 Admitting Diagnosis Bilateral lower extremity infection DS: Discharge Diagnosis Discharge Diagnosis (1) Cellulitis: Qualifiers: Laterality: unspecified laterality Site of cellulitis: extremity Site of cellulitis of extremity: lower extremity Qualified Code(s): L03.119 - Cellulitis of unspecified part of limb Code(s): L03.90 - Cellulitis, unspecified Status: Acute Assessment and Plan: Improving although erythema is improving Status post Cefepime and Vanc, Flagyl monitor cultures (2) Degenerative joint disease of knee: Qualifiers: Osteoarthritis type: primary Laterality: bilateral Qualified Code(s): M17.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 Code(s): M17.9 - Osteoarthritis of knee, unspecified Status: Acute Assessment and Plan: PRN pain control continue PT/OT and outpatient followup (3) Bilateral edema of lower extremity: Code(s): R60.0 - Localized edema Status: Acute Assessment and Plan: likely from Diastolic dysfunction Lasix on hold due to Hypotension monitor (4) Afib: Qualifiers: Atrial fibrillation type: unspecified Qualified Code(s): I48.91 - Unspecified atrial fibrillation Code(s): I48.91 - Unspecified atrial fibrillation Status: Acute Assessment and Plan: - ECHO showed ef 60-65% with diastolic dysfunction - Eliquis on hold due to GI bleed Hold Metoprolol (5) Left shoulder pain: Qualifiers: Chronicity: chronic Qualified Code(s): M25.512 - Pain in left shoulder; G89.29 - Other chronic pain Code(s): M25.512 - Pain in left shoulder Status: Acute Assessment and Plan: - New onset agitation of left shoulder pain, lifting and abducting arm 02/18 - Lidocaine patch and Voltaren topical gel for control (6) Anemia: Qualifiers: Anemia type: unspecified type Qualified Code(s): D64.9 - Anemia, unspecified Code(s): D64.9 - Anemia, unspecified Status: Acute Assessment and Plan: Patient has Coffee ground emesis last night and now with melena stool Hb 6.6, s/p 1 unit pRBC On PPI and Eliquis on hold GI consulted underwent EGD monitor Plan CHF exacerbation ECHO showed diastolic dysfunction leg edema Hold Lasix due to hypotension Echocardiogram performed on 02/18/2025: Left ventricular systolic function is normal, estimated at 60-65%. JOSSELIN Cr 1.56 from 1.76, baseline 1.04 Lasix on hold Monitor Hypotension and lactic acidosis from GI bleed and hypovolemia lactic acidosis resolved continue IVF and Midodrine monitor GI bleed Coffee ground emesis and Melena stool Stool culture pending, c diff negative CT AP no acute changes Underwent EGD on 02/27/2025 which shows esophageal ulcer without bleeding, gastritis, unspecific gastric ulcer, duodenitis. As per GI no insights or Eliquis and repeat the EGD in 4 months. GI following DVT prophylaxis on SCDs, Eliquis on hold DS: Summary Hospital Course Hospital Course: 74-year-old male with history of atrial fibrillation treated with Eliquis and hypertension presenting with bilateral lower extremity swelling and concern for infection related to open wound. Worsening began a few days ago with increased pain, redness, swelling, serous drainage, and decreased appetite. Original wound December 2023 to posterior portion of right calf and attempted self treatment with Neosporin and peroxide. Condition slowly worsened and he was treated at an emergency room with topical iodine and packing. Wound reportedly healed but reopened and became infected late last year. He thinks the wound to the left anterior leg occurred due to scratching it with his toenail. States drainage has always been clear yellow. Bilateral leg swelling began early this year, and patient reported he hasn't received primary medical care recently due to lack of access with clinic availability and transportation concerns. Augmentin was reportedly prescribed by the last week and was taken with no improvement. Legs have been weeping for the past couple of weeks. Ambulation and activity has been difficult due to bilateral knee degenerative joint disease. Denies chest pain, fevers, chills, difficulty breathing, headache, dizziness, fatigue, paresthesias, changes in bowel or bladder habits, and other recent infection. I assumed care 02/28/2025 Interval history:74-year-old male with history of atrial fibrillation treated with Eliquis and hypertension presenting with bilateral lower extremity swelling and concern for infection related to open wound. During the hospitalization patient had hematemesis. He underwent EGD on 02/27/2025 which shows esophageal ulcer without bleeding, gastritis, unspecific gastric ulcer, duodenitis. As per GI hold Eliquis and repeat the EGD in 4 months. Patient WBC is getting improved. 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 Switch to oral antibiotic on 0 03/02 fluoroquinolones and linezolid. Status at Discharge Cognitive/behavioral status at discharge: Stable Time Spent with Patient Time attestation: Total time spent providing and/or coordinating discharge services: Exam Narrative: AF HR 58 RR 18 SPO2 98 BP 132/58 General: male in no acute respiratory distress who is nontoxic appearing, sitting up in chair, not elevating legs. HEENT: Normocephalic. Atraumatic. Extraocular movement intact. Sclera clear and anicteric. No facial asymmetry. Chest: Lungs are clear to auscultation bilaterally. CV: Heart was regular rate and rhythm. Abd: Abdomen was soft. Nontender. Nondistended. Positive bowel sounds. Ext: No clubbing. DP pulses bilaterally. Severe bilateral pitting edema with weeping. Large wound to the right mid calf with yellow slough. Several small wounds with yellow slough on bilateral lower extremities. See wound care note. Neuro: Patient is alert and oriented x4. Speech is clear. Const: General: comfortable DS: Data Data Completed and Pending Completed studies during hospitalization: Pending at discharge 02/27/25 15:03 Surgical [PTH] Routine Labs on day of discharge: Labs from last 24 hours 03/02/25 05:01 WBC 13.4 H RBC 2.54 L Hgb 8.0 L Hct 25.9 L MCV 102.0 H MCH 31.5 MCHC 30.9 L RDW 16.7 H Plt Count 203 MPV 10.7 H Sodium 137 Potassium 4.1 Chloride 111 H Carbon Dioxide 17 L Anion Gap 9 BUN 46 H Creatinine 1.14 Estim Creat Clear Calc 59 Estimated GFR > 60 Glucose 78 Calcium 7.9 L Total Bilirubin 1.5 H AST 27 ALT 26 Alkaline Phosphatase 61 Total Protein 6.0 L Albumin 2.9 L Vancomycin Trough 19.6 Preliminary micro results at discharge 02/25/25 20:00 Blood Culture - Preliminary Blood 02/25/25 20:00 Blood Culture - Preliminary Blood Imaging Radiologist's impression: ITS Impressions Venous Doppler Study 02/16/25 18:08 IMPRESSION: Negative bilateral lower extremity venous US. No deep vein thrombosis. Tibia/Fibula X-Ray 02/17/25 06:31 Impression: Mild diffuse soft tissue edema. 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 No evidence for osteitis. Tibia/Fibula X-Ray 02/17/25 06:31 Impression: Diffuse soft tissue edema. Moderate degenerative change at the knee. No evidence for osteomyelitis. Chest X-Ray 02/17/25 06:32 Impression: Clear lungs. Chest X-Ray 02/24/25 08:51 IMPRESSION: 1. Unchanged mild discoid atelectasis at the bilateral lower lung zones. No other acute cardiopulmonary disease. Chest X-Ray 02/25/25 21:47 IMPRESSION: Possible left basilar atelectasis versus pneumonia versus fibrotic changes. Clinical correlation and follow-up advised. Abdomen/Pelvis CT 02/26/25 06:06 IMPRESSION: 1. No acute abdominal abnormality. 2: Cholelithiasis. Chest CT 02/27/25 10:01 IMPRESSION: 1. Minimal pulmonary edema with small bilateral pleural effusions. 2. Cholelithiasis. Renal Ultrasound 03/01/25 21:17 IMPRESSION: No hydronephrosis or renal calculi. Findings suggesting medical renal disease. Discharge Plan Discharge Attending physician on discharge: Keaton Hurley Consulting providers: Dominic Fernandez; Demond Crum; Arjun Duffy Discharging Clinician: Keaton Hurley Patient Disposition: Home Activity: as tolerated Diet: as tolerated Discharge Instructions: Due to anemia and esophageal ulcer holding Eliquis. Patient needs repeat EGD in 4 months. Patient needs to discuss with his PCP/cardiology in regards to continuing Eliquis. Check blood pressure 1 to 2 times a day. Record and bring into your doctor for review. Call your doctor if your blood pressure is greater than 180/110 or less than 90/45. Walk with cane or other assist device. Take precautions to avoid falls. Rise slowly from a lying or sitting position. Pause before standing or walking. Contact your doctor or call 911 and come to the Emergency Room if you have any type of trauma, lightheadedness with standing or other worrisome symptoms. Avoid NSAIDs (ibuprofen, naproxen, Aleve). Tylenol is safe to take. Follow-up with your primary care provider in 1-2 weeks. Please call for appointment. Follow-up with Cardiology in 2-4 weeks. Please call for an appointment. Thank you for using [facility] for your health care needs Patient Instructions: Antibiotic Form, Apixaban (By mouth), Safe Use of Anticoagulants (GEN), Blood Thinners (GEN) Patient Language: [place] Stand Alone Forms: General Discharge Information Follow-up/Referrals: Zari Chong [Other] Arjun Duffy MD [Physician] - Dominic Fernandez MD [Physician] - Demond Crum MD [Physician] - (Need repeat EGD) Discharge Medications: New sodium bicarbonate 650 mg Tablet 1,300 mg PO BID Qty: 2 0RF linezolid 600 mg Tablet 600 mg PO Q12HR Qty: 14 0RF Rx Instructions: Please complete the course on 0 03/08 levofloxacin 750 mg tablet 750 mg PO DAILY Qty: 7 0RF Rx Instructions: Please complete the course on 03/08 Santyl 250 unit/gram Ointment 1 applic topical Q12HR Qty: 30 0RF docusate sodium 100 mg Capsule 100 mg PO Q12H PRN (Reason: Constipation) Qty: 30 0RF calcium carbonate 500 mg calcium (1,250 mg) Tablet,Chewable 200 mg PO Q6H PRN (Reason: Indigestion) Qty: 30 0RF midodrine 2.5 mg Tablet 10 mg PO TID Qty: 30 0RF sucralfate 100 mg/mL Suspension 1,000 mg PO ACHS Qty: 30 0RF pantoprazole [Protonix] 40 mg tablet,delayed release (DR/EC) 40 mg PO BID 112 Days Qty: 224 0RF Held Eliquis 5 mg tablet 5 mg PO BID Hold Instructions: Resume on 07/09/25. Holding Eliquis due to anemia. Patient needs a repeat EGD in 4 months. Please discuss with your PCP in regards to continuing Eliquis Date of admission: 02/17/25 07:42 Primary Care Provider: Zari Chong Admitting Provider: Maximino Crow Attending physician on admission: Alexa Darden Condition: Stable
--- NOTE | 2025-03-02 16:20 | P.PNGI_ITS ---
Progress Note: A&P Assessment and Plan (1) Coffee ground emesis: Code(s): K92.0 - Hematemesis Status: Acute Assessment and Plan: egd finding of ulcerative gastritis/esophagitis- cause of worsening anemia he can go home with protonix twice daily (I already sent prescription) no h pylori tolerating diet and no more gib egd in 4 months to assess healing hold blood thinner at least for 7 days no nsaid's primary to repeat cbc aas outpatient (2) Gastric ulcer: Code(s): K25.9 - Gastric ulcer, unspecified as acute or chronic, without hemorrhage or perforation Status: Acute Assessment and Plan: protonix daily no more gib hgb stable 8 (3) Erosive esophagitis: Code(s): K22.10 - Ulcer of esophagus without bleeding Status: Acute (4) 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: Code(s): Z79.01 - group home (current) use of anticoagulants Status: Acute (5) Acute on chronic anemia: Code(s): D64.9 - Anemia, unspecified Status: Acute Assessment and Plan: no more signs of bleeding (6) Cellulitis: Qualifiers: Laterality: unspecified laterality Site of cellulitis: extremity Site of cellulitis of extremity: lower extremity Qualified Code(s): L03.119 - Cellulitis of unspecified part of limb Code(s): L03.90 - Cellulitis, unspecified Status: Acute Assessment and Plan: treated Subjective Date/time seen: 03/02/25 16:20 Interval history: he is doing great and would like to go home if possible no gib Review of Systems Review of Systems: All systems reviewed & are unremarkable except as noted in HPI and below Exam Const: General: comfortable Other: chronically ill apperaring HENMT: Face/Nose/Sinus: Normal nares present Eyes: General: appearance normal, both eyes and all related structures Neck: Neck: supple Resp: Effort & Inspection: normal respiratory effort Cardio: Rate: regular rate GI: GI Palp: Yes Soft to palpation and No Tenderness to palpation present (GI) Skin: Wounds: wounds noted Other: wound in legs Neuro: Speech: normal speech Extrem: General: pedal edema Psych: Affect: normal affect Objective Data Vital Signs Vital Signs: Vital Signs - 24 hr 03/01/25 20:00 03/01/25 21:14 03/02/25 05:52 Temperature 97.2 F L 97 F L Pulse Rate 54 L 50 L Respiratory Rate 16 16 Blood Pressure 126/72 139/64 Pulse Oximetry 100 98 Oxygen Delivery Room Air 03/02/25 08:00 03/02/25 14:00 Temperature 97.6 F Pulse Rate 56 L Respiratory Rate 18 Blood Pressure 129/68 Pulse Oximetry 100 Oxygen Delivery Room Air Intake/Output Intake/Output: Intake & Output 02/27/25 02/28/25 03/01/25 03/02/25 23:59 23:59 23:59 23:59 Intake Total 2450 3160 2658 965 Output Total 2300 200 125 Balance 150 2960 2658 840 Meds/Results Medications: Active Medications Generic Name Dose Route Start Last Admin Trade Name Freq PRN Reason Stop Dose Admin Hydrocodone Bitart/Acetaminophen 1 tab 02/17/25 10:40 03/01/25 21:16 Hydrocodone/Acetaminophen (*Crx) 5-325 Mg Tablet PO 1 tab Q4H PRN Administration Pain Rated 7-10 Calcium Carbonate 200 mg 02/20/25 15:31 02/25/25 09:50 Calcium Carbonate (Tums) 500 Mg (200 Mg Elemental) PO 200 mg Q6H PRN Administration Indigestion Collagenase 1 applic 02/17/25 09:00 03/02/25 09:35 Collagenase Oint 30 Gm Tube TOPICAL 1 applic Q12HR SHRUTHI Administration Diclofenac Sodium 1 applic 02/18/25 13:00 03/02/25 12:26 Diclofenac Sodium 1% 100 Gm Gel (*Bkc) TOPICAL 1 applic QID SHRUTHI Administration Docusate Sodium 100 mg 02/20/25 10:18 02/23/25 03:40 Docusate Sodium 100 Mg Capsule PO 100 mg Q12H PRN Administration Constipation Hydroxyzine HCl 25 mg 02/21/25 12:15 02/27/25 20:13 Hydroxyzine Hcl 25 Mg Tablet PO 25 mg Q6H PRN Administration Itching Levofloxacin 750 mg 03/02/25 10:00 03/02/25 10:40 Levofloxacin 750 Mg Tablet PO 03/08/25 09:01 750 mg DAILY SHRUTHI Administration Lidocaine 1 patch 02/17/25 10:55 03/02/25 09:36 Lidocaine 5% Patch TRANSDERM 1 patch DAILY SHRUTHI Administration Lidocaine 1 patch 02/19/25 09:00 03/02/25 09:37 Lidocaine 5% Patch TRANSDERM 1 patch DAILY SHRUTHI Administration Linezolid 600 mg 03/02/25 21:00 Linezolid 600 Mg Tablet PO 03/08/25 21:01 Q12HR SHRUTHI Midodrine 10 mg 02/26/25 17:00 02/28/25 09:49 Midodrine Hcl 2.5 Mg Tablet PO Not Given TID SHRUTHI Ondansetron HCl 4 mg 02/17/25 02:55 02/25/25 23:11 Ondansetron Inj 4 Mg/2 Ml Vial IV PUSH 4 mg Q4H PRN Administration Nausea Pantoprazole Sodium 40 mg 02/26/25 09:00 03/02/25 09:25 Pantoprazole Sodium Iv 40 Mg Vial IV PUSH 40 mg Q12HR SHRUTHI Administration Polyethylene Glycol 17 gm 02/20/25 10:20 02/23/25 03:41 Polyethylene Glycol 3350 17 Gm Powd.Pack PO 17 gm QAM PRN Administration Constipation Sodium Bicarbonate 1,300 mg 03/01/25 17:00 03/02/25 09:24 Sodium Bicarbonate Tab 650 Mg Tablet PO 03/03/25 17:01 1,300 mg BID SHRUTHI Administration Sucralfate 1,000 mg 02/27/25 16:30 03/02/25 10:40 Sucralfate Susp 100 Mg/Ml 10 Ml Udc PO 1,000 mg ACHS SHRUTHI Administration Radiology Results: ITS Impressions Venous Doppler Study 02/16/25 18:08 IMPRESSION: Negative bilateral lower extremity venous US. No deep vein thrombosis. Tibia/Fibula X-Ray 02/17/25 06:31 Impression: Diffuse soft tissue edema. Moderate degenerative change at the knee. No evidence for osteomyelitis. Chest X-Ray 02/25/25 21:47 IMPRESSION: Possible left basilar atelectasis versus pneumonia versus fibrotic changes. Clinical correlation and follow-up advised. Abdomen/Pelvis CT 02/26/25 06:06 IMPRESSION: 1. No acute abdominal abnormality. 2: Cholelithiasis. Chest CT 02/27/25 10:01 IMPRESSION: 1. Minimal pulmonary edema with small bilateral pleural effusions. 2. Cholelithiasis. Renal Ultrasound 03/01/25 21:17 IMPRESSION: No hydronephrosis or renal calculi. Findings suggesting medical renal disease. Labs Labs: Laboratory Results - last 24 hr 03/02/25 05:01 WBC 13.4 H RBC 2.54 L Hgb 8.0 L Hct 25.9 L MCV 102.0 H MCH 31.5 MCHC 30.9 L RDW 16.7 H Plt Count 203 MPV 10.7 H Sodium 137 Potassium 4.1 Chloride 111 H Carbon Dioxide 17 L Anion Gap 9 BUN 46 H Creatinine 1.14 Estim Creat Clear Calc 59 Estimated GFR > 60 Glucose 78 Calcium 7.9 L Total Bilirubin 1.5 H AST 27 ALT 26 Alkaline Phosphatase 61 Total Protein 6.0 L Albumin 2.9 L Vancomycin Trough 19.6
== END 2025-03-02 17:30 | disposition home or self-care (01) | DRG 602 ==
LOC: ANHED 02-17 02:54 → ANH2MED 02-17 03:45 → ANHIMU 02-25 22:05 → ANH3MEDSUR 03-02 15:40 → ANHIMU 03-03 09:49
PROVIDERS: Emergency Medicine; General Practice; Internal Medicine; Internal Medicine Gastroenterology; Internal Medicine Nephrology; Nurse Practitioner; Nurse Practitioner Gerontology; Physician Assistant; Student in an Organized Health Care Education/Training Program; Admitting Provider Internal Medicine; Emergency Provider Physician Assistant; Visit Provider General Practice
PROC: 0DJ08ZZ Inspection of Upper Intestinal Tract, Via Natural or Artificial Opening Endoscopic (ICD-10-PCS; principal; 2025-02-27 15:30)
DX: L03.116 Cellulitis of left lower limb (principal); I50.31 Acute diastolic (congestive) heart failure; N17.9 Acute kidney failure, unspecified; K92.0 Hematemesis; K22.10 Ulcer of esophagus without bleeding; L97.929 Non-pressure chronic ulcer of unspecified part of left lower leg with unspecified severity; L97.919 Non-pressure chronic ulcer of unspecified part of right lower leg with unspecified severity; E87.21 Acute metabolic acidosis; L03.115 Cellulitis of right lower limb; E87.5 Hyperkalemia; I95.9 Hypotension, unspecified; I87.2 Venous insufficiency (chronic) (peripheral); I89.0 Lymphedema, not elsewhere classified; K29.70 Gastritis, unspecified, without bleeding; K25.9 Gastric ulcer, unspecified as acute or chronic, without hemorrhage or perforation; K29.80 Duodenitis without bleeding; I48.91 Unspecified atrial fibrillation; D64.9 Anemia, unspecified; M17.0 Bilateral primary osteoarthritis of knee; M25.512 Pain in left shoulder; G89.29 Other chronic pain; Z79.01 Long term (current) use of anticoagulants; I10 Essential (primary) hypertension
CPT/HCPCS: 36415; 36430; 71045; 71250; 73590; 74176; 76775; 80048; 80053; 80202; 81001; 82248; 82274; 82550; 82565; 82570; 82607; 82728; 82746; 82948; 83010; 83540; 83550; 83605; 83615; 83735; 83874; 83880; 84100; 84132; 84145; 84156; 84300; 84466; 84540; 85014; 85018; 85025; 85027; 85046; 85610; 85652; 85730; 85999; 86140; 86850; 86880; 86900; 86901; 86923; 87040; 87045; 87081; 87427; 87449; 87493; 87641; 88305; 88342; 93005; 93306; 93970; 94640; 96365; 96366; 96367; 96368; 96375; 96376; 97110; 97161; 97165; 97530; 97535; 99285; A9270; G0378; J0612; J0692; J0696; J1815; J1836; J1938; J2003; J2185; J2270; J2405; J2470; J2704; J3370; J7030; J7050; J7120; P9016; P9047

== ENCOUNTER 2025-03-05 18:12 | Inpatient (IN) | payer MEDICARE, OTHER, SELFPAY ==
[2025-03-05] VITALS (11 sets, daily range): BP systolic 100–130; BP diastolic 55–73; PULSE 46–57; RESP 12–28; TEMP 36.6; O2SAT 97–100
--- OUTSIDE RECORDS SUMMARY | 2025-03-05 18:14 | XMS_ITS | Clinical Summary ---
Author Organization [facility] Address [address] [place] [id number] Care Team Providers Care Director Of Institutional Sales Name Role Phone Unavailable Primary Care Provider [...] Td Vaccines ( 1 - Tdap) 1969 Pneumococcal Vaccine: 50+ Ye ars (1 of 1 - PCV) 2000 Zoster Vaccines (1 of 2) 2000 COVID-19 Vaccine ( - 2023-2 5 season) [...]
--- OUTSIDE RECORDS SUMMARY | 2025-03-05 21:56 | XMS_ITS | Clinical Summary ---
Author Organization [facility] Address [address] [place] [id number] Care Team Providers Care Customer Service Agent Name Role Phone Unavailable Primary Care Provider [...]
[2025-03-05 23:01] LABS: Basophils Absolute Auto 0.1 K/mm3 (0.0-0.1); Basophils Percent Auto 0.3 % (0.2-1.2); Eosinophils Absolute Auto 0.2 K/mm3 (0-0.3); Hematocrit 26.9 % (42.0-52.0); Hemoglobin 8.2 g/dL (14.0-18.0); Immature Granulocyte Absolute 0.28 K/mm3 (0.00-0.031); Immature Granulocyte Percent A 1.6 % (0-0.5); Lymphocytes Absolute Auto 1.99 K/mm3 (0.9-3.2); Mean Corpuscular HGB Conc 30.5 g/dl (32-36); Mean Corpuscular Hemoglobin 30.9 pg (26-34); Mean Corpuscular Volume 101.5 fl (80-100); Mean Platelet Volume 10.5 fl (7.4-10.4); Monocytes Absolute Auto 1.1 K/mm3 (0.1-0.6); Monocytes Percent Auto 6.1 % (2.6-8.5); Neutrophils Absolute Auto 14.4 K/mm3 (1.3-6.7); Nucleated Red Blood Cells Perc 0.9 % (0.0-0.2); Platelet Count Result 257 k/mm3 (150-375); Red Blood Count 2.65 M/mm3 (4.6-6.20); Red Cell Distribution Width 18.7 % (11.5-14.5)
[2025-03-05] MEDS: oxyCODONE/ACETAMINOPHEN (*CRX) 5-325 MG TABLET 1 TABLET PO (23:01)
[2025-03-05 23:13] LABS: Alanine Aminotransferase 27 U/L (6-50); Albumin Level 2.8 g/dL (3.5-5.1); Alkaline Phosphatase 142 U/L (38-126); Anion Gap 9 mmol/L (4-12); Aspartate Amino Transferase 27 U/L (17-59); Bilirubin,Total 1.5 mg/dL (0.2-1.3); Blood Urea Nitrogen 30 mg/dL (9-20); Calcium 8.2 mg/dL (8.4-10.2); Carbon Dioxide 20 mmol/L (22-30); Chloride 107 mmol/L (98-107); Estimated Glomerular Filt Rate > 60; Glucose 78 mg/dL (65-110); Potassium 4.1 mmol/L (3.4-5.0); Sodium 136 mmol/L (137-145)
[2025-03-05 23:22] LABS: NT Pro B Type Natriuretic Pept 2890 pg/mL (19.9-100)
--- NOTE | 2025-03-05 23:40 | ED.EXTPRO ---
HPI - Extremity Problem General Chief complaint: Extremity Problem,Nontraumatic Stated complaint: knee pain, edema Time Seen by Provider: 03/05/25 21:44 Source: patient Mode of arrival: EMS Limitations: no limitations History of Present Illness HPI Narrative: This is a 74-year-old male, with history of cellulitis complicated by sepsis and previously treated with vanc cefepime on Flagyl, Osteoarthritis of bilateral knees, AFib on Eliquis being held for GI bleed, and danemia who returns to the emergency department complaining of moving fluids in the bilateral legs and inability to ambulate at home. 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 CHF exacerbation JOSSELIN (acute kidney injury) Sepsis Coffee ground emesis Left shoulder pain Afib Degenerative joint disease of knee Hypertension Surgical History Surgical History History of hernia repair Family History Family History Father Diabetes mellitus Hypertension Sibling Diabetes mellitus Mother Hypertension Social History Social History Smoking status: Never smoker Second hand tobacco smoke exposure: No Alcohol intake: never Substance use: never Substance use type: does not use Do You Feel Safe in your Home?: Yes Lack of Transportation: YES Lack of Food: Never True Current Housing: I Have Housing Concerned About Future Housing: No Difficulty Paying Gas/Electric Bills: No Difficulty Paying for Meds: No Currently Unemployed: No Education: High School Diploma/GED Difficulty w/ Childcare or Family Care: No Living arrangements: alone Occupation/Education: retired Spiritual care concerns: No Exam Narrative: GENERAL: Well-developed, well-nourished, and in no acute distress. HEAD: Normocephalic, atraumatic. EYES: PERRLA and EOMI. NECK: Supple. No JVD CHEST: Clear to auscultation. No respiratory distress. No wheezes rales or rhonchi HEART: Regular rate and rhythm. No murmur heard. Normal peripheral pulses. ABDOMEN: Soft, nontender, nondistended, normal active bowel sounds. EXTREMITIES: Normal range of motion. Bilateral lower extremity 2+ edema extending to the knees SKIN: There is mild erythema of the bilateral legs extending approximately 5 cm proximal to the ankles. There is a clean based ulcerative lesion to the posterior aspect of right foreleg measuring approximately 7 x 5 cm. There are 3 similar smaller lesions noted to the posterior aspect of the left foreleg. The skin of the bilateral 4 legs is weeping clear fluid. Skin otherwise warm, dry, no rash. NEURO: Alert and oriented x3. No focal deficit. Moving all 4 limbs spontaneously PSYCH: Normal mood and affect. Course Course Emergency Course: 02:30 - CBC demonstrates elevated white blood cell count of 18, up from 13 on a March 02, 2025. Hemoglobin 8.2 which appears to be the patient's baseline. Chemistries demonstrate mild hyponatremia with sodium 136 and BNP elevation of 2890. I discussed the patient with his daughter and POA who notes he is not safe at home. Considering the significant amount of assistance the patient needed from nursing staff I agree that the patient would be better served at an assisted living facility or penitentiary. I discussed the patient with hospitalist, Dr. Suárez who accepts admission. Vital Signs Vital signs: Vital Signs Temperature 97.8 F 03/05/25 18:28 Pulse Rate 53 L 03/05/25 18:28 Respiratory Rate 18 03/05/25 18:28 Blood Pressure 130/57 L 03/05/25 18:28 Pulse Oximetry 100 03/05/25 18:28 Temperature 98.3 F 03/06/25 04:14 Pulse Rate 102 H 03/06/25 04:14 Respiratory Rate 18 03/06/25 04:14 Blood Pressure 105/50 L 03/06/25 04:14 Pulse Oximetry 100 03/06/25 04:14 Oxygen Delivery Room Air 03/06/25 04:20 MDM - Extremity (Nontraumatic) MDM Narrative Medical decision making narrative: Plan: Labs, diuretics, reassess Differential Diagnosis Differential diagnosis: Likely cellulitis, lower extremity edema and other (CHF exacerbation, metabolic abnormality, medication noncompliance, other) Lab Data 03/05/25 22:53 03/05/25 22:53 Labs: Lab Results 03/05/25 Range/Units 22:53 WBC 18.0 H (4.5-10.0) K/mm3 RBC 2.65 L (4.6-6.20) M/mm3 Hgb 8.2 L (14.0-18.0) g/dL Hct 26.9 L (42.0-52.0) % MCV 101.5 H (80-100) fl MCH 30.9 (26-34) pg MCHC 30.5 L (32-36) g/dl RDW 18.7 H (11.5-14.5) % Plt Count 257 (150-375) k/mm3 MPV 10.5 H (7.4-10.4) fl Immature Gran % (Auto) 1.6 H (0-0.5) % Neut % (Auto) 80.0 H (45.5-73.1) % Lymph % (Auto) 11.0 L (18.3-44.2) % Gila % (Auto) 6.1 (2.6-8.5) % Eos % (Auto) 1.0 (0-4.4) % Baso % (Auto) 0.3 (0.2-1.2) % Lymph # (Auto) 1.99 (0.9-3.2) K/mm3 Gila # (Auto) 1.1 H (0.1-0.6) K/mm3 Eos # (Auto) 0.2 (0-0.3) K/mm3 Baso # (Auto) 0.1 (0.0-0.1) K/mm3 Abs Immat Gran (auto) 0.28 H (0.00-0.031) K/mm3 Absolute Neuts (auto) 14.4 H (1.3-6.7) K/mm3 Absolute Nucleated RBC 0.170 H (0.0-0.012) K/mm3 Nucleated RBC % 0.9 H (0.0-0.2) % Sodium 136 L (137-145) mmol/L Potassium 4.1 (3.4-5.0) mmol/L Chloride 107 (98-107) mmol/L Carbon Dioxide 20 L (22-30) mmol/L Anion Gap 9 (4-12) mmol/L BUN 30 H D (9-20) mg/dL Creatinine 0.93 (0.7-1.3) mg/dL Estim Creat Clear Calc Not Reportable Estimated GFR > 60 (59 - ) Glucose 78 (65-110) mg/dL Calcium 8.2 L (8.4-10.2) mg/dL Total Bilirubin 1.5 H (0.2-1.3) mg/dL AST 27 (17-59) U/L ALT 27 (6-50) U/L Alkaline Phosphatase 142 H (38-126) U/L NT-Pro-B Natriuret Pep 2890 H (19.9-100) pg/mL Total Protein 5.0 L (6.3-8.2) g/dL Albumin 2.8 L (3.5-5.1) g/dL Discharge Plan Discharge Clinical Impression: CHF exacerbation Cellulitis Qualifiers: Site of cellulitis: extremity Site of cellulitis of extremity: lower extremity Laterality: unspecified laterality Qualified Code(s): L03.119 - Cellulitis of unspecified part of limb Patient Disposition: Still a Patient Condition: Serious Time of Disposition: 02:30
[2025-03-06] VITALS (25 sets, daily range): BP systolic 89–123; BP diastolic 47–75; PULSE 42–102; RESP 10–29; TEMP 36.1–36.8; O2SAT 91–100; BMI 32.7; BMI 31.6
[2025-03-06] MEDS: KETOROLAC 15 MG/ML VIAL (*BKC) IV PUSH (00:18)
[2025-03-06] MEDS: LINEZOLID 600 MG TABLET PO ×2 (01:21→20:29)
[2025-03-06] MEDS: FUROSEMIDE INJ 40 MG/4 ML VIAL 20 MG IV PUSH (03:22)
--- NOTE | 2025-03-06 04:20 | ADMGEN ---
This patient, Curtis Holbrook, was admitted to Medical Room 241-. Patient/family oriented to hospital policies and general routines including ID bracelet, bed and alarms, visiting hours, pain management, procedures, bathroom and other care routines, personal items, smoking policy, room service/diet, and visiting hours. Information on how to activate the Rapid Response Team has been discussed. Patient/Family are encouraged to report perceived risks to care and to ask questions if they do not understand what they are told or what they should do.
--- NOTE | 2025-03-06 04:51 | PC.NURSE ---
Instructed patient to text daughter what room he was in per her request. Patient also requesting chair to sit in. Educated patient importance of having legs elevated to help with edema/weeping of BLE. Informed patient that with his weakness and inability to stand that PT/OT can come evaluate him and get him into a chair today.
[2025-03-06] MEDS: FUROSEMIDE 40 MG TABLET PO (09:11)
--- NOTE | 2025-03-06 09:32 | P.HP_ITS ---
H&P: HPI History of Present Illness Date/Time: 03/06/25 09:32 Chief Complaint: knee pain, edema Narrative: 74-year-old male with history of atrial fibrillation treated with Eliquis and hypertension presenting with bilateral lower extremity swelling and concern for infection related to open wound. During LAST hospitalization patient had hematemesis. He underwent EGD on 02/27/2025 which shows esophageal ulcer without bleeding, gastritis, unspecific gastric ulcer, duodenitis. As per GI hold Eliquis and repeat the EGD in 4 months. 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 Started on oral fluoroquinolones and linezolid until 03/13. Patient was recently admitted in the hospital and was discharged on 03/02/2025.During last admission he was adamant in leaving the hospital and insisting to go home and reported he was doing wound dressing for almost 3 years although there was evidence his wound is in bad condition. Patient needs to assistance for wound dressing change . 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 CHF exacerbation JOSSELIN (acute kidney injury) Sepsis Coffee ground emesis Left shoulder pain Afib Degenerative joint disease of knee Hypertension Surgical History Surgical History History of hernia repair Family History Family History Father Diabetes mellitus Hypertension Sibling Diabetes mellitus Mother Hypertension Social History Social History Smoking status: Never smoker Second hand tobacco smoke exposure: No Alcohol intake: never Substance use: never Substance use type: does not use Do You Feel Safe in your Home?: Yes Lack of Transportation: YES Lack of Food: Never True Current Housing: I Have Housing Concerned About Future Housing: No Difficulty Paying Gas/Electric Bills: No Difficulty Paying for Meds: No Currently Unemployed: No Education: High School Diploma/GED Difficulty w/ Childcare or Family Care: No Living arrangements: alone Occupation/Education: retired Spiritual care concerns: No Meds Home Medications and Allergies Home Medications ?Medication ?Instructions ?Recorded ?Confirmed ?Type calcium carbonate 200 mg (0.4 x 500 mg calcium 03/02/25 03/06/25 Rx (1,250 mg)) PO Q6H PRN Indigestion #30 tabs collagenase clostridium histo. 250 1 applic topical Q12HR #30 grams 03/02/25 03/06/25 Rx unit/gram topical ointment (Santyl) docusate sodium 100 mg capsule 100 mg PO Q12H PRN Constipation 03/02/25 03/06/25 Rx #30 caps levofloxacin 750 mg tablet 750 mg PO DAILY #7 tabs 03/02/25 03/06/25 Rx linezolid 600 mg tablet 600 mg PO Q12HR #14 tabs 03/02/25 03/06/25 Rx midodrine 2.5 mg tablet 10 mg (4 x 2.5 mg) PO TID #30 tabs 03/02/25 03/06/25 Rx pantoprazole 40 mg tablet,delayed 40 mg PO BID 16 weeks #224 tabs 03/02/25 03/06/25 Rx release (Protonix) sodium bicarbonate 650 mg tablet 1,300 mg (2 x 650 mg) PO BID #2 03/02/25 03/06/25 Rx tabs sucralfate 100 mg/mL oral 1,000 mg (10 mL) PO ACHS #30 mL 03/02/25 03/06/25 Rx suspension Allergies Allergy/AdvReac Type Severity Reaction Status Date / Time Milk Containing Products Allergy Unknown Rash Verified 02/27/25 12:22 (Dairy) eggs Allergy Unknown Rash Uncoded 02/27/25 12:22 Vital Signs Vital Signs - 24 hr 03/05/25 18:28 03/05/25 21:26 03/05/25 21:42 Temperature 97.8 F Pulse Rate 53 L 53 L 50 L Respiratory Rate 18 20 23 H Blood Pressure 130/57 L 117/63 Pulse Oximetry 100 100 100 Oxygen Delivery Room Air 03/05/25 21:45 03/05/25 22:32 03/05/25 23:02 Temperature Pulse Rate 54 L 57 L 52 L Respiratory Rate 23 H 23 H 22 H Blood Pressure 100/73 113/55 L Pulse Oximetry 100 100 Oxygen Delivery 03/05/25 23:03 03/05/25 23:15 03/05/25 23:32 Temperature Pulse Rate 51 L 48 L 50 L Respiratory Rate 28 H 12 16 Blood Pressure 108/56 L Pulse Oximetry 100 Oxygen Delivery 03/05/25 23:45 03/05/25 23:47 03/06/25 00:09 Temperature Pulse Rate 46 L 47 L 51 L Respiratory Rate 14 17 21 H Blood Pressure 108/56 L Pulse Oximetry 97 Oxygen Delivery 03/06/25 00:18 03/06/25 00:30 03/06/25 00:55 Temperature Pulse Rate 53 L 45 L 47 L Respiratory Rate 17 17 15 Blood Pressure Pulse Oximetry 100 Oxygen Delivery 03/06/25 01:17 03/06/25 01:30 03/06/25 01:32 Temperature Pulse Rate 56 L 46 L 44 L Respiratory Rate 17 16 20 Blood Pressure 109/55 L Pulse Oximetry 91 100 100 Oxygen Delivery 03/06/25 01:45 03/06/25 02:00 03/06/25 02:02 Temperature Pulse Rate 42 L 48 L 51 L Respiratory Rate 15 10 L 17 Blood Pressure 100/59 L Pulse Oximetry Oxygen Delivery 03/06/25 02:24 03/06/25 02:30 03/06/25 02:31 Temperature Pulse Rate 52 L 55 L 59 L Respiratory Rate 14 29 H 17 Blood Pressure 107/53 L Pulse Oximetry 100 Oxygen Delivery 03/06/25 02:45 03/06/25 03:00 03/06/25 03:15 Temperature Pulse Rate 45 L 47 L 46 L Respiratory Rate 21 H 19 22 H Blood Pressure Pulse Oximetry 100 100 100 Oxygen Delivery 03/06/25 03:30 03/06/25 03:45 03/06/25 04:03 Temperature Pulse Rate 50 L 50 L 49 L Respiratory Rate 15 20 17 Blood Pressure Pulse Oximetry 100 95 Oxygen Delivery 03/06/25 04:14 03/06/25 04:20 03/06/25 08:30 Temperature 98.3 F Pulse Rate 102 H Respiratory Rate 18 Blood Pressure 105/50 L Pulse Oximetry 100 Oxygen Delivery Room Air Room Air 03/06/25 09:11 Temperature Pulse Rate Respiratory Rate Blood Pressure Pulse Oximetry Oxygen Delivery Room Air Exam Narrative: GENERAL: Well-developed, well-nourished, and in no acute distress. HEAD: Normocephalic, atraumatic. EYES: PERRLA and EOMI. NECK: Supple. No JVD CHEST: Clear to auscultation. No respiratory distress. No wheezes rales or rhonchi HEART: Regular rate and rhythm. No murmur heard. Normal peripheral pulses. ABDOMEN: Soft, nontender, nondistended, normal active bowel sounds. EXTREMITIES: Normal range of motion. Bilateral lower extremity 2+ edema extending to the knees SKIN: There is mild erythema of the bilateral legs extending approximately 5 cm proximal to the ankles. There is a clean based ulcerative lesion to the posterior aspect of right foreleg measuring approximately 7 x 5 cm. There are 3 similar smaller lesions noted to the posterior aspect of the left foreleg. The skin of the bilateral 4 legs is weeping clear fluid. Skin otherwise warm, dry, no rash. NEURO: Alert and oriented x3. No focal deficit. Moving all 4 limbs spontaneously PSYCH: Normal mood and affect. H&P: Results Labs Labs: Short CBC 03/05/25 Range/Units 22:53 WBC 18.0 H (4.5-10.0) K/mm3 Hgb 8.2 L (14.0-18.0) g/dL Hct 26.9 L (42.0-52.0) % Plt Count 257 (150-375) k/mm3 BMP 03/05/25 22:53 Sodium 136 L Potassium 4.1 Chloride 107 Carbon Dioxide 20 L BUN 30 H D Creatinine 0.93 Glucose 78 Calcium 8.2 L Liver Function 03/05/25 Range/Units 22:53 Total Bilirubin 1.5 H (0.2-1.3) mg/dL AST 27 (17-59) U/L ALT 27 (6-50) U/L Alkaline Phosphatase 142 H (38-126) U/L Albumin 2.8 L (3.5-5.1) g/dL Assessment and Plan Assessment and plan (1) Hypotension: Code(s): I95.9 - Hypotension, unspecified Status: Acute (2) CHF exacerbation: Code(s): I50.9 - Heart failure, unspecified Status: Acute (3) Afib: Qualifiers: Atrial fibrillation type: unspecified Qualified Code(s): I48.91 - Unspecified atrial fibrillation Code(s): I48.91 - Unspecified atrial fibrillation Status: Acute (4) 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: Code(s): 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 Status: Acute (5) Coffee ground emesis: Code(s): K92.0 - Hematemesis Status: Acute (6) Gastric ulcer: Code(s): K25.9 - Gastric ulcer, unspecified as acute or chronic, without hemorrhage or perforation Status: Acute (7) Erosive esophagitis: Code(s): K22.10 - Ulcer of esophagus without bleeding Status: Acute Plan CHF exacerbation ECHO showed diastolic dysfunction leg edema Hold Lasix due to hypotension JOSSELIN Cr 1.56 from 1.76, baseline 1.04 Lasix on hold Monitor Hypotension Hx GI bleed and hypovolemia Continue Midodrine monitor Hx of GI bleed Coffee ground emesis and Melena stool Stool culture pending, c diff negative He underwent EGD on 02/27/2025 which shows esophageal ulcer without bleeding, gastritis, unspecific gastric ulcer, duodenitis. As per GI hold Eliquis and repeat the EGD in 4 months. Right LE wound/venous statis Wound care consult Continue Linezolid DVT prophylaxis on SCDs, Eliquis on hold Hospitalist MIPS Advance Care Plan I have confirmed that the patient's Advanced Care Plan is present, code status is documented, or surrogate decision maker is listed in patient medical record.: Yes Medication Reconciliation I have utilized all available resources to obtain, update and review the patients current medications (includes all prescriptions, OTC, herbals, canna bis, and nutritional supplements).: Yes
[2025-03-06 10:43] LABS: Hemoglobin 8.5 g/dL (14.0-18.0); Mean Corpuscular HGB Conc 30.4 g/dl (32-36); Mean Corpuscular Hemoglobin 30.2 pg (26-34); Mean Corpuscular Volume 99.6 fl (80-100); Mean Platelet Volume 10.6 fl (7.4-10.4); Platelet Count Result 283 k/mm3 (150-375); Red Blood Count 2.81 M/mm3 (4.6-6.20); Red Cell Distribution Width 18.2 % (11.5-14.5); White Blood Count 13.3 K/mm3 (4.5-10.0)
[2025-03-06 10:57] LABS: Alanine Aminotransferase 27 U/L (6-50); Albumin Level 2.9 g/dL (3.5-5.1); Alkaline Phosphatase 120 U/L (38-126); Anion Gap 8 mmol/L (4-12); Aspartate Amino Transferase 35 U/L (17-59); Bilirubin,Total 1.5 mg/dL (0.2-1.3); Blood Urea Nitrogen 31 mg/dL (9-20); Carbon Dioxide 20 mmol/L (22-30); Chloride 107 mmol/L (98-107); Estimated CRCL calculation 75 ml/min; Estimated Glomerular Filt Rate > 60; Glucose 102 mg/dL (65-110); Potassium 4.3 mmol/L (3.4-5.0); Sodium 135 mmol/L (137-145)
[2025-03-06] MEDS: COLLAGENASE OINT 30 GM TUBE 1 APPLIC TOPICAL (11:18)
[2025-03-06] MEDS: SUCRALFATE SUSP 100 MG/ML 10 ML UDC 1000 MG PO ×2 (11:18→20:29)
[2025-03-06] MEDS: MIDODRINE HCL 10 MG TABLET PO ×2 (12:25→16:54)
[2025-03-06] MEDS: CALCIUM CARBONATE (TUMS) 500 MG (200 MG ELEMENTAL) PO (13:49)
[2025-03-06] MEDS: DICLOFENAC SODIUM 1% 100 GM GEL (*BKC) 1 APPLIC TOPICAL ×2 (14:34→20:41)
[2025-03-06] MEDS: HYDROcodone/acetaminophen (*CRX) 5-325 MG TABLET 1 TAB PO ×2 (15:53→20:41)
--- NOTE | 2025-03-06 16:07 | ECG_ITS ---
Test Date: 2025-03-06 16:16:47 Measurements Intervals Peculiar Rate: 55 P: 0 MO: 0 QRS: -25 QRSD: 125 T: 19 QT: 482 QTc: 462 Interpretive Statements POSSIBLE ATRIAL FLUTTER/TACHYCARDIA WITH SLOW VENTRICULAR RESPONSE RIGHT BUNDLE BRANCH BLOCK CONSIDER INFERIOR INFARCT, AGE INDETERMINATE BASELINE ARTIFACT- I, II, III, AVR, AVL, AVF, V1-V6 ABNORMAL ECG Compared to ECG 02/26/2025 18:00:40 HEART RATE HAS DECREASED Electronically Signed On 03-06-2025 17:03:48 CDT by Guanaco Valencia D.O.
--- NOTE | 2025-03-06 21:36 | PC.NURSE ---
Insurance Specialist was changing patient's dressing per his request. While changing dressing patient was asking nurse to do tasks for him, for example, moving his pillow under his head and asking for the head of his bed to be adjusted. Had a discussion with patient that if he plans on going back home after discharge that he needs to be doing these tasks for himself. If patient is unable to perform ADLs he will not be able to return home. Nurse demonstrated how to use the controls on his bed to adjust his head and feet. Patient verbalized understanding.
[2025-03-07 04:19] VITALS: BP 109/52; PULSE 57; RESP 20; TEMP 36.4; O2SAT 98
[2025-03-07 05:05] LABS: Basophils Percent Auto 0.1 % (0.2-1.2); Eosinophils Percent Auto 0.2 % (0-4.4); Hematocrit 26.8 % (42.0-52.0); Immature Granulocyte Absolute 0.14 K/mm3 (0.00-0.031); Immature Granulocyte Percent A 0.7 % (0-0.5); Lymphocytes Absolute Auto 0.85 K/mm3 (0.9-3.2); Lymphocytes Percent Auto 4.5 % (18.3-44.2); Mean Corpuscular HGB Conc 29.9 g/dl (32-36); Mean Corpuscular Hemoglobin 31.4 pg (26-34); Mean Corpuscular Volume 105.1 fl (80-100); Mean Platelet Volume 11.3 fl (7.4-10.4); Monocytes Absolute Auto 0.9 K/mm3 (0.1-0.6); Monocytes Percent Auto 4.7 % (2.6-8.5); Neutrophils Percent Auto 89.8 % (45.5-73.1); Nucleated Red Blood Cells Perc 0.2 % (0.0-0.2); Platelet Count Result 255 k/mm3 (150-375); Red Blood Count 2.55 M/mm3 (4.6-6.20); Red Cell Distribution Width 17.9 % (11.5-14.5); White Blood Count 18.9 K/mm3 (4.5-10.0)
[2025-03-07 05:18] LABS: Anion Gap 7 mmol/L (4-12); Blood Urea Nitrogen 31 mg/dL (9-20); Calcium 7.9 mg/dL (8.4-10.2); Carbon Dioxide 22 mmol/L (22-30); Chloride 108 mmol/L (98-107); Estimated CRCL calculation 68 ml/min; Estimated Glomerular Filt Rate > 60; Glucose 77 mg/dL (65-110); Potassium 4.5 mmol/L (3.4-5.0); Sodium 137 mmol/L (137-145)
[2025-03-07 05:29] LABS: Platelet Estimate Adequate (Adequate)
[2025-03-07 05:30] LABS: Anisocytosis 1+; Burr Cells 2+; Macrocytosis 1+ (NORMAL); Poikilocytosis 1+; Polychromasia 1+
[2025-03-07 05:31] LABS: Schistocytes None Seen; Troponin I 0.289 ng/mL (0.000-0.034)
[2025-03-07] MEDS: SUCRALFATE SUSP 100 MG/ML 10 ML UDC 1000 MG PO ×4 (06:03→20:56)
[2025-03-07] MEDS: HYDROcodone/acetaminophen (*CRX) 5-325 MG TABLET 1 TAB PO (06:06)
[2025-03-07 08:57] LABS: Troponin I 0.268 ng/mL (0.000-0.034)
[2025-03-07 09:28] VITALS: BP 111/51; PULSE 52; RESP 20; TEMP 36.3; O2SAT 100
[2025-03-07 09:30] VITALS: PULSE 52; RESP 20; O2SAT 100
[2025-03-07] MEDS: levoFLOXacin 750 MG TABLET PO (09:30)
[2025-03-07] MEDS: LINEZOLID 600 MG TABLET PO ×2 (09:30→20:56)
[2025-03-07] MEDS: MIDODRINE HCL 10 MG TABLET PO ×3 (09:30→16:12)
[2025-03-07] MEDS: FUROSEMIDE 40 MG TABLET PO (09:30)
[2025-03-07] MEDS: COLLAGENASE OINT 30 GM TUBE 1 APPLIC TOPICAL (09:31)
[2025-03-07 10:52] LABS: Iron 11 ug/dL (49-181)
[2025-03-07 11:03] LABS: Percent Iron Saturation 5 % (20-50)
[2025-03-07 11:33] LABS: Troponin I 0.247 ng/mL (0.000-0.034)
[2025-03-07 12:01] LABS: Folic Acid 4.1 ng/mL (2.76->20)
--- NOTE | 2025-03-07 12:33 | P.CONCA_ITS ---
Assessment and Plan Assessment and plan (1) Elevated troponin: Code(s): R79.89 - Other specified abnormal findings of blood chemistry Status: Acute Assessment and Plan: Troponin levels 0.289, 0.268, 0.247. Mildly elevated and downtrending, not a pattern consistent with ACS. He does not have any clinical signs of ACS. His left neck pain seems musculoskeletal and improved with Voltaren. Cannot rule out underlying coronary artery disease, however, when offered patient declines stress testing. No further cardiac workup recommended at this time. Cardiology will sign off please call with questions. (2) Afib: Qualifiers: Atrial fibrillation type: unspecified Qualified Code(s): I48.91 - Unspecified atrial fibrillation Code(s): I48.91 - Unspecified atrial fibrillation Status: Acute Assessment and Plan: Rate controlled. Not on anticoagulation because of recent GI bleeding. May be candidate for LAAO. Follows with a supervisor putty and caluking at the [facility]. History of Present Illness History of Present Illness Consult date/time: 03/07/25 12:33 Requesting physician: Alexa Darden MD Consult reason: Other (elevated troponin) Reason For Visit: Cellulitis, CHF exacerbation Narrative: Curtis Holbrook is a 74 year old male with chronic atrial fibrillation. He is hospitalized with bilateral lower extremity wounds. Cardiology is consulted for elevated troponin levels. Patient states yesterday when he was being transferred from bed he felt pain in his neck and felt like he pulled a muscle. This complaint triggered troponin levels to be sampled. Patient does not have any chest pain, shortness of breath, palpitations, syncope. He states his neck is still sore. Review of Systems 2 Review of Systems: All systems reviewed & are unremarkable except as noted in HPI and below PMFSH Past Medical History Medical History Erosive esophagitis Gastric ulcer Acute on chronic anemia Hx of shelter use of blood thinners CHF exacerbation JOSSELIN (acute kidney injury) Sepsis Coffee ground emesis Left shoulder pain Afib Degenerative joint disease of knee Hypertension Surgical History Surgical History History of hernia repair Family History Family History Father Diabetes mellitus Hypertension Sibling Diabetes mellitus Mother Hypertension Social History Social History Smoking status: Never smoker Second hand tobacco smoke exposure: No Alcohol intake: never Substance use: never Substance use type: does not use Do You Feel Safe in your Home?: Yes Lack of Transportation: YES Lack of Food: Never True Current Housing: I Have Housing Concerned About Future Housing: No Difficulty Paying Gas/Electric Bills: No Difficulty Paying for Meds: No Currently Unemployed: No Education: High School Diploma/GED Difficulty w/ Childcare or Family Care: No Living arrangements: alone Occupation/Education: retired Spiritual care concerns: No Meds Home Medications and Allergies Home Medications ?Medication ?Instructions ?Recorded ?Confirmed ?Type calcium carbonate 200 mg (0.4 x 500 mg calcium 03/02/25 03/06/25 Rx (1,250 mg)) PO Q6H PRN Indigestion #30 tabs collagenase clostridium histo. 250 1 applic topical Q12HR #30 grams 03/02/25 03/06/25 Rx unit/gram topical ointment (Santyl) docusate sodium 100 mg capsule 100 mg PO Q12H PRN Constipation 03/02/25 03/06/25 Rx #30 caps levofloxacin 750 mg tablet 750 mg PO DAILY #7 tabs 03/02/25 03/06/25 Rx linezolid 600 mg tablet 600 mg PO Q12HR #14 tabs 03/02/25 03/06/25 Rx midodrine 2.5 mg tablet 10 mg (4 x 2.5 mg) PO TID #30 tabs 03/02/25 03/06/25 Rx pantoprazole 40 mg tablet,delayed 40 mg PO BID 16 weeks #224 tabs 03/02/25 03/06/25 Rx release (Protonix) sodium bicarbonate 650 mg tablet 1,300 mg (2 x 650 mg) PO BID #2 03/02/25 03/06/25 Rx tabs sucralfate 100 mg/mL oral 1,000 mg (10 mL) PO ACHS #30 mL 03/02/25 03/06/25 Rx suspension Allergies Allergy/AdvReac Type Severity Reaction Status Date / Time Milk Containing Products Allergy Unknown Rash Verified 02/27/25 12:22 (Dairy) eggs Allergy Unknown Rash Uncoded 02/27/25 12:22 Vital Signs Vital Signs - 24 hr 03/06/25 14:00 03/06/25 15:52 03/06/25 20:00 Temperature 36.1 C L 36.8 C Pulse Rate 99 59 L Respiratory Rate 16 18 Blood Pressure 123/47 L 109/75 Pulse Oximetry 100 100 Oxygen Delivery Room Air Fraction of Inspired Oxygen 03/06/25 20:44 03/06/25 20:51 03/07/25 04:19 Temperature 36.8 C 36.4 C Pulse Rate 96 65 57 L Respiratory Rate 20 20 20 Blood Pressure 104/58 L 109/52 L Pulse Oximetry 93 95 98 Oxygen Delivery Room Air Fraction of Inspired Oxygen 21 03/07/25 09:28 03/07/25 09:30 Temperature 36.3 C L Pulse Rate 52 L 52 L Respiratory Rate 20 20 Blood Pressure 111/51 L Pulse Oximetry 100 100 Oxygen Delivery Room Air Fraction of Inspired Oxygen 21 Exam 2 Const: General: comfortable, no acute distress, alert and awake O rientation/consciousness: patient oriented x3 HENMT: Head: normal to inspection Eyes: General: appearance normal, both eyes and all related structures P upils: Equal, round and reactive pupils present Neck: Neck: normal visual inspection, supple and no JVD Carotids: normal carotid upstroke Resp: Effort & Inspection: normal respiratory effort Auscultation: clear to auscultation bilaterally Cardio: Rate: regular rate Rhythm: abnormal rhythm irregularly irregular Heart sounds: S1 normal heart sound present, S2 normal heart sound present and no murmurs GI: Auscultation: normal bowel sounds Skin: General skin exam: normal color Wounds: wounds noted Neuro: General: patient oriented x3 Cranial nerves: Yes Equal, round and reactive pupils present Extrem: General: normal exam except as noted and pedal edema Psych: Appearance: grossly normal Mental Status: mental status grossly normal Results Labs and Meds 03/07/25 04:49 03/07/25 04:49 Lab results: Cardiac Enzymes 03/07/25 03/07/25 03/07/25 Range/Units 04:49 08:10 10:57 Troponin I 0.289 H* 0.268 H* 0.247 H* (0.000-0.034) ng/mL CBC 03/07/25 Range/Units 04:49 WBC 18.9 H (4.5-10.0) K/mm3 RBC 2.55 L (4.6-6.20) M/mm3 Hgb 8.0 L (14.0-18.0) g/dL Hct 26.8 L (42.0-52.0) % Plt Count 255 (150-375) k/mm3 Lymph # (Auto) 0.85 L (0.9-3.2) K/mm3 [place] # (Auto) 0.9 H (0.1-0.6) K/mm3 Eos # (Auto) 0.0 (0-0.3) K/mm3 Baso # (Auto) 0.0 (0.0-0.1) K/mm3 Comprehensive Metabolic Panel 03/07/25 Range/Units 04:49 Sodium 137 (137-145) mmol/L Potassium 4.5 (3.4-5.0) mmol/L Chloride 108 H (98-107) mmol/L Carbon Dioxide 22 (22-30) mmol/L BUN 31 H (9-20) mg/dL Creatinine 1.03 (0.7-1.3) mg/dL Glucose 77 (65-110) mg/dL Calcium 7.9 L (8.4-10.2) mg/dL Intake and Output 03/06/25 03/07/25 03/07/25 23:59 07:59 15:59 Intake Total 0 150 0 Output Total 825 100 Balance -825 50 0 Intake: Oral 0 150 0 Output: Urine 825 100
--- NOTE | 2025-03-07 13:21 | PM.IMPN ---
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 use of blood thinners: Code(s): Z79.01 - senior care (current) use of anticoagulants Status: Acute (5) Coffee ground emesis: Code(s): K92.0 - Hematemesis Status: Acute (6) Gastric ulcer: Code(s): K25.9 - Gastric ulcer, unspecified as acute or chronic, without hemorrhage or perforation Status: Acute (7) Erosive esophagitis: Code(s): K22.10 - Ulcer of esophagus without bleeding Status: Acute Plan CHF exacerbation ECHO showed diastolic dysfunction leg edema Continue Lasix JOSSELIN resolved Creatinine 1.03 Continue Lasix 40mg PO daily Monitor Hypotension Hx GI bleed and hypovolemia Continue Midodrine monitor Hx of GI bleed Coffee ground emesis and Melena stool Stool culture pending, c diff negative He underwent EGD on 02/27/2025 which shows esophageal ulcer without bleeding, gastritis, unspecific gastric ulcer, duodenitis. As per GI hold Eliquis and repeat the EGD in 4 months. Right LE wound/venous statis Wound care consult Continue Linezolid and levaquin until 02/07 DVT prophylaxis on SCDs, Eliquis on hold Awaiting placement Subjective Date/time seen: 03/07/25 13:21 Interval history: Comfortable at bedside Cardiology evaluated patient for elevated troponin and noted no intervention needed Awaiting SNF placement per PT eval Review of Systems Review of Systems: All systems reviewed & are unremarkable except as noted in HPI and below Exam Narrative: GENERAL: Well-developed, well-nourished, and in no acute distress. HEAD: Normocephalic, atraumatic. EYES: PERRLA and EOMI. NECK: Supple. No JVD CHEST: Clear to auscultation. No respiratory distress. No wheezes rales or rhonchi HEART: Regular rate and rhythm. No murmur heard. Normal peripheral pulses. ABDOMEN: Soft, nontender, nondistended, normal active bowel sounds. EXTREMITIES: Normal range of motion. Bilateral lower extremity 2+ edema extending to the knees SKIN: There is mild erythema of the bilateral legs extending approximately 5 cm proximal to the ankles. There is a clean based ulcerative lesion to the posterior aspect of right foreleg measuring approximately 7 x 5 cm. There are 3 similar smaller lesions noted to the posterior aspect of the left foreleg. The skin of the bilateral 4 legs is weeping clear fluid. Skin otherwise warm, dry, no rash. NEURO: Alert and oriented x3. No focal deficit. Moving all 4 limbs spontaneously PSYCH: Normal mood and affect. Objective Data Vital Signs Vital Signs: Vital Signs - 24 hr 03/06/25 14:00 03/06/25 15:52 03/06/25 20:00 Temperature 97 F L 98.2 F Pulse Rate 99 59 L Respiratory Rate 16 18 Blood Pressure 123/47 L 109/75 Pulse Oximetry 100 100 Oxygen Delivery Room Air Fraction of Inspired Oxygen 03/06/25 20:44 03/06/25 20:51 03/07/25 04:19 Temperature 98.3 F 97.6 F Pulse Rate 96 65 57 L Respiratory Rate 20 20 20 Blood Pressure 104/58 L 109/52 L Pulse Oximetry 93 95 98 Oxygen Delivery Room Air Fraction of Inspired Oxygen 21 03/07/25 09:28 03/07/25 09:30 Temperature 97.4 F L Pulse Rate 52 L 52 L Respiratory Rate 20 20 Blood Pressure 111/51 L Pulse Oximetry 100 100 Oxygen Delivery Room Air Fraction of Inspired Oxygen 21 Intake/Output Intake/Output: Intake & Output 03/04/25 03/05/25 03/06/25 03/07/25 23:59 23:59 23:59 23:59 Intake Total 600 150 Output Total 1025 100 Balance -425 50 Meds/Results Medications: Active Medications Generic Name Dose Route Start Last Admin Trade Name Freq PRN Reason Stop Dose Admin Hydrocodone Bitart/Acetaminophen 1 tab 03/06/25 09:31 03/07/25 06:06 Hydrocodone/Acetaminophen (*Crx) 5-325 Mg Tablet PO 1 tab Q4H PRN Administration Pain Rated 4-6 Calcium Carbonate 200 mg 03/06/25 09:30 03/06/25 13:49 Calcium Carbonate (Tums) 500 Mg (200 Mg Elemental) PO 200 mg Q6H PRN Administration Indigestion Collagenase 1 applic 03/06/25 09:00 03/07/25 09:31 Collagenase Oint 30 Gm Tube TOPICAL 1 applic QAM SHRUTHI Administration Diclofenac Sodium 1 applic 03/06/25 13:56 03/06/25 20:41 Diclofenac Sodium 1% 100 Gm Gel (*Bkc) TOPICAL 1 applic QID PRN Administration Muscle/Joint Pain Docusate Sodium 100 mg 03/06/25 09:30 Docusate Sodium 100 Mg Capsule PO Q12H PRN Constipation Furosemide 40 mg 03/06/25 09:00 03/07/25 09:30 Furosemide 40 Mg Tablet PO 40 mg DAILY SHRUTHI Administration Levofloxacin 750 mg 03/07/25 09:00 03/07/25 09:30 Levofloxacin 750 Mg Tablet PO 750 mg DAILY SHRUTHI Administration Linezolid 600 mg 03/06/25 21:00 03/07/25 09:30 Linezolid 600 Mg Tablet PO 600 mg Q12HR SHRUTHI Administration Midodrine 10 mg 03/06/25 13:00 03/07/25 12:00 Midodrine Hcl 10 Mg Tablet PO 10 mg TID SHRUTHI Administration Sucralfate 1,000 mg 03/06/25 11:30 03/07/25 11:58 Sucralfate Susp 100 Mg/Ml 10 Ml Udc PO 1,000 mg ACHS SHRUTHI Administration Labs Labs: Laboratory Results - last 24 hr 03/07/25 03/07/25 03/07/25 04:49 08:05 08:10 WBC 18.9 H RBC 2.55 L Hgb 8.0 L Hct 26.8 L MCV 105.1 H D MCH 31.4 MCHC 29.9 L RDW 17.9 H Plt Count 255 MPV 11.3 H Immature Gran % (Auto) 0.7 H Neut % (Auto) 89.8 H Lymph % (Auto) 4.5 L [place] % (Auto) 4.7 Eos % (Auto) 0.2 Baso % (Auto) 0.1 L Lymph # (Auto) 0.85 L [place] # (Auto) 0.9 H Eos # (Auto) 0.0 Baso # (Auto) 0.0 Abs Immat Gran (auto) 0.14 H Absolute Neuts (auto) 17.0 H Absolute Nucleated RBC 0.030 H Band Neutrophils % Not Reportable Nucleated RBC % 0.2 Platelet Estimate Adequate Polychromasia 1+ Poikilocytosis 1+ Anisocytosis 1+ Macrocytosis 1+ Phyllis Cells 2+ Schistocytes None seen Sodium 137 Potassium 4.5 Chloride 108 H Carbon Dioxide 22 Anion Gap 7 BUN 31 H Creatinine 1.03 Estim Creat Clear Calc 68 Estimated GFR > 60 Glucose 77 Calcium 7.9 L Iron 11 L TIBC 205 L % Saturation 5 L Ferritin 60.70 Troponin I 0.289 H* 0.268 H* Vitamin B12 741.0 Folate 4.1 03/07/25 10:57 WBC RBC Hgb Hct MCV MCH MCHC RDW Plt Count MPV Immature Gran % (Auto) Neut % (Auto) Lymph % (Auto) [place] % (Auto) Eos % (Auto) Baso % (Auto) Lymph # (Auto) [place] # (Auto) Eos # (Auto) Baso # (Auto) Abs Immat Gran (auto) Absolute Neuts (auto) Absolute Nucleated RBC Band Neutrophils % Nucleated RBC % Platelet Estimate Polychromasia Poikilocytosis Anisocytosis Macrocytosis Phyllis Cells Schistocytes Sodium Potassium Chloride Carbon Dioxide Anion Gap BUN Creatinine Estim Creat Clear Calc Estimated GFR Glucose Calcium Iron TIBC % Saturation Ferritin Troponin I 0.247 H* Vitamin B12 Folate
[2025-03-07 14:00] VITALS: BP 113/51; PULSE 64; RESP 18; TEMP 36.6; O2SAT 100
[2025-03-07 19:54] VITALS: BP 106/82; PULSE 50; RESP 20; TEMP 37.1; O2SAT 90
[2025-03-07] MEDS: DICLOFENAC SODIUM 1% 100 GM GEL (*BKC) 1 APPLIC TOPICAL (21:02)
--- NOTE | 2025-03-07 21:32 | PC.NURSE ---
Had a discussion about home health with patient. Explained to patient that home health can come in and evaluate him. Explained that a home health nurse can come in and monitor his blood pressure/vitals, his edema, weight and CHF signs and symptoms. The nurse can also monitor his wounds and assist with dressing changes on the day or days she visits and can also provide him with supplies as well for his dressing changes. Patient is agreeable to home health at this time, care coordination consult placed.
[2025-03-08 05:13] VITALS: BP 111/44; PULSE 84; RESP 20; TEMP 36.4; O2SAT 100
[2025-03-08] MEDS: SUCRALFATE SUSP 100 MG/ML 10 ML UDC 1000 MG PO ×2 (05:27→11:26)
[2025-03-08 08:12] LABS: Hematocrit 29.5 % (42.0-52.0); Hemoglobin 9.1 g/dL (14.0-18.0); Mean Corpuscular HGB Conc 30.8 g/dl (32-36); Mean Corpuscular Hemoglobin 30.3 pg (26-34); Mean Corpuscular Volume 98.3 fl (80-100); Mean Platelet Volume 10.9 fl (7.4-10.4); Platelet Count Result 259 k/mm3 (150-375); Red Cell Distribution Width 17.6 % (11.5-14.5); White Blood Count 25.3 K/mm3 (4.5-10.0)
[2025-03-08] MEDS: CALCIUM CARBONATE (TUMS) 500 MG (200 MG ELEMENTAL) PO (08:30)
[2025-03-08] MEDS: FUROSEMIDE 40 MG TABLET PO (08:30)
[2025-03-08] MEDS: LINEZOLID 600 MG TABLET PO (08:30)
[2025-03-08] MEDS: MIDODRINE HCL 10 MG TABLET PO ×2 (08:30→12:27)
[2025-03-08] MEDS: levoFLOXacin 750 MG TABLET PO (08:30)
[2025-03-08] MEDS: COLLAGENASE OINT 30 GM TUBE 1 APPLIC TOPICAL (08:31)
[2025-03-08] MEDS: IRON SUCROSE COMPLEX 400 MG, IRON SUCROSE COMPLEX 100 MG in SODIUM CHLORIDE 0.9% IV 250 ML 78.57 MG IVPB (08:31)
--- NOTE | 2025-03-08 10:43 | P.DS_ITS ---
DS: Admitting Diagnosis Discharge Date 03/08/25 Admitting Diagnosis knee pain, edema DS: Discharge Diagnosis Discharge Diagnosis (1) CHF exacerbation: Code(s): I50.9 - Heart failure, unspecified Status: Acute (2) Hypotension: Code(s): I95.9 - Hypotension, unspecified Status: Acute (3) Elevated troponin: Code(s): R79.89 - Other specified abnormal findings of blood chemistry Status: Acute DS: Summary Hospital Course Hospital Course: 74-year-old male with history of atrial fibrillation treated with Eliquis and hypertension presenting with bilateral lower extremity swelling and concern for infection related to open wound. During LAST hospitalization patient had ranjan temesis. He underwent EGD on 02/27/2025 which shows esophageal ulcer without bleeding, gastritis, unspecific gastric ulcer, duodenitis. As per GI hold Eliquis and repeat the EGD in 4 months. 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 Started on oral fluoroquinolones and linezolid until 03/13. Patient was recently admitted in the hospital and was discharged on 03/02/2025.During last admission he was adamant in leaving the hospital and insisting to go home and reported he was doing wound dressing for almost 3 years although there was evidence his wound is in bad condition. Patient needs to assistance for wound dressing change . Patient was managed for CHF exacerbation and hypotension. Midodrine was continued and patient started on Lasix 40mg po daily. Cardiology was consulted for Elevated Troponin and they evaluated patient and recommended stress test which patient declined. Cardiology signed off. Cardiology recommended Patient follow up with his seamer elastic band for LAAO consideration. Also managed for Iron deficiency anemia , hb 9.0 and Isat 5, given 500mg IV Iron. discharged on PO iron x 60 days. Patient was seen by GI prior admission and underwent EGD that showed gastric ulcer and gastritis. GI recommended holding Eliquis for 7 days. SO i represcribed Eliqusi to start on 03/10. Patient will continue Protonix and f/u with GI. JOSSELIN resolved, Discharged on Lasix 40mg daily, and to continue his Antibiotics prescribed from prior admission. Continue Wound care follow up outpatient. F/u with PCP in 3-5 days. Home health. Continue Follow up with Cardiology and GI as instructed. Time Spent with Patient Time attestation: Total time spent providing and/or coordinating discharge services: DS: Data Data Completed and Pending Labs on day of discharge: Labs from last 24 hours 03/08/25 03/07/25 03/07/25 08:00 10:57 08:05 WBC 25.3 H RBC 3.00 L Hgb 9.1 L Hct 29.5 L MCV 98.3 D MCH 30.3 MCHC 30.8 L RDW 17.6 H Plt Count 259 MPV 10.9 H Iron TIBC % Saturation Ferritin Troponin I 0.247 H* Vitamin B12 741.0 Folate 4.1 03/07/25 04:49 WBC RBC Hgb Hct MCV MCH MCHC RDW Plt Count MPV Iron 11 L TIBC 205 L % Saturation 5 L Ferritin 60.70 Troponin I Vitamin B12 Folate Discharge Plan Discharge Attending physician on discharge: Alexa Darden Consulting providers: Harmony Nieves Discharging Clinician: Alexa Darden Anticipated Discharge Date/Time: 03/08/25 10:02 Patient Disposition: Home with Home Health Service Activity: as tolerated Diet: heart healthy Discharge Instructions: Wound care instructions for bilateral lower legs Daily wash lower legs and feet with soap and water Daily apply Santyl ointment to bilateral lower leg ulcers, cover with vaseline gauze, ABD pads and wrap with kerlex. Patient needs to elevate his legs, wear compression stockings or wraps every day and avoid salt in his diet. Patient Instructions: Antibiotic Form, Heart Failure (GEN) Patient Language: Mauritian Stand Alone Forms: General Discharge Information Follow-up/Referrals: Harmony Nieves MD [Physician] - (F/u with cardiology as instructed ) PHYSICIAN NOT ON STAFF,NONSTAFF [Primary Care Provider] - (F/u with PCP in 3-5 days ) Discharge Medications: New furosemide 40 mg Tablet 40 mg PO DAILY 30 Days Qty: 30 1RF Eliquis 5 mg tablet 5 mg PO BID 30 Days Qty: 60 1RF ferrous sulfate 325 mg (65 mg iron) tablet 325 mg PO DAILY 30 Days Qty: 30 1RF Continued linezolid 600 mg Tablet 600 mg PO Q12HR Qty: 14 0RF Rx Instructions: Please complete the course on 0 03/08 docusate sodium 100 mg Capsule 100 mg PO Q12H PRN (Reason: Constipation) Qty: 30 0RF calcium carbonate 500 mg calcium (1,250 mg) Tablet,Chewable 200 mg PO Q6H PRN (Reason: Indigestion) Qty: 30 0RF Santyl 250 unit/gram Ointment 1 applic topical Q12HR Qty: 30 0RF sucralfate 100 mg/mL Suspension 1,000 mg PO ACHS Qty: 30 0RF sodium bicarbonate 650 mg Tablet 1,300 mg PO BID Qty: 2 0RF pantoprazole [Protonix] 40 mg tablet,delayed release (DR/EC) 40 mg PO BID 112 Days Qty: 224 0RF levofloxacin 750 mg tablet 750 mg PO DAILY Qty: 7 0RF Rx Instructions: Please complete the course on 03/08 midodrine 2.5 mg Tablet 10 mg PO TID 30 Days Qty: 90 1RF Date of admission: 03/06/25 07:30 Primary Care Provider: PHYSICIAN NOT ON STAFF,NONSTAFF Admitting Provider: Yady Suárez Attending physician on admission: Yady Suárez Condition: Serious
== END 2025-03-08 15:00 | disposition home health service (06) | DRG 292 ==
LOC: ANHED 03-06 03:03 → ANH2MED 03-06 03:46
PROVIDERS: General Practice; Admitting Provider Internal Medicine; Emergency Provider Preventive Medicine Aerospace Medicine; Visit Provider Internal Medicine
DX: I11.0 Hypertensive heart disease with heart failure (principal); I48.20 Chronic atrial fibrillation, unspecified; K22.10 Ulcer of esophagus without bleeding; N17.9 Acute kidney failure, unspecified; L03.115 Cellulitis of right lower limb; I50.9 Heart failure, unspecified; I95.9 Hypotension, unspecified; I48.91 Unspecified atrial fibrillation; R79.89 Other specified abnormal findings of blood chemistry; D50.9 Iron deficiency anemia, unspecified; M17.0 Bilateral primary osteoarthritis of knee; K25.9 Gastric ulcer, unspecified as acute or chronic, without hemorrhage or perforation; Z79.01 Long term (current) use of anticoagulants
CPT/HCPCS: 36415; 80048; 80053; 82607; 82728; 82746; 83540; 83550; 83880; 84484; 85025; 85027; 93005; 96374; 96375; 97110; 97161; 97166; 97530; 97535; 99285; A9270; J1756; J1885; J1938; J7050

== ENCOUNTER 2025-03-09 17:22 | Emergency (ER) | payer MEDICARE, OTHER, SELFPAY ==
--- NOTE | ~2025-03-09 | US_ITS ---
ULTRASOUND ANKLE BRACHIAL INDEX Ordering provider: Michelle Merida PA-C History: . decreased peripheral pulses, cold . Comparison: None. FINDINGS: Right brachial systolic blood pressure: 121 mmHg Left brachial systolic blood pressure: 103 mmHg Right ankle systolic blood pressure: CNO. Left ankle systolic blood pressure: CNO. Right ankle/arm index (KENIA): can not be calculated. Left ankle/arm index (KENIA): can not be calculated. Note regarding KENIA: --Normal= 1.0 or slightly greater. --Claudication (moderate stenosis or occlusive state)= 0.6 to 0.9. --Rest pain (severe occlusive states)= 0.5 or less. Vessels: IMPRESSION: Highly suggestive of bilateral occlusion or severe stenosis. Clinical correlation and further evalua tion is advised. Michelle Merida was notified with the result of the patient at 8:00 PM on March 09, 2025. Reviewed, dictated and finalized at location A. IMPRESSION: Highly suggestive of bilateral occlusion or severe stenosis. Clinical correlat ion and further evaluation is advised. Michelle Merida was notified with the result of the patient at 8:00 PM on March 09, 2025.
--- NOTE | ~2025-03-09 | XR_ITS ---
XR chest 2V Ordering provider: Michelle Merida PA-C History: 74 years Male with . sob . Comparison: February 25, 2025 FINDINGS: MEDIASTINUM: The cardiac silhouette is markedly enlarged. LUNGS: No infiltrates, effusions or pneumothorax. OTHER: No free air under the diaphragm. Degenerative the spine. Healing fracture in the right fifth rib. IMPRESSION: No acute cardiopulmonary pathology. Reviewed, dictated and finalized at location A.
--- NOTE | ~2025-03-09 | CT_ITS ---
CT abdomen pelvis wo con Ordering provider: Michelle Merida PA-C History: 74 years Male with . abd pain, kidney failure . Comparison: February 25, 2025 Technique: CT abdomen and pelvis without IV and without oral contrast. Automated exposure control and iterative reconstruction technique were employed. The dose-length product was 1509.06 mGy-cm. Findings: VISUALIZED LOWER CHEST: Left basilar atelectasis versus pneumonia with minimal effusion. Slight cardi omegaly. UPPER ABDOMINAL ORGANS: Liver: Normal. Gallbladder: Cholelithiasis. Spleen: Normal. Stomach/duodenum: Normal. Pancreas: Slightly atrophic. Adrenals: Normal. Kidneys: Small size of both kidneys. Small cyst in the right kidney upper pole. PELVIC ORGANS: The bladder is underfilled with thickened wall. Evaluation for cystitis advised. BOWEL AND MESENTERY: Colon: No evidence of diverticulitis. No evidence of appendicitis. Compression over the splenic flexu re is seen bilaterally adjacent fluid collection. Small Bowel: Normal. No obstruction. Peritoneum/mesentery: No significant free air is seen in the left upper abdomen around the large dionne l and the spleen and also around the liver and mid abdomen suggestive of perforation. Evaluation clin ically for any recent procedures is advised. Minimal free fluid is seen in the left upper abdomen, ri ght and left left paracolic gutters and also in the pelvis.. No mesenteric lymphadenopathy. RETROPERITONEUM: Mild atheromatous disease of the abdominal aorta. No retroperitoneal lymphadenopat hy. MUSCULOSKELETAL: Superficial soft tissues: The superficial soft tissues are normal. Bones: Age appropriate degenerative changes of the spine. Bilateral sacroiliitis. IMPRESSION: 1. Significant free air is seen in the upper abdomen. Perforation is highly suggestive. Free fluid i s seen in the paracolic gutters and in the left upper quadrant and also in the pelvis. 2. Left basilar atelectasis versus pneumonia with minimal effusion. 3. Cholelithiasis. 4. Atrophic pancreas. Michelle Merida was notified with the result of the patient at 9:17 PM on March 09, 2025. Reviewed, dictated and finalized at location A. IMPRESSION: 1. Significant free air is seen in the upper abdomen. Perforation is highly schroeder ggestive. Free fluid is seen in the paracolic gutters and in the left upper raúl drant and also in the pelvis. 2. Left basilar atelectasis versus pneumonia with minimal effusion. 3. Cholelithiasis. 4. Atrophic pancreas. Michelle Merida was notified with the result of the patient at 9:17 PM on March 09, 2025.
[2025-03-09 17:20] VITALS: BP 102/65; PULSE 70; RESP 21; TEMP 36.4; O2SAT 100
--- NOTE | 2025-03-09 17:25 | ECG_ITS ---
Test Date: 2025-03-09 17:27:52 Measurements Intervals [place]emp Rate: 68 P: 0 OH: 0 QRS: -24 QRSD: 124 T: 10 QT: 398 QTc: 426 Interpretive Statements ATRILA FLUTTER WITH CONTROLLED RATE BORDERLINE LEFT AXIS DEVIATION [QRS AXIS < -20] RIGHT BUNDLE BRANCH BLOCK [120+ ms QRS DURATION, UPRIGHT V1, 40+ ms S IN I/aVL/V4/V5/V6] Compared to ECG 03/06/2025 16:16:47 NO CHANGE Electronically Signed On 03-10-2025 19:02:15 CDT by Harmony Nieves
[2025-03-09 17:44] LABS: Basophils Percent Auto 0.2 % (0.2-1.2); Hematocrit 34.3 % (42.0-52.0); Hemoglobin 10.3 g/dL (14.0-18.0); Immature Granulocyte Absolute 0.04 K/mm3 (0.00-0.031); Immature Granulocyte Percent A 0.3 % (0-0.5); Lymphocytes Absolute Auto 0.35 K/mm3 (0.9-3.2); Lymphocytes Percent Auto 2.2 % (18.3-44.2); Mean Corpuscular Hemoglobin 29.7 pg (26-34); Mean Corpuscular Volume 98.8 fl (80-100); Mean Platelet Volume 11.2 fl (7.4-10.4); Monocytes Absolute Auto 0.5 K/mm3 (0.1-0.6); Monocytes Percent Auto 2.9 % (2.6-8.5); Neutrophils Percent Auto 94.4 % (45.5-73.1); Platelet Count Result 289 k/mm3 (150-375); Red Blood Count 3.47 M/mm3 (4.6-6.20); Red Cell Distribution Width 18.5 % (11.5-14.5); White Blood Count 15.9 K/mm3 (4.5-10.0)
[2025-03-09 17:58] LABS: Alkaline Phosphatase 117 U/L (38-126)
[2025-03-09 17:59] LABS: Anion Gap 24 mmol/L (4-12); Aspartate Amino Transferase 24 U/L (17-59); Blood Urea Nitrogen 69 mg/dL (9-20); Calcium 8.7 mg/dL (8.4-10.2); Carbon Dioxide 9 mmol/L (22-30); Chloride 104 mmol/L (98-107); Estimated CRCL calculation 21 ml/min; Estimated Glomerular Filt Rate 17; Glucose 90 mg/dL (65-110); Partial Thromboplastin Time 152.6 Seconds (22.3-36.8); Potassium 5.1 mmol/L (3.4-5.0); Sodium 137 mmol/L (137-145)
[2025-03-09 18:09] LABS: Prothrombin Time > 120.0 Seconds (11.1-14.7)
[2025-03-09 18:11] LABS: NT Pro B Type Natriuretic Pept 9800 pg/mL (19.9-100)
[2025-03-09 18:12] LABS: Alanine Aminotransferase 36 U/L (6-50); Troponin I 0.175 ng/mL (0.000-0.034)
[2025-03-09 18:14] LABS: INR > 20.0
[2025-03-09 18:17] LABS: Anisocytosis 1+; Band Neutrophils Percent 0 % (0-6); Burr Cells 1+; Hypochromasia 1+; Platelet Estimate Adequate (Adequate); Schistocytes None Seen
--- OUTSIDE RECORDS SUMMARY | 2025-03-09 18:38 | XMS_ITS | Clinical Summary ---
Author Organization [facility] Address [address] [place] [id number] Care Team Providers Care Photonics Engineer Name Role Phone Unavailable Primary Care Provider [...]
--- NOTE | 2025-03-09 18:41 | ED_ITS ---
HPI - Weakness General Chief complaint: Weakness <Michelle Merida PA-C - Last Filed: 03/10/25 02:59> Stated complaint: weakness <MARCOS Waterman Last Filed: 03/10/25 02:59> Time Seen by Provider: 03/09/25 17:24 <Michelle Merida PA-C - Last Filed: 03/10/25 02:59> Source: patient <MARCOS Waterman Last Filed: 03/10/25 02:59> Mode of arrival: EMS <MARCOS Waterman Last Filed: 03/10/25 02:59> Limitations: other (Poor historian) <Michelle Merida PA-C - Last Filed: 03/10/25 02:59> History of Present Illness HPI Narrative: This is a 74-year-old male that presents to the emergency department for generalized weakness. He was just discharged to home from our facility yesterday. He reports some abdominal pain and nausea currently. Otherwise cannot really localize any complaints. <Michelle Merida PA-C - Last Filed: 03/10/25 02:59> Related Data Allergies/Adverse reactions: Allergies Allergy/AdvReac Type Severity Reaction Status Date / Time Milk Containing Products Allergy Unknown Rash Verified 02/27/25 12:22 (Dairy) eggs Allergy Unknown Rash Uncoded 02/27/25 12:22 <Michelle Merida PA-C - Last Filed: 03/10/25 02:59> Review of Systems 2 Review of Systems: CONSTITUTIONAL: Denies fever CARDIOVASCULAR: Denies chest pain RESPIRATORY: Denies dyspnea. GASTROINTESTINAL: Reports abdominal pain, nausea. Denies vomiting, or diarrhea. GENITOURINARY: Denies dysuria or hematuria. <Michelle Merida PA-C - Last Filed: 03/10/25 02:59> All systems reviewed & are unremarkable except as noted in HPI and below < Michelle Merida PA-C - Last Filed: 03/10/25 02:59> PMFSH Past Medical History Medical History: Medical History Erosive esophagitis Gastric ulcer Acute on chronic anemia Hx of fdc use of blood thinners CHF exacerbation JOSSELIN (acute kidney injury) Sepsis Coffee ground emesis Left shoulder pain Afib Degenerative joint disease of knee Hypertension <Michelle Merida PA-C - Last Filed: 03/10/25 02:59> Surgical History Surgical History: Surgical History History of hernia repair <Michelle Merida PA-C - Last Filed: 03/10/25 02:59> Family History Family History: Family History Father Diabetes mellitus Hypertension Sibling Diabetes mellitus Mother Hypertension <Michelle Merida PA-C - Last Filed: 03/10/25 02:59> Social History Social History: Social History Smoking status: Never smoker Second hand tobacco smoke exposure: No Alcohol intake: never Substance use: never Substance use type: does not use Do You Feel Safe in your Home?: Yes Lack of Transportation: YES Lack of Food: Never True Current Housing: I Have Housing Concerned About Future Housing: No Difficulty Paying Gas/Electric Bills: No Difficulty Paying for Meds: No Currently Unemployed: No Education: High School Diploma/GED Difficulty w/ Childcare or Family Care: No Living arrangements: alone Occupation/Education: retired Spiritual care concerns: No <Michelle Merida PA-C - Last Filed: 03/10/25 02:59> Exam 2 Narrative: GENERAL: Elderly, well-nourished, and in no acute distress. HEAD: Normocephalic, atraumatic. EYES: EOMI. ENT: Nares clear, no rhinorrhea or epistaxis. Mucous membranes dry. Oropharynx without tonsillar hypertrophy exudate or other lesions. NECK: Supple. No adenopathy or masses. CHEST: Clear to auscultation. No respiratory distress. No wheezes rales or rhonchi HEART: Regular rate and rhythm. No murmur heard. Normal peripheral pulses. ABDOMEN: Soft, nondistended, normal active bowel sounds. Tender to palpation throughout the abdomen, without guarding EXTREMITIES: Normal range of motion. Edema to the bilateral lower extremities, feet are cold and purple. Unable to obtain DP pulses due to edema. Capillary refill is slightly delayed SKIN: Warm, dry, no rash. NEURO: No focal deficits. Alert and oriented x3. PSYCH: Normal mood and affect <Michelle Merida PA-C - Last Filed: 03/10/25 02:59> Course Course Emergency Course: I [place] [facility] They have not been able to arrange this. I did also reach out to [facility], family member prefers for him to be transferred to [place]. Will start this process <Michelle Merida PA-C - Last Filed: 03/10/25 02:59> PRINCIPAL DATABASE DEVELOPER/PA Physician Supervision For this patient encounter, I reviewed the PRINCIPAL DATABASE DEVELOPER or PA documentation, treatment plan, and medical decision making and had [id number] time with this patient. I performed all aspects of the MDM as documented. <Lalo Remy MD - Last Filed: 03/10/25 05:09> Consultations Consultation #1: Spoke with general surgery at [place] who recommends [facility], transfer to the ER <Michelle Merida PA-C - Last Filed: 03/10/25 02:59> Date: 03/10/25 <Michelle Merida PA-C - Last Filed: 03/10/25 02:59> Consultation #2: Spoke with ER Dr. Acevedo who accepts patient as transfer <Michelle Merida PA-C - Last Filed: 03/10/25 02:59> Date: 03/10/25 <Michelle Merida PA-C - Last Filed: 03/10/25 02:59> Vital Signs Vital signs: Vital Signs Temperature 97.5 F L 03/09/25 17:20 Pulse Rate 70 03/09/25 17:20 Respiratory Rate 21 H 03/09/25 17:20 Blood Pressure 102/65 03/09/25 17:20 Pulse Oximetry 100 03/09/25 17:20 Oxygen Delivery Room Air 03/09/25 17:20 Temperature 97.5 F L 03/09/25 17:20 Pulse Rate 78 03/10/25 01:24 Respiratory Rate 16 03/10/25 01:24 Blood Pressure 110/67 03/10/25 01:24 Pulse Oximetry 97 03/10/25 01:24 Oxygen Delivery Room Air 03/09/25 17:20 <Michelle Merida PA-C - Last Filed: 03/10/25 02:59> Vital Signs Temperature 97.5 F L 03/09/25 17:20 Pulse Rate 70 03/09/25 17:20 Respiratory Rate 21 H 03/09/25 17:20 Blood Pressure 102/65 03/09/25 17:20 Pulse Oximetry 100 03/09/25 17:20 Oxygen Delivery Room Air 03/09/25 17:20 Temperature 97.5 F L 03/09/25 17:20 Pulse Rate 78 03/10/25 01:24 Respiratory Rate 16 03/10/25 01:24 Blood Pressure 110/67 03/10/25 01:24 Pulse Oximetry 97 03/10/25 01:24 Oxygen Delivery Room Air 03/09/25 17:20 <Lalo Remy MD - Last Filed: 03/10/25 05:09> MDM - Weakness MDM Narrative Medical decision making narrative: Patient presents to the emergency department for generalized weakness, abdominal discomfort. Patient is afebrile. His vitals are stable. CBC with leukocytosis to 15.9. Shows normocytic anemia hemoglobin of 10.3. Metabolic panel with evidence of acute kidney injury with creatinine of 3.49, BUN is 69. EKG without acute changes compared to previous, his baseline troponin is elevated at 0.175. Patient's PT and INR is elevated as well. Patient takes Eliquis for history of atrial fibrillation. Chest x-ray without acute cardiopulmonary abnormality. Patient noted to have cool, purple feet. I was not able to Doppler palpate pulses in his feet. He is not having any paresthesias or pain in the feet. He has normal range of motion. ABIs highly suggestive bilateral occlusion or severe stenosis. CT abdomen and pelvis shows perforated viscus. Left basilar atelectasis versus pneumonia. Cholelithiasis. Patient was cautiously hydrated due to recent admission for fluid overload. Started on IV antibiotics. Given dose of Protonix and Pepcid. [facility] They have not been able to arrange this at this time. I did also reach out to [facility] initially, then family member decided they preferred for him to be transferred to [place]. Spoke with general surgery at [place] who recommends [facility], transfer to the ER. Spoke with ER Dr. Acevedo who accepts patient as transfer <Michelle Merida PA-C - Last Filed: 03/10/25 02:59> Patient presents to the emergency department for generalized weakness, abdominal discomfort. Patient is afebrile. His vitals are stable. CBC with leukocytosis to 15.9. Shows normocytic anemia hemoglobin of 10.3. Metabolic panel with evidence of acute kidney injury with creatinine of 3.49, BUN is 69. EKG without acute changes compared to previous, his baseline troponin is elevated at 0.175. Patient's PT and INR is elevated as well. Patient takes Eliquis for history of atrial fibrillation. Chest x-ray without acute cardiopulmonary abnormality. Patient noted to have cool, purple feet. I was not able to Doppler palpate pulses in his feet. He is not having any paresthesias or pain in the feet. He has normal range of motion. ABIs highly suggestive bilateral occlusion or severe stenosis. CT abdomen and pelvis shows perforated viscus. Left basilar atelectasis versus pneumonia. Cholelithiasis. Patient was cautiously hydrated due to recent admission for fluid overload. Started on IV antibiotics. Given dose of Protonix and Pepcid. [place] [facility]. They have not been able to arrange this at this time. I did also reach out to [facility] initially, then family member decided they preferred for him to be transferred to [place]. Spoke with general surgery at [place] who recommends [facility], transfer to the ER. Spoke with ER Dr. Acevedo who accepts patient as transfer. <Lalo Remy MD - Last Filed: 03/10/25 05:09> Differential Diagnosis Differential diagnosis: Likely anemia, hypoglycemia, sepsis, dehydration and other (acute kidney injury, peptic ulcer disease, perforated viscus, pneumonia, vascular disease) < Michelle Merida PA-C - Last Filed: 03/10/25 02:59> Lab Data Attestation: I reviewed the patient's lab results. <Michelle Merida PA-C - Last Filed: 03/10/25 02:59> Result diagrams: 03/09/25 17:38 03/09/25 17:38 <Michelle Merida PA-C - Last Filed: 03/10/25 02:59> Labs: Lab Results 03/09/25 03/09/25 Range/Units 17:38 19:02 WBC 15.9 H (4.5-10.0) K/mm3 RBC 3.47 L (4.6-6.20) M/mm3 Hgb 10.3 L (14.0-18.0) g/dL Hct 34.3 L (42.0-52.0) % MCV 98.8 (80-100) fl MCH 29.7 (26-34) pg MCHC 30.0 L (32-36) g/dl RDW 18.5 H (11.5-14.5) % Plt Count 289 (150-375) k/mm3 MPV 11.2 H (7.4-10.4) fl Immature Gran % (Auto) 0.3 (0-0.5) % Neut % (Auto) 94.4 H (45.5-73.1) % Lymph % (Auto) 2.2 L (18.3-44.2) % [place] % (Auto) 2.9 (2.6-8.5) % Eos % (Auto) 0.0 (0-4.4) % Baso % (Auto) 0.2 (0.2-1.2) % Lymph # (Auto) 0.35 L (0.9-3.2) K/mm3 [place] # (Auto) 0.5 (0.1-0.6) K/mm3 Eos # (Auto) 0.0 (0-0.3) K/mm3 Baso # (Auto) 0.0 (0.0-0.1) K/mm3 Abs Immat Gran (auto) 0.04 H (0.00-0.031) K/mm3 Absolute Neuts (auto) 15.0 H (1.3-6.7) K/mm3 Absolute Nucleated RBC 0.160 H (0.0-0.012) K/mm3 Band Neutrophils % 0 (0-6) % Nucleated RBC % 1.0 H (0.0-0.2) % Platelet Estimate Adequate (Adequate) Hypochromasia 1+ Anisocytosis 1+ [place] Cells 1+ Schistocytes None seen PT > 120.0 H > 120.0 H (11.1-14.7) Seconds INR > 20.0 H* > 20.0 H* APTT 152.6 H 144.4 H (22.3-36.8) Seconds Fibrinogen 525 H (215-510) mg/dl D-Dimer 1.67 H (<0.48) ug/mL Sodium 137 (137-145) mmol/L Potassium 5.1 H (3.4-5.0) mmol/L Chloride 104 (98-107) mmol/L Carbon Dioxide 9 L (22-30) mmol/L Anion Gap 24 H (4-12) mmol/L BUN 69 H D (9-20) mg/dL Creatinine 3.49 H (0.7-1.3) mg/dL Estim Creat Clear Calc 21 ml/min Estimated GFR 17 L (59 - ) Glucose 90 (65-110) mg/dL Calcium 8.7 (8.4-10.2) mg/dL Total Bilirubin 2.0 H (0.2-1.3) mg/dL AST 24 (17-59) U/L ALT 36 (6-50) U/L Alkaline Phosphatase 117 (38-126) U/L Troponin I 0.175 H* (0.000-0.034) ng/mL NT-Pro-B Natriuret Pep 9800 H (19.9-100) pg/mL Total Protein 6.0 L (6.3-8.2) g/dL Albumin 3.0 L (3.5-5.1) g/dL Lipase 37 (23-300) U/L <Michelle Merida PA-C - Last Filed: 03/10/25 02:59> Lab Results 03/09/25 03/09/25 Range/Units 17:38 19:02 WBC 15.9 H (4.5-10.0) K/mm3 RBC 3.47 L (4.6-6.20) M/mm3 Hgb 10.3 L (14.0-18.0) g/dL Hct 34.3 L (42.0-52.0) % MCV 98.8 (80-100) fl MCH 29.7 (26-34) pg MCHC 30.0 L (32-36) g/dl RDW 18.5 H (11.5-14.5) % Plt Count 289 (150-375) k/mm3 MPV 11.2 H (7.4-10.4) fl Immature Gran % (Auto) 0.3 (0-0.5) % Neut % (Auto) 94.4 H (45.5-73.1) % Lymph % (Auto) 2.2 L (18.3-44.2) % [place] % (Auto) 2.9 (2.6-8.5) % Eos % (Auto) 0.0 (0-4.4) % Baso % (Auto) 0.2 (0.2-1.2) % Lymph # (Auto) 0.35 L (0.9-3.2) K/mm3 [place] # (Auto) 0.5 (0.1-0.6) K/mm3 Eos # (Auto) 0.0 (0-0.3) K/mm3 Baso # (Auto) 0.0 (0.0-0.1) K/mm3 Abs Immat Gran (auto) 0.04 H (0.00-0.031) K/mm3 Absolute Neuts (auto) 15.0 H (1.3-6.7) K/mm3 Absolute Nucleated RBC 0.160 H (0.0-0.012) K/mm3 Band Neutrophils % 0 (0-6) % Nucleated RBC % 1.0 H (0.0-0.2) % Platelet Estimate Adequate (Adequate) Hypochromasia 1+ Anisocytosis 1+ [place] Cells 1+ Schistocytes None seen PT > 120.0 H > 120.0 H (11.1-14.7) Seconds INR > 20.0 H* > 20.0 H* APTT 152.6 H 144.4 H (22.3-36.8) Seconds Fibrinogen 525 H (215-510) mg/dl D-Dimer 1.67 H (<0.48) ug/mL Sodium 137 (137-145) mmol/L Potassium 5.1 H (3.4-5.0) mmol/L Chloride 104 (98-107) mmol/L Carbon Dioxide 9 L (22-30) mmol/L Anion Gap 24 H (4-12) mmol/L BUN 69 H D (9-20) mg/dL Creatinine 3.49 H (0.7-1.3) mg/dL Estim Creat Clear Calc 21 ml/min Estimated GFR 17 L (59 - ) Glucose 90 (65-110) mg/dL Calcium 8.7 (8.4-10.2) mg/dL Total Bilirubin 2.0 H (0.2-1.3) mg/dL AST 24 (17-59) U/L ALT 36 (6-50) U/L Alkaline Phosphatase 117 (38-126) U/L Troponin I 0.175 H* (0.000-0.034) ng/mL NT-Pro-B Natriuret Pep 9800 H (19.9-100) pg/mL Total Protein 6.0 L (6.3-8.2) g/dL Albumin 3.0 L (3.5-5.1) g/dL Lipase 37 (23-300) U/L <Lalo Remy MD - Last Filed: 03/10/25 05:09> Imaging Data Radiologist's impression: ITS Impressions Chest X-Ray 03/09/25 17:54 IMPRESSION: No acute cardiopulmonary pathology. Ankle Brachial Index 03/09/25 19:53 IMPRESSION: Highly suggestive of bilateral occlusion or severe stenosis. Clinical correlation and further evaluation is advised. Michelle Merida was notified with the result of the patient at 8:00 PM on March 09, 2025. Abdomen/Pelvis CT 03/09/25 21:02 IMPRESSION: 1. Significant free air is seen in the upper abdomen. Perforation is highly suggestive. Free fluid is seen in the paracolic gutters and in the left upper quadrant and also in the pelvis. 2. Left basilar atelectasis versus pneumonia with minimal effusion. 3. Cholelithiasis. 4. Atrophic pancreas. Michelle Merida was notified with the result of the patient at 9:17 PM on March 09, 2025. <Michelle Merida PA-C - Last Filed: 03/10/25 02:59> ECG Data EKG #1: ECG completion date: 03/09/25 <Michelle Merida PA-C - Last Filed: 03/10/25 02:59> EKG Interpretation: normal rate, RBBB, normal QT and no acute changes (Compared to EKG 03/06/2025) <MARCOS Waterman Last Filed: 03/10/25 02:59> Critical Care Time Critical Care Time Critical Care Time: Yes <MARCOS Waterman Last Filed: 03/10/25 02:59> Total Critical Care Time: 60 <MARCOS Waterman Last Filed: 03/10/25 02:59> Discharge Plan Discharge Clinical Impression: Perforated viscus, Acute kidney injury, Elevated INR, Peripheral vascular disease <MARCOS Waterman Last Filed: 03/10/25 02:59> Patient Disposition: Acute Care Hospital <MARCOS Waterman Last Filed: 03/10/25 02:59> Condition: Guarded Prognosis <MARCOS Waterman Last Filed: 03/10/25 02:59> Patient Language: Greenlandic <MARCOS Waterman Filed: 03/10/25 02:59> Prescriptions: No Action linezolid 600 mg Tablet 600 mg PO Q12HR Qty: 14 0RF Rx Instructions: Please complete the course on 0 03/08 docusate sodium 100 mg Capsule 100 mg PO Q12H PRN (Reason: Constipation) Qty: 30 0RF calcium carbonate 500 mg calcium (1,250 mg) Tablet,Chewable 200 mg PO Q6H PRN (Reason: Indigestion) Qty: 30 0RF Santyl 250 unit/gram Ointment 1 applic topical Q12HR Qty: 30 0RF sucralfate 100 mg/mL Suspension 1,000 mg PO ACHS Qty: 30 0RF sodium bicarbonate 650 mg Tablet 1,300 mg PO BID Qty: 2 0RF pantoprazole [Protonix] 40 mg tablet,delayed release (DR/EC) 40 mg PO BID 112 Days Qty: 224 0RF levofloxacin 750 mg tablet 750 mg PO DAILY Qty: 7 0RF Rx Instructions: Please complete the course on 03/08 furosemide 40 mg Tablet 40 mg PO DAILY 30 Days Qty: 30 1RF Eliquis 5 mg tablet 5 mg PO BID 30 Days Qty: 60 1RF ferrous sulfate 325 mg (65 mg iron) tablet 325 mg PO DAILY 30 Days Qty: 30 1RF midodrine 2.5 mg Tablet 10 mg PO TID 30 Days Qty: 90 1RF <Michelle Merida PA-C - Last Filed: 03/10/25 02:59> Follow-up/Referrals: Zari Chong [Other] <Michelle Merida PA-C - Last Filed: 03/10/25 02:59>
--- NOTE | 2025-03-09 19:12 | PC.NURSE ---
Pt refusing straight catheterization. Pt attempted to urinate, unable to provide sample at this time. Bladder scan showed a total of 3ml in bladder at this time. Pt states if you give me a drink of water, I can start peeing . Pt educated that he cannot drink any water yet.
[2025-03-09 19:20] LABS: Partial Thromboplastin Time 144.4 Seconds (22.3-36.8)
[2025-03-09 19:29] LABS: INR > 20.0; Prothrombin Time > 120.0 Seconds (11.1-14.7)
[2025-03-09] MEDS: SODIUM CHLORIDE 0.9% IV 500 ML 999 ML IV CONT ×2 (19:39→22:40)
[2025-03-09] MEDS: ONDANSETRON INJ 4 MG/2 ML VIAL IV PUSH (19:39)
[2025-03-09 19:41] VITALS: BP 104/59; PULSE 61; RESP 19; O2SAT 99
--- NOTE | 2025-03-09 20:37 | PC.NURSE ---
Lipase, DDimer, and Fibrenogen added on to labs.
[2025-03-09 20:46] LABS: Fibrinogen 525 mg/dl (215-510)
[2025-03-09 20:49] LABS: D Dimer 1.67 ug/mL (<0.48)
[2025-03-09 20:56] LABS: Lipase 37 U/L (23-300)
--- NOTE | 2025-03-09 21:39 | PC.NURSE ---
Attempted blood cultures x 2 sticks. Was told by chemical lab technician that pt was stuck x 4 earlier for blood. This RN notified phlebotomy.
--- NOTE | 2025-03-09 22:15 | PC.NURSE ---
Phlebotomy unable to obtain cultures or lactic as well. WILFREDO Martinez notified and wanted abx started regardless.
[2025-03-09] MEDS: PIPERACILLN/TAZ 3.375GM/NS50ML 3.375 GM/50 ML BAG IVPB (22:21)
[2025-03-09] MEDS: FAMOTIDINE 20 MG/2 ML VIAL IV PUSH (22:21)
[2025-03-09] MEDS: PANTOPRAZOLE SODIUM IV 40 MG VIAL 80 MG IV PUSH (22:22)
[2025-03-09 22:29] VITALS: BP 105/41; PULSE 59; RESP 16; O2SAT 97
[2025-03-09 22:36] VITALS: BP 110/65; PULSE 62; RESP 15; O2SAT 100
[2025-03-09 23:49] VITALS: BP 130/54; PULSE 61; RESP 17; O2SAT 100
[2025-03-10] MEDS: SODIUM CHLORIDE 0.9% IV 500 ML 999 ML IV CONT (00:05)
--- NOTE | 2025-03-10 00:06 | PC.NURSE ---
Pt requesting to sit on the side of the bed to get feeling to my legs . Pt educated on safety and the need to stay in bed. Pt placed on bed alarm. Pt demanding to sign papers to give consent to sit on side of the bed stating I am the boss, I make the rules. If you do not let me sit on the side of the bed, I will climb over this rail . Pt requesting to speak to person in charge because he would like to go home. division operations manager Apurva made aware at this time and this RN asked if she would go speak to patient. Pt patiently awaiting to have conversation with charge nurse. Call light within reach and bed alarm plugged in.
--- NOTE | 2025-03-10 00:27 | PC.NURSE ---
shipping room helper Mandy and Phlebotomy attempted to obtain ordered blood cultures and lactic and were unsuccessful. EDWILFREDO White starting ABX without ordered blood cultures.
[2025-03-10] MEDS: HUMAN PROTHROMBIN COMPLEX(PCC) 5,000 UNITS in PREMIXIV 0 ML 504 UNITS IV CONT (00:44)
[2025-03-10 01:24] VITALS: BP 110/67; PULSE 78; RESP 16; O2SAT 97
== END 2025-03-10 01:24 | disposition short-term general hospital (02) ==
PROVIDERS: Emergency Provider Physician Assistant
DX: K63.1 Perforation of intestine (nontraumatic) (principal); I73.9 Peripheral vascular disease, unspecified; N17.9 Acute kidney failure, unspecified; R79.1 Abnormal coagulation profile; I50.9 Heart failure, unspecified; I11.0 Hypertensive heart disease with heart failure; I48.91 Unspecified atrial fibrillation; M17.9 Osteoarthritis of knee, unspecified; K80.20 Calculus of gallbladder without cholecystitis without obstruction; K86.89 Other specified diseases of pancreas; I45.10 Unspecified right bundle-branch block; I48.92 Unspecified atrial flutter; Z79.899 Other long term (current) drug therapy; Z79.01 Long term (current) use of anticoagulants
CPT/HCPCS: 36415; 71046; 74176; 80053; 83690; 83880; 84484; 85025; 85380; 85384; 85610; 85730; 93005; 93922; 96365; 96367; 96375; 99285; J2405; J2470; J2543; J7040; J7168